=== PATIENT | female | born 1990 | race Caucasian/White ===

== ENCOUNTER 2023-05-15 14:02 | Outpatient (OUT) | payer OTHER, SELFPAY ==
--- NOTE | 2023-05-15 14:07 | US_ITS ---
The [address] [address] Patient Name: SOBIA CHAUDHARI MRN: [id number] date: 1990 Sex: F Assigned Patient Location: US Current Patient Location: US Accession/Order Number: [id number] Exam Date: 05/15/2023 14:07 Report Date: 05/15/2023 15:27 At the request of: CRISTEL HILL Procedure: US OB transvaginal EXAMINATION: US OB transvaginal HISTORY: MISSED MENSES COMPARISON: No relevant comparison available. FINDINGS: GESTATIONAL SAC: Present YOLK SAC: Present POLE: Present CARDIAC: Present UTERUS: Normal size and appearance. OVARIES: Right: Normal. Left: Not seen. CERVIX: 4.3 cm in length and closed. CUL-DE-SAC: Normal. OTHER: None. AGE BY LMP: 10 weeks 0 days RACHEL BY LMP: 12/11/2023 AGE BY US CRL: 8 weeks 4 days RACHEL BY US CRL: 12/21/2023 US/US OB transvaginal IMPRESSION: 1. Uterus is retroverted placement deep within the pelvis which limits evaluation. 2. Single intrauterine . 3. The fetus is not well seen and there is a questionable adjacent structures/mass. This very well could represent normal protrusion of abdominal contents external to the abdomen between weeks 6 and 10. Follow-up is recommended. Electronically authenticated by: COMFORT SUNG Date: 05/15/2023 15:27
== END 2023-05-15 14:03 | disposition home or self-care (01) ==
LOC: US 14:04
PROVIDERS: PCP Family Medicine; Visit Provider Obstetrics & Gynecology
DX: N92.6 Irregular menstruation, unspecified (principal); Z33.1 Pregnant state, incidental
CPT/HCPCS: 76817

== ENCOUNTER 2023-06-12 13:01 | Outpatient (OUT) | payer OTHER, SELFPAY ==
[2023-06-12 15:04] LABS: BOX Test Sent Out Y
== END 2023-06-12 13:02 | disposition home or self-care (01) ==
LOC: LAB 13:02
PROVIDERS: Visit Provider Obstetrics & Gynecology
DX: Z34.80 Encounter for supervision of other normal pregnancy, unspecified trimester (principal)
CPT/HCPCS: 36415

== ENCOUNTER 2023-07-14 21:43 | Outpatient (REF) | payer OTHER, SELFPAY ==
[2023-07-18 00:07] LABS: Age Gdln ACOG Testing Note (.); HPV Aptima Negative (Negative); IGP, Aptima HPV, rfx 16/18,45 Note (.)
== END 2023-07-14 21:44 | disposition home or self-care (01) ==
LOC: LAB 21:43
PROVIDERS: Visit Provider Physician Assistant
DX: Z01.419 Encounter for gynecological examination (general) (routine) without abnormal findings (principal)
CPT/HCPCS: 87624; G0145

== ENCOUNTER 2023-08-09 11:16 | Outpatient (OUT) | payer OTHER, SELFPAY ==
--- NOTE | 2023-08-09 | US_ITS ---
[address] [address] Patient Name: SOBIA CHAUDHARI MRN: [id number] date: 1990 Sex: F Assigned Patient Location: US Current Patient Location: Accession/Order Number: [id number] Exam Date: 08/09/2023 11:18 Report Date: 08/10/2023 00:44 At the request of: CRISTEL HILL Procedure: US OB anatomy EXAMINATION: US OB anatomy, US OB transvaginal HISTORY: SECOND TRIMESTER Z 34.92 COMPARISON: No relevant comparison available. TECHNIQUE: Transabdominal sonographic examination was performed for obstetrical and evaluation. FINDINGS: Number: 1 Heart Rate: 139.9 bpm H.B. /min Amniotic Fluid Volume: Subjectively normal Placental Location: Anterior-fundal; lower margin is 4.8 cm from internal os. Cervix Length: 5 cm , closed. ANATOMY: Normal Structures -cerebellum, choroid plexus, cisterna magna, lateral cerebral ventricles, orbits, midline falx, hard palate, four-chamber heart, RVOT, LVOT, stomach, kidneys, bladder, umbilical cord insertion into abdomen, three-vessel cord, cervical spine, thoracic spine, lumbar spine, sacral spine, right upper extremity, left upper extremity, right lower extremity, left lower extremity. SUBOPTIMALLY SEEN: None ABNORMALITIES: None BIOMETRY: BPD: 5.2 cm 21 weeks 5 days HC: 19.3 cm 21 weeks 3 days AC: 15.7 cm 20 weeks 6 days FL: 3.6 cm 21 weeks 3 days EFW:406.0 grams; 64% FL/AC: 22.9 FL/BPD: 69.9 HC/AC: 1.2 GESTATIONAL AGE: Age by EDC: 20 weeks 6 days RACHEL by EDC: 12/21/2023 Age by current US: 21 weeks 3 days RACHEL by current US: 12/17/2023 US/US OB anatomy IMPRESSION: 1. Single live intrauterine with growth detailed above. Electronically authenticated by: COMFORT SUNG Date: 08/10/2023 00:44
--- NOTE | 2023-08-09 | US_ITS ---
[address] [address] Patient Name: SOBIA CHAUDHARI MRN: [id number] date: 1990 Sex: F Assigned Patient Location: US Current Patient Location: Accession/Order Number: [id number] Exam Date: 08/09/2023 11:18 Report Date: 08/10/2023 00:44 At the request of: CRISTEL HILL Procedure: US OB transvaginal EXAMINATION: US OB anatomy, US OB transvaginal HISTORY: SECOND TRIMESTER Z 34.92 COMPARISON: No relevant comparison available. TECHNIQUE: Transabdominal sonographic examination was performed for obstetrical and evaluation. FINDINGS: Number: 1 Heart Rate: 139.9 bpm H.B. /min Amniotic Fluid Volume: Subjectively normal Placental Location: Anterior-fundal; lower margin is 4.8 cm from internal os. Cervix Length: 5 cm , closed. ANATOMY: Normal Structures -cerebellum, choroid plexus, cisterna magna, lateral cerebral ventricles, orbits, midline falx, hard palate, four-chamber heart, RVOT, LVOT, stomach, kidneys, bladder, umbilical cord insertion into abdomen, three-vessel cord, cervical spine, thoracic spine, lumbar spine, sacral spine, right upper extremity, left upper extremity, right lower extremity, left lower extremity. SUBOPTIMALLY SEEN: None ABNORMALITIES: None BIOMETRY: BPD: 5.2 cm 21 weeks 5 days HC: 19.3 cm 21 weeks 3 days AC: 15.7 cm 20 weeks 6 days FL: 3.6 cm 21 weeks 3 days EFW:406.0 grams; 64% FL/AC: 22.9 FL/BPD: 69.9 HC/AC: 1.2 GESTATIONAL AGE: Age by EDC: 20 weeks 6 days RACHEL by EDC: 12/21/2023 Age by current US: 21 weeks 3 days RACHEL by current US: 12/17/2023 US/US OB transvaginal IMPRESSION: 1. Single live intrauterine with growth detailed above. Electronically authenticated by: COMFORT SUNG Date: 08/10/2023 00:44
--- OUTSIDE RECORDS SUMMARY | 2023-08-09 11:17 | XMS_ITS | CCD ---
Author Name Unknown Address [address] [place] [address] Organization [facility] Care Team Providers Care Immunohematologist Name Role Phone HAIDER, DR COLBERT Admitting Unavailable HAIDER, DR COLBERT Attending Unavailable HAIDER, DR COLBERT Primary Care Unavailable HAIDER, DR COLBERT Consulting Unavailable LIZ, DR FAM Admitting Unavailable LIZ, DR FAM Attending Unavailable HAIDER, DR COLBERT Primary Care Unavailable LIZ, DR FAM Consulting Unavailable BASHIR ORTIZ Attending Unavailable Allergies Allergy Classification Reported Allergen(s) Allergy Type Date of Onset Reaction(s) Facility (1 source) Penicillins Drug allergy (disorder) 05-26-2013 [facility] (1 source) traMADol Drug Allergy 05-18-2016 [facility] Problems Active Problems Problem Classification Problem Date Documented Date Episodic/Chronic Immunizations and screening for infectious disease (1 source) Encounter for screening for human papillomavirus (HPV); Translations: [ENC SCREENING HUMAN PAPILLOMAVIRUS] Onset: 03-07-2022 Episodic Other screening for suspected conditions (not mental disorders or infectious disease) (4 sources) Encounter for screening for malignant neoplasm of cervix; Translations: [ENC SCREENING MALIG NEOPLASM CERV] Onset: 03-06-2022 Episodic Unclassified (3 sources) CONTACT W/AND (SUSP) EXPOS COVID-19; Translations: [CONTACT W/AND (SUSP) EXPOS COVID-19] Onset: 07-28-2021 Past or Other Problems Problem Classification Problem Date Documented Da te Episodic/Chronic Unclassified (1 source) CONTACT W/AND (SUSP) EXPOS COVID-19; Translations: [CONTACT W/AND (SUSP) EXPOS COVID-19] Onset: 07-24-2021 Viral infection (1 source) Viral infection, unspecified; Translations: [VIRAL INFECTION UNSPECIFIED] Onset: 07-28-2021 Episodic Results Test Name Value Interpretation Reference Range Facil ity PAP ACOG PANEL 2: 30 to 65on 03-12-2022 . . Normal [facility] Comment on above: Result Comment: Performed at: WB Performed By: #### [id number] #### [facility] [address] [place] [address] Dr. Michelle Gunderson Age Gdln ACOG Testing 30-65 Normal [facility] Comment on above: Performed By: #### [id number] #### [facility] [address] [address] [address] Michelle Gunderson DIAGNOSIS: Comment Normal [facility] Comment on above: Result Comment: NEGATIVE FOR INTRAEPITHE LIAL LESION OR MALIGNANCY. Performed at: WB Performed By: #### [id number] #### [facility] [address] [place] [address] Dr. Michelle Gunderson HPV Aptima Negative Normal Negative [facility] Comment on above: Result Comment: This nucleic acid amplif ication test detects fourteen high-risk HPV types (16,18,31,33,35,39,45,51,52,56,58,59,66,68) without differentiation. Performed at: =G Performed By: #### [id number] #### [facility] [address] [place] [address] Dr. Michelle Gunderson Methodology: CTIM [facility] Comment on above: Result Comment: The Thin Prep(R) Pediatric Acute Care Unit Nurse was unable to read this specimen. Therefore a manual review was performed. Performed at: WB Performed By: #### [id number] #### [facility] [address] [place] [address] Dr. Michelle Gunderson Note: Comment Normal [facility] Comment on above: Result Comment: The Pap smear is a scree jennifer test designed to aid in the detection of premalignant and malignant conditions of the uterine cervix. It is not a diagnostic procedure and should not be used as the sole means of detecting cervical cancer. Both false-positive and false-negative reports do occur. . Performed at: WB Performed By: #### [id number] #### [facility] [address] [place] [address] Dr. Michelle Gunderson Performed by: Comment Normal [facility] Comment on above: Result Comment: Leopoldo Lee, Cytotech nologist (ASCP) Performed at: WB Performed By: #### [id number] #### [facility] [address] [address] [address] Michelle Gunderson Specimen adequacy: Comment Normal [facility] Comment on above: Result Comment: Satisfactory for evaluat ion. Endocervical and/or squamous metaplastic cells (endocervical component) are present. Partially obscuring thick areas are present. Performed at: WB Performed By: #### [id number] #### [facility] [address] [address] [address] Michelle Gunderson Covid-19 PCR ([facility])on SARS-CoV-2 (COVID-19) RNA JOSE MIGUEL+probe Ql (Unsp spec) Not detected Normal NOT DETECTED [facility] Comment on above: Result Comment: This test is not yet pilar roved or cleared by the [place] FDA. When there are no FDA-approved or cleared tests available, and other criteria are met, FDA can make tests available under an emergency access mechanism called an Emergency Use Authorization (EUA). The EUA for this test is supported by the [employer] of Health and Human Service's (HHS's) declaration that circumstances exist to justify the emergency use of in vitro diagnostics for the detection and/or diagnosis of the virus that causes COVID-19. This EUA will remain in effect (meaning this test can be used) for the duration of the COVID-19 declaration justifying emergency of IVDs, unless it is terminated or revoked by FDA (after which the test may no longer be used). When diagnostic testing is negative, the possibility of a false negative should be considered in the context of a patient's recent exposures and the presence of clinical signs and symptoms consistent with SARS-CoV-2. Performed By: #### C VDTB #### [facility] [address] [place] [address] Dr. Michelle Gunderson Encounters Encounter Date Encounter Type Care Provider Facility Start: 07-14-2023 End: 07-14-2023 ambulatory BASHIR ORTIZ Not Available Start: 03-06-2022 End: 03-06-[address] CRISTEL HILL Facility:[facility] Start: 07-24-2021 End: 07-24-[address] SAYRA MALONEY Facility:[facility] Payers Date Payer Category Payer Unknown [id number] 1990 Unknown [id number] 1990 Unknown [id number] 1958 Unknown [id number] Summary Purpose Family History No Family History Records FoundNo Family History Records Found Advance Directives No Advanced Directives Records FoundNo Advanced Directives Records Found Additional Source Comments INFORMATION SOURCE (unrecogn ized section and content) DATE CREATED AUTHOR 03/12/2022 [facility] DATE CREATED AUTHOR AUTHOR'S NADIR PANTOJA 07/15/2023 [facility] Specialists EPIC FOR RECORDS PERTAINING TO PATIENTS WHO ARE OR HAVE BEEN ENROLLED IN A CHEMICAL DEPENDENCY/SUBSTANCEABUSE PROGRAM, SOME INFORMATION MAY BE OMITTED. This clinical summary was aggregated from multiple sources. Caution should be exercised in using it in the provision of clinical care. This summary normalizes information from multiple sources, and as a consequence, information in this document may materially change the coding, format and clinical context of patient data. In addition, data may be omitted in some cases. CLINICAL DECISIONS SHOULD BE BASED ON THE PRIMARY CLINICAL RECORDS. [facility] [employer] provides no warranty or guarantee of the accuracy or completeness of information in this document.
== END 2023-08-09 11:17 | disposition home or self-care (01) ==
LOC: US 11:16
PROVIDERS: Visit Provider Obstetrics & Gynecology
DX: Z34.92 Encounter for supervision of normal pregnancy, unspecified, second trimester (principal); Z3A.20 20 weeks gestation of pregnancy
CPT/HCPCS: 76805; 76817

== ENCOUNTER 2023-09-29 15:01 | Outpatient (OUT) | payer OTHER, SELFPAY ==
--- NOTE | 2023-09-29 15:03 | US_ITS ---
[address] [address] Patient Name: SOBIA CHAUDHARI MRN: [id number] date: 1990 Sex: F Assigned Patient Location: [facility] Current Patient Location: [facility] Accession/Order Number: [id number] Exam Date: 09/29/2023 15:04 Report Date: 09/29/2023 16:16 At the request of: CRISTEL HILL Procedure: US OB growth EXAMINATION: US OB growth HISTORY: CHRONIC HYPERTNESION COMPARISON: No relevant comparison available. FINDINGS: Heart Rate: 146.0 bpm Amniotic Fluid Volume: 16.9 cm Number: 1.0 Position: Cephalic presentation, longitudinal lie Maximum Vertical Pocket: 3.4 cm cm 4.7 cm cm 3.4 cm cm 5.3 cm cm BIOMETRY: BPD: 7.3 cm cm; 29 weeks 1 days; 71% HC: 26.3 cmcm; 28 weeks 5 days , 34% AC: 24.7 cm cm; 28 weeks 6 days, 66% FL: 5.5 cm cm; 29 weeks 0 days; 61.3 % % EFW: 1306.5 grams, 2 lbs. 14 oz., 60% FL/AC: 22.3 FL/BPD: 75.8 HC/AC: 1.1 GESTATIONAL AGE: Age by EDC: 28 weeks 1 days RACHEL by EDC: 12/21/2023 Age by US: 29 weeks 0 days RACHEL by US: 12/15/2023 US/US OB growth IMPRESSION: Normal interval growth Electronically authenticated by: ALESIA JOHNSON Date: 09/29/2023 16:16
== END 2023-09-29 15:02 | disposition home or self-care (01) ==
LOC: NOMS 15:02
PROVIDERS: Visit Provider Obstetrics & Gynecology
DX: O35.BXX0 Maternal care for other (suspected) fetal abnormality and damage, fetal cardiac anomalies, not applicable or unspecified (principal); Z3A.28 28 weeks gestation of pregnancy
CPT/HCPCS: 76816

== ENCOUNTER 2023-10-27 14:56 | Outpatient (OUT) | payer OTHER, SELFPAY ==
--- NOTE | 2023-10-27 14:58 | US_ITS ---
[address] [address] Patient Name: SOBIA CHAUDHARI MRN: [facility]:[id number] date: 1990 Sex: F Assigned Patient Location: [facility] Current Patient Location: [facility] Accession/Order Number: [id number] Exam Date: 10/27/2023 15:00 Report Date: 10/27/2023 15:31 At the request of: CRISTEL HILL Procedure: US OB growth EXAMINATION: US OB growth HISTORY: Chronic hypertension affecting O10.919 COMPARISON: No relevant comparison available. FINDINGS: Heart Rate: 133.0 bpm Amniotic Fluid Volume: 15.7 cm Number: 1.0 Position: Cephalic presentation, longitudinal lie Maximum Vertical Pocket: 8.0 cm cm 2.6 cm cm 3.4 cm cm 1.9 cm cm BIOMETRY: BPD: 8.1 cm cm; 32 weeks 2 days; 47% HC: 30.0 cmcm; 33 weeks 2 days , 44% AC: 27.5 cm cm; 31 weeks 4 days, 31% FL: 6.2 cm cm; 32 weeks 2 days; 39.2 % % EFW: 1880.3 grams, 4 lbs. 2 oz., 34% FL/AC: 22.6 FL/BPD: 77.3 HC/AC: 1.1 GESTATIONAL AGE: Age by EDC: 32 weeks 1 days RACHEL by EDC: 12/21/2023 Age by US: 32 weeks 0 days RACHEL by US: 12/22/2023 US/US OB growth IMPRESSION: Normal interval growth Electronically authenticated by: ALESIA JOHNSON Date: 10/27/2023 15:31
== END 2023-10-27 14:57 | disposition home or self-care (01) ==
LOC: NOMS 14:56
PROVIDERS: Visit Provider Obstetrics & Gynecology
DX: O10.919 Unspecified pre-existing hypertension complicating pregnancy, unspecified trimester (principal); Z3A.32 32 weeks gestation of pregnancy
CPT/HCPCS: 76816

== ENCOUNTER 2023-10-31 07:30 | Outpatient (OUT) | payer OTHER, SELFPAY ==
--- OUTSIDE RECORDS SUMMARY | 2023-10-31 07:34 | XMS_ITS | CCD ---
Author Name Unknown Address [address] [place] [address] Organization [facility] Care Team Providers Care Recreational Counselor Name Role Phone HAIDER, DR COLBERT Admitting Unavailable HAIDER, DR COLBERT Attending Unavailable HAIDER, DR COLBERT Primary Care Unavailable HAIDER, DR COLBERT Consulting Unavailable LIZ, DR AFM Admitting Unavailable LIZ, DR FAM Attending Unavailable HAIDER, DR COLBERT Primary Care Unavailable LIZ, DR FAM Consulting Unavailable Chris Maloney DO Primary Care Provider [phone] JAKOB HERNANDEZ Attending Unavaila DEDRA Howell Referring Unavailable DEDRA MAGUIRE Primary Care Unavailable JAKOB HERNANDEZ Referring Unavaila DEDRA Howell Primary Care Unavailable Gigi MARKETING SECRETARY-CLEAN RICE GRADER AND REEL TENDERDedra Primary Care Provider CRISTEL MEDINA Attending Unavailable CRISTEL MEDINA Attending Unavailable JAZLYN ORTIZ Attending Unavailable JAZLYN ORTIZ Attending Unavailable CRISTEL MEDINA Attending Unavailable CRISTEL MEDINA Attending Unavailable Allergies Allergy Classification Reported Allergen(s) Allergy Type Date of Onset Reaction(s) Facility (2 sources) Penicillins; Translations: [PENICILLINS] Drug allergy (disorder) 3 [facility] Repository (1 source) traMADol Drug Allergy 6 [facility] (5 sources) Gentamicin; Translations: [GENTAMICIN] Drug Allergy 2 Other, Other (See Comments), Eye Swelling [facility] (2 sources) Penicillins Drug Allergy 3 Hives [facility] (4 sources) Sulfonamides (Antibiotic) Drug Allergy 2 Itching, Rash, Swelling [facility] (2 sources) traMADol Drug Allergy 3 Anxiety [facility] (1 source) Sulfonamides (Antibiotic); Translations: [SULFA (SULFONAMIDE ANTIBIOTICS)] Propensity to adverse reactions to drug (disorder) 3 [facility] Repository (3 sources) traMADol; Translations: [TRAMADOL HCL] Drug Allergy 7 Anxiety [facility] Rep[facility] (2 sources) Penicillins Propensity to adverse reactions to drug 7 Hives [facility] Medications Current Medications Medication Drug Class(es) Dates Sig (Normalized) Sig (Original) Blood Glucose Monitoring Suppl (True Metrix Go Glucose Meter) w/Device kit (2 sources) Start: 06-10-2023 Blood Glucose Monitoring Suppl (True Metrix Go Glucose Meter) w/Device kit Indications: Family history of gestational diabetes mellitus (GDM) 1 each in the morning and 1 each before bedtime. 1 kit 0 06/10/2023 Active PNV cmb#95-ferrous fumarate-FA () 28 mg iron- 800 mcg tablet (2 sources) take 1 tablet by mouth once daily PNV cmb#95-ferrous fumarate-FA () 28 mg iron- 800 mcg tablet Take 1 tablet by mouth once daily. 0 Active 28-0.8 MG tablet (2 sources) 28-0.8 MG tablet Orally 0 Active Completed/Discontinued Medications Medication Drug Class(es) Dates Sig (Normalized) Sig (Original) aspirin 81 mg delayed release oral tablet (3 sources) Platelet Aggregation Inhibitor, Nonsteroidal Anti-inflammatory Drug End: 10-08-2023 take 1 tablet by mouth in the morning aspirin 81 mg Take 1 tablet (81 mg total) by mouth in the morning. 0 10/08/2023 Discontinued fluticasone propionate 0.05 mg/actuat metered dose nasal spray (1 source) Corticosteroid Start: 06-19-2021 End: 10-08-2023 take 1 spray(s) nasal route once daily fluticasone propionate (FLONASE) 50 mcg/actuation nasal spray Indications: Nasal congestion Administer 1 spray into each nostril daily. 15.8 mL 0 06/19/2021 10/08/2023 Discontinued Problems Active Problems Problem Classification Problem Date Documented Date Episodic/Chronic Adjustment disorders (2 sources) Mixed anxiety and depressive disorder; Translations: [Adjustment disorder with mixed anxiety and depressed mood] Onset: 01-23-2022 01-23-2022 Chronic Diabetes or abnormal glucose tolerance complicating ; childbirth; or the puerperium (5 sources) Gestational diabetes mellitus; Translations: [Gestational diabetes mellitus in , unspecified control] Onset: 09-05-2023 09-29-2023 Episodic Hypertension complicating ; childbirth and the puerperium (3 sources) Chronic hypertension complicating AND/OR reason for care during ; Translations: [Unspecified pre-existing hypertension complicating , unspecified trimester] Onset: 09-05-2023 09-05-2023 Chronic Immunizations and screening for infectious disease (1 source) Encounter for screening for human papillomavirus (HPV); Translations: [ENC SCREENING HUMAN PAPILLOMAVIRUS] Onset: 03-07-2022 Episodic Other complications of ; puerperium affecting management of mother (2 sources) Abnormality of heart; Translations: [ ventricular septal defect affecting antepartum care of mother, single or unspecified fetus] 10-01-2023 Episodic Other congenital anomalies (2 sources) Follicular keratosis; Translations: [Other specified congenital malformations of skin] Onset: 01-23-2022 01-23-2022 Chronic Other endocrine disorders (2 sources) Polycystic ovary syndrome; Translations: [Polycystic ovarian syndrome] Onset: 01-23-2022 01-23-2022 Chronic Other and delivery including normal (4 sources) Third trimester ; Translations: [Encounter for supervision of normal , unspecified, third trimester] Onset: 09-05-2023 09-22-2023 Episodic Other screening for suspected conditions (not mental disorders or infectious disease) (4 sources) Encounter for screening for malignant neoplasm of cervix; Translations: [ENC SCREENING MALIG NEOPLASM CERV] Onset: 03-06-2022 Episodic Residual codes; unclassified (1 source) Generally unwell; Translations: [Other general symptoms and signs] 10-13-2023 Episodic Unclassified (3 sources) CONTACT W/AND (SUSP) EXPOS COVID-19; Translations: [CONTACT W/AND (SUSP) EXPOS COVID-19] Onset: 07-28-2021 Unclassified (1 source) Maternal care for other (suspected) abnormality and damage, cardiac anomalies, not applicable or unspecified; Translations: [Maternal care for other (suspected) abnormality and damage, cardiac anomalies, not applicable or unspecified] Onset: 10-07-2023 Unclassified (1 source) observation of VSD Onset: 10-07-2023 Past or Other Problems Problem Classification Problem Date Documented Da te Episodic/Chronic Mood disorders (2 sources) Mood disorders Onset: 05-08-2023 Resolved: 10-13-2023 05-08-2023 Other and unspecified benign neoplasm (2 sources) Fibroadenoma of left breast; Translations: [Benign neoplasm of left breast] Onset: 01-23-2022 01-23-2022 Episodic Unclassified (1 source) CONTACT W/AND (SUSP) EXPOS COVID-19; Translations: [CONTACT W/AND (SUSP) EXPOS COVID-19] Onset: 07-24-2021 Viral infection (1 source) Viral infection, unspecified; Translations: [VIRAL INFECTION UNSPECIFIED] Onset: 07-28-2021 Episodic Results Test Name Value Interpretation Reference Range Facility POCT Influenza A/Influenza B /SARS-COV-2 [facility] 10-13-2023 External Poct Influenza A Antigen Negative [facility] External Poct Influenza B Antigen Negative [facility] SARS-CoV-2 (COVID-19) Ag IA.rapid Ql (Resp) Negative [facility] Urinalysis macro (dipstick) panel (U)Ordered By: Estefania Posadas on 09-29-2023 Bilirubin, UA Negative Negative - 4(70) +++ mg/dL [facility] Work Phone: Blood, UA Negative Negative - 50 Galen/mcL [facility] Work Phone: Clarity, UA Clear [facility] Work [facility]: Color, UA Yellow [facility] Work Phone: Glucose, UA Negative Negative - 2000(110) ++++ mg/dL [facility] Work Phone: Interpretation and review of laboratory results Abnormal [facility] Work Phone: Ketones, UA Negative Negative - 160(16) ++++ mg/dL [facility] Work Phone: Leukocytes, UA Trace Negative - 500+++ Bean/mcL [facility] Work Phone: Nitrite, UA Negative Negative - Positive [facility] [employer] Work Phone: pH, UA 7.0 5 - 9 [facility] [employer] Work Phone: Protein, UA Negative Negative - 2000(20) ++++ mg/dL [facility] [employer] Work Phone: Spec Grav, UA 1.015 1 - 1.03 [facility] [employer] [facility] Work Phone: Urobilinogen, UA 0.2 0.2 - 12 mg/dL [facility] [employer] Work Phone: [facility] [employer] Work Phone: PAP ACOG PANEL 2: 30 to 65on 03-12-2022 . . Normal [facility] Comment on above: Result Comment: Perf ormed at: WB Performed By: #### [id number] #### [facility] [address] [address] [address] Michelle Gunderson Age Gdln ACOG Testing 30-65 Normal [facility] Comment on above: Performed By: #### [id number] #### [facility] [address] [place] [address] Dr. Michelle Gunderson DIAGNOSIS: Comment Normal [facility] Comment on above: Result Comment: NEGA TIVE FOR INTRAEPITHELIAL LESION OR MALIGNANCY. Performed at: WB Performed By: #### [id number] #### [facility] [address] [address] [address] Michelle Gunderson HPV Aptima Negative Normal Negative [facility] Comment on above: Result Comment: This nucleic acid amplification test detects fourteen high-risk HPV types (16,18,31,33,35,39,45,51,52,56,58,59,66,68) without differentiation. Performed at: =G Performed By: #### [id number] #### [facility] [address] [address] [address] Michelle Gunderson Methodology: CTIM Normal [facility] Comment on above: Result Comment: The Thin Prep(R) Beck Tender was unable to read this specimen. Therefore a manual review was performed. Performed at: WB Performed By: #### [id number] #### [facility] [address] [place] [address] Dr. Michelle Gunderson Note: Comment Normal [facility] Comment on above: Result Comment: The Pap smear is a screening test designed to aid in the detection of premalignant and malignant conditions of the uterine cervix. It is not a diagnostic procedure and should not be used as the sole means of detecting cervical cancer. Both false-positive and false-negative reports do occur. . Performed at: WB Performed By: #### [id number] #### [facility] [address] [place] [address] Dr. Michelle Gunderson Performed by: Comment Normal [facility] Comment on above: Result Comment: Archana Lee, Supervisor Gluing (ASCP) Performed at: WB Performed By: #### [id number] #### [facility] [address] [place] [address] Dr. Michelle Gunderson Specimen adequacy: Comment Normal [facility] Comment on above: Result Comment: Sati sfactory for evaluation. Endocervical and/or squamous metaplastic cells (endocervical component) are present. Partially obscuring thick areas are present. Performed at: WB Performed By: #### [id number] #### [facility] [address] [place] [address] Dr. Michelle Gunderson [facility]on SARS-CoV-2 (COVID-19) RNA JOSE MIGUEL+probe Ql (Unsp spec) Not detected Normal NOT DETECTED [facility] Comment on above: Result Comment: This test is not yet approved or cleared by the [place] FDA. When there are no FDA-approved or cleared tests available, and other criteria are met, FDA can make tests available under an emergency access mechanism called an Emergency Use Authorization (EUA). The EUA for this test is supported by the [place] of Health and Human Service's (HHS's) declaration [...] consistent with SARS-CoV-2. Performed By: #### C [facility] #### [facility] [address] [place] [address] Dr. Michelle Gunderson Vital Signs Date Time Vital Sign Value Performing Clinician Facility 10-13-2023 10:44-0500 Body height 157.5 cm Alessia Marlon MARKETING SECRETARY-CLEAN [employer]ICE [employer]ER AND REEL TENDER Work Phone: [facility] 10-13-2023 10:44-0500 Body mass index (BMI) [Ratio] 27.9 kg/m2 Alessia ScottJohnson MARKETING SECRETARY-CLEAN [employer]ER AND REEL TENDER Work Phone: [facility] 10-13-2023 10:44-0500 Body temperature 97.7 [degF] Alessiagirish Mason MARKETING SECRETARY-CLEAN [employer] AND [employer]EL TENDER Work Phone: [facility] 10-13-2023 10:44-0500 Body weight 69.22 kg Alessia Mason MARKETING SECRETARY-CLEAN [employer] AND [employer]EL TENDER Work Phone: [facility] 10-13-2023 10:44-0500 Diastolic blood pressure 78 mm[Hg] Alessia Mason MARKETING SECRETARY-CLEAN [employer] AND [employer]EL TENDER Work Phone: [facility] 10-13-2023 10:44-0500 Heart rate 86 /min Alessiagirish Mason MARKETING SECRETARY-CLEAN [employer] AND [employer]EL TENDER Work Phone: [facility] 10-13-2023 10:44-0500 Respiratory rate 18 /min Alessia ScottJohnson MARKETING SECRETARY-CLE[employer] TENDER Work Phone: [facility] 10-13-2023 10:44-0500 SaO2% (BldA) [Mass fraction] 98 % Alessia JooDavonElizabeth MARKETING SECRETARY-CLEAN [employer]ER AND REEL TENDER Work Phone: [facility] 10-13-2023 10:44-0500 Systolic blood pressure 113 mm[Hg] Alessia Marlon SETHI Work Phone: [facility] 10-07-2023 09:29-0500 Body height 157.5 cm Jakob Hernandez MD Work Phone: [facility] 10-07-2023 09:29-0500 Body mass index (BMI) [Ratio] 28.78 kg/m2 Jakob Hernandez MD Work Phone: [facility] 10-07-2023 09:29-0500 Body weight 71.4 kg Jakob Hernandez MD Work Phone: [facility] 10-07-2023 09:29-0500 Diastolic blood pressure 73 mm[Hg] Jakob Hernandez MD Work Phone: [facility] 10-07-2023 09:29-0500 Heart rate 95 /min Jakob Hernandez MD Work Phone: [facility] 10-07-2023 09:29-0500 SaO2% (BldA) [Mass fraction] 100 % Jakob Hernandez MD Work Phone: [facility] 10-07-2023 09:29-0500 Systolic blood pressure 124 mm[Hg] Jakob Hernandez MD Work Phone: [facility] 09-29-2023 16:19-0500 Body mass index (BMI) [Ratio] 29.04 kg/m2 Jazlyn MCDUFFIE Work Phone: [facility] 09-29-2023 16:19-0500 Body weight 72.03 kg Jazyln MCDUFFIE Work Phone: [facility] 09-29-2023 16:19-0500 Diastolic blood pressure 70 mm[Hg] Jazlyn MCDUFFIE Work Phone: [facility] 09-29-2023 16:19-0500 Systolic blood pressure 120 mm[Hg] Jazlyn MCDUFFIE Work Phone: [facility] Encounters Encounter Date Encounter Type Care Provider Facility Start: 10-27-2023 End: 10-27-2023 ambulatory CRISTEL MEDINA Not Available Start: 10-15-2023 End: 10-15-2023 ambulatory CRISTEL MEDINA Not Available Start: 10-13-2023 End: 10-13-2023 Office outpatient visit 15 minutes Alessia Mason MARKETING SECRETARY-CLEAN [employer]AD[employer] AND REEL TENDER Work Phone: [facility] Comment on above: General ill feeling (Primary Dx) Start: 10-07-2023 End: 10-08-2023 ambulatory JAKOB HERNANDEZ [facility] Start: 10-07-2023 End: 10-07-2023 Office consultation new/estab patient 80 min Jakob Hernandez MD Work Phone: [facility] Comment on above: ventricular se ptal defect affecting antepartum care of mother, single or unspecified fetus (Primary Dx); ventricular septal defect in , antepartum, single gestation Start: 09-29-2023 End: 09-29-2023 ambulatory JAZLYN ORTIZ Not Available Start: 09-29-2023 End: 09-29-2023 flow sheet Jazlyn MCDUFFIE Work Phone: [facility] Comment on above: Third trimester preg nj; Gestational diabetes mellitus (GDM) in third trimester, gestational diabetes method of control unspecified Start: 09-01-2023 End: 09-01-2023 ambulatory CRISTEL MEDINA Not Available Start: 08-12-2023 End: 08-12-2023 ambulatory CRISTEL MEDINA Not Available Start: 07-14-2023 End: 07-14-2023 ambulatory JAZLYN ORTIZ Not Available Start: 03-06-2022 End: 03-06-[address] CRISTEL MEDINA Facility:[facility] Start: 07-24-2021 End: 07-24-[address] CHRIS MALONEY Facility:[facility] Procedures Date Procedure Procedure Detail Performing Clinician Start: 10-13-2023 POCT INFLUENZA A/INFLUENZA B/SARS-COV-2 VERITOR Alessia Mason MARKETING SECRETARY-CLEAN [employer] GRADER AND REEL TENDER Work Phone: Start: 10-13-2023 Adult depression screening assessment Alessia Mason MARKETING SECRETARY-CLE[employer] AND [employer] TENDER Work Phone: Start: 09-29-2023 Urnls dip stick/tabl et rgnt non-auto w/o micrscp Jazlyn MCDUFFIE Work Phone: Start: 05-08-2023 Adult depression screening assessment Jakob Hernandez MD Work Phone: Plan of Treatment Date Care Activity Detail Author Start: 09-07-2030 DTaP,Tdap and Td Vaccines (2 - Tdap) DTaP,Tdap and Td Vaccines (2 - Tdap) [facility] Start: 10-13-2024 Adult BMI Screening Adult BMI Screen ing [facility] Start: 10-13-2024 Depression Screening Depression Scre ening [facility] Start: 10-13-2024 Tobacco Screening Tobacco Screening [facility] Start: 10-07-2024 Adult BMI Screening Adult BMI Screen ing [facility] Start: 10-07-2024 Tobacco Screening Tobacco Screening [facility] Start: 05-08-2024 Depression Screening Depression Scre ening [facility] Start: 11-25-2023 Screening for malign ant neoplasm of cervix [facility] Start: 10-27-2023 End: 10-27-2023 Patient encounter procedure 10/27/2023 3:40 PM EDT Routine [facility] [address] [place] [address] Cristel Medina, DO [address] [place] [address] [facility] Start: 10-27-2023 End: 10-27-2023 Professional / ancillary services management 10/27/2023 3:00 PM EDT Ancillary Procedure [facility] [address] [place] [address] [facility] Start: 10-15-2023 End: 10-15-2023 Patient encounter procedure 10/15/2023 3:00 PM EST Routine [facility] [address] [place] [address] Cristel Medina, DO [address] [place] [address] [place] [address] [facility] Start: 10-07-2023 End: 09-30-2024 [facility] 2D [facility] Work Phone: Comment on above: Expected: 10/07/2023 (Approximate), Expires: 09/30/2024 Start: 09-29-2023 End: 09-29-2024 US biophysical profile w non stress test US biophysical profile w non stress test Imaging Routine Gestational diabetes mellitus (GDM) in third trimester, gestational diabetes method of control unspecified Expected: 09/29/2023 (Approximate), Expires: 09/29/2024 [facility] Work Phone: Comment on above: Expected: 09/29/2023 (Approximate), Expires: 09/29/2024 Start: 04-18-2023 Influenza vaccination [facility] Start: 2012 Screening for malign ant neoplasm of cervix Pap Smear [facility] Start: 2009 Adult BMI Follow Up Plan Adult BMI Follow Up Plan [facility] Immunizations Immunization Date Immunization Notes Care Provider angelica 05-29-2021 influenza, injectabl e, quadrivalent, preservative free Jakob Hernandez MD Work Phone: [facility] 05-29-2021 influenza virus vaccine, unspecified formulation Jazlyn MCDUFFIE Work Phone: [facility] 09-07-2020 diphtheria, tetanus toxoids and pertussis vaccine Jakob Hernandez MD Work Phone: [facility] 06-07-2020 influenza, injectabl e, quadrivalent, preservative free Jakob Hernandez MD Work Phone: [facility] 06-02-2019 influenza, injectabl e, quadrivalent, preservative free Jakob Hernandez MD Work Phone: [facility] 06-03-2018 influenza, injectabl e, quadrivalent, preservative free Jakob Hernandez MD Work Phone: [facility] Payers Date Payer Category Payer Unknown [id number] 1991 Unknown [id number] [id number] 1991 Unknown [id number] 2.16.84 [id number] 1991 Unknown [id number] 2.16.8 [id number] 1991 Unknown [id number] 2.16.8 [id number] 1991 Unknown [id number] 2.16.84 [id number] 1991 Unknown [id number] 2.16.84 [id number] 1991 Unknown [id number] 2.16.84 [id number] 1991 Unknown [id number] 2.16.84 [id number] 1991 Unknown [id number] 1991 Unknown [id number] 1959 Unknown [id number] Social History Date Type Detail Facility Start: 06-02-2023 End: 10-07-2023 Tobacco smoking status ARIS Never smoked tobacco [facility] Start: 09-29-2023 Alcohol intake Lifetime non-d venessa (finding) [facility] Start: 12-28-2021 End: 06-02-2023 History of Social function [facility] Start: 12-28-2021 End: 06-02-2023 Tobacco use panel [facility] Start: 06-02-2023 Alcohol Comment caffeine: 1-2 cups per day [employer] Drink ; coffee [facility] Start: 03-30-2023 [facility] Start: 1990 Sex Assigned At Female [facility] Start: 05-15-2023 Gender identity Identifies as female gender (finding) [facility] Start: 10-07-2023 Tobacco use and exposure Smokeless tobacco non-user [facility] Start: 10-07-2023 End: 10-13-2023 Alcohol intake Current non-drinker of alcohol (finding) [facility] Do you belong to any clubs or organizations such as baptism groups, unions, fraternal or athletic groups, or school groups? No [facility] Are you now , , , , never or living with a partner? [facility] How often to you hav e a drink containing alcohol? 2-3 time sa week [facility] How many standard drinks containing alcohol do you have on a typical day? 1 or 2 [facility] How often do you hav e 6 or more drinks on 1 occasion? Never [facility] How hard is it for y ou to pay for the very basics like food, housing, medical care, and heating Somewhat hard [facility] Adolescent depressio n screening assessment 0 [facility] Do you feel stress - tense, restless, nervous, or anxious, or unable to sleep at night because your mind is troubled all the time - these days [OSQ] To some extent [facility] Start: 12-28-2021 Education 18 [facility] Start: 1990 Sex Assigned At Not on file P [facility] NEGATED: Highlighted rowStart: NINF History of tobacco use Passive smoker [facility] Medical Equipment Procedure Code Equipment Code Equipment Origin al Text Equipment Identifier Dates Use as instructed [id number] Start: 06-10-2023 End: 06-09-2024 1 each in the morning and 1 each before bedtime. [id number] Start: 06-10-2023 History of Present illness Narrative 10-13-2023 JOSSIE Arora - 10/13/2023 10:30 AM EST Note Date & Type Note Facility 10-13-2023 History of Present illness Narrative Images from the original note were not included. 10/13/2023 [facility] SUBJECTIVE: Sobia Lucero is a 33 y.o. female who presents today for: Chief Complaint Patient presents with URI Patient symptoms started ,fever,cough,congestion OTC....tylenol Patient presents to the clinic with complaints of upper respiratory symptoms. Symptoms started 4 days ago. Patient reports fever, cough, congestion. Temp is 97.7 F in the office today. Notes nonproductive cough. Patient currently taking OTC Tylenol for fever. History reviewed. No pertinent past medical history. History reviewed. No pertinent surgical history. Social History Tobacco Use Smoking status: Never Passive exposure: Never Smokeless tobacco: Never Substance Use Topics Alcohol use: No Alcohol/week: 0.0 standard drinks of alcohol Current Outpatient Medications on File Prior to Visit Medication Sig PNV cmb#95-ferrous fumarate-FA () 28 mg iron- 800 mcg tablet Take 1 tablet by mouth once daily. No current facility-administered medications on file prior to visit. Allergies Allergen Reactions Gentamicin Other (See Comments) and Eye Swelling Red swollen crusty eyes from drops Sulfa (Sulfonamide Antibiotics) Penicillins Hives Tramadol Hcl Anxiety The following portions of the patient's history were reviewed and updated as appropriate: allergies, current medications, past family history, past medical history, past social history, past surgical history and problem list. REVIEW OF SYSTEMS: Review of Systems Constitutional: Positive for fever. Negative for chills. HENT: Positive for congestion. Negative for ear pain and sore throat. Eyes: Negative for pain and visual disturbance. Respiratory: Positive for cough. Negative for shortness of breath. Cardiovascular: Negative for chest pain and palpitations. Gastrointestinal: Negative for abdominal pain and vomiting. Genitourinary: Negative for dysuria and hematuria. Musculoskeletal: Negative for arthralgias and back pain. Skin: Negative for color change and rash. Neurological: Negative for seizures and syncope. All other systems reviewed and are negative. PHYSICAL EXAMINATION: Vitals: 10/13/23 1044 BP: 113/78 BP Site: Right Arm BP Postition: Sitting BP CUFF SIZE: M (9-13 inches) Pulse: 86 Resp: 18 Temp: 36.5 C (97.7 F) SpO2: 98% Weight: 69.2 kg (152 lb 9.6 oz) Height: 157.5 cm (5' 2.01 ) Body mass index is 27.9 kg/m . No visits with results within 1 Month(s) from this visit. Latest known visit with results is: Hospital Outpatient Visit on 07/30/2023 Component Date Value Ref Range Status AFP Single Marker Scrn, Maternal, * 07/30/2023 SEE COMMENTS 08/01/2023 02:14 PM Final Comment: NOTE Test Result Flag Unit RefValue AFP Single Marker SCRN, Maternal, S Results Summary Normal risk Neural tube defect risk estimate 1/11,000 AFP 48.7 ng/mL AFP MoM 0.87 MoM <2.50 INTERPRETATION Screen negative for neural tube defects. RECOMMENDED FOLLOW UP None. Specimen collection date 07/30/23 Maternal date of 89 Calculated age at RACHEL 33 years Maternal Weight 152 lbs Insulin dependent diabetes No Patient race non-Black Current cigarette smoking status non-Smoker RACHEL by U/S scan 12/21/19 24 GA on collection by U/S scan 19,3 wk,d GA used in risk estimate Scan estimate Number of Fetuses 1 Number of Chorions Unknown IVF No Prev w/ Neural Tube Not provided by client Defect Patient or father of baby has a Not provided by client NTD Initial or repeat testing Initial testing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 [place] [id number] PCP - General Family Medicine 10/29/21 Recreational Counselor Relationship Specialty Start Date End Date Dedra Maguire APRN-[employer] [address] [place] [address] PCP - General Family Medicine 10/29/21 FOR RECORDS PERTAINING TO PATIENTS WHO ARE [...] BE BASED ON THE PRIMARY CLINICAL RECORDS. [facility]. provides no warranty or guarantee of the accuracy or completeness of information in this document.
--- NOTE | 2023-10-31 16:57 | US_ITS ---
[address] [address] Patient Name: SOBIA CHAUHDARI MRN: [facility]:[id number] date: 1990 Sex: F Assigned Patient Location: [facility] Current Patient Location: Accession/Order Number: [id number] Exam Date: 10/31/2023 17:03 Report Date: 11/01/2023 04:13 At the request of: CRISTEL HILL Procedure: US OB BPP w non-stress EXAMINATION: US OB BPP w non-stress HISTORY: GESTATIONAL DIABETES MELLITUS O24.419 COMPARISON: Ultrasound OB growth 10/27/2023 TECHNIQUE: Ultrasound biophysical profile was performed in the radiology department. BREATHING MOVEMENTS: 2.0 GROSS BODY MOVEMENTS: 2.0 TONE: 2.0 QUALITATIVE AMNIOTIC FLUID VOLUME: 2.0 PRESENTATION: CEPHALIC HEART RATE: 145.9 bpm bpm. AMNIOTIC FLUID VOLUME: 14.4 cm GESTATIONAL AGE: 32 weeks 5 days CONCLUSION: Total biophysical profile score 8.0. Electronically authenticated by: [employer] Date: 11/01/2023 04:13
[2023-10-31 17:31] VITALS: BP 124/80; PULSE 84
--- OUTSIDE RECORDS SUMMARY | 2023-11-04 08:09 | XMS_ITS | CCD ---
Author Organization [facility] Care Team Providers Care Waste Specialist Name Role Phone HAIDER, DR COLBERT Admitting Unavailable HAIDER, DR COLBERT Attending Unavailable HAIDER, DR COLBERT Primary Care Unavailable HAIDER, DR COLBERT Consulting Unavailable LIZ, DR FAM Admitting Unavailable LIZ, DR FAM Attending Unavailable HAIDER, DR COLBERT Primary Care Unavailable LIZ, DR FAM Consulting Unavailable Chris Maloney DO Primary Care Provider JAKOB HERNANDEZ Attending Unavaila DEDRA Howell Referring Unavailable DEDRA MAGUIRE Primary Care Unavailable JAKOB HERNANDEZ Referring Unavaila DEDRA Howell Primary Care Unavailable Gigi COSMETIC SALES CONSULTANT-Dedra ROGERS Primary Care Provider CRISTEL MEDINA Attending Unavailable CRISTEL MEDINA Attending Unavailable JAZLYN ORTIZ Attending Unavailable JAZLYN ORTIZ Attending Unavailable CRISTEL MEDINA Attending Unavailable CRISTEL MEDINA Attending Unavailable Allergies Allergy Classification Reported Allergen(s) Allergy Type Date of Onset Reaction(s) Facility (2 sources) Penicillins; Translations: [PENICILLINS] Drug allergy (disorder) 3 [facility] (1 source) traMADol Drug Allergy 6 [facility] (5 sources) Gentamicin; Translations: [GENTAMICIN] Drug Allergy 2 Other, Other (See Comments), Eye Swelling [facility] (2 sources) Penicillins Drug Allergy 3 Hives [facility] (4 sources) Sulfonamides (Antibiotic) Drug Allergy 2 Itching, Rash, Swelling [facility] (2 sources) traMADol Drug Allergy 3 Anxiety [facility] (1 source) Sulfonamides (Antibiotic); Translations: [SULFA (SULFONAMIDE ANTIBIOTICS)] Propensity to adverse reactions to drug (disorder) 3 [facility] (3 sources) traMADol; Translations: [TRAMADOL HCL] Drug Allergy 7 Anxiety [facility] (2 sources) Penicillins Propensity to adverse reactions to drug 7 Hives [facility] Medications Current Medications Medication Drug [...] Range Facility POCT Influenza A/Influenza B /SARS-COV-2 [facility] 10-13-2023 External Poct Influenza A Antigen Negative [facility] External Poct Influenza B Antigen Negative [facility] SARS-CoV-2 (COVID-19) Ag IA.rapid Ql (Resp) Negative [facility] Urinalysis macro (dipstick) panel (U)Ordered By: Estefania Posadas on 09-29-2023 Bilirubin, UA Negative Negative - 4(70) +++ mg/dL [facility] Work Phone: Blood, UA Negative Negative - 50 Galen/mcL [facility] Work Phone: Clarity, UA Clear [facility] Work Phone: Color, UA Yellow [facility] Work Phone: Glucose, UA Negative Negative - 2000(110) ++++ mg/dL [facility] Work Phone: Interpretation and review of laboratory results Abnormal [facility] Work Phone: Ketones, UA Negative Negative - 160(16) ++++ mg/dL [facility] Work Phone: Leukocytes, UA Trace Negative - 500+++ Bean/mcL [facility] Work Phone: Nitrite, UA Negative Negative - Positive [facility] Work Phone: pH, UA 7.0 5 - 9 [facility] [employer] Work Phone: Protein, UA Negative Negative - 2000(20) ++++ mg/dL [facility] [employer] Work Phone: Spec Grav, UA 1.015 1 - 1.03 [facility] [employer] Work Phone: Urobilinogen, UA 0.2 0.2 - 12 mg/dL [facility] [employer] Work Phone: [facility] [employer] Work Phone: PAP ACOG PANEL 2: 30 to 65on 03-12-2022 . . Normal [facility] Comment on above: Result Comment: Perf ormed at: WB Performed By: #### [id number] #### [facility] [address] [place] [address] Dr. Michelle Gunderson Age Gdln ACOG Testing 30-65 Normal [facility] Comment on above: Performed By: #### [id number] #### [facility] [address] [address] [address] Michelle Gunderson DIAGNOSIS: Comment Normal [facility] Comment on above: Result Comment: NEGA TIVE FOR INTRAEPITHELIAL LESION OR MALIGNANCY. Performed at: WB Performed By: #### [id number] #### [facility] [address] [place] [address] Dr. Michelle Gunderson HPV Aptima Negative Normal Negative [facility] Comment on above: Result Comment: This nucleic acid amplification test detects fourteen high-risk HPV types (16,18,31,33,35,39,45,51,52,56,58,59,66,68) without differentiation. Performed at: =G Performed By: #### [id number] #### [facility] [address] [place] [address] Dr. Michelle Gunderson Methodology: CTIM [facility] Comment on above: Result Comment: The Thin Prep(R) Physicist [employer] [place] was unable to read this specimen. Therefore a manual review was performed. Performed at: WB Performed By: #### [id number] #### [facility] [address] [place] [address] Dr. Michelle Gunderson Note: Comment Normal [facility] Comment on above: Result Comment: The Pap smear is a screening test designed to aid in the detection of premalignant and malignant conditions of the uterine cervix. It is not a diagnostic procedure and should not be used as the sole means of detecting cervical cancer. Both false-positive and false-negative reports do occur. . Performed at: WB Performed By: #### [id number] #### [facility] [address] [place] [address] Dr. Michelle Gunderson Performed by: Comment Normal [facility] Comment on above: Result Comment: Archana Lee, Freight Coordinator (ASCP) Performed at: WB Performed By: #### [id number] #### [facility] [address] [place] [address] Dr. Michelle Gunderson Specimen adequacy: Comment Normal [facility] Comment on above: Result Comment: Sati sfactory for evaluation. Endocervical and/or squamous metaplastic cells (endocervical component) are present. Partially obscuring thick areas are present. Performed at: WB Performed By: #### [id number] #### [facility] [address] [place] [address] Dr. Michelle Gunderson [facility] SARS-CoV-2 (COVID-19) RNA JOSE MIGUEL+probe Ql (Unsp spec) Not detected Normal NOT DETECTED [facility] Comment on above: Result Comment: This test is not yet approved or cleared by the [place] FDA. When there are no FDA-approved or cleared tests available, and other criteria are met, FDA can make tests available under an emergency access mechanism called an Emergency Use Authorization (EUA). The EUA for this test is supported by the [place] of Health and Human Service's (HHS's) declaration [...] consistent with SARS-CoV-2. Performed By: #### C [facility] #### [facility] [address] [place] [address] Dr. Michelle Gunderson Vital Signs Date Time Vital Sign Value Performing Clinician Facility 10-13-2023 10:44-0500 Body height 157.5 cm Alessiagirish ScottJohnson COSMETIC SALES CONSULTANT-INTERNATIONAL FREIGHT FORWARDER Work Phone: [facility] 10-13-2023 10:44-0500 Body mass index (BMI) [Ratio] 27.9 kg/m2 Alessiasa Ge-Johnson COSMETIC SALES CONSULTANT-INTERNATIONAL FREIGHT FORWARDER Work Phone: [facility] 10-13-2023 10:44-0500 Body temperature 97.7 [degF] Alessiagirish Mason COSMETIC SALES CONSULTANT-INTERNATIONAL FREIGHT FORWARDER Work Phone: [facility] 10-13-2023 10:44-0500 Body weight 69.22 kg Alessia Joo-Johnson COSMETIC SALES CONSULTANT-INTERNATIONAL FREIGHT FORWARDER Work Phone: [facility] 10-13-2023 10:44-0500 Diastolic blood pressure 78 mm[Hg] Alessia Joo-Johnson COSMETIC SALES CONSULTANT-INTERNATIONAL FREIGHT FORWARDER Work Phone: [facility] 10-13-2023 10:44-0500 Heart rate 86 /min Alessia Joo-Johnson COSMETIC SALES CONSULTANT-INTERNATIONAL FREIGHT FORWARDER Work Phone: [facility] 10-13-2023 10:44-0500 Respiratory rate 18 /min Alessia Joo-Johnson COSMETIC SALES CONSULTANT-INTERNATIONAL FREIGHT FORWARDER Work Phone: [facility] 10-13-2023 10:44-0500 SaO2% (BldA) [Mass fraction] 98 % Alessiasa ScottJohnson COSMETIC SALES CONSULTANT-INTERNATIONAL FREIGHT FORWARDER Work Phone: [facility] 10-13-2023 10:44-0500 Systolic blood pressure 113 mm[Hg] Alessia Joo-Johnson COSMETIC SALES CONSULTANT-INTERNATIONAL FREIGHT FORWARDER Work Phone: [facility] 10-07-2023 09:29-0500 Body height 157.5 cm Jakob Hernandez MD Work Phone: [facility] 10-07-2023 09:29-0500 Body mass index (BMI) [Ratio] 28.78 kg/m2 Jakob Hernandez MD Work Phone: [facility] 10-07-2023 09:29-0500 Body weight 71.4 kg Jakob Hernandez MD Work Phone: [facility] 10-07-2023 09:29-0500 Diastolic blood pressure 73 mm[Hg] Jakob Hernandez MD Work Phone: [facility] 10-07-2023 09:29-0500 Heart rate 95 /min Jakob Hernandez MD Work Phone: [facility] 10-07-2023 09:29-0500 SaO2% (BldA) [Mass fraction] 100 % Jakob Hernandez MD Work Phone: [facility] 10-07-2023 09:29-0500 Systolic blood pressure 124 mm[Hg] Jakob Hernandez MD Work Phone: [facility] 09-29-2023 16:19-0500 Body mass index (BMI) [Ratio] 29.04 kg/m2 Jazlyn MCDUFFIE Work Phone: [facility] 09-29-2023 16:19-0500 Body weight 72.03 kg Jazlyn MCDUFFIE Work Phone: [facility] 09-29-2023 16:19-0500 Diastolic blood pressure 70 mm[Hg] Jazlyn MCDUFFIE Work Phone: [facility] 09-29-2023 16:19-0500 Systolic blood pressure 120 mm[Hg] Jazlyn MCDUFFIE Work Phone: [facility] Healthcare Encounters Encounter Date Encounter Type Care Provider Facility Start: 10-27-2023 End: 10-27-2023 ambulatory CRISTEL LIZ Not Available Start: 10-15-2023 End: 10-15-2023 ambulatory CRISTEL MEDINA Not Available Start: 10-13-2023 End: 10-13-2023 Office outpatient visit 15 minutes Alessia Mason COSMETIC SALES CONSULTANT-INTERNATIONAL FREIGHT FORWARDER Work Phone: [facility] Comment on above: General ill feeling (Primary Dx) Start: 10-07-2023 End: 10-08-2023 ambulatory JAKOB HERNANDEZ [facility] Start: 10-07-2023 End: 10-07-2023 Office consultation new/estab patient 80 min Jakob Hernandez MD Work Phone: [facility] Comment on above: ventricular se ptal defect affecting antepartum care of mother, single or unspecified fetus (Primary Dx); ventricular septal defect in , antepartum, single gestation Start: 09-29-2023 End: 09-29-2023 ambulatory JAZLYN ORTIZ Not Available Start: 09-29-2023 End: 09-29-2023 flow sheet Jazlyn MCDUFFIE Work Phone: [facility] Comment on above: Third trimester [...] POCT INFLUENZA A/INFLUENZA B/SARS-COV-2 VERITOR Alessia Mason COSMETIC SALES CONSULTANT-INTERNATIONAL FREIGHT FORWARDER Work Phone: Start: 10-13-2023 Adult depression screening assessment Alessia Mason COSMETIC SALES CONSULTANT-INTERNATIONAL FREIGHT FORWARDER Work Phone: Start: 09-29-2023 Urnls dip stick/tabl et rgnt non-auto w/o micrscp Jazlyn MCDUFFIE Work Phone: Start: 05-08-2023 Adult depression screening assessment Jakob Hernandez MD Work Phone: Plan of Treatment Date Care Activity Detail Author Start: 09-07-2030 DTaP,Tdap and Td Vaccines (2 - Tdap) DTaP,Tdap and Td Vaccines (2 - Tdap) [facility] Start: 10-13-2024 Adult BMI Screening Adult BMI Screen ing [facility] Start: 10-13-2024 Depression Screening Depression Scre ening [facility] Start: 10-13-2024 Tobacco Screening Tobacco Screening [facility] Start: 10-07-2024 Adult BMI Screening Adult BMI Screen ing [facility] Start: 10-07-2024 Tobacco Screening Tobacco Screening [facility] Start: 05-08-2024 Depression Screening Depression Scre ening [facility] Start: 11-25-2023 Screening for malign ant neoplasm of cervix [facility] Start: 10-27-2023 End: 10-27-2023 Patient encounter procedure 10/27/2023 3:40 PM EDT Routine [facility] [address] [place] [address] Cristel Medina, DO [address] [place], [place] [id number] [facility] Start: 10-27-2023 End: 10-27-2023 Professional / ancillary services management 10/27/2023 3:00 PM EDT Ancillary Procedure [facility] [address] [place] [address] [facility] Start: 10-15-2023 End: 10-15-2023 Patient encounter procedure 10/15/2023 3:00 PM EST Routine [facility] [address] [place] [address] Cristel Medina, DO [address] [place] [address] [facility] Start: 10-07-2023 End: 09-30-2024 echo 2D W/ color flow [facility] Work Phone: Comment on above: Expected: 10/07/2023 (Approximate), Expires: 09/30/2024 Start: 09-29-2023 End: 09-29-2024 US biophysical profile w non stress test US biophysical profile w non stress test Imaging Routine Gestational diabetes mellitus (GDM) in third trimester, gestational diabetes method of control unspecified Expected: 09/29/2023 (Approximate), Expires: 09/29/2024 [facility] Work Phone: Comment on above: Expected: 09/29/2023 (Approximate), Expires: 09/29/2024 Start: 04-18-2023 Influenza vaccination N [facility] Start: 2012 Screening for malign ant neoplasm of cervix Pap Smear [facility] Start: 2009 Adult BMI Follow Up Plan Adult BMI Follow Up Plan [facility] Immunizations Immunization Date Immunization Notes Care Provider Fa [facility] 05-29-2021 influenza, injectabl e, quadrivalent, preservative free Jakob Hernandez MD Work Phone: [facility] 05-29-2021 influenza virus vaccine, unspecified formulation Jazlyn MCDUFFIE Work Phone: [facility] 09-07-2020 diphtheria, tetanus toxoids and pertussis vaccine Jakob Hernandez MD Work Phone: [facility] 06-07-2020 influenza, injectabl e, quadrivalent, preservative free Jakob Hernandez MD Work Phone: [facility] 06-02-2019 influenza, injectabl e, quadrivalent, preservative free Jakob Hernandez MD Work Phone: [facility] 06-03-2018 influenza, injectabl e, quadrivalent, preservative free Jakob Hernandez MD Work Phone: [facility] Payers Date Payer Category Payer Unknown [id number] 1991 Unknown [id number] 2.16.84 [id number] 1991 Unknown [id number] 2.16.84 [id number] 1991 Unknown [id number] 2.16.8 [id number] 1991 Unknown [id number] 2.16.8 [id number] 1991 Unknown [id number] 2.16.84 [id number] 1991 Unknown [id number] 2.16.84 [id number] 1991 Unknown [id number] 2.16.84 [id number] 1991 Unknown [id number] 2.16.84 [id number] 1991 Unknown [id number] 1991 Unknown [id number] 1959 Unknown [id number] Social History Date Type Detail Facility Start: 06-02-2023 End: 10-07-2023 Tobacco smoking status ILIS Never smoked tobacco [facility] Start: 09-29-2023 Alcohol intake Lifetime non-d venessa (finding) [facility] Start: 12-28-2021 End: 06-02-2023 History of [address] function [facility] Start: 12-28-2021 End: 06-02-[address] [facility] Start: 06-02-2023 Alcohol Comment caffeine: 1-2 cups per day [employer] Drink ; coffee [facility] Start: 03-30-2023 [facility] Start: 1990 Sex Assigned At Female [facility] Start: 05-15-2023 Gender identity Identifies as female gender (finding) [facility] Start: 10-07-2023 Tobacco use and exposure Smokeless tobacco non-user [facility] Start: 10-07-2023 End: 10-13-2023 Alcohol intake Current non-drinker of alcohol (finding) [facility] Do you belong to any clubs or organizations such as confucianist groups, unions, fraternal or athletic groups, or school groups? No [facility] Are you now , , , , never or living with a partner? [facility] How often to you hav e a drink containing alcohol? 2-3 time sa week [facility] How many standard drinks containing alcohol do you have on a typical day? 1 or 2 [facility] How often do you hav e 6 or more drinks on 1 occasion? Never [facility] How hard is it for y ou to pay for the very basics like food, housing, medical care, and heating Somewhat hard [facility] Adolescent depressio n screening assessment 0 [facility] Do you feel stress - tense, restless, nervous, or anxious, or unable to sleep at night because your mind is troubled all the time - these days [OSQ] To some extent [facility] Start: 12-28-[address] [facility] Start: 1990 Sex Assigned At Not on file P [facility] NEGATED: Highlighted rowStart: NINF History of tobacco use Passive smoker [facility] Medical Equipment Procedure Code Equipment Code Equipment Origin al Text Equipment Identifier Dates Use as instructed [id number] Start: 06-10-2023 End: 06-09-2024 1 each in the morning and 1 each before bedtime. [id number] Start: 06-10-2023 History of Present illness Narrative 10-13-2023 JOSSIE Arora - 10/13/2023 10:30 AM EST Note Date & Type Note Facility 10-13-2023 History of Present illness Narrative Images from the original note were not included. 10/13/2023 [facility] SUBJECTIVE: Sobia Lucero is a 33 [...] Value Ref Range Status AFP Single Marker Syeda Maternal, * 07/30/2023 SEE COMMENTS 08/01/2023 02:14 PM Final Comment: NOTE Test Result Flag Unit RefValue AFP Single Marker SCRN, Maternal, S Results Summary Normal risk Neural tube defect risk estimate /,000 AFP 48.7 ng/mL AFP MoM 0.87 MoM [...] repeat testing Initial testing Physician Phone Number [phone] GENERAL TEST INFORMATION See Note This screening [...] developed and its performance characteristics determined by [facility] in a manner consistent with CLIA requirements. This test has not been cleared or approved by the U.S. Food and Drug Administration. Test Performed by: [facility] [address] [place] [address] General Labor: Jose Palmer M.D. Ph.D.; CLIA# [id number] echo 2D W/ color flow Result Date: [...] of 151 beats per minute, normal mechanical [place] interval of 96milliseconds Other: No pericardial effusion Miscellaneous: Small septal defects, minor valve abnormalities and post- development of coarctation may not be evident during cardiac examination. Summary Normal intracardiac anatomy and function Normal atrioventricular coupling with normal heart rate Normal cardiothoracic index PFO with right to left shunting PDA with right to left shunting Follow-up: Postnatally US OB GROWTH Result Date: 09/29/2023 Narrative: [place] [address] Ultrasound Report Signed Patient: SOBIA LUCERO MR#: [id number] : 1990 Acct:[id number] Age/Sex: 33 / F ADM Date: 09/29/23 Loc: [facility] Attending Dr: Cristel Medina D.O. Ordering Physician: Cristel Medina D.O. Date of Service: 09/29/23 Procedure(s): US OB growth Accession Number(s): [id number] cc: Cristel Medina D.O.; Physician,Non-Staff M.[address] [id number] Patient Name: SOBIA LUCERO MRN: [id number] date: 1990 Sex: F Assigned Patient Location: [facility] Current Patient Location: [facility] Accession/Order Number: [id number] Exam Date: 09/29/2023 15:04 Report Date: 09/29/2023 [...] M.D. Signed By: 09/29/231618 DD/ 15 TD/TT: [employer] Operator: Physical Exam Vitals and nursing note reviewed. [...] and appropriate follow up. JOSSIE ARORA APRN-CNP 10/14/23 1724 documented in this encounter [facility] History of Present illness Narrative 10-07-2023 Jakob Hernandez MD - 10/07/2023 9:00 AM EST Note Date & Type Note Facility 10-07-2023 History of Present illness Narrative [address] [address] October 07, 2023 Patient: Sobia Lucero Date [...] abnormal discharge. Positive for cramping and contractions ([place]). All other systems negative Current Outpatient Medications Medication Sig [facility] () 28 mg iron- 800 mcg [...] Master's degree (e.g., MA, MS, [place], MEd, RAM CAR OPERATOR, LACIE) Occupational History Not on file Tobacco [...] 30 min Stress: Stress Concern Present (12/28/2021) [place] [employer] - Occupational Stress Questionnaire Feeling of Stress : To some extent Social Connections: Moderately Isolated (12/28/2021) Social Connection and Isolation Panel [NHANES] Frequency of Communication with Friends and Family: More than three times a week Frequency of Social Gatherings with Friends and Family: Once a week Attends [facility]: 1 to 4 times per year [...] queries or concerns. Sincerely, Jakob Hernandez M.D. [employer] [facility] This note is dictated with the use of M*Modal.Please note that this dictation was completed with computer voice recognition software. Quite often unanticipated grammatical, syntax, homophones, and other interpretive errors are inadvertently transcribed by the computer software. Please disregard these errors. Please excuse any errors that have escaped final proofreading. documented in this encounter [facility] History of Present illness Narrative 09-29-2023 RETA Christopher - 09/29/2023 3:30 PM EST Note Date & Type Note Facility 09-29-2023 History of Presen t illness Narrative Reason for Appointment: Patient ID: Sobia uLcero is a 33 y.o. female who presents [...] Allergies Anxiety Bipolar disorder (CMS/HCC) 2012 Depression (CMS/[facility]) Hemorrhoids History of gestational diabetes mellitus (GDM) [...] of: RETA Christopher documented in this encounter [facility] Healthcare Evaluation note Note Date & Type Note Facility Evaluation note Diagnosis Third trimester state, incidental Gestational diabetes mellitus (GDM) in third trimester, gestational diabetes method of control unspecified documented in this encounter [facility] Healthcare Evaluation note Note Date & Type Note Facility Evaluation note Diagnosis ventricular septal defect affecting antepartum care of mother, single or unspecified fetus- Primary ventricular septal defect in , antepartum, single gestation documented in this encounter [facility] Evaluation note Note Date & Type [...] Everywhere.Viral Upper Respiratory Infection Discharge Instructions, Adult (Syriac)documented in this encounter [facility] Summary Purpose Family History No Family [...] 2D W/ color flow Jakob Hernandez MD [address] [place] [id number] Referral ID Status Reason Start Date Expiration Date V isits Requested Visits Authorized [id number] Pending Review 10/07/2023 10/06/2024 1 1 Additional Source Comments INFORMATION SOURCE (unrecogn ized section and content) DATE CREATED AUTHOR 03/12/2022 The [facility] DATE CREATED AUTHOR AUTHOR'S ORGANIZ ATION 10/08/2023 [facility] DATE CREATED AUTHOR AUTHOR'S ORGANIZ ATION 10/28/2023 [facility] dical Specialists [facility] Reason for Visit (unrecogniz ed section and content) Reason Comments Routine Visit Reason Comments observation of VSD Specialty Diagnoses / Procedures Referred By Contac t Referred To Contact Pediatric Cardiology Diagnoses ventricular septal defect in , antepartum, single gestation Cristel Medina, DO [address] , [place] [address] Jakob Hernandez MD [address] [address] Referral ID Status Reason Start Date Expiration Date Visits Requested Visits Authorized [id number] Pending Review Specialty Services Required 09/04/2023 09/03/2024 1 1 Reason Comments URI Patient symptoms sta rted ,fever,cough,congestionOTC....tylenol Care Teams (unrecognized sec tion and content) Waste Specialist Relationship Specialty Start Date End Date Chris Maloney DO [address] [facility] [address] [place] [address] PCP - General Family Medicine 12/24/22 Waste Specialist Relationship Specialty Start Date End Date Dedra Maguire, SALLIE-INTERNATIONAL FREIGHT FORWARDER [address] [place] [address] PCP - General Family Medicine 10/29/21 Waste Specialist Relationship Specialty Start Date End Date Dedra Maguire COSMETIC SALES CONSULTANT-INTERNATIONAL FREIGHT FORWARDER [address] [place] [address] (work) PCP - General Family Medicine 10/29/21 FOR [...] BE BASED ON THE PRIMARY CLINICAL RECORDS. [facility]. provides no warranty or guarantee of the accuracy or completeness of information in this document.
== END 2023-10-31 17:55 | disposition home or self-care (01) ==
LOC: US 07:32 → FBC 17:26
PROVIDERS: Visit Provider Obstetrics & Gynecology
DX: O24.419 Gestational diabetes mellitus in pregnancy, unspecified control (principal); Z3A.32 32 weeks gestation of pregnancy
CPT/HCPCS: 76818

== ENCOUNTER 2023-11-07 06:57 | Outpatient (OUT) | payer OTHER, SELFPAY ==
--- OUTSIDE RECORDS SUMMARY | 2023-11-07 07:01 | XMS_ITS | CCD ---
Author Organization [facility] Care Team Providers Care Nursing Home Manager Name Role Phone HAIDER, DR COLBERT Admitting [...] Unavaila DEDRA Howell Primary Care Unavailable Gigi SECURITY PROFESSIONALS-Dedra ROGERS Primary Care Provider CRISTEL MEDINA Attending Unavailable CRISTEL MEDINA Attending Unavailable JAZLYN ORTIZ Attending Unavailable JAZLYN ORTIZ Attending Unavailable CRISTEL MEDINA Attending Unavailable CRISTEL MEDINA Attending Unavailable Allergies Allergy Classification Reported Allergen(s) Allergy Type Date of Onset Reaction(s) Facility (2 sources) Penicillins; Translations: [PENICILLINS] Drug allergy (disorder) 3 [facility] (1 source) traMADol Drug Allergy 6 [facility] (5 sources) Gentamicin; Translations: [GENTAMICIN] Drug [...] 10-13-2023 External Poct Influenza A Antigen Negative [facility] External Poct Influenza B Antigen Negative [facility] SARS-CoV-2 (COVID-19) Ag IA.rapid Ql (Resp) Negative [facility] Urinalysis macro (dipstick) panel (U)Ordered By: Estefania Posadas on 09-29-2023 Bilirubin, UA Negative Negative - 4(70) +++ mg/dL [facility] Work Phone: Blood, UA Negative Negative - 50 Galen/mcL [facility] Work Phone: Clarity, UA Clear [facility] Work Phone: Color, UA Yellow [facility] Work Phone: Glucose, UA Negative Negative - 2000(110) ++++ mg/dL [facility] Work Phone: Interpretation and review of laboratory results Abnormal [facility] Work Phone: Ketones, UA Negative Negative - 160(16) ++++ mg/dL [facility] Work Phone: Leukocytes, UA Trace Negative - 500+++ Bean/mcL [facility] Work Phone: Nitrite, UA Negative Negative - Positive [facility] Work Phone: pH, UA 7.0 5 - 9 [facility] [employer] Work Phone: Protein, UA Negative Negative - 2000(20) ++++ mg/dL [facility] [employer] Work Phone: Spec Grav, UA 1.015 1 - 1.03 [facility] [employer] Work Phone: Urobilinogen, UA 0.2 0.2 - 12 mg/dL [facility] [employer] Work Phone: [facility] [employer] Work Phone: PAP ACOG PANEL 2: 30 to 65on 03-12-2022 . . Normal [facility] Comment on above: Result Comment: Perf ormed at: WB Performed By: #### [id number] #### [facility] [address] [place] [address] Dr. Michelle Gunderson Age Gdln ACOG Testing 30-65 Normal [facility] Comment on above: Performed By: #### [id number] #### [facility] [address] [address] [address] Michelle Gunderson DIAGNOSIS: Comment Normal [facility] Comment on above: Result Comment: NEGA TIVE FOR INTRAEPITHELIAL LESION OR MALIGNANCY. Performed at: WB Performed By: #### [id number] #### [facility] [address] [place] [address] Dr. Michelle Gunderson HPV Aptima Negative Normal Negative [facility] Comment on above: Result Comment: This nucleic acid amplification test detects fourteen high-risk HPV types (16,18,31,33,35,39,45,51,52,56,58,59,66,68) without differentiation. Performed at: =G Performed By: #### [id number] #### [facility] [address] [place] [address] Dr. Michelle Gunderson Methodology: CTIM [facility] Comment on above: Result Comment: The Thin Prep(R) Expansion Joint Finisher was unable to read this specimen. Therefore a manual review was performed. Performed at: WB Performed By: #### [id number] #### [facility] [address] [place] [address] Dr. Michelle Gunderson Note: Comment Normal [facility] Comment on above: Result Comment: The Pap smear is a screening test designed to aid in the detection of premalignant and malignant conditions of the uterine cervix. It is not a diagnostic procedure and should not be used as the sole means of detecting cervical cancer. Both false-positive and false-negative reports do occur. . Performed at: WB Performed By: #### [id number] #### [facility] [address] [place] [address] Dr. Michelle Gunderson Performed by: Comment Normal [facility] Comment on above: Result Comment: Archana Lee, Short Haul Driver (ASCP) Performed at: WB Performed By: #### [id number] #### [facility] [address] [place] [address] Dr. Michelle Gunderson Specimen adequacy: Comment Normal [facility] Comment on above: Result Comment: Sati sfactory for evaluation. Endocervical and/or squamous metaplastic cells (endocervical component) are present. Partially obscuring thick areas are present. Performed at: WB Performed By: #### [id number] #### [facility] [address] [place] [address] Dr. Michelle Gunderson [facility] SARS-CoV-2 (COVID-19) RNA JOSE MIGUEL+probe Ql (Unsp spec) Not detected Normal NOT DETECTED [facility] Comment on above: Result Comment: This test is not yet approved or cleared by the [place] FDA. When there are no FDA-approved or cleared tests available, and other criteria are met, FDA can make tests available under an emergency access mechanism called an Emergency Use Authorization (EUA). The EUA for this test is supported by the [place] of Health and Human Service's (HHS's) declaration [...] consistent with SARS-CoV-2. Performed By: #### C [facility] #### [facility] [address] [place] [address] Dr. Michelle Gunderson Vital Signs Date Time Vital Sign Value Performing Clinician Facility 10-13-2023 10:44-0500 Body height 157.5 cm Alessiagirish ScottJohnson SECURITY PROFESSIONALS-PATTERN VAULT CLERK Work Phone: [facility] 10-13-2023 10:44-0500 Body mass index (BMI) [Ratio] 27.9 kg/m2 Alessiasa Ge-Johnson SECURITY PROFESSIONALS-PATTERN VAULT CLERK Work Phone: [facility] 10-13-2023 10:44-0500 Body temperature 97.7 [degF] Alesisagirish Mason SECURITY PROFESSIONALS-PATTERN VAULT CLERK Work Phone: [facility] 10-13-2023 10:44-0500 Body weight 69.22 kg Alessia Joo-Johnson SECURITY PROFESSIONALS-PATTERN VAULT CLERK Work Phone: [facility] 10-13-2023 10:44-0500 Diastolic blood pressure 78 mm[Hg] Alessia Joo-Johnson SECURITY PROFESSIONALS-PATTERN VAULT CLERK Work Phone: [facility] 10-13-2023 10:44-0500 Heart rate 86 /min Alessia Joo-Johnson SECURITY PROFESSIONALS-PATTERN VAULT CLERK Work Phone: [facility] 10-13-2023 10:44-0500 Respiratory rate 18 /min Alessia Joo-Johnson SECURITY PROFESSIONALS-PATTERN VAULT CLERK Work Phone: [facility] 10-13-2023 10:44-0500 SaO2% (BldA) [Mass fraction] 98 % Alessiasa ScottJohnson SECURITY PROFESSIONALS-PATTERN VAULT CLERK Work Phone: [facility] 10-13-2023 10:44-0500 Systolic blood pressure 113 mm[Hg] Alessia Joo-Johnson SECURITY PROFESSIONALS-PATTERN VAULT CLERK Work Phone: [facility] 10-07-2023 09:29-0500 Body height 157.5 cm Jakob Hernandez MD Work Phone: [facility] 10-07-2023 09:29-0500 Body mass index (BMI) [Ratio] 28.78 kg/m2 Jakob Hernandez MD Work Phone: [facility] 10-07-2023 09:29-0500 Body weight 71.4 kg Jakob Hernandez MD Work Phone: [facility] 10-07-2023 09:29-0500 Diastolic blood pressure 73 mm[Hg] Jakob Hernandez MD Work Phone: [facility] 10-07-2023 09:29-0500 Heart rate 95 /min Jakob Hernandez MD Work Phone: [facility] 10-07-2023 09:29-0500 SaO2% (BldA) [Mass fraction] 100 % Jakob Hernandez MD Work Phone: [facility] 10-07-2023 09:29-0500 Systolic blood pressure 124 mm[Hg] Jakob Hernandez MD Work Phone: [facility] 09-29-2023 16:19-0500 Body mass index (BMI) [Ratio] 29.04 kg/m2 Jazlyn MCDUFFIE Work Phone: [facility] 09-29-2023 16:19-0500 Body weight 72.03 kg Jazlyn MCDUFFIE Work Phone: [facility] 09-29-2023 16:19-0500 Diastolic blood pressure 70 mm[Hg] Jazlyn MCDUFFIE Work Phone: [facility] 09-29-2023 16:19-0500 Systolic blood pressure 120 mm[Hg] Jazlyn MCDUFFIE Work Phone: [facility] Encounters Encounter Date Encounter Type Care Provider Facility Start: 10-27-2023 End: 10-27-2023 ambulatory CRISTEL LIZ Not Available Start: 10-15-2023 End: 10-15-2023 ambulatory CRISTEL MEDINA Not Available Start: 10-13-2023 End: 10-13-2023 Office outpatient visit 15 minutes Alessia Mason SECURITY PROFESSIONALS-PATTERN VAULT CLERK Work Phone: [facility] Comment on above: General ill feeling (Primary Dx) Start: 10-07-2023 End: 10-08-2023 ambulatory JAKOB HERNANDEZ [facility] Start: 10-07-2023 End: 10-07-2023 Office consultation new/estab patient 80 min Jakob Hernandez MD Work Phone: [facility] Comment on above: ventricular [...] POCT INFLUENZA A/INFLUENZA B/SARS-COV-2 VERITOR Alessia Mason SECURITY PROFESSIONALS-PATTERN VAULT CLERK Work Phone: Start: 10-13-2023 Adult depression screening assessment Alessia Mason SECURITY PROFESSIONALS-PATTERN VAULT CLERK Work Phone: Start: 09-29-2023 Urnls dip stick/tabl et rgnt non-auto w/o micrscp Jazlyn MCDUFFIE Work Phone: Start: 05-08-2023 Adult depression screening assessment Jakob Hernandez MD Work Phone: Plan of Treatment Date Care Activity Detail Author Start: 09-07-2030 DTaP,Tdap and Td Vaccines (2 - Tdap) DTaP,Tdap and Td Vaccines (2 - Tdap) [facility] Start: 10-13-2024 Adult BMI Screening Adult BMI Screen ing [facility] Start: 10-13-2024 Depression Screening Depression Scre ening [facility] Start: 10-13-2024 Tobacco Screening Tobacco Screening [facility] Start: 10-07-2024 Adult BMI Screening Adult BMI Screen ing [facility] Start: 10-07-2024 Tobacco Screening Tobacco Screening [facility] Start: 05-08-2024 Depression Screening Depression Scre ening [facility] Start: 11-25-2023 Screening for malign ant neoplasm of cervix [facility] Start: 10-27-2023 End: 10-27-2023 Patient encounter procedure 10/27/2023 3:40 PM EDT Routine [facility] [address] [place] [address] Cristel Medina, DO [address] [place], [place] [id number] [facility] Start: 10-27-2023 End: 10-27-2023 Professional / ancillary services management 10/27/2023 3:00 PM EDT Ancillary Procedure [facility] [address] [place] [address] [facility] Start: 10-15-2023 End: 10-15-2023 Patient encounter procedure 10/15/2023 3:00 PM EST Routine [facility] [address] [place] [address] Cristel Medina, DO [address] [place] [address] [facility] Start: 10-07-2023 End: 09-30-2024 echo 2D W/ color flow [facility] Work Phone: Comment on above: Expected: 10/07/2023 (Approximate), Expires: 09/30/2024 Start: 09-29-2023 End: 09-29-2024 US biophysical profile w non stress test US biophysical profile w non stress test Imaging Routine Gestational diabetes mellitus (GDM) in third trimester, gestational diabetes method of control unspecified Expected: 09/29/2023 (Approximate), Expires: 09/29/2024 [facility] Work Phone: Comment on above: Expected: 09/29/2023 (Approximate), Expires: 09/29/2024 Start: 04-18-2023 Influenza vaccination N [facility] Start: 2012 Screening for malign ant neoplasm of cervix Pap Smear [facility] Start: 2009 Adult BMI Follow Up Plan Adult BMI Follow Up Plan [facility] Immunizations Immunization Date Immunization Notes Care Provider Fa [facility] 05-29-2021 influenza, injectabl e, quadrivalent, preservative free Jakob Hernandez MD Work Phone: [facility] 05-29-2021 influenza virus vaccine, unspecified formulation Jazlyn MCDUFFIE Work Phone: [facility] 09-07-2020 diphtheria, tetanus toxoids and pertussis vaccine aJkob Hernandez MD Work Phone: [facility] 06-07-2020 influenza, injectabl e, quadrivalent, preservative free Jakob Hernandez MD Work Phone: [facility] 06-02-2019 influenza, injectabl e, quadrivalent, preservative free Jakob Hernandez MD Work Phone: [facility] 06-03-2018 influenza, injectabl e, quadrivalent, preservative free Jakob Hernandez MD Work Phone: [facility] Payers Date Payer Category Payer Unknown [id number] 1991 Unknown [id number] 2.16.84 [id number] 1991 Unknown [id number] 2.16.84 [id number] 1991 Unknown [id number] 2.16.8 [id number] 1991 Unknown [id number] 2.16.8 [id number] 1991 Unknown [id number] 2.16.84 [id number] 1991 Unknown [id number] 2.16.84 [id number] 1991 Unknown [id number] 2.16.84 [id number] 1991 Unknown [id number] 2.16.84 [id number] 1991 Unknown [id number] 1991 Unknown [id number] 1959 Unknown [id number] Social History Date Type Detail Facility Start: 06-02-2023 End: 10-07-2023 Tobacco smoking status MIIS Never smoked tobacco [facility] Start: 09-29-2023 Alcohol intake Lifetime non-d venessa (finding) [facility] Start: 12-28-2021 End: 06-02-2023 History of Social function [facility] Start: 12-28-2021 End: 06-02-2023 Tobacco use panel [facility] Start: 06-02-2023 Alcohol Comment caffeine: 1-2 cups per day [employer] Drink ; coffee [facility] Start: 03-30-2023 [facility] Start: 1990 Sex Assigned At Female [facility] Start: 05-15-2023 Gender identity Identifies as female gender (finding) [facility] Start: 10-07-2023 Tobacco use and exposure Smokeless tobacco non-user [facility] Start: 10-07-2023 End: 10-13-2023 Alcohol intake Current non-drinker of alcohol (finding) [facility] Do you belong to any clubs or organizations such as pentecostal groups, unions, fraternal or athletic groups, or school groups? No [facility] Are you now , , , , never or living with a partner? [facility] How often to you hav e a drink containing alcohol? 2-3 time sa week [facility] How many standard drinks containing alcohol do you have on a typical day? 1 or 2 [facility] How often do you hav e 6 or more drinks on 1 occasion? Never [facility] How hard is it for y ou to pay for the very basics like food, housing, medical care, and heating Somewhat hard [facility] Adolescent depressio n screening assessment 0 [facility] Do you feel stress - tense, restless, nervous, or anxious, or unable to sleep at night because your mind is troubled all the time - these days [OSQ] To some extent [facility] Start: 12-28-2021 Education 18 [facility] Start: 1990 Sex Assigned At Not on file P [facility] NEGATED: Highlighted rowStart: NINF History of tobacco use Passive smoker [facility] Medical Equipment Procedure Code Equipment Code Equipment Origin al Text Equipment Identifier Dates Use as instructed [id number] Start: 06-10-2023 End: 06-09-2024 1 each in the morning and 1 each before bedtime. [id number] Start: 06-10-2023 History of Present illness Narrative 10-13-2023 JOSSIE Arora - 10/13/2023 10:30 AM EST Note Date & Type Note Facility 10-13-2023 History of Present illness Narrative Images from the original note were not included. 10/13/2023 [facility] SUBJECTIVE: Sobia Lucero is a 33 [...] repeat testing Initial testing Physician Phone Number [phone] GENERAL TEST INFORMATION See Note This screening [...] Food and Drug Administration. Test Performed by: [facility] [address] [place] [address] Cutter Barrel Drum: Jose Palmer M.D. Ph.D.; CLIA# [id number] echo 2D W/ color flow Result Date: [...] of 151 beats per minute, normal mechanical [place] interval of 96milliseconds Other: No pericardial effusion [...] OB GROWTH Result Date: 09/29/2023 Narrative: [place] [address] Ultrasound Report Signed Patient: SOBIA LUCERO MR#: [id number] : 1990 Acct:[id number] Age/Sex: 33 / F ADM Date: 09/29/23 Loc: [facility] Attending Dr: Cristel Medina D.O. Ordering Physician: Cristel Medina D.O. Date of Service: 09/29/23 Procedure(s): US OB growth Accession Number(s): [id number] cc: Cristel Medina D.O.; Physician,Non-Staff [address] [id number] Patient Name: SOBIA LUCERO MRN: [id number] date: 1990 Sex: F Assigned Patient Location: [facility] Current Patient Location: [facility] Accession/Order Number: [id number] Exam Date: 09/29/2023 15:04 Report Date: 09/29/2023 [...] M.D. Signed By: 09/29/231618 DD/ 15 TD/TT: Customer Solutions Architect: Physical Exam Vitals and nursing note reviewed. [...] APRN-CNP 10/14/23 1724 documented in this encounter [facility] History of Present illness Narrative 10-07-2023 Jakob Hernandez MD - 10/07/2023 9:00 AM EST Note Date & Type Note Facility 10-07-2023 History of Present illness Narrative [address] [address] October 07, 2023 Patient: Sobia Lucero Date [...] abnormal discharge. Positive for cramping and contractions ([place]). All other systems negative Current Outpatient Medications Medication Sig Dispense [facility]FA () 28 mg iron- 800 mcg [...] Master's degree (e.g., MA, MS, [place], MEd, SAND TECHNOLOGIST, LACIE) Occupational History Not on file Tobacco [...] 30 min Stress: Stress Concern Present (12/28/2021) [employer] - Occupational Stress Questionnaire Feeling of Stress : To some extent Social Connections: Moderately Isolated (12/28/2021) Social Connection and Isolation Panel [NHANES] Frequency of Communication with Friends and Family: More than three times a week Frequency of Social Gatherings with Friends and Family: Once a week Attends Sikhism Services: 1 to 4 times per year [...] queries or concerns. Sincerely, Jakob Hernandez M.D. Utility Tender [facility] This note is dictated with the use of M*Modal.Please note that this dictation was completed with computer voice recognition software. Quite often unanticipated grammatical, syntax, homophones, and other interpretive errors are inadvertently transcribed by the computer software. Please disregard these errors. Please excuse any errors that have escaped final proofreading. documented in this encounter [facility] History of Present illness Narrative 09-29-2023 [...] Allergies Anxiety Bipolar disorder (CMS/HCC) 2012 Depression (CMS/[facility]) Hemorrhoids History of gestational diabetes mellitus (GDM) [...] of: RETA Christopher documented in this encounter [facility] Evaluation note Note Date & Type Note Facility Evaluation note Diagnosis Third trimester state, incidental Gestational diabetes mellitus (GDM) in third trimester, gestational diabetes method of control unspecified documented in this encounter [facility] Healthcare Evaluation note Note Date & [...] Everywhere.Viral Upper Respiratory Infection Discharge Instructions, Adult (Czech)documented in this encounter [facility] Summary [...] 2D W/ color flow Jakob Hernandez MD [address] [place] [id number] Referral ID Status Reason Start Date Expiration Date V isits Requested Visits Authorized [id number] Pending Review 10/07/2023 10/06/2024 1 1 Additional Source Comments INFORMATION SOURCE (unrecogn ized section and content) DATE CREATED AUTHOR 03/12/2022 [facility] DATE CREATED AUTHOR AUTHOR'S ORGANIZ ATION 10/08/2023 [facility] DATE CREATED AUTHOR AUTHOR'S ORGANIZ ATION 10/28/2023 [facility] dical Specialists [facility] Reason for Visit (unrecogniz ed section and content) Reason Comments Routine Visit Reason Comments observation of VSD Specialty Diagnoses / Procedures Referred By Contac t Referred To Contact Pediatric Cardiology Diagnoses ventricular septal defect in , antepartum, single gestation Cristel Medina, DO [address] , [place] [address] Jakob Hernandez MD [address] [address] Referral ID Status Reason Start Date Expiration Date Visits Requested Visits Authorized [id number] Pending Review Specialty Services Required 09/04/2023 09/03/2024 1 1 Reason Comments URI Patient symptoms sta rted ,fever,cough,congestionOTC....tylenol Care Teams (unrecognized sec tion and content) Nursing Home Manager Relationship Specialty Start Date End Date Chris Maloney DO [address] [facility] [address] [place] [address] PCP - General Family Medicine 12/24/22 Nursing Home Manager Relationship Specialty Start Date End Date Dedra Maguire, SALLIE-PATTERN VAULT CLERK [address] [place] [address] PCP - General Family Medicine 10/29/21 Nursing Home Manager Relationship Specialty Start Date End Date Dedra Maguire SECURITY PROFESSIONALS-PATTERN VAULT CLERK [address] [place] [address] (work) PCP - General Family [...] BE BASED ON THE PRIMARY CLINICAL RECORDS. [employer] [facility]. provides no warranty or guarantee of the accuracy or completeness of information in this document.
[2023-11-07 17:17] VITALS: BP 123/71; PULSE 90
--- NOTE | 2023-11-07 18:26 | US_ITS ---
[address] [address] Patient Name: SOBIA CHAUDHARI MRN: [id number] date: 1990 Sex: F Assigned Patient Location: [place] Current Patient Location: [place] Accession/Order Number: [id number] Exam Date: 11/07/2023 18:30 Report Date: 11/10/2023 07:25 At the request of: CRISTEL HILL Procedure: US OB BPP w non-stress EXAMINATION: US OB BPP w non-stress HISTORY: GESTATIONAL DIABETES MELLITUS O24.419 COMPARISON: No relevant comparison available. TECHNIQUE: Ultrasound biophysical profile was performed in the radiology department. non-reactive stress testing was performed by nursing staff in the birthing center. FINDINGS: BREATHING MOVEMENTS: 2.0 GROSS BODY MOVEMENTS: 2.0 TONE: 2.0 QUALITATIVE AMNIOTIC FLUID VOLUME: 2.0 PRESENTATION: CEPHALIC HEART RATE: 137.8 bpm H.B./min AMNIOTIC FLUID VOLUME: 12.8 cm cm GESTATIONAL AGE: 33 weeks 5 days Area of hypoechogenicity in the placenta measuring 1.9 cm possibly a placental garcia CONCLUSION: Total biophysical profile score: 8.0 Electronically authenticated by: ALESIA JOHNSON Date: 11/10/2023 07:25
== END 2023-11-07 18:50 | disposition home or self-care (01) ==
LOC: US 06:57 → FBC 17:11
PROVIDERS: Visit Provider Obstetrics & Gynecology
DX: O24.419 Gestational diabetes mellitus in pregnancy, unspecified control (principal); Z3A.33 33 weeks gestation of pregnancy
CPT/HCPCS: 76818

== ENCOUNTER 2023-11-14 07:10 | Outpatient (OUT) | payer OTHER, SELFPAY ==
--- OUTSIDE RECORDS SUMMARY | 2023-11-14 07:12 | XMS_ITS | CCD ---
Author Organization [facility] Care Team Providers Care Crm Marketing Manager Name Role Phone HAIDER, DR COLBERT [...] Unavaila DEDRA Howell Primary Care Unavailable Gigi ELECTRICAL AND RADIO MOCK UP MECHANIC-Dedra ROGERS Primary Care Provider CRISTEL MEDINA Attending Unavailable LIZ, CRISTEL Attending Unavailable JAZLYN ORTIZ Attending Unavailable LIZ, CRISTEL Attending Unavailable LIZ, CRISTEL Attending Unavailable LIZ, CRISTEL Attending Unavailable DIANA, JAZLYN Attending Unavailable Allergies Allergy Classification Reported Allergen(s) Allergy Type Date of Onset Reaction(s) Facility (2 sources) Penicillins; Translations: [PENICILLINS] Drug allergy (disorder) 3 [facility] Repository (1 source) traMADol Drug Allergy 6 [facility] Repository (5 sources) Gentamicin; Translations: [GENTAMICIN] [...] to adverse reactions to drug [address] [facility] Medications Current Medications Medication [...] Range Facility POCT Influenza A/Influenza B /SARS-COV-2 [facility] 10-13-2023 External Poct Influenza A Antigen Negative [facility] External Poct Influenza B Antigen Negative [facility] SARS-CoV-2 (COVID-19) Ag IA.rapid Ql (Resp) Negative [facility] Urinalysis macro (dipstick) panel (U)Ordered By: Estefania Posadas on 09-29-2023 Bilirubin, UA Negative Negative - 4(70) +++ mg/dL [facility] Work Phone: Blood, UA Negative Negative - 50 Galen/mcL [facility] Work Phone: Clarity, UA Clear [facility] Work Phone: Color, UA Yellow [facility] Work Phone: Glucose, UA Negative Negative - 2000(110) ++++ mg/dL [facility] Work Phone: Interpretation and review of laboratory results Abnormal [facility] Work Phone: Ketones, UA Negative Negative - 160(16) ++++ mg/dL [facility] Work Phone: Leukocytes, UA Trace Negative - 500+++ Bean/mcL [facility] Work Phone: Nitrite, UA Negative Negative - Positive [facility] Work Phone: pH, UA 7.0 5 - 9 [facility] [employer] Work Phone: Protein, UA Negative Negative - 2000(20) ++++ mg/dL [facility] [employer] Work Phone: Spec Grav, UA 1.015 1 - 1.03 [facility] [employer] care Work Phone: Urobilinogen, UA 0.2 0.2 - 12 mg/dL [facility] [employer] Work Phone: [facility] [employer] Work Phone: PAP ACOG PANEL 2: 30 to 65on 03-12-2022 . . Normal [facility] Comment on above: Result Comment: Perf ormed at: WB Performed By: #### [id number] #### [facility] [address] [place] [address] Dr. Michelle Gunderson Age Gdln ACOG Testing 30-65 Normal [facility] Comment on above: Performed By: #### [id number] #### [facility] [address] [place] [address] Dr. Michelle Gunderson DIAGNOSIS: Comment Normal [facility] Comment on above: Result Comment: NEGA TIVE FOR INTRAEPITHELIAL LESION OR MALIGNANCY. Performed at: WB Performed By: #### [id number] #### [facility] [address] [place] [address] Dr. Michelle Gunderson HPV Aptima Negative Normal Negative [facility] Comment on above: Result Comment: This nucleic acid amplification test detects fourteen high-risk HPV types (16,18,31,33,35,39,45,51,52,56,58,59,66,68) without differentiation. Performed at: =G Performed By: #### [id number] #### [facility] [address] [place] [address] Dr. Michelle Gunderson Methodology: CTIM [facility] Comment on above: Result Comment: The Thin Prep(R) [employer] was unable to read this specimen. Therefore a manual review was performed. Performed at: WB Performed By: #### [id number] #### [facility] [address] [place] [address] Dr. Michelle Gunderson Note: Comment Normal [facility] Comment on above: Result Comment: The Pap smear is a screening test designed to aid in the detection of premalignant and malignant conditions of the uterine cervix. It is not a diagnostic procedure and should not be used as the sole means of detecting cervical cancer. Both false-positive and false-negative reports do occur. . Performed at: WB Performed By: #### [id number] #### [facility] [address] [place] [address] Dr. Michelle Gunderson Performed by: Comment Normal [facility] Comment on above: Result Comment: Archana Lee, Band Builder (ASCP) Performed at: WB Performed By: #### [id number] #### [facility] [address] [place] [address] Dr. Michelle Gunderson Specimen adequacy: Comment Normal [facility] Comment on above: Result Comment: Sati sfactory for evaluation. Endocervical and/or squamous metaplastic cells (endocervical component) are present. Partially obscuring thick areas are present. Performed at: WB Performed By: #### [id number] #### [facility] [address] [place] [address] Dr. Michelle Gunderson [facility]on SARS-CoV-2 (COVID-19) RNA JOSE MIGUEL+probe Ql (Unsp spec) Not detected Normal NOT DETECTED [facility] Comment on above: Result Comment: This test is not yet approved or cleared by the [place] FDA. When there are no FDA-approved or cleared tests available, and other criteria are met, FDA can make tests available under an emergency access mechanism called an Emergency Use Authorization (EUA). The EUA for this test is supported by the [place] of Health and Human Service's (HHS's) declaration [...] consistent with SARS-CoV-2. Performed By: #### C [facility] #### [facility] [address] [place] [address] Dr. Michelle Gunderson Vital Signs Date Time Vital Sign Value Performing Clinician Facility 10-13-2023 10:44-0500 Body height 157.5 cm Alessia ScottJohnson ELECTRICAL AND RADIO MOCK UP MECHANIC-VICE PRESIDENT OF CUSTOMER SERVICE Work Phone: [facility] 10-13-2023 10:44-0500 Body mass index (BMI) [Ratio] 27.9 kg/m2 Alessiagirish ScottJohnson ELECTRICAL AND RADIO MOCK UP MECHANIC-VICE PRESIDENT OF CUSTOMER SERVICE Work Phone: [facility] 10-13-2023 10:44-0500 Body temperature 97.7 [degF] Alessiagirish Mason ELECTRICAL AND RADIO MOCK UP MECHANIC-VICE PRESIDENT OF CUSTOMER SERVICE Work Phone: [facility] 10-13-2023 10:44-0500 Body weight 69.22 kg Alessiagirish Ge-Johnson ELECTRICAL AND RADIO MOCK UP MECHANIC-VICE PRESIDENT OF CUSTOMER SERVICE Work Phone: [facility] 10-13-2023 10:44-0500 Diastolic blood pressure 78 mm[Hg] Alessiagirish Ge-Johnson ELECTRICAL AND RADIO MOCK UP MECHANIC-VICE PRESIDENT OF CUSTOMER SERVICE Work Phone: [facility] 10-13-2023 10:44-0500 Heart rate 86 /min Alessiagirish Mason ELECTRICAL AND RADIO MOCK UP MECHANIC-VICE PRESIDENT OF CUSTOMER SERVICE Work Phone: [facility] 10-13-2023 10:44-0500 Respiratory rate 18 /min Alessiasa Ge-Johnson ELECTRICAL AND RADIO MOCK UP MECHANIC-VICE PRESIDENT OF CUSTOMER SERVICE Work Phone: [facility] 10-13-2023 10:44-0500 SaO2% (BldA) [Mass fraction] 98 % Alessiagirish ScottJohnson ELECTRICAL AND RADIO MOCK UP MECHANIC-VICE PRESIDENT OF CUSTOMER SERVICE Work Phone: [facility] 10-13-2023 10:44-0500 Systolic blood pressure 113 mm[Hg] Alessia Mason ELECTRICAL AND RADIO MOCK UP MECHANIC-VICE PRESIDENT OF CUSTOMER SERVICE Work Phone: [facility] 10-07-2023 09:29-0500 Body height 157.5 cm Jakob Hernandez MD Work Phone: [facility] 10-07-2023 09:29-0500 Body mass index (BMI) [Ratio] 28.78 kg/m2 Jakob Hernandez MD Work Phone: [facility] 10-07-2023 09:29-0500 Body weight 71.4 kg Jakob Hernandez MD Work Phone: [facility] 10-07-2023 09:29-0500 Diastolic blood pressure 73 mm[Hg] Jakob Hernandez MD Work Phone: [facility] 10-07-2023 09:29-0500 Heart rate 95 /min Jakob Hernandez MD Work Phone: [facility] 10-07-2023 09:29-0500 SaO2% (BldA) [Mass fraction] 100 % Jakob Hernandez MD Work Phone: [facility] 10-07-2023 09:29-0500 Systolic blood pressure 124 mm[Hg] Jakob Hernandez MD Work Phone: [facility] 09-29-2023 16:19-0500 Body mass index (BMI) [Ratio] 29.04 kg/m2 Jazlyn MCDUFFIE Work Phone: [facility] 09-29-2023 16:19-0500 Body weight 72.03 kg Jazlyn MCDUFFIE Work Phone: [facility] 09-29-2023 16:19-0500 Diastolic blood pressure 70 mm[Hg] Jazlyn MCDUFFIE Work Phone: [facility] 09-29-2023 16:19-0500 Systolic blood pressure 120 mm[Hg] Jazlyn MCDUFFIE Work Phone: [facility] Encounters Encounter Date Encounter Type Care Provider Facility Start: 11-10-2023 End: 11-10-2023 ambulatory CRISTEL MEDINA Not Available Start: 10-27-2023 End: 10-27-2023 ambulatory CRISTEL MEDINA Not Available Start: 10-15-2023 End: 10-15-2023 ambulatory CRISTEL MEDINA Not Available Start: 10-13-2023 End: 10-13-2023 Office outpatient visit 15 minutes Alessia Mason ELECTRICAL AND RADIO MOCK UP MECHANIC-VICE PRESIDENT OF CUSTOMER SERVICE Work Phone: [facility] Comment on above: General ill feeling (Primary Dx) Start: 10-07-2023 End: 10-08-2023 ambulatory JAKOB HERNANDEZ [facility] Start: 10-07-2023 End: 10-07-2023 Office consultation new/estab patient 80 min Jakob Hernandez MD Work Phone: [facility] Comment on above: ventricular [...] POCT INFLUENZA A/INFLUENZA B/SARS-COV-2 VERITOR Alessia Mason ELECTRICAL AND RADIO MOCK UP MECHANIC-VICE PRESIDENT OF CUSTOMER SERVICE Work Phone: Start: 10-13-2023 Adult depression screening assessment Alessia JooChirag ELECTRICAL AND RADIO MOCK UP MECHANIC-VICE PRESIDENT OF CUSTOMER SERVICE Work Phone: Start: 09-29-2023 Urnls dip stick/tabl et rgnt non-auto w/o micrscp Jazlyn MCDUFFIE Work Phone: Start: 05-08-2023 Adult depression screening assessment Jakob Hernandez MD Work Phone: Plan of Treatment Date Care Activity Detail Author Start: 09-07-2030 DTaP,Tdap and Td Vaccines (2 - Tdap) DTaP,Tdap and Td Vaccines (2 - Tdap) [facility] Start: 10-13-2024 Adult BMI Screening Adult BMI Screen ing [facility] Start: 10-13-2024 Depression Screening Depression Scre ening [facility] Start: 10-13-2024 Tobacco Screening Tobacco Screening [facility] Start: 10-07-2024 Adult BMI Screening Adult BMI Screen ing [facility] Start: 10-07-2024 Tobacco Screening Tobacco Screening [facility] Start: 05-08-2024 Depression Screening Depression Scre ening [facility] Start: 11-25-2023 Screening for malign ant neoplasm of cervix [facility] Start: 10-27-2023 End: 10-27-2023 Patient encounter procedure 10/27/2023 3:40 PM EDT Routine [facility] [address] [place] [id number] Cristel Medina, DO [address] [place] [address] [facility] Start: 10-27-2023 End: 10-27-2023 Professional / ancillary services management 10/27/2023 3:00 PM EDT Ancillary Procedure [facility] [address] [place] [id number] [facility] Start: 10-15-2023 End: 10-15-2023 Patient encounter procedure 10/15/2023 3:00 PM EST Routine [facility] [address] [place] [phone] Cristel Medina, [address] [place] [address] [facility] Start: 10-07-2023 End: 09-30-2024 echo 2D W/ color flow [facility] Work Phone: Comment on above: Expected: 10/07/2023 (Approximate), Expires: 09/30/2024 Start: 09-29-2023 End: 09-29-2024 US biophysical profile w non stress test US biophysical profile w non stress test Imaging Routine Gestational diabetes mellitus (GDM) in third trimester, gestational diabetes method of control unspecified Expected: 09/29/2023 (Approximate), Expires: 09/29/2024 [facility] Work Phone: Comment on above: Expected: 09/29/2023 (Approximate), Expires: 09/29/2024 Start: 04-18-2023 Influenza vaccination N [facility] Start: 2012 Screening for malign ant neoplasm of cervix Pap Smear [facility] Start: 2009 Adult BMI Follow Up Plan Adult BMI Follow Up Plan [facility] Immunizations Immunization Date Immunization Notes Care Provider [facility] 05-29-2021 influenza, injectabl e, quadrivalent, preservative free Jakob Hernandez MD Work Phone: [facility] 05-29-2021 influenza virus vaccine, unspecified formulation Jazlyn MCDUFFIE Work Phone: [facility] 09-07-2020 diphtheria, tetanus toxoids and pertussis vaccine Jakob Hernandez MD Work Phone: [facility] 06-07-2020 influenza, injectabl e, quadrivalent, preservative free Jakob Hernandez MD Work Phone: [facility] 06-02-2019 influenza, injectabl e, quadrivalent, preservative free Jakob Hernandez MD Work Phone: [facility] 06-03-2018 influenza, injectabl e, quadrivalent, preservative free Jakob Hernandez MD Work Phone: [facility] Payers Date Payer Category Payer Unknown [id number] 1991 Unknown [id number] 2.16.84 [id number] 1991 Unknown [id number] 2.16.84 [id number] 1991 Unknown [id number] 2.16.8 [id number] 1991 Unknown [id number] 2.16.8 [id number] 1991 Unknown [id number] 2.16.84 [id number] 1991 Unknown [id number] 2.16.84 [id number] 1991 Unknown [id number] 2.16.84 [id number] 1991 Unknown [id number] 2.16.84 [id number] 1991 Unknown [id number] 2.16.84 [id number] 1991 Unknown [id number] 1991 Unknown [id number] 1959 Unknown [id number] Social History Date Type Detail Facility Start: 06-02-2023 End: 10-07-2023 Tobacco smoking status WVIS Never smoked tobacco [facility] Start: 09-29-2023 Alcohol intake Lifetime non-d venessa (finding) [facility] Start: 12-28-2021 End: 06-02-2023 History of [address] function [facility] Start: 12-28-2021 End: 06-02-[address] [facility] Start: 06-02-2023 Alcohol Comment caffeine: 1-2 cups per day [employer] Drink ; coffee [facility] Start: 03-30-2023 [facility] Start: 1990 Sex Assigned At Female N [facility] Start: 05-15-2023 Gender identity Identifies as female gender (finding) [facility] Start: 10-07-2023 Tobacco use and exposure Smokeless tobacco non-user [facility] Start: 10-07-2023 End: 10-13-2023 Alcohol intake Current non-drinker of alcohol (finding) [facility] Do you belong to any clubs or organizations such as orthodoxy groups, unions, fraternal or athletic groups, or school groups? No [facility] Are you now , , , , never or living with a partner? [facility] How often to you hav e a drink containing alcohol? 2-[address] [facility] How many standard drinks containing alcohol do you have on a typical day? 1 or 2 [facility] How often do you hav e 6 or more drinks on 1 occasion? Never [facility] How hard is it for y ou to pay for the very basics like food, housing, medical care, and heating Somewhat hard [facility] Adolescent depressio n screening assessment 0 [facility] Do you feel stress - tense, restless, nervous, or anxious, or unable to sleep at night because your mind is troubled all the time - these days [OSQ] To some extent [facility] Start: 12-28-[address] [facility] Start: 1990 Sex Assigned At Not on file P [facility] NEGATED: Highlighted rowStart: NINF History of tobacco use Passive smoker [facility] Medical Equipment Procedure Code Equipment Code Equipment Origin al Text Equipment Identifier Dates Use as instructed [id number] Start: 06-10-2023 End: 06-09-2024 1 each in the morning and 1 each before bedtime. [id number] Start: 06-10-2023 History of Present illness Narrative 10-13-2023 Alessia Marlon, ELECTRICAL AND RADIO MOCK UP MECHANIC-VICE PRESIDENT OF CUSTOMER SERVICE - 10/13/2023 10:30 AM EST Note Date & Type Note Facility 10-13-2023 History of Present illness Narrative Images from the original note were not included. 10/13/2023 [facility] SUBJECTIVE: Sobia Lucero is a 33 [...] Normal risk Neural tube defect risk estimate 1/,000 AFP 48.7 ng/mL AFP MoM 0.87 MoM [...] repeat testing Initial testing Physician Phone Number [phone] GENERAL TEST INFORMATION See Note This screening [...] developed and its performance characteristics determined by [facility] in a manner consistent with CLIA requirements. This test has not been cleared or approved by the U.S. Food and Drug Administration. Test Performed by: [facility] [address] [place] [address] [employer] Comp[employer] Inspector: Jose Palmer M.D. Ph.D.; CLIA# [id number] echo 2D W/ color flow Result Date: [...] of 151 beats per minute, normal mechanical DE interval of 96milliseconds Other: No pericardial effusion [...] OB GROWTH Result Date: 09/29/2023 Narrative: [place] [address] Ultrasound Report Signed Patient: SOBIA LUCERO MR#: [id number] : 1990 Acct:[id number] Age/Sex: 33 / F ADM Date: 09/29/23 Loc: [facility] Attending Dr: Cristel Medina D.O. Ordering Physician: Cristel Medina D.O. Date of Service: 09/29/23 Procedure(s): US OB growth Accession Number(s): [id number] cc: Cristel Medina D.O.; Physician,Non-Staff M.DEllen [address] [address] Patient Name: SOBIA LUCERO MRN: [id number] date: 1990 Sex: F Assigned Patient Location: [facility] Current Patient Location: [facility] Accession/Order Number: [id number] Exam Date: 09/29/2023 15:04 Report Date: 09/29/2023 [...] M.D. Signed By: 09/29/231618 DD/ 15 TD/TT: Rock Worker: Physical Exam Vitals and nursing note reviewed. [...] APRN-CNP 10/14/23 1724 documented in this encounter [facility] History of Present illness Narrative 10-07-2023 Jakob Hernandez MD - 10/07/2023 9:00 AM EST Note Date & Type Note Facility 10-07-2023 History of Present illness Narrative [address] [phone] October 07, 2023 Patient: Sobia Lucero Date [...] abnormal discharge. Positive for cramping and contractions (Cayden-Zamorano). All other systems negative Current Outpatient Medications Medication Sig [facility] () 28 mg iron- 800 [...] Master's degree (e.g., MA, MS, [employer], MEd, ENTERTAINER OR VARIETY ARTIST, LACIE) Occupational History Not on file Tobacco [...] 30 min Stress: Stress Concern Present (12/28/2021) [employer] [place] [employer] - Occupational Stress Questionnaire Feeling of Stress : To some extent Social Connections: Moderately Isolated (12/28/2021) Social Connection and Isolation Panel [NHANES] Frequency of Communication with Friends and Family: More than three times a week Frequency of Social Gatherings with Friends and Family: Once a week Attends Yazidism Services: 1 to 4 times per year [...] queries or concerns. Sincerely, Jakob Hernandez M.D. [employer] Cracking Tester [facility] This note is dictated with the use of M*Modal.Please note that this dictation was completed with computer voice recognition software. Quite often unanticipated grammatical, syntax, homophones, and other interpretive errors are inadvertently transcribed by the computer software. Please disregard these errors. Please excuse any errors that have escaped final proofreading. documented in this encounter [facility] History of Present illness Narrative 09-29-2023 RETA [...] History: Diagnosis Date Allergies Anxiety Bipolar disorder ([facility]) 2013 Depression ([facility]) Hemorrhoids History of gestational diabetes [...] of: RETA Christopher documented in this encounter [facility] Healthcare Evaluation note Note Date & Type Note Facility Evaluation note Diagnosis Third trimester state, incidental Gestational diabetes mellitus (GDM) in third trimester, gestational diabetes method of control unspecified documented in this encounter [facility] Healthcare Evaluation note Note Date & Type [...] Everywhere.Viral Upper Respiratory Infection Discharge Instructions, Adult (Jamaican)documented in this encounter [facility] Summary Purpose Family History No Family History Records FoundNo Family History Records FoundNo Family History Records Found Advance Directives No Advanced Directives Records FoundNo Advanced Directives Records FoundNo Advanced Directives Records Found Reason for Referral Specialty Diagnoses / Procedures Referred By Sola tracey Referred To Contact Diagnoses ventricular septal defect affecting antepartum care of mother, single or unspecified fetus Procedures echo 2D W/ color flow Jakob Hernandez MD [address] [place] [address] Referral ID Status Reason Start Date Expiration Date V isits Requested Visits Authorized [id number] Pending Review 10/07/2023 10/06/2024 1 1 Additional Source Comments INFORMATION SOURCE (unrecogn ized section and content) DATE CREATED AUTHOR 03/12/2022 [facility] DATE CREATED AUTHOR AUTHOR'S ORGANIZ ATION 10/08/2023 [facility] DATE CREATED AUTHOR AUTHOR'S ORGANIZ ATION 11/11/2023 [facility] d[facility] Specialists [facility] Reason for Visit (unrecogniz ed section and content) Reason Comments Routine Visit Reason Comments observation of VSD Specialty Diagnoses / Procedures Referred By Contac t Referred To Contact Pediatric Cardiology Diagnoses ventricular septal defect in , antepartum, single gestation Cristel Medina R, DO [address] , [facility] [place] [address] Jakob Hernandez MD [address] [place] [address] Referral ID Status Reason Start Date Expiration Date Visits Requested Visits Authorized [id number] Pending Review Specialty Services Required 09/04/2023 09/03/2024 1 1 Reason Comments URI Patient symptoms sta rted ,fever,cough,congestionOTC....tylenol Care Teams (unrecognized sec tion and content) Crm Marketing Manager Relationship Specialty Start Date End Date Chris Maloney DO [address] [facility] [address] [place] [address] PCP - General Family Medicine 12/24/22 Crm Marketing Manager Relationship Specialty Start Date End Date Dedra Maguire, SALLIE-VICE PRESIDENT OF CUSTOMER SERVICE [address] [facility] [address] [place] [id number] PCP - General Family Medicine 10/29/21 Crm Marketing Manager Relationship Specialty Start Date End Date Gigi, Dedra Tang, ELECTRICAL AND RADIO MOCK UP MECHANIC-VICE PRESIDENT OF CUSTOMER SERVICE [address] [phone] PCP - General Family Medicine 10/29/21 FOR [...] BE BASED ON THE PRIMARY CLINICAL RECORDS. [employer] [facility]. provides no warranty or guarantee of the accuracy or completeness of information in this document.
--- NOTE | 2023-11-14 16:58 | US_ITS ---
[address] [address] Patient Name: SOBIA CHAUDHARI MRN: [facility]:[id number] date: 1990 Sex: F Assigned Patient Location: [facility] Current Patient Location: Accession/Order Number: [id number] Exam Date: 11/14/2023 17:00 Report Date: 11/17/2023 11:15 At the request of: CRISTEL HILL Procedure: US OB BPP w non-stress EXAMINATION: US OB BPP w non-stress HISTORY: GESTATIONAL DIABETES MELLITUS O24.419 COMPARISON: Ultrasound OB biophysical 11/07/2023 TECHNIQUE: Ultrasound biophysical profile was performed in the radiology department. BREATHING MOVEMENTS: 2.0 GROSS BODY MOVEMENTS: 2.0 TONE: 2.0 QUALITATIVE AMNIOTIC FLUID VOLUME: 2.0 PRESENTATION: CEPHALIC HEART RATE: 135.0 bpm bpm. AMNIOTIC FLUID VOLUME: 19.2 cm GESTATIONAL AGE: 34 weeks 5 days CONCLUSION: Total biophysical profile score 8.0. Electronically authenticated by: COMFORT SUNG Date: 11/17/2023 11:15
[2023-11-14 17:27] VITALS: BP 113/68; PULSE 88
== END 2023-11-14 18:22 | disposition home or self-care (01) ==
LOC: US 07:10 → FBC 16:59
PROVIDERS: Visit Provider Obstetrics & Gynecology
DX: O24.419 Gestational diabetes mellitus in pregnancy, unspecified control (principal); Z3A.34 34 weeks gestation of pregnancy
CPT/HCPCS: 76818

== ENCOUNTER 2023-11-21 07:18 | Outpatient (OUT) | payer OTHER, SELFPAY ==
--- OUTSIDE RECORDS SUMMARY | 2023-11-21 07:20 | XMS_ITS | CCD ---
Author Organization [facility] Care Team Providers Care Council On Aging Director Name Role Phone HAIDER, DR COLBERT Admitting [...] Unavaila DEDRA Howell Primary Care Unavailable Gigi SPA MANAGER/ESTHETICIAN-Dedra ROGERS Primary Care Provider CRISTEL MEDINA Attending Unavailable LIZ, CRISTEL Attending Unavailable JAZLYN ORTIZ Attending Unavailable LZI, CRISTEL Attending Unavailable LIZ, CRISTEL Attending Unavailable LIZ, CRISTEL Attending Unavailable DIANA, JAZLYN Attending Unavailable Allergies Allergy Classification Reported Allergen(s) Allergy Type Date of Onset Reaction(s) Facility (2 sources) Penicillins; Translations: [PENICILLINS] Drug allergy (disorder) 3 [facility] Repository (1 source) traMADol Drug Allergy 6 [facility] Repository (5 sources) Gentamicin; Translations: [GENTAMICIN] Drug [...] to adverse reactions to drug 7 Hives [facility] Medications Current Medications Medication Drug [...] 10-13-2023 External Poct Influenza A Antigen Negative [facility] External Poct Influenza B Antigen Negative [facility] SARS-CoV-2 (COVID-19) Ag IA.rapid Ql (Resp) Negative [facility] Urinalysis macro (dipstick) panel (U)Ordered By: Estefania Posadas on 09-29-2023 Bilirubin, UA Negative Negative - 4(70) +++ mg/dL [facility] Work Phone: Blood, UA Negative Negative - 50 Galen/mcL [facility] Work Phone: Clarity, UA Clear [facility] re Work Phone: Color, UA Yellow [facility] Work Phone: Glucose, UA Negative Negative - 2000(110) ++++ mg/dL [facility] Work Phone: Interpretation and review of laboratory results Abnormal [facility] Work Phone: Ketones, UA Negative Negative - 160(16) ++++ mg/dL [facility] Work Phone: Leukocytes, UA Trace Negative - 500+++ Bean/mcL [facility] Work Phone: Nitrite, UA Negative Negative - Positive [facility] Work Phone: pH, UA 7.0 5 - 9 [facility] [employer] Work Phone: Protein, UA Negative Negative - 2000(20) ++++ mg/dL [facility] Work Phone: Spec Grav, UA 1.015 1 - 1.03 [facility] [employer] [facility] Work Phone: Urobilinogen, UA 0.2 0.2 - 12 mg/dL [facility] [employer] Work Phone: [facility] [employer] Work Phone: PAP ACOG PANEL 2: 30 to 65on 03-12-2022 . . Normal [facility] Comment on above: Result Comment: Perf ormed at: WB Performed By: #### [id number] #### [facility] [address] [place] [address] Dr. Michelle Gunderson Age Gdln ACOG Testing 30-65 Normal [facility] Comment on above: Performed By: #### [id number] #### [facility] [address] [place] [address] Dr. Michelle Gunderson DIAGNOSIS: Comment Normal [facility] Comment on above: Result Comment: NEGA TIVE FOR INTRAEPITHELIAL LESION OR MALIGNANCY. Performed at: WB Performed By: #### [id number] #### [facility] [address] [place] [address] Dr. Michelle Gunderson HPV Aptima Negative Normal Negative [facility] Comment on above: Result Comment: This nucleic acid amplification test detects fourteen high-risk HPV types (16,18,31,33,35,39,45,51,52,56,58,59,66,68) without differentiation. Performed at: =G Performed By: #### [id number] #### [facility] [address] [place] [address] Dr. Michelle Gunderson Methodology: CTIM [facility] Comment on above: Result Comment: The Thin Prep(R) Cardiology Physician Assistant was unable to read this specimen. Therefore a manual review was performed. Performed at: WB Performed By: #### [id number] #### [facility] [address] [place] [address] Dr. Michelle Gunderson Note: Comment Normal [facility] Comment on above: Result Comment: The Pap smear is a screening test designed to aid in the detection of premalignant and malignant conditions of the uterine cervix. It is not a diagnostic procedure and should not be used as the sole means of detecting cervical cancer. Both false-positive and false-negative reports do occur. . Performed at: WB Performed By: #### [id number] #### [facility] [address] [place] [address] Dr. Michelle Gunderson Performed by: Comment Normal [facility] Comment on above: Result Comment: Archana Lee, Briar Shop Supervisor (ASCP) Performed at: WB Performed By: #### [id number] #### [facility] [address] [place] [address] Dr. Michelle Gunderson Specimen adequacy: Comment Normal [facility] Comment on above: Result Comment: Sati sfactory for evaluation. Endocervical and/or squamous metaplastic cells (endocervical component) are present. Partially obscuring thick areas are present. Performed at: WB Performed By: #### [id number] #### [facility] [address] [place] [address] Dr. Michelle Gunderson [facility]on SARS-CoV-2 (COVID-19) RNA JOSE MIGUEL+probe Ql (Unsp spec) Not detected Normal NOT DETECTED [facility] Comment on above: Result Comment: This test is not yet approved or cleared by the [place] FDA. When there are no FDA-approved or cleared tests available, and other criteria are met, FDA can make tests available under an emergency access mechanism called an Emergency Use Authorization (EUA). The EUA for this test is supported by the [place] of Health and Human Service's (HHS's) declaration [...] consistent with SARS-CoV-2. Performed By: #### C [facility] #### [facility] [address] [place] [address] Dr. Michelle Gunderson Vital Signs Date Time Vital Sign Value Performing Clinician Facility 10-13-2023 10:44-0500 Body height 157.5 cm Alessia ScottJohnson SPA MANAGER/ESTHETICIAN-TELEVISION INSTALLER Work Phone: [facility] 10-13-2023 10:44-0500 Body mass index (BMI) [Ratio] 27.9 kg/m2 Alessiagirish ScottJohnson SPA MANAGER/ESTHETICIAN-TELEVISION INSTALLER Work Phone: [facility] 10-13-2023 10:44-0500 Body temperature 97.7 [degF] Alessiagirish Mason SPA MANAGER/ESTHETICIAN-TELEVISION INSTALLER Work Phone: [facility] 10-13-2023 10:44-0500 Body weight 69.22 kg Alessiagirish Ge-Johnson SPA MANAGER/ESTHETICIAN-TELEVISION INSTALLER Work Phone: [facility] 10-13-2023 10:44-0500 Diastolic blood pressure 78 mm[Hg] Alessiagirish Ge-Johnson SPA MANAGER/ESTHETICIAN-TELEVISION INSTALLER Work Phone: [facility] 10-13-2023 10:44-0500 Heart rate 86 /min Alessiagirish Mason SPA MANAGER/ESTHETICIAN-TELEVISION INSTALLER Work Phone: [facility] 10-13-2023 10:44-0500 Respiratory rate 18 /min Alessiasa Ge-Johnson SPA MANAGER/ESTHETICIAN-TELEVISION INSTALLER Work Phone: [facility] 10-13-2023 10:44-0500 SaO2% (BldA) [Mass fraction] 98 % Alessiagirish ScottJohnson SPA MANAGER/ESTHETICIAN-TELEVISION INSTALLER Work Phone: [facility] 10-13-2023 10:44-0500 Systolic blood pressure 113 mm[Hg] Alessia Mason SPA MANAGER/ESTHETICIAN-TELEVISION INSTALLER Work Phone: [facility] 10-07-2023 09:29-0500 Body height 157.5 cm Jakob Hernandez MD Work Phone: [facility] 10-07-2023 09:29-0500 Body mass index (BMI) [Ratio] 28.78 kg/m2 Jakob Hernandez MD Work Phone: [facility] 10-07-2023 09:29-0500 Body weight 71.4 kg Jakob Hernandez MD Work Phone: [facility] 10-07-2023 09:29-0500 Diastolic blood pressure 73 mm[Hg] Jakob Hernandez MD Work Phone: [facility] 10-07-2023 09:29-0500 Heart rate 95 /min Jakob Hernandez MD Work Phone: [facility] 10-07-2023 09:29-0500 SaO2% (BldA) [Mass fraction] 100 % Jakob Hernandez MD Work Phone: [facility] 10-07-2023 09:29-0500 Systolic blood pressure 124 mm[Hg] Jakob Hernandez MD Work Phone: [facility] 09-29-2023 16:19-0500 Body mass index (BMI) [Ratio] 29.04 kg/m2 Jazlyn MCDUFFIE Work Phone: [facility] 09-29-2023 16:19-0500 Body weight 72.03 kg Jazlyn MCDUFFIE Work Phone: [facility] 09-29-2023 16:19-0500 Diastolic blood pressure 70 mm[Hg] Jazlyn MCDUFFIE Work Phone: [facility] 09-29-2023 16:19-0500 Systolic blood pressure 120 mm[Hg] Jazlyn MCDUFFIE Work Phone: [facility] Encounters Encounter Date Encounter Type Care Provider Facility Start: 11-10-2023 End: 11-10-2023 ambulatory CRISTEL MEDINA Not Available Start: 10-27-2023 End: 10-27-2023 ambulatory CRISTEL MEDINA Not Available Start: 10-15-2023 End: 10-15-2023 ambulatory CRISTEL MEDINA Not Available Start: 10-13-2023 End: 10-13-2023 Office outpatient visit 15 minutes Alessia Mason SPA MANAGER/ESTHETICIAN-TELEVISION INSTALLER Work Phone: [facility] Comment on above: General ill feeling (Primary Dx) Start: 10-07-2023 End: 10-08-2023 ambulatory JAKOB HERNANDEZ [facility] Start: 10-07-2023 End: 10-07-2023 Office consultation new/estab patient 80 min Jakob Hernandez MD Work Phone: [facility] Comment on above: ventricular [...] POCT INFLUENZA A/INFLUENZA B/SARS-COV-2 VERITOR Alessia Mason SPA MANAGER/ESTHETICIAN-TELEVISION INSTALLER Work Phone: Start: 10-13-2023 Adult depression screening assessment Alessia JooChirag SPA MANAGER/ESTHETICIAN-TELEVISION INSTALLER Work Phone: Start: 09-29-2023 Urnls dip stick/tabl et rgnt non-auto w/o micrscp Jazlyn MCDUFFIE Work Phone: Start: 05-08-2023 Adult depression screening assessment Jakob Hernandez MD Work Phone: Plan of Treatment Date Care Activity Detail Author Start: 09-07-2030 DTaP,Tdap and Td Vaccines (2 - Tdap) DTaP,Tdap and Td Vaccines (2 - Tdap) [facility] Start: 10-13-2024 Adult BMI Screening Adult BMI Screen ing [facility] Start: 10-13-2024 Depression Screening Depression Scre ening [facility] Start: 10-13-2024 Tobacco Screening Tobacco Screening [facility] Start: 10-07-2024 Adult BMI Screening Adult BMI Screen ing [facility] Start: 10-07-2024 Tobacco Screening Tobacco Screening [facility] Start: 05-08-2024 Depression Screening Depression Scre ening [facility] Start: 11-25-2023 Screening for malign ant neoplasm of cervix [facility] Start: 10-27-2023 End: 10-27-2023 Patient encounter procedure 10/27/2023 3:40 PM EDT Routine [facility] [address] [place] [id number] Cristel Medina, DO [address] [place] [address] [facility] Start: 10-27-2023 End: 10-27-2023 Professional / ancillary services management 10/27/2023 3:00 PM EDT Ancillary Procedure [facility] [address] [place] [phone] [facility] Start: 10-15-2023 End: 10-15-2023 Patient encounter procedure 10/15/2023 3:00 PM EST Routine [facility] [address] [place] [phone] Cristel Medina, [address] [place] [address] [facility] Start: 10-07-2023 End: 09-30-2024 echo 2D W/ color flow [facility] Work Phone: Comment on above: Expected: 10/07/2023 (Approximate), Expires: 09/30/2024 Start: 09-29-2023 End: 09-29-2024 US biophysical profile w non stress test US biophysical profile w non stress test Imaging Routine Gestational diabetes mellitus (GDM) in third trimester, gestational diabetes method of control unspecified Expected: 09/29/2023 (Approximate), Expires: 09/29/2024 [facility] Work Phone: Comment on above: Expected: 09/29/2023 (Approximate), Expires: 09/29/2024 Start: 04-18-2023 Influenza vaccination [facility] Start: 2012 Screening for malign ant neoplasm of cervix Pap Smear [facility] Start: 2009 Adult BMI Follow Up Plan Adult BMI Follow Up Plan [facility] Immunizations Immunization Date Immunization Notes Care Provider [facility] 05-29-2021 influenza, injectabl e, quadrivalent, preservative free Jakob Hernandez MD Work Phone: [facility] 05-29-2021 influenza virus vaccine, unspecified formulation Jazlyn MCDUFFIE Work Phone: [facility] 09-07-2020 diphtheria, tetanus toxoids and pertussis vaccine Jakob Hernandez MD Work Phone: [facility] 06-07-2020 influenza, injectabl e, quadrivalent, preservative free Jakob Hernandez MD Work Phone: [facility] 06-02-2019 influenza, injectabl e, quadrivalent, preservative free Jakob Hernandez MD Work Phone: [facility] 06-03-2018 influenza, injectabl e, quadrivalent, preservative free Jakob Hernandez MD Work Phone: [facility] Payers Date Payer Category Payer Unknown [id number] 1990 Unknown [id number] 2.16.84 [id number] 1990 Unknown [id number] 2.16.84 [id number] 1990 Unknown [id number] 2.16.8 [id number] 1990 Unknown [id number] 2.16.8 [id number] 1990 Unknown [id number] 2.16.84 [id number] 1990 Unknown [id number] 2.16.84 [id number] 1991 Unknown [id number] 2.16.84 [id number] 1990 Unknown [id number] 2.16.84 [id number] 1990 Unknown [id number] 2.16.84 [id number] 1991 Unknown [id number] [id number] .[id number] 1990 Unknown [id number] [id number] .[id number] 1959 Unknown [id number] Social History Date Type Detail Facility Start: 06-02-2023 End: 10-07-2023 Tobacco smoking status KSIS Never smoked tobacco [facility] Start: 09-29-2023 Alcohol intake Lifetime non-d venessa (finding) [facility] Start: 12-28-2021 End: 06-02-2023 History of Social function [facility] Start: 12-28-2021 End: 06-02-2023 Tobacco use panel [facility] Start: 06-02-2023 Alcohol Comment caffeine: 1-2 cups per day [employer] Drink ; coffee [facility] Start: 03-30-2023 [facility] Start: 1990 Sex Assigned At Female N [facility] Start: 05-15-2023 Gender identity Identifies as female gender (finding) [facility] Start: 10-07-2023 Tobacco use and exposure Smokeless tobacco non-user [facility] Start: 10-07-2023 End: 10-13-2023 Alcohol intake Current non-drinker of alcohol (finding) [facility] Do you belong to any clubs or organizations such as faith groups, unions, fraternal or athletic groups, or school groups? No [facility] Are you now , , , , never or living with a partner? [facility] How often to you hav e a drink containing alcohol? 2-3 time sa week [facility] How many standard drinks containing alcohol do you have on a typical day? [address] [facility] How often do you hav e 6 or more drinks on 1 occasion? Never [facility] How hard is it for y ou to pay for the very basics like food, housing, medical care, and heating Somewhat hard [facility] Adolescent depressio n screening assessment 0 [facility] Do you feel stress - tense, restless, nervous, or anxious, or unable to sleep at night because your mind is troubled all the time - these days [OSQ] To some extent [facility] Start: 12-28-2021 Education 18 [facility] Start: 1990 Sex Assigned At Not on file P [facility] NEGATED: Highlighted rowStart: NINF History of tobacco use Passive smoker [facility] Medical Equipment Procedure Code Equipment Code Equipment Origin al Text Equipment Identifier Dates Use as instructed [id number] Start: 06-10-2023 End: 06-09-2024 1 each in the morning and 1 each before bedtime. [id number] Start: 06-10-2023 History of Present illness Narrative 10-13-2023 Alessia Marlon, SPA MANAGER/ESTHETICIAN-TELEVISION INSTALLER - 10/13/2023 10:30 AM EST Note Date & Type Note Facility 10-13-2023 History of Present illness Narrative Images from the original note were not included. 10/13/2023 [facility] SUBJECTIVE: Sobia Lucero is a 33 y.o. [...] repeat testing Initial testing Physician Phone Number [phone] GENERAL TEST INFORMATION See Note This screening [...] developed and its performance characteristics determined by [facility] in a manner consistent with CLIA requirements. This test has not been cleared or approved by the U.S. Food and Drug Administration. Test Performed by: [facility] [address] [place] [address] Agricultural Extension Educator: Jose Palmer M.D. Ph.D.; CLIA# [id number] echo 2D W/ color flow Result Date: [...] of 151 beats per minute, normal mechanical AR interval of 96milliseconds Other: No pericardial effusion [...] OB GROWTH Result Date: 09/29/2023 Narrative: [place] [address] Ultrasound Report Signed Patient: SOBIA LUCERO MR#: [id number] : 1990 Acct:[id number] Age/Sex: 33 / F ADM Date: 09/29/23 Loc: [facility] Attending Dr: Cristel Medina D.O. Ordering Physician: Cristel Medina D.O. Date of Service: 09/29/23 Procedure(s): US OB growth Accession Number(s): [id number] cc: Cristel Medina D.O.; Physician,Non-Staff M.DEllen [address] [address] Patient Name: SOBIA LUCERO MRN: [id number] date: 1990 Sex: F Assigned Patient Location: [facility] Current Patient Location: [facility] Accession/Order Number: [id number] Exam Date: 09/29/2023 15:04 Report Date: 09/29/2023 [...] M.D. Signed By: 09/29/231618 DD/ 15 TD/TT: Pressed Or Blown Glass Worker: Physical Exam Vitals and nursing note [...] 10/14/23 1724 documented in this encounter [facility] History of Present illness Narrative 10-07-2023 Jakob Hernandez MD - 10/07/2023 9:00 AM EST Note Date & Type Note Facility 10-07-2023 History of Present illness Narrative [address] [phone] October 07, 2023 Patient: Sobia Lucero Date [...] abnormal discharge. Positive for cramping and contractions (Refugio-Zamorano). All other systems negative Current Outpatient Medications Medication Sig [facility] () 28 mg iron- 800 [...] Master's degree (e.g., MA, MS, [place]on, MEd, PRISON PSYCHIATRIST, LACIE) Occupational History Not on file Tobacco [...] 30 min Stress: Stress Concern Present (12/28/2021) [employer] - Occupational Stress Questionnaire Feeling of Stress : To some extent Social Connections: Moderately Isolated (12/28/2021) Social Connection and Isolation Panel [NHANES] Frequency of Communication with Friends and Family: More than three times a week Frequency of Social Gatherings with Friends and Family: Once a week Attends Hinduism Services: 1 to 4 times per year [...] during cardiac examination I do recommend post echocardiogram which does not neccessarily need to [...] queries or concerns. Sincerely, Jakob Hernandez M.D. Oven Attendant [facility] This note is dictated with the use of M*Modal.Please note that this dictation was completed with computer voice recognition software. Quite often unanticipated grammatical, syntax, homophones, and other interpretive errors are inadvertently transcribed by the computer software. Please disregard these errors. Please excuse any errors that have escaped final proofreading. documented in this encounter [facility] History of Present illness Narrative [...] History: Diagnosis Date Allergies Anxiety Bipolar disorder (CMS/[facility]) 2013 Depression ([facility]) Hemorrhoids History of gestational diabetes mellitus (GDM) [...] of: RETA Christopher documented in this encounter [facility] Evaluation note Note Date & Type Note Facility Evaluation note Diagnosis Third trimester state, incidental Gestational diabetes mellitus (GDM) in third trimester, gestational diabetes method of control unspecified documented in this encounter [facility] Evaluation note Note Date & [...] Everywhere.Viral Upper Respiratory Infection Discharge Instructions, Adult (Cape Verdean)documented in this encounter [facility] Summary [...] Jakob Hernandez MD [address] [place] [address] Referral ID Status Reason Start Date Expiration Date V isits Requested Visits Authorized [id number] Pending Review 10/07/2023 10/06/2024 1 1 Additional Source Comments INFORMATION SOURCE (unrecogn ized section and content) DATE CREATED AUTHOR 03/12/[address] [facility] DATE CREATED AUTHOR AUTHOR'S ORGANIZ ATION 10/08/2023 [facility] DATE CREATED AUTHOR AUTHOR'S ORGANIZ ATION 11/11/2023 [facility] dical Specialists [facility] Reason for Visit (unrecogniz ed section and content) Reason Comments Routine Visit Reason Comments observation of VSD Specialty Diagnoses / Procedures Referred By Contac t Referred To Contact Pediatric Cardiology Diagnoses ventricular septal defect in , antepartum, single gestation Cristel Medina R, DO [address] [place] , [facility] [place] [place] [address] Jakob Hernandez MD [address] [place] [address] Referral ID Status Reason Start Date Expiration Date Visits Requested Visits Authorized [id number] Pending Review Specialty Services Required 09/04/2023 09/03/2024 1 1 Reason Comments URI Patient symptoms sta rted ,fever,cough,congestionOTC....tylenol Care Teams (unrecognized sec tion and content) [facility] Director Relationship Specialty Start Date End Date Chris Maloney DO [address] [address] [place] [address] PCP - General Family Medicine 12/24/22 [facility] [employer] [facility] Director Relationship Specialty Start Date End Date Dedra Maguire, SALLIE-TELEVISION INSTALLER [address] [facility] [address] [place] [phone] PCP - General Family Medicine 10/29/21 [facility] [employer] [facility] Director Relationship Specialty Start Date End Date Gigi, Dedra Tang, SPA MANAGER/ESTHETICIAN-TELEVISION INSTALLER [address] [address] PCP - General Family Medicine 10/29/21 FOR [...] BE BASED ON THE PRIMARY CLINICAL RECORDS. [employer] [facility]. provides no warranty or guarantee of the accuracy or completeness of information in this document.
--- NOTE | 2023-11-21 17:03 | US_ITS ---
[address] [address] Patient Name: SOBIA CHAUDHARI MRN: [facility]:[id number] date: 1990 Sex: F Assigned Patient Location: [facility] Current Patient Location: Accession/Order Number: [id number] Exam Date: 11/21/2023 17:06 Report Date: 11/22/2023 05:02 At the request of: CRISTEL HILL Procedure: US OB BPP w non-stress EXAMINATION: US OB BPP w non-stress HISTORY: GESTATIONAL DIABETES MELLITUS O24.419 COMPARISON: Ultrasound OB biophysical 11/14/2023 TECHNIQUE: Ultrasound biophysical profile was performed in the radiology department. BREATHING MOVEMENTS: 2.0 GROSS BODY MOVEMENTS: 2.0 TONE: 2.0 QUALITATIVE AMNIOTIC FLUID VOLUME: 2.0 PRESENTATION: CEPHALIC HEART RATE: 133.0 bpm bpm. AMNIOTIC FLUID VOLUME: 18.6 cm GESTATIONAL AGE: 35 weeks 6 days CONCLUSION: Total biophysical profile score 8.0. Electronically authenticated by: COMFORT SUNG Date: 11/22/2023 05:02
[2023-11-21 17:31] VITALS: BP 123/80; PULSE 87
== END 2023-11-21 18:16 | disposition home or self-care (01) ==
LOC: US 07:18 → FBC 16:53
PROVIDERS: Visit Provider Obstetrics & Gynecology
DX: O24.419 Gestational diabetes mellitus in pregnancy, unspecified control (principal); Z3A.35 35 weeks gestation of pregnancy
CPT/HCPCS: 76818

== ENCOUNTER 2023-11-25 06:56 | Outpatient (OUT) | payer OTHER, SELFPAY ==
--- OUTSIDE RECORDS SUMMARY | 2023-11-25 06:59 | XMS_ITS | CCD ---
Author Organization [facility] Care Team Providers Care Screening Tech Name Role Phone HAIDER, DR COLBERT Admitting Unavailable HAIDER, DR COLBERT Attending Unavailable HAIDER, DR COLBERT Primary Care Unavailable HAIDER, DR COLBERT Consulting Unavailable LIZ, DR FAM Admitting Unavailable LIZ, DR FAM Attending Unavailable HAIDER, DR COLBERT Primary Care Unavailable LIZ, DR FAM Consulting Unavailable Chris Maloney DO Primary Care Provider [phone] JAKOB HERNANDEZ Attending Unavaila DEDRA Howell Referring Unavailable DEDRA MAGUIRE Primary Care Unavailable JAKOB HERNANDEZ Referring Unavaila DEDRA Howell Primary Care Unavailable Gigi SHAPE HAND-Dedra ROGERS Primary Care Provider CRISTEL MEDINA Attending Unavailable LIZ, CRISTEL Attending Unavailable JAZLYN ORTIZ Attending Unavailable LIZ, CRISTEL Attending Unavailable LIZ, CRISTEL Attending Unavailable LIZ, CRISTEL Attending Unavailable DIANA, JAZLYN Attending Unavailable Allergies Allergy Classification Reported Allergen(s) Allergy Type Date of Onset Reaction(s) Facility (2 sources) Penicillins; Translations: [PENICILLINS] Drug allergy (disorder) 3 [facility] Repository (1 source) traMADol Drug Allergy 6 [facility] Repository (5 sources) Gentamicin; Translations: [GENTAMICIN] Drug [...] to adverse reactions to drug 7 Hives [facility] Medications Current Medications Medication Drug [...] 10-13-2023 External Poct Influenza A Antigen Negative [facility] External Poct Influenza B Antigen Negative [facility] SARS-CoV-2 (COVID-19) Ag IA.rapid Ql (Resp) Negative [facility] Urinalysis macro (dipstick) panel (U)Ordered By: Estefania Posadas on 09-29-2023 Bilirubin, UA Negative Negative - 4(70) +++ mg/dL [facility] Work Phone: Blood, UA Negative Negative - 50 Glaen/mcL [facility] Work Phone: Clarity, UA Clear [facility] Work Phone: Color, UA Yellow [facility] Work Phone: Glucose, UA Negative Negative - 2000(110) ++++ mg/dL [facility] Work Phone: Interpretation and review of laboratory results Abnormal [facility] Work Phone: Ketones, UA Negative Negative - 160(16) ++++ mg/dL [facility] Work Phone: Leukocytes, UA Trace Negative - 500+++ Bean/mcL [facility] Work Phone: Nitrite, UA Negative Negative - Positive [facility] Work Phone: pH, UA 7.0 5 - 9 [facility] [employer] Work Phone: Protein, UA Negative Negative - 2000(20) ++++ mg/dL [facility] [employer] Work Phone: Spec Grav, UA 1.015 1 - 1.03 [facility] [employer] Work Phone: Urobilinogen, UA 0.2 0.2 - 12 mg/dL [facility] [employer] Work Phone: [facility] [employer] Work Phone: PAP ACOG PANEL 2: 30 to 65on 03-12-2022 . . Normal [facility] Comment on above: Result Comment: Perf ormed at: WB Performed By: #### [id number] #### [facility] [address] [place] [address] Dr. Michelle Gunderson Age Gdln ACOG Testing 30-65 Normal [facility] Comment on above: Performed By: #### [id number] #### [facility] [address] [place] [address] Dr. Michelle Gunderson DIAGNOSIS: Comment Normal [facility] Comment on above: Result Comment: NEGA TIVE FOR INTRAEPITHELIAL LESION OR MALIGNANCY. Performed at: WB Performed By: #### [id number] #### [facility] [address] [place] [address] Dr. Michelle Gunderson HPV Aptima Negative Normal Negative [facility] Comment on above: Result Comment: This nucleic acid amplification test detects fourteen high-risk HPV types (16,18,31,33,35,39,45,51,52,56,58,59,66,68) without differentiation. Performed at: =G Performed By: #### [id number] #### [facility] [address] [place] [address] Dr. Michelle Gunderson Methodology: CTIM [facility] Comment on above: Result Comment: The Thin Prep(R) Battery Mechanic was unable to read this specimen. Therefore a manual review was performed. Performed at: WB Performed By: #### [id number] #### [facility] [address] [place] [address] Dr. Michelle Gunderson Note: Comment Normal [facility] Comment on above: Result Comment: The Pap smear is a screening test designed to aid in the detection of premalignant and malignant conditions of the uterine cervix. It is not a diagnostic procedure and should not be used as the sole means of detecting cervical cancer. Both false-positive and false-negative reports do occur. . Performed at: WB Performed By: #### [id number] #### [facility] [address] [place] [address] Dr. Michelle Gunderson Performed by: Comment Normal [facility] Comment on above: Result Comment: Archana Lee, [employer] (ASCP) Performed at: WB Performed By: #### [id number] #### [facility] [address] [place] [address] Dr. Michelle Gunderson Specimen adequacy: Comment Normal [facility] Comment on above: Result Comment: Sati sfactory for evaluation. Endocervical and/or squamous metaplastic cells (endocervical component) are present. Partially obscuring thick areas are present. Performed at: WB Performed By: #### [id number] #### [facility] [address] [place] [address] Dr. Michelle Gunderson [facility]-19 PCR ([facility]on SARS-CoV-2 (COVID-19) RNA JOSE MIGUEL+probe Ql (Unsp spec) Not detected Normal NOT DETECTED [facility] Comment on above: Result Comment: This test is not yet approved or cleared by the [place] FDA. When there are no FDA-approved or cleared tests available, and other criteria are met, FDA can make tests available under an emergency access mechanism called an Emergency Use Authorization (EUA). The EUA for this test is supported by the [place] of Health and Human Service's (HHS's) declaration [...] consistent with SARS-CoV-2. Performed By: #### [facility] #### [facility] [address] [place] [address] Dr. Michelle Gunderson Vital Signs Date Time Vital Sign Value Performing Clinician Facility 10-13-2023 10:44-0500 Body height 157.5 cm Alessia ScottJohnson SHAPE HAND-TELEMARKETING SUPERVISOR Work Phone: [facility] 10-13-2023 10:44-0500 Body mass index (BMI) [Ratio] 27.9 kg/m2 Alessiagirish ScottJohnson SHAPE HAND-TELEMARKETING SUPERVISOR Work Phone: [facility] 10-13-2023 10:44-0500 Body temperature 97.7 [degF] Alessiagirish Mason SHAPE HAND-TELEMARKETING SUPERVISOR Work Phone: [facility] 10-13-2023 10:44-0500 Body weight 69.22 kg Alessiagirish Ge-Johnson SHAPE HAND-TELEMARKETING SUPERVISOR Work Phone: [facility] 10-13-2023 10:44-0500 Diastolic blood pressure 78 mm[Hg] Alessiagirish Ge-Johnson SHAPE HAND-TELEMARKETING SUPERVISOR Work Phone: [facility] 10-13-2023 10:44-0500 Heart rate 86 /min Alessiagirish Mason SHAPE HAND-TELEMARKETING SUPERVISOR Work Phone: [facility] 10-13-2023 10:44-0500 Respiratory rate 18 /min Alessiasa Ge-Johnson SHAPE HAND-TELEMARKETING SUPERVISOR Work Phone: [facility] 10-13-2023 10:44-0500 SaO2% (BldA) [Mass fraction] 98 % Alessiagirish ScottJohnson SHAPE HAND-TELEMARKETING SUPERVISOR Work Phone: [facility] 10-13-2023 10:44-0500 Systolic blood pressure 113 mm[Hg] Alessia Mason SHAPE HAND-TELEMARKETING SUPERVISOR Work Phone: [facility] 10-07-2023 09:29-0500 Body height 157.5 cm Jakob Hernandez MD Work Phone: [facility] 10-07-2023 09:29-0500 Body mass index (BMI) [Ratio] 28.78 kg/m2 Jakob Hernandez MD Work Phone: [facility] 10-07-2023 09:29-0500 Body weight 71.4 kg Jakob Hernandez MD Work Phone: [facility] 10-07-2023 09:29-0500 Diastolic blood pressure 73 mm[Hg] Jakob Hernandez MD Work Phone: [facility] 10-07-2023 09:29-0500 Heart rate 95 /min Jakob Hernandez MD Work Phone: [facility] 10-07-2023 09:29-0500 SaO2% (BldA) [Mass fraction] 100 % Jakob Hernandez MD Work Phone: [facility] 10-07-2023 09:29-0500 Systolic blood pressure 124 mm[Hg] Jakob Hernandez MD Work Phone: [facility] 09-29-2023 16:19-0500 Body mass index (BMI) [Ratio] 29.04 kg/m2 Jazlyn MCDUFFIE Work Phone: [facility] 09-29-2023 16:19-0500 Body weight 72.03 kg Jazlyn MCDUFFIE Work Phone: [facility] 09-29-2023 16:19-0500 Diastolic blood pressure 70 mm[Hg] Jazlyn MCDUFFIE Work Phone: [facility] 09-29-2023 16:19-0500 Systolic blood pressure 120 mm[Hg] Jazlyn MCDUFFIE Work Phone: [facility] Encounters Encounter Date Encounter Type Care Provider Facility Start: 11-10-2023 End: 11-10-2023 ambulatory CRISTEL MEDINA Not Available Start: 10-27-2023 End: 10-27-2023 ambulatory CRISTEL MEDINA Not Available Start: 10-15-2023 End: 10-15-2023 ambulatory CRISTEL MEDINA Not Available Start: 10-13-2023 End: 10-13-2023 Office outpatient visit 15 minutes Alessia Mason SHAPE HAND-TELEMARKETING SUPERVISOR Work Phone: [facility] Comment on above: General ill feeling (Primary Dx) Start: 10-07-2023 End: 10-08-2023 ambulatory JAKOB HERNANDEZ [facility] Start: 10-07-2023 End: 10-07-2023 Office consultation new/estab patient 80 min Jakob Hernandez MD Work Phone: [facility] Comment on above: ventricular [...] POCT INFLUENZA A/INFLUENZA B/SARS-COV-2 VERITOR Alessia Mason SHAPE HAND-TELEMARKETING SUPERVISOR Work Phone: Start: 10-13-2023 Adult depression screening assessment Alessia JooChirag SHAPE HAND-TELEMARKETING SUPERVISOR Work Phone: Start: 09-29-2023 Urnls dip stick/tabl et rgnt non-auto w/o micrscp Jazlyn MCDUFFIE Work Phone: Start: 05-08-2023 Adult depression screening assessment Jakob Hernandez MD Work Phone: Plan of Treatment Date Care Activity Detail Author Start: 09-07-2030 DTaP,Tdap and Td Vaccines (2 - Tdap) DTaP,Tdap and Td Vaccines (2 - Tdap) [facility] Start: 10-13-2024 Adult BMI Screening Adult BMI Screen ing [facility] Start: 10-13-2024 Depression Screening Depression Scre ening [facility] Start: 10-13-2024 Tobacco Screening Tobacco Screening [facility] Start: 10-07-2024 Adult BMI Screening Adult BMI Screen ing [facility] Start: 10-07-2024 Tobacco Screening Tobacco Screening [facility] Start: 05-08-2024 Depression Screening Depression Scre ening [facility] Start: 11-25-2023 Screening for malign ant neoplasm of cervix [facility] Start: 10-27-2023 End: 10-27-2023 Patient encounter procedure 10/27/2023 3:40 PM EDT Routine [facility] [address] [place] [id number] Cristel Medina, DO [address] [place] [address] [facility] Start: 10-27-2023 End: 10-27-2023 Professional / ancillary services management 10/27/2023 3:00 PM EDT Ancillary Procedure [facility] [address] [place] [id number] [facility] Start: 10-15-2023 End: 10-15-2023 Patient encounter procedure 10/15/2023 3:00 PM EST Routine [facility] [address] [place] [id number] Cristel Medina, [address] [place] [address] [facility] Start: 10-07-2023 End: 09-30-2024 echo 2D W/ color flow [facility] Work Phone: Comment on above: Expected: 10/07/2023 (Approximate), Expires: 09/30/2024 Start: 09-29-2023 End: 09-29-2024 US biophysical profile w non stress test US biophysical profile w non stress test Imaging Routine Gestational diabetes mellitus (GDM) in third trimester, gestational diabetes method of control unspecified Expected: 09/29/2023 (Approximate), Expires: 09/29/2024 [facility] Work Phone: Comment on above: Expected: 09/29/2023 (Approximate), Expires: 09/29/2024 Start: 04-18-2023 Influenza vaccination N [facility] Start: 2012 Screening for malign ant neoplasm of cervix Pap Smear [facility] Start: 2009 Adult BMI Follow Up Plan Adult BMI Follow Up Plan [facility] Immunizations Immunization Date Immunization Notes Care Provider [facility] 05-29-2021 influenza, injectabl e, quadrivalent, preservative free Jakob Hernandez MD Work Phone: [facility] 05-29-2021 influenza virus vaccine, unspecified formulation Jazlyn MCDUFFIE Work Phone: [facility] 09-07-2020 diphtheria, tetanus toxoids and pertussis vaccine Jakob Hernandez MD Work Phone: [facility] 06-07-2020 influenza, injectabl e, quadrivalent, preservative free Jakob Hernandez MD Work Phone: [facility] 06-02-2019 influenza, injectabl e, quadrivalent, preservative free Jakob Hernandez MD Work Phone: [facility] 06-03-2018 influenza, injectabl e, quadrivalent, preservative free Jakob Hernandez MD Work Phone: [facility] Payers Date Payer Category Payer Unknown [id number] 1991 Unknown [id number] 2.16.84 [id number] 1991 Unknown [id number] 2.16.84 [id number] 1991 Unknown [id number] 2.16.8 [id number] 1991 Unknown [id number] 2.16.8 [id number] 1991 Unknown [id number] 2.16.84 [id number] 1991 Unknown [id number] 2.16.84 [id number] 1991 Unknown [id number] 2.16.84 [id number] 1991 Unknown [id number] 2.16.84 [id number] 1991 Unknown [id number] 2.16.84 [id number] 1991 Unknown [id number] 1991 Unknown [id number] 1959 Unknown [id number] Social History Date Type Detail Facility Start: 06-02-2023 End: 10-07-2023 Tobacco smoking status CTIS Never smoked tobacco [facility] Start: 09-29-2023 Alcohol intake Lifetime non-d venessa (finding) [facility] Start: 12-28-2021 End: 06-02-2023 History of Social function [facility] Start: 12-28-2021 End: 06-02-2023 Tobacco use panel [facility] Start: 06-02-2023 Alcohol Comment caffeine: 1-2 cups per day [employer] Drink ; coffee [facility] Start: 03-30-2023 [facility] Start: 1990 Sex Assigned At Female N [facility] Start: 05-15-2023 Gender identity Identifies as female gender (finding) [facility] Start: 10-07-2023 Tobacco use and exposure Smokeless tobacco non-user [facility] Start: 10-07-2023 End: 10-13-2023 Alcohol intake Current non-drinker of alcohol (finding) [facility] Do you belong to any clubs or organizations such as lutheran groups, unions, fraternal or athletic groups, or school groups? No [facility] Are you now , , , , never or living with a partner? [facility] How often to you hav e a drink containing alcohol? 2-3 time sa week [facility] How many standard drinks containing alcohol do you have on a typical day? 1 or 2 [facility] How often do you hav e 6 or more drinks on 1 occasion? Never [facility] How hard is it for y ou to pay for the very basics like food, housing, medical care, and heating Somewhat hard [facility] Adolescent depressio n screening assessment 0 [facility] Do you feel stress - tense, restless, nervous, or anxious, or unable to sleep at night because your mind is troubled all the time - these days [OSQ] To some extent [facility] Start: 12-28-2021 Education 18 [facility] Start: 1990 Sex Assigned At Not on file P [facility] NEGATED: Highlighted rowStart: NINF History of tobacco use Passive smoker [facility] Medical Equipment Procedure Code Equipment Code Equipment Origin al Text Equipment Identifier Dates Use as instructed [id number] Start: 06-10-2023 End: 06-09-2024 1 each in the morning and 1 each before bedtime. [id number] Start: 06-10-2023 History of Present illness Narrative 10-13-2023 Alessia Marlon, SHAPE HAND-TELEMARKETING SUPERVISOR - 10/13/2023 10:30 AM EST Note Date & Type Note Facility 10-13-2023 History of Present illness Narrative Images from the original note were not included. 10/13/2023 [facility] SUBJECTIVE: Sobia Lucero is a 33 [...] repeat testing Initial testing Physician Phone Number [phone] GENERAL TEST INFORMATION See Note This screening [...] developed and its performance characteristics determined by [facility] in a manner consistent with CLIA requirements. This test has not been cleared or approved by the U.S. Food and Drug Administration. Test Performed by: [facility] [address] [place] [address] Operations Research Director: Jose Palmer M.D. Ph.D.; CLIA# [id number] echo 2D W/ color flow Result Date: [...] of 151 beats per minute, normal mechanical ID interval of 96milliseconds Other: No pericardial effusion [...] OB GROWTH Result Date: 09/29/2023 Narrative: [place] [address] Ultrasound Report Signed Patient: SOBIA LUCERO MR#: [id number] : 1990 Acct:[id number] Age/Sex: 33 / F ADM Date: 09/29/23 Loc: [facility] Attending Dr: Cristel Medina D.O. Ordering Physician: Cristel Medina D.O. Date of Service: 09/29/23 Procedure(s): US OB growth Accession Number(s): [id number] cc: Cristel Medina D.O.; Physician,Non-Staff M.DEllen [address] [address] Patient Name: SOBIA LUCERO MRN: [id number] date: 1990 Sex: F Assigned Patient Location: [facility] Current Patient Location: [facility] Accession/Order Number: [id number] Exam Date: 09/29/2023 15:04 Report Date: 09/29/2023 [...] M.D. Signed By: 09/29/231618 DD/ 15 TD/TT: Sightseeing Guide: Physical Exam Vitals and nursing note reviewed. [...] APRN-CNP 10/14/23 1724 documented in this encounter [facility] History of Present illness Narrative 10-07-2023 Jakob Hernandez MD - 10/07/2023 9:00 AM EST Note Date & Type Note Facility 10-07-2023 History of Present illness Narrative [address] [phone] October 07, 2023 Patient: Sobia Lucero Date [...] abnormal discharge. Positive for cramping and contractions (Ashley-Zamorano). All other systems negative Current Outpatient Medications Medication Sig [facility] () 28 mg iron- 800 [...] Master's degree (e.g., MA, MS, [place], MEd, STEAM STATION SUPERVISOR, LACIE) Occupational History Not on file Tobacco [...] 30 min Stress: Stress Concern Present (12/28/2021) [employer] [place] [employer] - Occupational Stress Questionnaire Feeling of Stress : To some extent Social Connections: Moderately Isolated (12/28/2021) Social Connection and Isolation Panel [NHANES] Frequency of Communication with Friends and Family: More than three times a week Frequency of Social Gatherings with Friends and Family: Once a week Attends [employer] Services: 1 to 4 times per year [...] queries or concerns. Sincerely, Jakob Hernandez M.D. Health Companion [facility] This note is dictated with the use of M*Modal.Please note that this dictation was completed with computer voice recognition software. Quite often unanticipated grammatical, syntax, homophones, and other interpretive errors are inadvertently transcribed by the computer software. Please disregard these errors. Please excuse any errors that have escaped final proofreading. documented in this encounter [facility] History of Present illness Narrative [...] History: Diagnosis Date Allergies Anxiety Bipolar disorder ([facility]) 2013 Depression ([facility]) Hemorrhoids History of gestational diabetes [...] of: RETA Christopher documented in this encounter [facility] Evaluation note Note Date & Type Note Facility Evaluation note Diagnosis Third trimester state, incidental Gestational diabetes mellitus (GDM) in third trimester, gestational diabetes method of control unspecified documented in this encounter [facility] Evaluation note Note Date & [...] Everywhere.Viral Upper Respiratory Infection Discharge Instructions, Adult (Djiboutian)documented in this encounter [facility] Summary [...] Jakob Hernandez MD [address] [place] [address] Referral ID Status Reason Start Date Expiration Date V isits Requested Visits Authorized [id number] Pending Review 10/07/2023 10/06/2024 1 1 Additional Source Comments INFORMATION SOURCE (unrecogn ized section and content) DATE CREATED AUTHOR 03/12/[address] [facility] DATE CREATED AUTHOR AUTHOR'S ORGANIZ ATION 10/08/2023 [facility] DATE CREATED AUTHOR AUTHOR'S ORGANIZ ATION 11/11/2023 [facility] dical Specialists [facility] Reason for Visit (unrecogniz ed section and content) Reason Comments Routine Visit Reason Comments observation of VSD Specialty Diagnoses / Procedures Referred By Contac t Referred To Contact Pediatric Cardiology Diagnoses ventricular septal defect in , antepartum, single gestation Cristel Medina R, DO [address] [place] , [facility] [place] [address] Jakob Hernandez MD [address] [place] [address] Referral ID Status Reason Start Date Expiration Date Visits Requested Visits Authorized [id number] Pending Review Specialty Services Required 09/04/2023 09/03/2024 1 1 Reason Comments URI Patient symptoms sta rted ,fever,cough,congestionOTC....tylenol Care Teams (unrecognized sec tion and content) Screening Tech Relationship Specialty Start Date End Date Chris Maloney DO [address] [facility] [address] [place] [address] PCP - General Family Medicine 12/24/22 Screening Tech Relationship Specialty Start Date End Date Dedra Maguire, SALLIE-TELEMARKETING SUPERVISOR [address] [facility] [address] [place] [phone] PCP - General Family Medicine 10/29/21 Screening Tech Relationship Specialty Start Date End Date Gigi, Dedra Tang, SHAPE HAND-TELEMARKETING SUPERVISOR [address] [phone] PCP - General Family Medicine 10/29/21 FOR [...] BE BASED ON THE PRIMARY CLINICAL RECORDS. [employer] [facility]. provides no warranty or guarantee of the accuracy or completeness of information in this document.
[2023-11-25 16:12] VITALS: BP 125/78; PULSE 94
--- NOTE | 2023-11-25 17:00 | US_ITS ---
[address] [address] Patient Name: SOBIA CHAUDHARI MRN: [facility]:[id number] date: 1990 Sex: F Assigned Patient Location: [facility] [place] [facility] [place]/Order Number: [id number] Exam Date: 11/25/2023 17:55 Report Date: 11/26/2023 07:26 At the request of: CRISTEL HILL Procedure: US OB BPP w non-stress EXAMINATION: US OB BPP w non-stress HISTORY: GDM COMPARISON: No relevant comparison available. TECHNIQUE: Ultrasound biophysical profile was performed in the radiology department. FINDINGS: BREATHING MOVEMENTS: 2.0 GROSS BODY MOVEMENTS: 2.0 TONE: 2.0 QUALITATIVE AMNIOTIC FLUID VOLUME: 2.0 PRESENTATION: CEPHALIC HEART RATE: 150.0 bpm H.B./min AMNIOTIC FLUID VOLUME: 21.3 cm cm GESTATIONAL AGE: 36 weeks 2 days CONCLUSION: Total biophysical profile score: 8.0 Electronically authenticated by: ALESIA JOHNSON Date: 11/26/2023 07:26
== END 2023-11-25 18:32 | disposition home or self-care (01) ==
LOC: FBCO 06:57 → FBC 16:08
PROVIDERS: Visit Provider Obstetrics & Gynecology
DX: O24.419 Gestational diabetes mellitus in pregnancy, unspecified control (principal); Z3A.36 36 weeks gestation of pregnancy
CPT/HCPCS: 59025; 76818; 87081

== ENCOUNTER 2023-11-25 20:39 | Outpatient (REF) | payer OTHER, SELFPAY | END 2023-11-25 20:40 | disposition home or self-care (01) | LOC: LAB 20:39 | PROVIDERS: Visit Provider Obstetrics & Gynecology | DX: Z34.93 Encounter for supervision of normal pregnancy, unspecified, third trimester (principal) | CPT/HCPCS: 87081 ==

== ENCOUNTER 2023-11-28 08:46 | Outpatient (OUT) | payer OTHER, SELFPAY ==
--- OUTSIDE RECORDS SUMMARY | 2023-11-28 09:11 | XMS_ITS | CCD ---
Author Organization [facility] Care Team Providers Care Sales And Leasing Consultant Name Role Phone HAIDER, DR COLBERT Admitting Unavailable HAIDER, DR COLBERT Attending Unavailable HAIDER, DR COLBERT Primary Care Unavailable HAIDER, DR COLBERT Consulting Unavailable LIZ, DR FAM Admitting Unavailable LIZ, DR FAM Attending Unavailable HAIDER, DR COLBERT Primary Care Unavailable LIZ, DR FAM Consulting Unavailable Chris Maloney DO Primary Care Provider [phone] JAKOB HERNANDEZ Attending Unavaila DEDRA Howell Referring Unavailable DEDRA MAGUIRE Primary Care Unavailable JAKOB HERNANDEZ Referring Unavaila DEDRA Howell Primary Care Unavailable Gigi GREEN HOUSE MANAGER-Dedra ROGERS Primary Care Provider WINNIE MEDINAY Attending Unavailable LIZ, CRISTEL Attending Unavailable JAZLYN ORTIZ Attending Unavailable LIZ, CRISTEL Attending Unavailable LIZ, CRISTEL Attending Unavailable LIZ, CRISTEL Attending Unavailable LIZ, CRISTEL Attending Unavailable DIANA, JAZLYN Attending Unavailable Allergies Allergy Classification Reported Allergen(s) Allergy Type Date of Onset Reaction(s) Facility (2 sources) Penicillins; Translations: [PENICILLINS] Drug allergy (disorder) 3 [facility] (1 source) traMADol Drug Allergy 6 [facility] (5 sources) Gentamicin; Translations: [GENTAMICIN] Drug Allergy 2 Other, Other (See Comments), Eye Swelling [facility] (2 sources) Penicillins Drug Allergy 3 Hives [facility] (4 sources) Sulfonamides (Antibiotic) Drug Allergy 2 Itching, Rash, Swelling [facility] (2 sources) traMADol Drug Allergy 3 Anxiety [facility] (1 source) Sulfonamides (Antibiotic); Translations: [SULFA (SULFONAMIDE ANTIBIOTICS)] Propensity to adverse reactions to drug (disorder) 3 [facility] (3 sources) traMADol; Translations: [TRAMADOL HCL] Drug Allergy 7 Anxiety [facility] (2 sources) Penicillins Propensity to adverse reactions to drug 7 [facility] Medications Current Medications Medication Drug [...] Range Facility POCT Influenza A/Influenza B /SARS-COV-2 [facility] 10-13-2023 External Poct Influenza A Antigen Negative [facility] External Poct Influenza B Antigen Negative [facility] SARS-CoV-2 (COVID-19) Ag IA.rapid Ql (Resp) Negative [facility] Urinalysis macro (dipstick) panel (U)Ordered By: Estefania Posadas on 09-29-2023 Bilirubin, UA Negative Negative - 4(70) +++ mg/dL [facility] Work Phone: Blood, UA Negative Negative - 50 Galen/mcL [facility] Work Phone: Clarity, UA Clear [facility] [employer] Work Phone: Color, UA Yellow [facility] [employer] Work Phone: Glucose, UA Negative Negative - 2000(110) ++++ mg/dL [facility] Work Phone: Interpretation and review of laboratory results Abnormal [facility] Work Phone: Ketones, UA Negative Negative - 160(16) ++++ mg/dL [facility] Work Phone: Leukocytes, UA Trace Negative - 500+++ Bean/mcL [facility] Work Phone: Nitrite, UA Negative Negative - Positive [facility] Work Phone: pH, UA 7.0 5 - 9 [facility] [employer] Work Phone: Protein, UA Negative Negative - 2000(20) ++++ mg/dL [facility] [employer] Work Phone: Spec Grav, UA 1.015 1 - 1.03 [facility] [employer] Work Phone: Urobilinogen, UA 0.2 0.2 - 12 mg/dL [facility] [employer] Work Phone: [facility] [employer] Work Phone: PAP ACOG PANEL 2: 30 to 65on 03-12-2022 . . Normal [place] Comment on above: Result Comment: Perf ormed at: WB Performed By: #### [id number] #### [facility] [address] [place] [address] Dr. Michelle Gunderson Age Gdln ACOG Testing 30-65 Normal [place] Comment on above: Performed By: #### [id number] #### [facility] [address] [place] [address] Dr. Michelle Gunderson DIAGNOSIS: Comment Normal [place] Comment on above: Result Comment: NEGA TIVE FOR INTRAEPITHELIAL LESION OR MALIGNANCY. Performed at: WB Performed By: #### [id number] #### [facility] [address] [address] [address] Michelle Gunderson HPV Aptima Negative Normal Negative [place] Comment on above: Result Comment: This nucleic acid amplification test detects fourteen high-risk HPV types (16,18,31,33,35,39,45,51,52,56,58,59,66,68) without differentiation. Performed at: =G Performed By: #### [id number] #### [facility] [address] [place] [address] Dr. Michelle Gunderson Methodology: CTIM Normal [place] Comment on above: Result Comment: The Thin Prep(R) Tool And Fixture Repairer was unable to read this specimen. Therefore a manual review was performed. Performed at: WB Performed By: #### [id number] #### [facility] [address] [place] [address] Dr. Michelle Gunderson Note: Comment Normal [place] Comment on above: Result Comment: The Pap smear is a screening test designed to aid in the detection of premalignant and malignant conditions of the uterine cervix. It is not a diagnostic procedure and should not be used as the sole means of detecting cervical cancer. Both false-positive and false-negative reports do occur. . Performed at: WB Performed By: #### [id number] #### [facility] [address] [place] [address] Dr. Michelle Gunderson Performed by: Comment Normal [facility] Comment on above: Result Comment: Archana Lee, Warehouse Worker 2Nd Shift (ASCP) Performed at: WB Performed By: #### [id number] #### [facility] [address] [place] [address] Dr. Michelle Gunderson Specimen adequacy: Comment Normal [facility] Comment on above: Result Comment: Sati sfactory for evaluation. Endocervical and/or squamous metaplastic cells (endocervical component) are present. Partially obscuring thick areas are present. Performed at: WB Performed By: #### [id number] #### [facility] [address] [place] [address] Dr. Michelle Gunderson Covid-19 PCR ([facility])on SARS-CoV-2 (COVID-19) RNA JOSE MIGUEL+probe Ql (Unsp spec) Not detected Normal NOT DETECTED [place] Comment on above: Result Comment: This test is not yet approved or cleared by the [place] FDA. When there are no FDA-approved or cleared tests available, and other criteria are met, FDA can make tests available under an emergency access mechanism called an Emergency Use Authorization (EUA). The EUA for this test is supported by the [place] of Health and Human Service's (HHS's) declaration [...] consistent with SARS-CoV-2. Performed By: #### C [facility] #### [facility] [address] [place] [address] Dr. Michelle Gunderson Vital Signs Date Time Vital Sign Value Performing Clinician Facility 10-13-2023 10:44-0500 Body height 157.5 cm Alessiasa Mason GREEN HOUSE MANAGER-TEACHER ASSISTANT Work Phone: [facility] 10-13-2023 10:44-0500 Body mass index (BMI) [Ratio] 27.9 kg/m2 Alessiasa Mason GREEN HOUSE MANAGER-TEACHER ASSISTANT Work Phone: [facility] 10-13-2023 10:44-0500 Body temperature 97.7 [degF] Alessia Marlon GREEN HOUSE MANAGER-TEACHER ASSISTANT Work Phone: [facility] 10-13-2023 10:44-0500 Body weight 69.22 kg Alessia Joo-Johnson GREEN HOUSE MANAGER-TEACHER ASSISTANT Work Phone: [facility] 10-13-2023 10:44-0500 Diastolic blood pressure 78 mm[Hg] Alessiasa Ge-Elizabeth GREEN HOUSE MANAGER-TEACHER ASSISTANT Work Phone: [facility] 10-13-2023 10:44-0500 Heart rate 86 /min Alessiasa Mason GREEN HOUSE MANAGER-TEACHER ASSISTANT Work Phone: [facility] 10-13-2023 10:44-0500 Respiratory rate 18 /min Alessia Joo-Johnson GREEN HOUSE MANAGER-TEACHER ASSISTANT Work Phone: [facility] 10-13-2023 10:44-0500 SaO2% (BldA) [Mass fraction] 98 % Alessiasa Mason GREEN HOUSE MANAGER-TEACHER ASSISTANT Work Phone: [facility] 10-13-2023 10:44-0500 Systolic blood pressure 113 mm[Hg] Alessia Marlon GREEN HOUSE MANAGER-TEACHER ASSISTANT Work Phone: [facility] 10-07-2023 09:29-0500 Body height 157.5 cm Jakob Hernandez MD Work Phone: [facility] 10-07-2023 09:29-0500 Body mass index (BMI) [Ratio] 28.78 kg/m2 Jakob Hernandez MD Work Phone: [facility] 10-07-2023 09:29-0500 Body weight 71.4 kg Jakob Hernandez MD Work Phone: [facility] 10-07-2023 09:29-0500 Diastolic blood pressure 73 mm[Hg] Jakob Hernandez MD Work Phone: [facility] 10-07-2023 09:29-0500 Heart rate 95 /min Jakob Hernandez MD Work Phone: [facility] 10-07-2023 09:29-0500 SaO2% (BldA) [Mass fraction] 100 % Jakob Hernandez MD Work Phone: [facility] 10-07-2023 09:29-0500 Systolic blood pressure 124 mm[Hg] Jakob Hernandez MD Work Phone: [facility] 09-29-2023 16:19-0500 Body mass index (BMI) [Ratio] 29.04 kg/m2 Jazlyn MCDUFFIE Work Phone: [facility] 09-29-2023 16:19-0500 Body weight 72.03 kg Jazlyn MCDUFFIE Work Phone: [facility] 09-29-2023 16:19-0500 Diastolic blood pressure 70 mm[Hg] Jazlyn MCDUFFIE Work Phone: [facility] 09-29-2023 16:19-0500 Systolic blood pressure 120 mm[Hg] Jazlyn MCDUFFIE Work Phone: [facility] Encounters Encounter Date Encounter Type Care Provider Facility Start: 11-25-2023 End: 11-25-2023 ambulatory CRISTEL LIZ Not Available Start: 11-10-2023 End: 11-10-2023 ambulatory CRISTEL LIZ Not Available Start: 10-27-2023 End: 10-27-2023 ambulatory CRISTEL LIZ Not Available Start: 10-15-2023 End: 10-15-2023 ambulatory CRISTEL LIZ Not Available Start: 10-13-2023 End: 10-13-2023 Office outpatient visit 15 minutes Alessia Mason GREEN HOUSE MANAGER-TEACHER ASSISTANT Work Phone: [facility] Comment on above: General ill feeling (Primary Dx) Start: 10-07-2023 End: 10-08-2023 ambulatory JAKOB HERNANDEZ [facility] Start: 10-07-2023 End: 10-07-2023 Office consultation new/estab patient 80 min Jakob Hernandez MD Work Phone: [facility] Pediatric Cardiology Comment on above: [...] unspecified Start: 09-01-2023 End: 09-01-2023 ambulatory CRISTEL LIZ Not Available Start: 08-12-2023 End: 08-12-2023 ambulatory CRISTEL LIZ Not Available Start: 07-14-2023 End: 07-14-2023 ambulatory JAZLYN ORTIZ Not Available Start: 03-06-2022 End: 03-06-[address] CRISTEL MEDINA Facility:[facility] Start: 07-24-2021 End: 07-24-[address] CHRIS MALONEY Facility:[facility] Procedures Date Procedure Procedure Detail Performing Clinician Start: 10-13-2023 POCT INFLUENZA A/INFLUENZA B/SARS-COV-2 VERITOR Alessia Marlon GREEN HOUSE MANAGER-TEACHER ASSISTANT Work Phone: Start: 10-13-2023 Adult depression screening assessment Alessia Marlon GREEN HOUSE MANAGER-TEACHER ASSISTANT Work Phone: Start: 09-29-2023 Urnls dip stick/tabl et rgnt non-auto w/o micrscp Jazlyn MCDUFFIE Work Phone: Start: 05-08-2023 Adult depression screening assessment Jakob Hernandez MD Work Phone: Plan of Treatment Date Care Activity Detail Author Start: 09-07-2030 DTaP,Tdap and Td Vaccines (2 - Tdap) DTaP,Tdap and Td Vaccines (2 - Tdap) [facility] Start: 10-13-2024 Adult BMI Screening Adult BMI Screen ing [facility] Start: 10-13-2024 Depression Screening Depression Scre ening [facility] Start: 10-13-2024 Tobacco Screening Tobacco Screening [facility] Start: 10-07-2024 Adult BMI Screening Adult BMI Screen ing [facility] Start: 10-07-2024 Tobacco Screening Tobacco Screening [facility] Start: 05-08-2024 Depression Screening Depression Scre ening [facility] Start: 11-25-2023 Screening for malign ant neoplasm of cervix [facility] Start: 10-27-2023 End: 10-27-2023 Patient encounter procedure 10/27/2023 3:40 PM EDT Routine [facility] [address] [place] [address] Cristel Medina, DO [address] [place] [address] [facility] Start: 10-27-2023 End: 10-27-2023 Professional / ancillary services management 10/27/2023 3:00 PM EDT Ancillary Procedure [facility] [address] [place] [address] [facility] Start: 10-15-2023 End: 10-15-2023 Patient encounter procedure 10/15/2023 3:00 PM EST Routine [facility] [address] [place] [address] Cristel Medina, [address] [facility] [place] [address] [place] [address] [facility] Start: 10-07-2023 End: 09-30-2024 echo 2D W/ color flow [facility] Work Phone: Comment on above: Expected: 10/07/2023 (Approximate), Expires: 09/30/2024 Start: 09-29-2023 End: 09-29-2024 US biophysical profile w non stress test US biophysical profile w non stress test Imaging Routine Gestational diabetes mellitus (GDM) in third trimester, gestational diabetes method of control unspecified Expected: 09/29/2023 (Approximate), Expires: 09/29/2024 [facility] Work Phone: Comment on above: Expected: 09/29/2023 (Approximate), Expires: 09/29/2024 Start: 04-18-2023 Influenza vaccination [facility] Start: 2012 Screening for malign ant neoplasm of cervix Pap Smear [facility] Start: 2009 Adult BMI Follow Up Plan Adult BMI Follow Up Plan [facility] Immunizations Immunization Date Immunization Notes Care Provider [facility] 05-29-2021 influenza, injectabl e, quadrivalent, preservative free Jakob Hernandez MD Work Phone: [facility] 05-29-2021 influenza virus vaccine, unspecified formulation Jazlyn MCDUFFIE Work Phone: [facility] 09-07-2020 diphtheria, tetanus toxoids and pertussis vaccine Jakob Hernandez MD Work Phone: [facility] 06-07-2020 influenza, injectabl e, quadrivalent, preservative free Jakob Hernandez MD Work Phone: [facility] 06-02-2019 influenza, injectabl e, quadrivalent, preservative free Jakob Hernandez MD Work Phone: [facility] 06-03-2018 influenza, injectabl e, quadrivalent, preservative free Jakob Hernandez MD Work Phone: [facility] Payers Date Payer Category Payer Unknown [id number] 1990 Unknown [id number] 2.16.84 [id number] 1990 Unknown [id number] 2.16.84 [id number] 1991 Unknown [id number] 2.16.8 [id number] 1991 Unknown [id number] 2.16.8 [id number] 1991 Unknown [id number] 2.16.84 [id number] 1991 Unknown [id number] 2.16.84 [id number] 1991 Unknown [id number] 2.16.84 [id number] 1991 Unknown [id number] 2.16.84 [id number] 1991 Unknown [id number] 2.16.84 [id number] 1991 Unknown [id number] 2.16.84 [id number] 1991 Unknown [id number] [id number] .[id number] 1991 Unknown [id number] 1959 Unknown [id number] Social History Date Type Detail Facility Start: 06-02-2023 End: 10-07-2023 Tobacco smoking status NHIS Never smoked tobacco [facility] Start: 09-29-2023 Alcohol intake Lifetime non-d venessa (finding) [facility] Start: 12-28-2021 End: 06-02-2023 History of Social function [facility] Start: 12-28-2021 End: 06-02-2023 Tobacco use panel [facility] Start: 06-02-2023 Alcohol Comment caffeine: 1-2 cups per day [employer] Drink ; coffee [facility] Start: 03-30-2023 [facility] Start: 1990 Sex Assigned At Female N [facility] Start: 05-15-2023 Gender identity Identifies as female gender (finding) [facility] Start: 10-07-2023 Tobacco use and exposure Smokeless tobacco non-user [facility] Start: 10-07-2023 End: 10-13-2023 Alcohol intake Current non-drinker of alcohol (finding) [facility] Do you belong to any clubs or organizations such as gnosticist groups, unions, fraternal or athletic groups, or school groups? No [facility] Are you now , , , , never or living with a partner? [facility] How often to you hav e a drink containing alcohol? 2-3 time sa week [facility] How many standard drinks containing alcohol do you have on a typical day? 1 or 2 [facility] How often do you hav e 6 or more drinks on 1 occasion? Never [facility] How hard is it for y ou to pay for the very basics like food, housing, medical care, and heating Somewhat hard [facility] Adolescent depressio n screening assessment 0 [facility] Do you feel stress - tense, restless, nervous, or anxious, or unable to sleep at night because your mind is troubled all the time - these days [OSQ] To some extent [facility] Start: 12-28-2021 Education 18 [facility] Start: 1990 Sex Assigned At Not on file P [facility] NEGATED: Highlighted rowStart: NINF History of tobacco use Passive smoker [facility] Medical Equipment Procedure Code Equipment Code Equipment Origin al Text Equipment Identifier Dates Use as instructed [id number] Start: 06-10-2023 End: 06-09-2024 1 each in the morning and 1 each before bedtime. [id number] Start: 06-10-2023 History of Present illness Narrative 10-13-2023 Alessia SoniaJohnson, GREEN HOUSE MANAGER-TEACHER ASSISTANT - 10/13/2023 10:30 AM EST Note Date & Type Note Facility 10-13-2023 History of Present illness Narrative Images from the original note were not included. 10/13/2023 [facility] SUBJECTIVE: Sobia Lucero is a [...] repeat testing Initial testing Physician Phone Number [phone] GENERAL TEST INFORMATION See Note This screening [...] developed and its performance characteristics determined by [facility] in a manner consistent with CLIA requirements. This test has not been cleared or approved by the U.S. Food and Drug Administration. Test Performed by: [facility] [address] [place] [address] Finisher Accordion: Jose Palmer M.D. Ph.D.; CLIA# [id number] echo 2D W/ color flow Result Date: [...] of 151 beats per minute, normal mechanical MD interval of 96milliseconds Other: No pericardial effusion [...] OB GROWTH Result Date: 09/29/2023 Narrative: [place] [address] Ultrasound Report Signed Patient: OSBIA LUCERO MR#: [id number] : 1990 Acct:[id number] Age/Sex: 33 / F ADM Date: 09/29/23 Loc: [facility] Attending Dr: Cristel Medina D.O. Ordering Physician: Cristel Medina D.O. Date of Service: 09/29/23 Procedure(s): US OB growth Accession Number(s): [id number] cc: Cristel Medina D.O.; Physician,Non-Staff [place] [address] [address] Patient Name: SOBIA LUCERO MRN: [facility]:[id number] date: 1990 Sex: F Assigned Patient Location: [facility] Current Patient Location: [facility] Accession/Order Number: [id number] Exam Date: 09/29/2023 15:04 Report Date: 09/29/2023 [...] Dictated By: Alesia Johnson M.D. Signed By: 09/29/239 DD/ 15 TD/TT: Cdl Program Coordinator: Physical Exam Vitals and nursing note reviewed. [...] ARORA APRN-CNP 10/14/231723 documented in this encounter [facility] History of Present illness Narrative 10-07-2023 Jakob Hernandez MD - 10/07/2023 9:00 AM EST Note Date & Type Note Facility 10-07-2023 History of Present illness Narrative [address] [address] October 07, 2023 Patient: Sobia Lucero Date [...] abnormal discharge. Positive for cramping and contractions (Nikolai-Zamorano). All other systems negative Current Outpatient Medications Medication Sig [facility]pense [facility] () 28 mg iron- 800 [...] Master's degree (e.g., MA, MS, [place], MEd, COMPRESSED GAS PLANT WORKER, LACIE) Occupational History Not on file Tobacco [...] 30 min Stress: Stress Concern Present (12/28/2021) [employer] [place] [employer] - Occupational Stress Questionnaire Feeling of Stress : To some extent Social Connections: Moderately Isolated (12/28/2021) Social Connection and Isolation Panel [NHANES] Frequency of Communication with Friends and Family: More than three times a week Frequency of Social Gatherings with Friends and Family: Once a week Attends Jewish Services: 1 to 4 times per year [...] queries or concerns. Sincerely, Jakob Hernandez M.D. Cotton Machine Operator [facility] [place] This note is dictated with the use of M*Modal.Please note that this dictation was completed with computer voice recognition software. Quite often unanticipated grammatical, syntax, homophones, and other interpretive errors are inadvertently transcribed by the computer software. Please disregard these errors. Please excuse any errors that have escaped final proofreading. documented in this encounter [facility] History of Present illness Narrative 09-29-2023 RETA Christopher 09/29/2023 3:30 PM EST Note Date & [...] History: Diagnosis Date Allergies Anxiety Bipolar disorder ([facility] 2013 Depression ([facility]) Hemorrhoids History of gestational diabetes mellitus (GDM) [...] of: RETA Christopher documented in this encounter [facility] Evaluation note Note Date & Type Note Facility Evaluation note Diagnosis Third trimester state, incidental Gestational diabetes mellitus (GDM) in third trimester, gestational diabetes method of control unspecified documented in this encounter [facility] Evaluation note Note Date & [...] Everywhere.Viral Upper Respiratory Infection Discharge Instructions, Adult (Serbian)documented in this encounter [facility] Summary Purpose Family History No Family History Records FoundNo Family History Records FoundNo Family History Records Found Advance Directives No Advanced Directives Records FoundNo Advanced Directives Records FoundNo Advanced Directives Records Found Reason for Referral Specialty Diagnoses / Procedures Referred By Contac t Referred To Contact Diagnoses ventricular septal defect affecting antepartum care of mother, single or unspecified fetus Procedures echo 2D W/ color flow Jakob Hernandez MD [address] [place] [address] Referral ID Status Reason Start Date Expiration Date V isits Requested Visits Authorized [id number] Pending Review 10/07/2023 10/06/2024 1 1 Additional Source Comments INFORMATION SOURCE (unrecogn ized section and content) DATE CREATED AUTHOR 03/12/2022 [facility] DATE CREATED AUTHOR AUTHOR'S ORGANIZ ATION 10/08/2023 [facility] DATE CREATED AUTHOR AUTHOR'S ORGANIZ ATION 11/26/2023 [facility] dichi Specialists EPIC Reason for Visit (unrecogniz ed section and content) Reason Comments Routine Visit Reason Comments observation of VSD Specialty Diagnoses / Procedures Referred By Contac t Referred To Contact Pediatric Cardiology Diagnoses ventricular septal defect in , antepartum, single gestation Cristel Medina R, DO [address] [place] [address] Jakob Hernandez MD [address] [place] [address] Referral ID Status Reason Start Date Expiration Date Visits Requested Visits Authorized [id number] Pending Review Specialty Services Required 09/04/2023 09/03/2024 1 1 Reason Comments URI Patient symptoms sta rted ,fever,cough,congestionOTC....tylenol Care Teams (unrecognized sec tion and content) Sales And Leasing Consultant Relationship Specialty Start Date End Date Chris Maloney DO [address] [place] [address] PCP - General Family Medicine 12/24/22 Sales And Leasing Consultant Relationship Specialty Start Date End Date Dedra Maguire, GREEN HOUSE MANAGER-TEACHER ASSISTANT [address] [facility] [place] [address] PCP - [facility] 10/29/21 Sales And Leasing Consultant Relationship Specialty Start Date End Date Dedra Maguire, GREEN [employer]SE MANAGER-TEACHER ASSISTANT [address] [facility] [place] [address] PCP - [facility] 10/29/21 FOR RECORDS PERTAINING TO PATIENTS WHO [...] BE BASED ON THE PRIMARY CLINICAL RECORDS. [facility]. provides no warranty or guarantee of the accuracy or completeness of information in this document.
--- NOTE | 2023-11-28 17:08 | US_ITS ---
[place] [id number] Patient Name: SOBIA CHAUDHARI MRN: [id number] date: 1990 Sex: F Assigned Patient Location: [facility] Current Patient Location: Accession/Order Number: [id number] Exam Date: 11/28/2023 17:14 Report Date: 12/01/2023 07:48 At the request of: CRISTEL HILL Procedure: US OB growth EXAMINATION: US OB growth HISTORY: CHROMIC HYPERTENSION AFFECTING O10.919 COMPARISON: No relevant comparison available. FINDINGS: Heart Rate: 142.9 bpm Amniotic Fluid Volume: 18.9 cm Number: 1.0 Position: Cephalic presentation, longitudinal lie Maximum Vertical Pocket: 4.5 cm cm 4.8 cm cm 2.1 cm cm 7.5 cm cm BIOMETRY: BPD: 9.2 cm cm; 37 weeks 3 days; 80% HC: 33.0 cmcm; 37 weeks 4 days , 45% AC: 32.7 cm cm; 36 weeks 4 days, 60% FL: 7.0 cm cm; 35 weeks 5 days; 23.3 % % EFW: 2975.3 grams, 6 lbs. 11 oz., 51% FL/AC: 21.3 FL/BPD: 75.7 HC/AC: 1.0 GESTATIONAL AGE: Age by EDC: 36 weeks 5 days RACHEL by EDC: 12/21/2023 Age by US: 36 weeks 6 days RACHEL by US: 12/20/2023 US/US OB growth IMPRESSION: Normal interval growth Electronically authenticated by: ALESIA JOHNSON Date: 12/01/2023 07:48
--- NOTE | 2023-11-28 17:08 | US_ITS ---
[address] [address] Patient Name: SOBIA CHAUDHARI MRN: [facility]:[id number] date: 1990 Sex: F Assigned Patient Location: [facility] Current Patient Location: Accession/Order Number: [id number] Exam Date: 11/28/2023 17:14 Report Date: 12/01/2023 07:49 At the request of: CRISTEL HILL Procedure: US OB BPP w non-stress EXAMINATION: US OB BPP w non-stress HISTORY: GESTATIONAL DIABETES MELLITUS O24.419 COMPARISON: No relevant comparison available. TECHNIQUE: Ultrasound biophysical profile was performed in the radiology department. FINDINGS: BREATHING MOVEMENTS: 2.0 GROSS BODY MOVEMENTS: 2.0 TONE: 2.0 QUALITATIVE AMNIOTIC FLUID VOLUME: 2.0 PRESENTATION: CEPHALIC HEART RATE: 142.9 bpm H.B./min AMNIOTIC FLUID VOLUME: 18.9 cm cm GESTATIONAL AGE: 36 weeks 5 days CONCLUSION: Total biophysical profile score: 8.0 Electronically authenticated by: ALESIA JOHNSON Date: 12/01/2023 07:49
[2023-11-28 18:05] VITALS: BP 103/66; PULSE 85
== END 2023-11-28 18:40 | disposition home or self-care (01) ==
LOC: US 17:04 → FBC 17:09
PROVIDERS: Visit Provider Obstetrics & Gynecology
DX: O10.919 Unspecified pre-existing hypertension complicating pregnancy, unspecified trimester (principal); Z3A.36 36 weeks gestation of pregnancy
CPT/HCPCS: 76816; 76818

== ENCOUNTER 2023-12-02 07:43 | Outpatient (OUT) | payer OTHER, SELFPAY ==
--- OUTSIDE RECORDS SUMMARY | 2023-12-02 07:46 | XMS_ITS | CCD ---
Author Organization [facility] Care Team Providers Care Spray Machine Tender Name Role Phone HAIDER, DR COLBERT Admitting Unavailable HAIDER, DR COLBERT Attending Unavailable HAIDER, DR COLBERT Primary Care Unavailable HAIDER, DR COLBERT Consulting Unavailable LIZ, DR FAM Admitting Unavailable LIZ, DR FAM Attending Unavailable HAIDER, DR COLBERT Primary Care Unavailable LIZ, DR FAM Consulting Unavailable Chris Maloney DO Primary Care Provider [phone] AJKOB HERNANDEZ Attending Unavaila DEDRA Howell Referring Unavailable DEDRA MAGUIRE Primary Care Unavailable JAKOB HERNANDEZ Referring Unavaila DEDRA Howell Primary Care Unavailable Gigi CULINARY DIRECTOR-Dedra ROGERS Primary Care Provider WINNIE MEDINAY Attending Unavailable LIZ, CRISTEL Attending Unavailable JAZLYN ORTIZ Attending Unavailable LIZ, CRISTEL Attending Unavailable LIZ, CRISTEL Attending Unavailable LIZ, CRISTEL Attending Unavailable LIZ, CRISTEL Attending Unavailable DIANA, JAZLYN Attending Unavailable Allergies Allergy Classification Reported Allergen(s) Allergy Type Date of Onset Reaction(s) Facility (2 sources) Penicillins; Translations: [PENICILLINS] Drug allergy (disorder) 3 [facility] (1 source) traMADol Drug Allergy 6 [facility] (5 sources) Gentamicin; Translations: [GENTAMICIN] Drug Allergy 2 Other, Other (See Comments), Eye Swelling [facility] (2 sources) Penicillins Drug Allergy 3 Hives [facility] (4 sources) Sulfonamides (Antibiotic) Drug Allergy 2 Itching, Rash, Swelling [facility] (2 sources) traMADol Drug Allergy 3 Anxiety [facility] (1 source) Sulfonamides (Antibiotic); Translations: [SULFA (SULFONAMIDE ANTIBIOTICS)] Propensity to adverse reactions to drug (disorder) 3 [facility] (3 sources) traMADol; Translations: [TRAMADOL HCL] Drug Allergy 7 Anxiety [facility] (2 sources) Penicillins Propensity to adverse reactions to drug 7 [facility] Medications Current Medications Medication Drug [...] Range Facility POCT Influenza A/Influenza B /SARS-COV-2 [facility] 10-13-2023 External Poct Influenza A Antigen Negative [facility] External Poct Influenza B Antigen Negative [facility] SARS-CoV-2 (COVID-19) Ag IA.rapid Ql (Resp) Negative [facility] Urinalysis macro (dipstick) panel (U)Ordered By: Estefania Posadas on 09-29-2023 Bilirubin, UA Negative Negative - 4(70) +++ mg/dL [facility] Work Phone: Blood, UA Negative Negative - 50 Galen/mcL [facility] Work Phone: Clarity, UA Clear [facility] [email or web address] Work Phone: Color, UA Yellow [facility] [employer] Work Phone: Glucose, UA Negative Negative - 2000(110) ++++ mg/dL [facility] Work Phone: Interpretation and review of laboratory results Abnormal [facility] Work Phone: Ketones, UA Negative Negative - 160(16) ++++ mg/dL [facility] Work Phone: Leukocytes, UA Trace Negative - 500+++ Bean/mcL [facility] Work Phone: Nitrite, UA Negative Negative - Positive [facility] Work Phone: pH, UA 7.0 5 - 9 [facility] [employer] Work Phone: Protein, UA Negative Negative - 2000(20) ++++ mg/dL [facility] [employer] Work Phone: Spec Grav, UA 1.015 1 - 1.03 [facility] [email or web address] [facility] Work Phone: Urobilinogen, UA 0.2 0.2 - 12 mg/dL [facility] [employer] Work Phone: [facility] [employer] Work Phone: PAP ACOG PANEL 2: 30 to 65on 03-12-2022 . . Normal [facility] Comment on above: Result Comment: Perf ormed at: WB Performed By: #### [id number] #### [facility] [address] [place] [address] Dr. Michelle Gunderson Age Gdln ACOG Testing 30-65 Normal [facility] Comment on above: Performed By: #### [id number] #### [facility] [address] [place] [address] Dr. Michelle Gunderson DIAGNOSIS: Comment Normal [facility] Comment on above: Result Comment: NEGA TIVE FOR INTRAEPITHELIAL LESION OR MALIGNANCY. Performed at: WB Performed By: #### [id number] #### [facility] [address] [address] [address] Michelle Gunderson HPV Aptima Negative Normal Negative [facility] Comment on above: Result Comment: This nucleic acid amplification test detects fourteen high-risk HPV types (16,18,31,33,35,39,45,51,52,56,58,59,66,68) without differentiation. Performed at: =G Performed By: #### [id number] #### [facility] [address] [place] [address] Dr. Michelle Gunderson Methodology: CTIM Normal [facility] Comment on above: Result Comment: The Thin Prep(R) Supervisor [employer] was unable to read this specimen. Therefore a manual review was performed. Performed at: WB Performed By: #### [id number] #### [facility] [address] [place] [address] Dr. Michelle Gunderson Note: Comment Normal [facility] Comment on above: Result Comment: The Pap smear is a screening test designed to aid in the detection of premalignant and malignant conditions of the uterine cervix. It is not a diagnostic procedure and should not be used as the sole means of detecting cervical cancer. Both false-positive and false-negative reports do occur. . Performed at: WB Performed By: #### [id number] #### [facility] [address] [place] [address] Dr. Michelle Gunderson Performed by: Comment Normal [facility] Comment on above: Result Comment: Archana Lee, Training Representative (ASCP) Performed at: WB Performed By: #### [id number] #### [facility] [address] [place] [address] Dr. Michelle Gunderson Specimen adequacy: Comment Normal [facility] Comment on above: Result Comment: Sati sfactory for evaluation. Endocervical and/or squamous metaplastic cells (endocervical component) are present. Partially obscuring thick areas are present. Performed at: WB Performed By: #### [id number] #### [facility] [address] [place] [address] Dr. Michelle Gunderson [facility] SARS-CoV-2 (COVID-19) RNA JOSE MIGUEL+probe Ql (Unsp spec) Not detected Normal NOT DETECTED [facility] Comment on above: Result Comment: This test is not yet approved or cleared by the [place] FDA. When there are no FDA-approved or cleared tests available, and other criteria are met, FDA can make tests available under an emergency access mechanism called an Emergency Use Authorization (EUA). The EUA for this test is supported by the [place] of Health and Human Service's (HHS's) declaration [...] SARS-CoV-2. Performed By: #### C [facility] #### [facility] [address] [place] [address] Dr. Michelle Gunderson Vital Signs Date Time Vital Sign Value Performing Clinician Facility 10-13-2023 10:44-0500 Body height 157.5 cm Alessiasa Mason CULINARY DIRECTOR-ENVIRONMENTAL SERVICES SPECIALIST Work Phone: [facility] 10-13-2023 10:44-0500 Body mass index (BMI) [Ratio] 27.9 kg/m2 Alessiasa Mason CULINARY DIRECTOR-ENVIRONMENTAL SERVICES SPECIALIST Work Phone: [facility] 10-13-2023 10:44-0500 Body temperature 97.7 [degF] Alessia Marlon CULINARY DIRECTOR-ENVIRONMENTAL SERVICES SPECIALIST Work Phone: [facility] 10-13-2023 10:44-0500 Body weight 69.22 kg Alessia Joo-Johnson CULINARY DIRECTOR-ENVIRONMENTAL SERVICES SPECIALIST Work Phone: [facility] 10-13-2023 10:44-0500 Diastolic blood pressure 78 mm[Hg] Alessiasa Ge-Elizabeth CULINARY DIRECTOR-ENVIRONMENTAL SERVICES SPECIALIST Work Phone: [facility] 10-13-2023 10:44-0500 Heart rate 86 /min Alessiasa Mason CULINARY DIRECTOR-ENVIRONMENTAL SERVICES SPECIALIST Work Phone: [facility] 10-13-2023 10:44-0500 Respiratory rate 18 /min Alessia Joo-Johnson CULINARY DIRECTOR-ENVIRONMENTAL SERVICES SPECIALIST Work Phone: [facility] 10-13-2023 10:44-0500 SaO2% (BldA) [Mass fraction] 98 % Alessiasa Mason CULINARY DIRECTOR-ENVIRONMENTAL SERVICES SPECIALIST Work Phone: [facility] 10-13-2023 10:44-0500 Systolic blood pressure 113 mm[Hg] Alessia Marlon CULINARY DIRECTOR-ENVIRONMENTAL SERVICES SPECIALIST Work Phone: [facility] 10-07-2023 09:29-0500 Body height 157.5 cm Jakob Hernandez MD Work Phone: [facility] 10-07-2023 09:29-0500 Body mass index (BMI) [Ratio] 28.78 kg/m2 Jakob Hernandez MD Work Phone: [facility] 10-07-2023 09:29-0500 Body weight 71.4 kg Jakob Hernandez MD Work Phone: [facility] 10-07-2023 09:29-0500 Diastolic blood pressure 73 mm[Hg] Jakob Hernandez MD Work Phone: [facility] 10-07-2023 09:29-0500 Heart rate 95 /min Jakob Hernandez MD Work Phone: [facility] 10-07-2023 09:29-0500 SaO2% (BldA) [Mass fraction] 100 % Jakob Hernandez MD Work Phone: [facility] 10-07-2023 09:29-0500 Systolic blood pressure 124 mm[Hg] Jakob Hernandez MD Work Phone: [facility] 09-29-2023 16:19-0500 Body mass index (BMI) [Ratio] 29.04 kg/m2 Jazlyn MCDUFFIE Work Phone: [facility] 09-29-2023 16:19-0500 Body weight 72.03 kg Jazlyn MCDUFFIE Work Phone: [facility] 09-29-2023 16:19-0500 Diastolic blood pressure 70 mm[Hg] Jazlyn MCDUFFIE Work Phone: [facility] 09-29-2023 16:19-0500 Systolic blood pressure 120 mm[Hg] Jazlyn MCDUFFIE Work Phone: [facility] Encounters Encounter Date Encounter Type Care Provider Facility Start: 11-25-2023 End: 11-25-2023 ambulatory CRISTEL LIZ Not Available Start: 11-10-2023 End: 11-10-2023 ambulatory CRISTEL LIZ Not Available Start: 10-27-2023 End: 10-27-2023 ambulatory CRISTEL LIZ Not Available Start: 10-15-2023 End: 10-15-2023 ambulatory CRISTEL LIZ Not Available Start: 10-13-2023 End: 10-13-2023 Office outpatient visit 15 minutes Alessia Mason CULINARY DIRECTOR-ENVIRONMENTAL SERVICES SPECIALIST Work Phone: [facility] Comment on above: General ill feeling (Primary Dx) Start: 10-07-2023 End: 10-08-2023 ambulatory JAKOB HERNANDEZ [facility] Start: 10-07-2023 End: 10-07-2023 Office consultation new/estab patient 80 min Jakob Hernandez MD Work Phone: [facility] Pediatric Cardiology Comment on above: [...] POCT INFLUENZA A/INFLUENZA B/SARS-COV-2 VERITOR Alessia Marlon CULINARY DIRECTOR-ENVIRONMENTAL SERVICES SPECIALIST Work Phone: Start: 10-13-2023 Adult depression screening assessment Alessia Marlon CULINARY DIRECTOR-ENVIRONMENTAL SERVICES SPECIALIST Work Phone: Start: 09-29-2023 Urnls dip stick/tabl et rgnt non-auto w/o micrscp Jazlyn MCDUFFIE Work Phone: Start: 05-08-2023 Adult depression screening assessment Jakob Hernandez MD Work Phone: Plan of Treatment Date Care Activity Detail Author Start: 09-07-2030 DTaP,Tdap and Td Vaccines (2 - Tdap) DTaP,Tdap and Td Vaccines (2 - Tdap) [facility] Start: 10-13-2024 Adult BMI Screening Adult BMI Screen ing [facility] Start: 10-13-2024 Depression Screening Depression Scre ening [facility] Start: 10-13-2024 Tobacco Screening Tobacco Screening [facility] Start: 10-07-2024 Adult BMI Screening Adult BMI Screen ing [facility] Start: 10-07-2024 Tobacco Screening Tobacco Screening [facility] Start: 05-08-2024 Depression Screening Depression Scre ening [facility] Start: 11-25-2023 Screening for malign ant neoplasm of cervix [facility] Start: 10-27-2023 End: 10-27-2023 Patient encounter procedure 10/27/2023 3:40 PM EDT Routine [facility] [address] [place] [address] Cristel Medina, DO [address] [place] [address] [facility] Start: 10-27-2023 End: 10-27-2023 Professional / ancillary services management 10/27/2023 3:00 PM EDT Ancillary Procedure [facility] [address] [place] [address] [facility] Start: 10-15-2023 End: 10-15-2023 Patient encounter procedure 10/15/2023 3:00 PM EST Routine [facility] [address] [place] [address] Cristel Medina, [address] [facility] [place] [address] [facility] Start: 10-07-2023 End: 09-30-2024 echo 2D W/ color flow [facility] Work Phone: Comment on above: Expected: 10/07/2023 (Approximate), Expires: 09/30/2024 Start: 09-29-2023 End: 09-29-2024 US biophysical profile w non stress test US biophysical profile w non stress test Imaging Routine Gestational diabetes mellitus (GDM) in third trimester, gestational diabetes method of control unspecified Expected: 09/29/2023 (Approximate), Expires: 09/29/2024 [facility] Work Phone: Comment on above: Expected: 09/29/2023 (Approximate), Expires: 09/29/2024 Start: 04-18-2023 Influenza vaccination [facility] Start: 2012 Screening for malign ant neoplasm of cervix Pap Smear [facility] Start: 2009 Adult BMI Follow Up Plan Adult BMI Follow Up Plan [facility] Immunizations Immunization Date Immunization Notes Care Provider [facility] 05-29-2021 influenza, injectabl e, quadrivalent, preservative free Jakob Hernandez MD Work Phone: [facility] 05-29-2021 influenza virus vaccine, unspecified formulation Jazlyn MCDUFFIE Work Phone: [facility] 09-07-2020 diphtheria, tetanus toxoids and pertussis vaccine Jakob Hernandez MD Work Phone: [facility] 06-07-2020 influenza, injectabl e, quadrivalent, preservative free Jakob Hernandez MD Work Phone: [facility] 06-02-2019 influenza, injectabl e, quadrivalent, preservative free Jakob Hernandez MD Work Phone: [facility] 06-03-2018 influenza, injectabl e, quadrivalent, preservative free Jakob Hernandez MD Work Phone: [facility] Payers Date Payer Category Payer Unknown [id number] 1990 Unknown [id number] [id number] 1990 Unknown [id number] 2.16.84 [id number] 1991 Unknown [id number] 2.16.8 [id number] 1991 Unknown [id number] 2.16.8 [id number] 1991 Unknown [id number] 2.16.84 [id number] 1991 Unknown [id number] 2.16.84 [id number] 1991 Unknown [id number] 2.16.84 [id number] 1991 Unknown [id number] 2.16.84 [id number] 1991 Unknown [id number] 2.16.84 [id number] 1991 Unknown [id number] 2.16.84 [id number] 1991 Unknown [id number] [id number] .[id number] 1991 Unknown [id number] .[id number] 1959 Unknown [id number] Social History Date Type Detail Facility Start: 06-02-2023 End: 10-07-2023 Tobacco smoking status NHIS Never smoked tobacco [facility] Start: 09-29-2023 Alcohol intake Lifetime non-d venessa (finding) [facility] Start: 12-28-2021 End: 06-02-2023 History of Social function [facility] Start: 12-28-2021 End: 06-02-2023 Tobacco use panel [facility] Start: 06-02-2023 Alcohol Comment caffeine: 1-2 cups per day [employer] Drink ; coffee [facility] Start: 03-30-2023 [facility] Start: 1990 Sex Assigned At Female [facility] Start: 05-15-2023 Gender identity Identifies as female gender (finding) [facility] Start: 10-07-2023 Tobacco use and exposure Smokeless tobacco non-user [facility] Start: 10-07-2023 End: 10-13-2023 Alcohol intake Current non-drinker of alcohol (finding) [facility] Do you belong to any clubs or organizations such as congregation groups, unions, fraternal or athletic groups, or school groups? No [facility] Are you now , , , , never or living with a partner? [facility] How often to you hav e a drink containing alcohol? 2-3 time sa week [facility] How many standard drinks containing alcohol do you have on a typical day? 1 or 2 [facility] How often do you hav e 6 or more drinks on 1 occasion? Never [facility] How hard is it for y ou to pay for the very basics like food, housing, medical care, and heating Somewhat hard [facility] Adolescent depressio n screening assessment 0 [facility] Do you feel stress - tense, restless, nervous, or anxious, or unable to sleep at night because your mind is troubled all the time - these days [OSQ] To some extent [facility] Start: 12-28-2021 Education 18 [facility] Start: 1990 Sex Assigned At Not on file P [facility] NEGATED: Highlighted rowStart: NINF History of tobacco use Passive smoker [facility] Medical Equipment Procedure Code Equipment Code Equipment Origin al Text Equipment Identifier Dates Use as instructed [id number] Start: 06-10-2023 End: 06-09-2024 1 each in the morning and 1 each before bedtime. [id number] Start: 06-10-2023 History of Present illness Narrative 10-13-2023 Alessia SoniaJohnson, CULINARY DIRECTOR-ENVIRONMENTAL SERVICES SPECIALIST - 10/13/2023 10:30 AM EST Note Date & Type Note Facility 10-13-2023 History of Present illness Narrative Images from the original note were not included. 10/13/2023 [facility] SUBJECTIVE: Sobia Lucero is a 33 [...] repeat testing Initial testing Physician Phone Number [phone] GENERAL TEST INFORMATION See Note This screening [...] developed and its performance characteristics determined by [facility] in a manner consistent with CLIA requirements. This test has not been cleared or approved by the [place].S. Food and Drug Administration. Test Performed by: [facility] [id number] [place] [address] Leather Drier: Jose Palmer M.D. Ph.D.; CLIA# [id number] echo 2D W/ color flow Result Date: [...] of 151 beats per minute, normal mechanical [place] interval of 96milliseconds Other: No pericardial effusion [...] OB GROWTH Result Date: 09/29/2023 Narrative: [place] [address] Ultrasound Report Signed Patient: SOBIA LUCERO MR#: [id number] : 1990 Acct:[id number] Age/Sex: 33 / F ADM Date: 09/29/23 Loc: [facility] Attending Dr: Cristel Medina D.O. Ordering Physician: Cristel Medina D.O. Date of Service: 09/29/23 Procedure(s): US OB growth Accession Number(s): [id number] cc: Cristel Medina D.O.; Physician,Non-Staff [place] [address] [address] Patient Name: SOBIA LUCERO MRN: [facility]:[id number] date: 1990 Sex: F Assigned Patient Location: [facility] Current Patient Location: [facility] Accession/Order Number: [id number] Exam Date: 09/29/2023 15:04 Report Date: 09/29/2023 [...] M.D. Signed By: 09/29/239 DD/ 15 TD/TT: Log Handling Equipment Operator: Physical Exam Vitals and nursing note [...] ARORA APRN-CNP 10/14/231723 documented in this encounter [facility] History of Present illness Narrative 10-07-2023 Jakob Hernandez MD - 10/07/2023 9:00 AM EST Note Date & Type Note Facility 10-07-2023 History of Present illness Narrative [address] [address] October 07, 2023 Patient: Sobia Lucero Date of : 1990 Date of Visit: 10/07/[address] Cristel Medina I had the pleasure of seeing Sobia Lucero, at our pediatric cardiology clinic on 10/07/2023 .As you know,Ms Sobai Lucero is a 33 y.o. female referred [...] abnormal discharge. Positive for cramping and contractions (Kaltag-Zamorano). All other systems negative Current Outpatient Medications Medication Sig [facility] () 28 mg iron- [...] Master's degree (e.g., MA, MS, [place], MEd, DIRECTOR GAME, LACIE) Occupational History Not on file Tobacco [...] 30 min Stress: Stress Concern Present (12/28/2021) [employer] [place] [employer] - Occupational Stress Questionnaire Feeling of Stress : To some extent Social Connections: Moderately Isolated (12/28/2021) Social Connection and Isolation Panel [NHANES] Frequency of Communication with Friends and Family: More than three times a week Frequency of Social Gatherings with Friends and Family: Once a week Attends Scientologist Services: 1 to 4 times per year [...] queries or concerns. Sincerely, Jakob Hernandez M.D. Repatcher [facility] [place] This note is dictated with the use of M*Modal.Please note that this dictation was completed with computer voice recognition software. Quite often unanticipated grammatical, syntax, homophones, and other interpretive errors are inadvertently transcribed by the computer software. Please disregard these errors. Please excuse any errors that have escaped final proofreading. documented in this encounter [facility] History of Present illness Narrative 09-29-2023 RETA [...] History: Diagnosis Date Allergies Anxiety Bipolar disorder ([facility]) 2013 Depression ([facility]) Hemorrhoids History of gestational diabetes mellitus (GDM) [...] of: RETA Christopher documented in this encounter [facility] Evaluation note Note Date & Type Note Facility Evaluation note Diagnosis Third trimester state, incidental Gestational diabetes mellitus (GDM) in third trimester, gestational diabetes method of control unspecified documented in this encounter [facility] Evaluation note Note Date & [...] Everywhere.Viral Upper Respiratory Infection Discharge Instructions, Adult (Nepali)documented in this encounter [facility] Summary [...] Jakob Hernandez MD [address] [place] [address] Referral ID Status Reason Start Date Expiration Date V isits Requested Visits Authorized [id number] Pending Review 10/07/2023 10/06/2024 1 1 Additional Source Comments INFORMATION SOURCE (unrecogn ized section and content) DATE CREATED AUTHOR 03/12/2022 [facility] DATE CREATED AUTHOR AUTHOR'S ORGANIZ ATION 10/08/2023 [facility] DATE CREATED AUTHOR AUTHOR'S ORGANIZ ATION 11/26/2023 [facility] EPIC Reason for Visit (unrecogniz ed section and content) Reason Comments Routine Visit Reason Comments observation of VSD Specialty Diagnoses / Procedures Referred By Contac t Referred To Contact Pediatric Cardiology Diagnoses ventricular septal defect in , antepartum, single gestation Cristel Medina R, DO [address] [place] [address] Jakob Hernandez MD [address] [place] [address] Referral ID Status Reason Start Date Expiration Date Visits Requested Visits Authorized [id number] Pending Review Specialty Services Required 09/04/2023 09/03/2024 1 1 Reason Comments URI Patient symptoms sta rted ,fever,cough,congestionOTC....tylenol Care Teams (unrecognized sec tion and content) Spray Machine Tender Relationship Specialty Start Date End Date Chris Maloney DO [address] [place] [address] PCP - General Family Medicine 12/24/22 Spray Machine Tender Relationship Specialty Start Date End Date Dedra Maguire, CULINARY DIRECTOR-ENVIRONMENTAL SERVICES SPECIALIST [address] [facility] [place] [address] PCP - [facility] 10/29/21 Spray Machine Tender Relationship Specialty Start Date End Date Dedra Maguire, CULINARY DIRECTOR-ENVIRONMENTAL SERVICES SPECIALIST [address] [facility] [place] [address] PCP - [facility] 10/29/21 FOR RECORDS PERTAINING TO PATIENTS WHO [...] BE BASED ON THE PRIMARY CLINICAL RECORDS. [facility] [employer] [facility]. provides no warranty or guarantee of the accuracy or completeness of information in this document.
== END 2023-12-02 07:44 | disposition home or self-care (01) ==
LOC: FBCO 07:43
PROVIDERS: Visit Provider Obstetrics & Gynecology
DX: O24.419 Gestational diabetes mellitus in pregnancy, unspecified control (principal); Z3A.37 37 weeks gestation of pregnancy
CPT/HCPCS: 59025

== ENCOUNTER 2023-12-02 15:39 | Outpatient (OUT) | payer OTHER, SELFPAY ==
[2023-12-02 15:48] VITALS: BP 124/75; PULSE 80
--- OUTSIDE RECORDS SUMMARY | 2023-12-03 09:06 | XMS_ITS | CCD ---
Author Organization [facility] Care Team Providers Care Rat Culturist Name Role Phone HAIDER, DR COLBERT Admitting [...] Unavaila DEDRA Howell Primary Care Unavailable Gigi BILLING ASSOCIATE-Dedra ROGERS Primary Care Provider WINNIE MEDINAY Attending Unavailable LIZ, CRISTEL Attending Unavailable JAZLYN ORTIZ Attending Unavailable LIZ, CRISTEL Attending Unavailable LIZ, CRISTEL Attending Unavailable LIZ, CRISTEL Attending Unavailable LIZ, CRISTEL Attending Unavailable DIANA, JAZLYN Attending Unavailable Allergies Allergy Classification Reported Allergen(s) Allergy Type Date of Onset Reaction(s) Facility (2 sources) Penicillins; Translations: [PENICILLINS] Drug allergy (disorder) 3 [facility] (1 source) traMADol Drug Allergy 6 [facility] (5 sources) Gentamicin; Translations: [GENTAMICIN] Drug Allergy 2 Other, Other (See Comments), Eye Swelling [facility] (2 sources) Penicillins Drug Allergy 3 Hives [facility] (4 sources) Sulfonamides (Antibiotic) Drug Allergy 2 Itching, Rash, Swelling [facility] (2 sources) traMADol Drug Allergy 3 Anxiety [facility] (1 source) Sulfonamides (Antibiotic); Translations: [SULFA (SULFONAMIDE ANTIBIOTICS)] Propensity to adverse reactions to drug (disorder) 3 [facility] Repository (3 sources) traMADol; Translations: [TRAMADOL HCL] Drug Allergy 7 Anxiety [facility] (2 sources) Penicillins Propensity to adverse reactions to drug 7 [facility] Medications Current Medications Medication Drug [...] Range Facility POCT Influenza A/Influenza B /SARS-COV-2 [facility] 10-13-2023 External Poct Influenza A Antigen Negative [facility] External Poct Influenza B Antigen Negative [facility] SARS-CoV-2 (COVID-19) Ag IA.rapid Ql (Resp) Negative [facility] Urinalysis macro (dipstick) panel (U)Ordered By: Estefania Posadas on 09-29-2023 Bilirubin, UA Negative Negative - 4(70) +++ mg/dL [facility] Work Phone: Blood, UA Negative Negative - 50 Galen/mcL [facility] Work Phone: Clarity, UA Clear [facility] [employer] Work Phone: Color, UA Yellow [facility] [...] UA 7.0 5 - 9 [facility] [employer] Work Phone: Protein, UA Negative Negative - 2000(20) ++++ mg/dL [facility] [employer] Work Phone: Spec Grav, UA 1.015 1 - 1.03 [facility] [employer] Work Phone: Urobilinogen, UA 0.2 0.2 - 12 mg/dL [facility] [employer] Work Phone: [facility] [employer] Work Phone: PAP ACOG PANEL 2: 30 to 65on 03-12-[address] [facility] Comment on above: Result Comment: Perf ormed at: WB Performed By: #### [id number] #### [facility] [address] [place] [address] Dr. Michelle Gunderson Age Gdln ACOG Testing 30-[address] [facility] Comment on above: Performed By: #### [id number] #### [facility] [address] [place] [address] Dr. Michelle Gunderson DIAGNOSIS: Comment Normal [facility] Comment on above: Result Comment: NEGA TIVE FOR INTRAEPITHELIAL LESION OR MALIGNANCY. Performed at: WB Performed By: #### [id number] #### [facility] [address] [address] [address] Michelle Gunderson HPV Aptima Negative Normal Negative [facility] Comment on above: Result Comment: This nucleic acid amplification test detects fourteen high-risk HPV types (16,18,31,33,35,39,45,51,52,56,58,59,66,68) without differentiation. Performed at: =G Performed By: #### [id number] #### [facility] [address] [place] [address] Dr. Michelle Gunderson Methodology: CTIM Normal [facility] Comment on above: Result Comment: The Thin Prep(R) Sandblast Or Shotblast Equipment Tender was unable to read this specimen. Therefore a manual review was performed. Performed at: WB Performed By: #### [id number] #### [facility] [address] [place] [address] Dr. Michelle Gunderson Note: Comment Normal [facility] Comment on above: Result Comment: The Pap smear is a screening test designed to aid in the detection of premalignant and malignant conditions of the uterine cervix. It is not a diagnostic procedure and should not be used as the sole means of detecting cervical cancer. Both false-positive and false-negative reports do occur. . Performed at: WB Performed By: #### [id number] #### [facility] [address] [place] [address] Dr. Michelle Gunderson Performed by: Comment Normal [facility] Comment on above: Result Comment: Archana Lee, Serging Machine Operator Automatic (ASCP) Performed at: WB Performed By: #### [id number] #### [facility] [address] [place] [address] Dr. Michelle Gunderson Specimen adequacy: Comment Normal [facility] Comment on above: Result Comment: Sati sfactory for evaluation. Endocervical and/or squamous metaplastic cells (endocervical component) are present. Partially obscuring thick areas are present. Performed at: WB Performed By: #### [id number] #### [facility] [address] [place] [address] Dr. Michelle Gunderson [facility]-19 [facility]on SARS-CoV-2 (COVID-19) RNA JOSE MIGUEL+probe Ql (Unsp spec) Not detected Normal NOT DETECTED [facility] Comment on above: Result Comment: This test is not yet approved or cleared by the [place] FDA. When there are no FDA-approved or cleared tests available, and other criteria are met, FDA can make tests available under an emergency access mechanism called an Emergency Use Authorization (EUA). The EUA for this test is supported by the [place] of Health and Human Service's (HHS's) declaration [...] consistent with SARS-CoV-2. Performed By: #### [facility] #### [facility] [address] [place] [address] Dr. Michelle Gunderson Vital Signs Date Time Vital Sign Value Performing Clinician Facility 10-13-2023 10:44-0500 Body height 157.5 cm Alessiasa Mason BILLING ASSOCIATE-LABORER MINE Work Phone: [facility] 10-13-2023 10:44-0500 Body mass index (BMI) [Ratio] 27.9 kg/m2 Alessiasa Mason BILLING ASSOCIATE-LABORER MINE Work Phone: [facility] 10-13-2023 10:44-0500 Body temperature 97.7 [degF] Alessia Marlon BILLING ASSOCIATE-LABORER MINE Work Phone: [facility] 10-13-2023 10:44-0500 Body weight 69.22 kg Alessia Joo-Johnson BILLING ASSOCIATE-LABORER MINE Work Phone: [facility] 10-13-2023 10:44-0500 Diastolic blood pressure 78 mm[Hg] Alessiasa Ge-Elizabeth BILLING ASSOCIATE-LABORER MINE Work Phone: [facility] 10-13-2023 10:44-0500 Heart rate 86 /min Alessiasa Mason BILLING ASSOCIATE-LABORER MINE Work Phone: [facility] 10-13-2023 10:44-0500 Respiratory rate 18 /min Alessia Joo-Johnson BILLING ASSOCIATE-LABORER MINE Work Phone: [facility] 10-13-2023 10:44-0500 SaO2% (BldA) [Mass fraction] 98 % Alessiasa Mason BILLING ASSOCIATE-LABORER MINE Work Phone: [facility] 10-13-2023 10:44-0500 Systolic blood pressure 113 mm[Hg] Alessia Marlon BILLING ASSOCIATE-LABORER MINE Work Phone: [facility] 10-07-2023 09:29-0500 Body height 157.5 cm Jakob Hernandez MD Work Phone: [facility] 10-07-2023 09:29-0500 Body mass index (BMI) [Ratio] 28.78 kg/m2 Jakob Hernandez MD Work Phone: [facility] 10-07-2023 09:29-0500 Body weight 71.4 kg Jakob Hernandez MD Work Phone: [facility] 10-07-2023 09:29-0500 Diastolic blood pressure 73 mm[Hg] Jakob Hernandez MD Work Phone: [facility] 10-07-2023 09:29-0500 Heart rate 95 /min Jakob Hernandez MD Work Phone: [facility] 10-07-2023 09:29-0500 SaO2% (BldA) [Mass fraction] 100 % Jakob Hernandez MD Work Phone: [facility] 10-07-2023 09:29-0500 Systolic blood pressure 124 mm[Hg] Jakob Hernandez MD Work Phone: [facility] 09-29-2023 16:19-0500 Body mass index (BMI) [Ratio] 29.04 kg/m2 Jazlyn MCDUFFIE Work Phone: [facility] 09-29-2023 16:19-0500 Body weight 72.03 kg Jazlyn MCDUFFIE Work Phone: [facility] 09-29-2023 16:19-0500 Diastolic blood pressure 70 mm[Hg] Jazlyn MCDUFFIE Work Phone: [facility] 09-29-2023 16:19-0500 Systolic blood pressure 120 [...] Office outpatient visit 15 minutes Alessia Mason BILLING ASSOCIATE-LABORER MINE Work Phone: [facility] Comment on above: General ill feeling (Primary Dx) Start: 10-07-2023 End: 10-08-2023 ambulatory JAKOB HERNANDEZ [facility] Start: 10-07-2023 End: 10-07-2023 Office consultation new/estab patient 80 min Jakob Hernandez MD Work Phone: [facility] Pediatric Cardiology Comment on [...] POCT INFLUENZA A/INFLUENZA B/SARS-COV-2 VERITOR Alessia Marlon BILLING ASSOCIATE-LABORER MINE Work Phone: Start: 10-13-2023 Adult depression screening assessment Alessia Marlon BILLING ASSOCIATE-LABORER MINE Work Phone: Start: 09-29-2023 Urnls dip stick/tabl et rgnt non-auto w/o micrscp Jazlyn MCDUFFIE Work Phone: Start: 05-08-2023 Adult depression screening assessment Jakob Hernandez MD Work Phone: Plan of Treatment Date Care Activity Detail Author Start: 09-07-2030 DTaP,Tdap and Td Vaccines (2 - Tdap) DTaP,Tdap and Td Vaccines (2 - Tdap) [facility] Start: 10-13-2024 Adult BMI Screening Adult BMI Screen ing [facility] Start: 10-13-2024 Depression Screening Depression Scre ening [facility] Start: 10-13-2024 Tobacco Screening Tobacco Screening [facility] Start: 10-07-2024 Adult BMI Screening Adult BMI Screen ing [facility] Start: 10-07-2024 Tobacco Screening Tobacco Screening [facility] Start: 05-08-2024 Depression Screening Depression Scre ening [facility] Start: 11-25-2023 Screening for malign ant neoplasm of cervix [facility] Start: 10-27-2023 End: 10-27-2023 Patient encounter procedure 10/27/2023 3:40 PM EDT Routine [facility] [address] [place] [address] Cristel Medina, DO [address] [place] [address] [facility] Start: 10-27-2023 End: 10-27-2023 Professional / ancillary services management 10/27/2023 3:00 PM EDT Ancillary Procedure [facility] [address] [place] [address] [facility] Start: 10-15-2023 End: 10-15-2023 Patient encounter procedure 10/15/2023 3:00 PM EST Routine [facility] [address] [facility] [place] [address] Cristel Medina, [address] [facility] [place] [address] [place] [address] [facility] Start: 10-07-2023 End: 09-30-2024 [...] (Approximate), Expires: 09/29/2024 Start: 04-18-2023 Influenza vaccination [facility] Start: 2012 Screening for malign ant neoplasm of cervix Pap Smear [facility] Start: 2009 Adult BMI Follow Up Plan Adult BMI Follow Up Plan [facility] Immunizations Immunization Date Immunization Notes Care Provider [facility] 05-29-2021 influenza, injectabl e, quadrivalent, preservative free Jakob Hernandez MD Work Phone: [facility] 05-29-2021 influenza virus vaccine, unspecified formulation Jazlyn MCDUFFIE Work Phone: [facility] 09-07-2020 diphtheria, tetanus toxoids and pertussis vaccine Jakob Hernandez MD Work Phone: [facility] 06-07-2020 influenza, injectabl e, quadrivalent, preservative free Jakob Hernandez MD Work Phone: [facility] 06-02-2019 influenza, injectabl e, quadrivalent, preservative free Jakob Hernandez MD Work Phone: [facility] 06-03-2018 influenza, injectabl e, quadrivalent, preservative free Jakob Hernandez MD Work Phone: [facility] Payers Date Payer Category Payer Unknown [id number] 1990 Unknown [id number] 2.16.84 [id number] 1990 Unknown [id number] 2.16.84 [id number] 1991 Unknown [id number] 2.16.8 [id number] 1991 Unknown [id number] 2.16.8 [id number] 1991 Unknown [id number] 2.16.84 [id number] 1991 Unknown [id number] 2.16.84 [id number] 1991 Unknown [id number] 2.16.84 [id number] 1991 Unknown [id number] 2.16.84 [id number] 1991 Unknown [id number] 2.16.84 [id number] 1991 Unknown [id number] 2.16.84 [id number] 1991 Unknown [id number] 2.16.840 .[id number] 1991 Unknown [id number] [id number] .[id number] 1959 Unknown [id number] Social History Date Type Detail Facility Start: 06-02-2023 End: 10-07-2023 Tobacco smoking status NHIS Never smoked tobacco [facility] Start: 09-29-2023 Alcohol intake Lifetime non-d venessa (finding) [facility] Start: 12-28-2021 End: 06-02-2023 History of Social function [facility] Start: 12-28-2021 End: 06-02-2023 Tobacco use panel [facility] Start: 06-02-2023 Alcohol Comment caffeine: 1-2 cups per day [employer] Drink ; coffee [facility] Start: 03-30-2023 [facility] Start: 1990 Sex Assigned At Female [facility] Start: 05-15-2023 Gender identity Identifies as female gender (finding) [facility] Start: 10-07-2023 Tobacco use and exposure Smokeless tobacco non-user [facility] Start: 10-07-2023 End: 10-13-2023 Alcohol intake Current non-drinker of alcohol (finding) [facility] Do you belong to any clubs or organizations such as zoroastrian groups, unions, fraternal or athletic groups, or school groups? No [facility] Are you now , , , , never or living with a partner? [facility] How often to you hav e a drink containing alcohol? 2-3 time sa week [facility] How many standard drinks containing alcohol do you have on a typical day? 1 or 2 [facility] How often do you hav e 6 or more drinks on 1 occasion? Never [facility] How hard is it for y ou to pay for the very basics like food, housing, medical care, and heating Somewhat hard [facility] Adolescent depressio n screening assessment 0 [facility] Do you feel stress - tense, restless, nervous, or anxious, or unable to sleep at night because your mind is troubled all the time - these days [OSQ] To some extent [facility] Start: 12-28-2021 Education 18 [facility] Start: 1990 Sex Assigned At Not on file P [facility] NEGATED: Highlighted rowStart: NINF History of tobacco use Passive smoker [facility] Equipment Procedure Code Equipment Code Equipment Origin al Text Equipment Identifier Dates Use as instructed [id number] Start: 06-10-2023 End: 06-09-2024 1 each in the morning and 1 each before bedtime. [id number] Start: 06-10-2023 History of Present illness Narrative 10-13-2023 Alessia SoniaJohnson, BILLING ASSOCIATE-LABORER MINE - 10/13/2023 10:30 AM EST Note Date & Type Note Facility 10-13-2023 History of Present illness Narrative Images from the original note were not included. 10/13/2023 [facility] SUBJECTIVE: Sobia Lucero is a 33 [...] repeat testing Initial testing Physician Phone Number [phone] GENERAL TEST INFORMATION See Note This screening [...] developed and its performance characteristics determined by [facility] in a manner consistent with CLIA requirements. This test has not been cleared or approved by the U.S. Food and Drug Administration. Test Performed by: [facility] [id number] [place] [address] Metal Technician: Jose Palmer M.D. Ph.D.; CLIA# [id number] echo 2D W/ color flow Result Date: [...] of 151 beats per minute, normal mechanical MI interval of 96milliseconds Other: No pericardial effusion [...] OB GROWTH Result Date: 09/29/2023 Narrative: [place] [address] Ultrasound Report Signed Patient: SOBIA LUCERO MR#: [id number] : 1990 Acct:[id number] Age/Sex: 33 / F ADM Date: 09/29/23 Loc: [facility] Attending Dr: Cristel Medina D.O. Ordering Physician: Cristel Medina D.O. Date of Service: 09/29/23 Procedure(s): US OB growth Accession Number(s): [id number] cc: Cristel Medina D.O.; Physician,Non-Staff [place] [address] [address] Patient Name: SOBIA LUCERO MRN: [facility]:[id number] date: 1990 Sex: F Assigned Patient Location: [facility] Current Patient Location: [facility] Accession/Order Number: [id number] Exam Date: 09/29/2023 15:04 Report Date: 09/29/2023 [...] M.D. Signed By: 09/29/239 DD/ 15 TD/TT: Civil Designer: Physical Exam Vitals and nursing note reviewed. [...] ARORA APRN-CNP 10/14/231723 documented in this encounter [facility] History of Present illness Narrative 10-07-2023 Jakob Hernandez MD - 10/07/2023 9:00 AM EST Note Date & Type Note Facility 10-07-2023 History of Present illness Narrative [address] [address] October 07, 2023 Patient: Sobia Lucero Date [...] abnormal discharge. Positive for cramping and contractions ([place]). All other systems negative Current Outpatient Medications Medication Sig Dispense [facility]FA () 28 mg iron- [...] Master's degree (e.g., MA, MS, [place], MEd, STATION MECHANIC, LACIE) Occupational History Not on file Tobacco [...] 30 min Stress: Stress Concern Present (12/28/2021) [employer] [place] [employer] - Occupational Stress Questionnaire Feeling of Stress : To some extent Social Connections: Moderately Isolated (12/28/2021) Social Connection and Isolation Panel [NHANES] Frequency of Communication with Friends and Family: More than three times a week Frequency of Social Gatherings with Friends and Family: Once a week Attends [employer] Services: 1 to 4 times per year [...] queries or concerns. Sincerely, Jakob Hernandez M.D. Manager Community Relations [facility] [place] This note is dictated with the use of M*Modal.Please note that this dictation was completed with computer voice recognition software. Quite often unanticipated grammatical, syntax, homophones, and other interpretive errors are inadvertently transcribed by the computer software. Please disregard these errors. Please excuse any errors that have escaped final proofreading. documented in this encounter [facility] History of Present illness Narrative 09-29-2023 RETA [...] History: Diagnosis Date Allergies Anxiety Bipolar disorder ([facility]) 2013 Depression ([facility]) Hemorrhoids History of gestational diabetes [...] of: RETA Christopher documented in this encounter [facility] Evaluation note Note Date & Type Note Facility Evaluation note Diagnosis Third trimester state, incidental Gestational diabetes mellitus (GDM) in third trimester, gestational diabetes method of control unspecified documented in this encounter [facility] Evaluation note Note Date & [...] Everywhere.Viral Upper Respiratory Infection Discharge Instructions, Adult (Slovak)documented in this encounter [facility] Summary [...] Jakob Hernandez MD [address] [place] [address] Referral ID Status Reason Start Date Expiration Date V isits Requested Visits Authorized [id number] Pending Review 10/07/2023 10/06/2024 1 1 Additional Source Comments INFORMATION SOURCE (unrecogn ized section and content) DATE CREATED AUTHOR 03/12/2022 [facility] DATE CREATED AUTHOR AUTHOR'S ORGANIZ ATION 10/08/2023 [facility] DATE CREATED AUTHOR AUTHOR'S ORGANIZ ATION 11/26/2023 [facility] dicwa Specialists EPIC Reason for Visit (unrecogniz ed section and content) Reason Comments Routine Visit Reason Comments observation of VSD Specialty Diagnoses / Procedures Referred By Contac t Referred To Contact Pediatric Cardiology Diagnoses ventricular septal defect in , antepartum, single gestation Cristel Medina R, DO [address] [place] [address] Jakob Hernandez MD [address] [place] [address] Referral ID Status Reason Start Date Expiration Date Visits Requested Visits Authorized [id number] Pending Review Specialty Services Required 09/04/2023 09/03/2024 1 1 Reason Comments URI Patient symptoms sta rted ,fever,cough,congestionOTC....tylenol Care Teams (unrecognized sec tion and content) Rat Culturist Relationship Specialty Start Date End Date Chris Maloney DO [address] [place] [address] PCP - General Family Medicine 12/24/22 Rat Culturist Relationship Specialty Start Date End Date Dedra Maguire, BILLING ASSOCIATE-LABORER MINE [address] [facility] [place] [address] PCP - [facility] 10/29/21 Rat Culturist Relationship Specialty Start Date End Date Dedra Maguire, BILLING ASSOCIATE-LABORER MINE [address] [facility] [place] [address] PCP - [facility] 10/29/21 FOR RECORDS PERTAINING TO PATIENTS [...] BE BASED ON THE PRIMARY CLINICAL RECORDS. [facility] [employer] [facility]. provides no warranty or guarantee of the accuracy or completeness of information in this document.
== END 2023-12-02 16:30 | disposition home or self-care (01) ==
LOC: FBC 15:44 → FBCO 12-03 08:56
PROVIDERS: Visit Provider Obstetrics & Gynecology
DX: O24.419 Gestational diabetes mellitus in pregnancy, unspecified control (principal); Z3A.37 37 weeks gestation of pregnancy
CPT/HCPCS: 59025

== ENCOUNTER 2023-12-05 10:03 | Outpatient (OUT) | payer OTHER, SELFPAY ==
[2023-12-05 17:04] VITALS: BP 126/66; PULSE 83
--- NOTE | 2023-12-05 17:34 | US_ITS ---
[address] [address] Patient Name: SOBIA CHAUDHARI MRN: [facility]:[id number] date: 1990 Sex: F Assigned Patient Location: [facility] Current Patient Location: Accession/Order Number: [id number] Exam Date: 12/05/2023 17:40 Report Date: 12/06/2023 06:15 At the request of: CRISTEL HILL Procedure: US OB BPP w non-stress EXAMINATION: US OB BPP w non-stress HISTORY: GESTATIONAL DIABETES MELLITUS O24.419 COMPARISON: Ultrasound OB biophysical 11/28/2023 TECHNIQUE: Ultrasound biophysical profile was performed in the radiology department. BREATHING MOVEMENTS: 2.0 GROSS BODY MOVEMENTS: 2.0 TONE: 2.0 QUALITATIVE AMNIOTIC FLUID VOLUME: 2.0 PRESENTATION: CEPHALIC HEART RATE: 142.1 bpm bpm. AMNIOTIC FLUID VOLUME: 20.3 cm GESTATIONAL AGE: 37 weeks 5 days CONCLUSION: Total biophysical profile score 8.0. Electronically authenticated by: COMFORT SUNG Date: 12/06/2023 06:15
== END 2023-12-05 18:10 | disposition home or self-care (01) ==
LOC: US 10:03 → FBC 16:59
PROVIDERS: Visit Provider Obstetrics & Gynecology
DX: O24.419 Gestational diabetes mellitus in pregnancy, unspecified control (principal); Z3A.37 37 weeks gestation of pregnancy
CPT/HCPCS: 76818

== ENCOUNTER 2023-12-09 07:07 | Outpatient (OUT) | payer OTHER, SELFPAY ==
--- OUTSIDE RECORDS SUMMARY | 2023-12-09 07:10 | XMS_ITS | CCD ---
Author Organization [facility] Care Team Providers Care Spinner Hydraulic Name Role Phone HAIDER, DR COLBERT Admitting Unavailable HAIDER, DR COLEBRT Attending Unavailable HAIDER, DR COLBERT Primary Care Unavailable HAIDER, DR COLBERT Consulting Unavailable LIZ, DR FAM Admitting Unavailable LIZ, DR FAM Attending Unavailable HAIDER, DR COLBERT Primary Care Unavailable LIZ, DR FAM Consulting Unavailable Chris Maloney DO Primary Care Provider JAKOB HERNANDEZ Attending Unavaila DEDRA Howell Referring Unavailable DEDRA MAGUIRE Primary Care Unavailable JAKOB HERNANDEZ Referring Unavaila DEDRA Howell Primary Care Unavailable Gigi GLOBE CHANGER-Dedra ROGERS Primary Care Provider WINNIE MEDINAY Attending Unavailable LIZ, CRISTEL Attending Unavailable JAZLYN ORTIZ Attending Unavailable LIZ, CRISTEL Attending Unavailable LIZ, CRISTEL Attending Unavailable LIZ, CRISTEL Attending Unavailable LIZ, CRISTEL Attending Unavailable DIANA, JAZLYN Attending Unavailable LIZ, CRISTEL Attending Unavailable Allergies Allergy Classification Reported Allergen(s) Allergy Type Date of Onset Reaction(s) Facility (2 sources) Penicillins; Translations: [PENICILLINS] Drug allergy (disorder) [address] [facility] (1 source) traMADol Drug Allergy [address] [facility] (5 sources) Gentamicin; Translations: [GENTAMICIN] Drug Allergy 2 Other, Other (See Comments), Eye Swelling [facility] (2 sources) Penicillins Drug Allergy 3 Hives [facility] (4 sources) Sulfonamides (Antibiotic) Drug Allergy 2 Itching, Rash, Swelling [facility] (2 sources) traMADol Drug Allergy 3 Anxiety [facility] (1 source) Sulfonamides (Antibiotic); Translations: [SULFA (SULFONAMIDE ANTIBIOTICS)] Propensity to adverse reactions to drug (disorder) 3 [facility] Rep[facility] (3 sources) traMADol; Translations: [TRAMADOL HCL] Drug Allergy 7 Anxiety [facility] (2 sources) Penicillins Propensity to adverse reactions to drug 7 Hives [facility] Medications Current Medications Medication [...] Range Facility POCT Influenza A/Influenza B /SARS-COV-2 [facility] 10-13-2023 External Poct Influenza A Antigen Negative [facility] External Poct Influenza B Antigen Negative [facility] SARS-CoV-2 (COVID-19) Ag IA.rapid Ql (Resp) Negative [facility] Urinalysis macro (dipstick) panel (U)Ordered By: Estefania Posadas on 09-29-2023 Bilirubin, UA Negative Negative - 4(70) +++ mg/dL [facility] Work Phone: Blood, UA Negative Negative - 50 Galen/mcL [facility] Work Phone: Cl[facility]A Clear [facility] Work Phone: Color, UA Yellow [facility] Work Phone: Glucose, UA Negative Negative - 2000(110) ++++ mg/dL [facility] Work Phone: Interpretation and review of laboratory results Abnormal [facility] Work Phone: Ketones, UA Negative Negative - 160(16) ++++ mg/dL [facility] Work Phone: Leukocytes, UA Trace Negative - 500+++ Bean/mcL [facility] Work Phone: Nitrite, UA Negative Negative - Positive [facility] [employer] Work Phone: pH, UA 7.0 5 - 9 [facility] [employer] Work Phone: Protein, UA Negative Negative - 2000(20) ++++ mg/dL [facility] [employer] Work Phone: Spec Grav, UA 1.015 1 - 1.03 [facility] [employer] [facility] Work Phone: Urobilinogen, UA 0.2 0.2 - 12 mg/dL [facility] [employer] Work Phone: [facility] [employer] Work Phone: PAP ACOG PANEL 2: 30 to 65on 03-12-2022 . . Normal [facility] Comment on above: Result Comment: Perf ormed at: WB Performed By: #### [id number] #### [facility] [address] [address] [address] Michelle Gunderson Age Gdln ACOG Testing 30-65 Normal [facility] Comment on above: Performed By: #### [id number] #### [facility] [address] [place] [address] Dr. Michelle Gunderson DIAGNOSIS: Comment Normal [facility] Comment on above: Result Comment: NEGA TIVE FOR INTRAEPITHELIAL LESION OR MALIGNANCY. Performed at: WB Performed By: #### [id number] #### [facility] [address] [address] [address] Michelle Gunderson HPV Aptima Negative Normal Negative [facility] Comment on above: Result Comment: This nucleic acid amplification test detects fourteen high-risk HPV types (16,18,31,33,35,39,45,51,52,56,58,59,66,68) without differentiation. Performed at: =G Performed By: #### [id number] #### [facility] [address] [address] [address] Michelle Gunderson Methodology: CTIM Normal [facility] Comment on above: Result Comment: The Thin Prep(R) Radiation Technician was unable to read this specimen. Therefore a manual review was performed. Performed at: WB Performed By: #### [id number] #### [facility] [address] [place] [address] Dr. Michelle Gunderson Note: Comment Normal [facility] Comment on above: Result Comment: The Pap smear is a screening test designed to aid in the detection of premalignant and malignant conditions of the uterine cervix. It is not a diagnostic procedure and should not be used as the sole means of detecting cervical cancer. Both false-positive and false-negative reports do occur. . Performed at: WB Performed By: #### [id number] #### [facility] [address] [place] [address] Dr. Michelle Gunderson Performed by: Comment Normal [facility] Comment on above: Result Comment: Archana Lee, Ruby On Rails Web Developer (ASCP) Performed at: WB Performed By: #### [id number] #### [facility] [address] [place] [address] Dr. Michelle Gunderson Specimen adequacy: Comment Normal [facility] Comment on above: Result Comment: Sati sfactory for evaluation. Endocervical and/or squamous metaplastic cells (endocervical component) are present. Partially obscuring thick areas are present. Performed at: WB Performed By: #### [id number] #### [facility] [address] [place] [address] Dr. Michelle Gunderson [facility]on SARS-CoV-2 (COVID-19) RNA JOSE MIGUEL+probe Ql (Unsp spec) Not detected Normal NOT DETECTED [facility] Comment on above: Result Comment: This test is not yet approved or cleared by the [place] FDA. When there are no FDA-approved or cleared tests available, and other criteria are met, FDA can make tests available under an emergency access mechanism called an Emergency Use Authorization (EUA). The EUA for this test is supported by the Pediatric Speech Therapist of Health and Human Service's (HHS's) declaration [...] SARS-CoV-2. Performed By: #### C [facility] #### [facility] [address] [place] [address] Dr. Michelle Gunderson Vital Signs Date Time Vital Sign Value Performing Clinician Facility 10-13-2023 10:44-0500 Body height 157.5 cm Alessia Marlon GLOBE CHANGER-CONFERENCE CONCIERGE Work Phone: [facility] 10-13-2023 10:44-0500 Body mass index (BMI) [Ratio] 27.9 kg/m2 Alessia ScottJohnson GLOBE CHANGER-CONFERENCE CONCIERGE Work Phone: [facility] 10-13-2023 10:44-0500 Body temperature 97.7 [degF] Alessiagirish Mason GLOBE CHANGER-CONFERENCE CONCIERGE Work Phone: [facility] 10-13-2023 10:44-0500 Body weight 69.22 kg Alessia Mason GLOBE CHANGER-CONFERENCE CONCIERGE Work Phone: [facility] 10-13-2023 10:44-0500 Diastolic blood pressure 78 mm[Hg] Alessia Mason GLOBE CHANGER-CONFERENCE CONCIERGE Work Phone: [facility] 10-13-2023 10:44-0500 Heart rate 86 /min Alessiagirish Mason GLOBE CHANGER-CONFERENCE CONCIERGE Work Phone: [facility] 10-13-2023 10:44-0500 Respiratory rate 18 /min Alessia ScottJohnson GLOBE CHANGER-CONFERENCE CONCIERGE Work Phone: [facility] 10-13-2023 10:44-0500 SaO2% (BldA) [Mass fraction] 98 % Alessia JooDavonElizabeth GLOBE CHANGER-CONFERENCE CONCIERGE Work Phone: [facility] 10-13-2023 10:44-0500 Systolic blood pressure 113 mm[Hg] Alessia Marlon SETHI Work Phone: [facility] 10-07-2023 09:29-0500 Body height 157.5 cm Jakob Hernandez MD Work Phone: [facility] 10-07-2023 09:29-0500 Body mass index (BMI) [Ratio] 28.78 kg/m2 Jakob Hernandez MD Work Phone: [facility] 10-07-2023 09:29-0500 Body weight 71.4 kg Jakob Hernandez MD Work Phone: [facility] 10-07-2023 09:29-0500 Diastolic blood pressure 73 mm[Hg] Jakob Hernandez MD Work Phone: [facility] 10-07-2023 09:29-0500 Heart rate 95 /min Jkaob Hernandez MD Work Phone: [facility] 10-07-2023 09:29-0500 SaO2% (BldA) [Mass fraction] 100 % Jakob Hernandez MD Work Phone: [facility] 10-07-2023 09:29-0500 Systolic blood pressure 124 mm[Hg] Jakob Hernandez MD Work Phone: [facility] 09-29-2023 16:19-0500 Body mass index (BMI) [Ratio] 29.04 kg/m2 Jazlyn MCDUFFIE Work Phone: [facility] 09-29-2023 16:19-0500 Body weight 72.03 kg Jazlyn MCDUFFIE Work Phone: [facility] 09-29-2023 16:19-0500 Diastolic blood pressure 70 mm[Hg] Jazlyn MCDUFFIE Work Phone: [facility] 09-29-2023 16:19-0500 Systolic blood pressure 120 mm[Hg] Jazlyn MCDUFFIE Work Phone: [facility] Encounters Encounter Date Encounter Type Care Provider Facility Start: 12-02-2023 End: 12-02-2023 ambulatory CRISTEL LIZ Not Available Start: 11-25-2023 End: 11-25-2023 ambulatory CRISTEL LIZ Not Available Start: 11-10-2023 End: 11-10-2023 ambulatory CRISTEL LIZ Not Available Start: 10-27-2023 End: 10-27-2023 ambulatory CRISTEL LIZ Not Available Start: 10-15-2023 End: 10-15-2023 ambulatory CRISTEL LIZ Not Available Start: 10-13-2023 End: 10-13-2023 Office outpatient visit 15 minutes Alessia Mason APRN-CONFERENCE CONCIERGE Work Phone: [facility] Comment on above: General ill feeling (Primary Dx) Start: 10-07-2023 End: 10-08-2023 ambulatory JAKOB HERNANDEZ [facility] Start: 10-07-2023 End: 10-07-2023 Office consultation new/estab patient 80 min Jakob Hernandez MD Work Phone: [facility] Pediatric Cardiology Comment on above: ventricular se ptal defect affecting antepartum care of mother, single or unspecified fetus (Primary Dx); ventricular septal defect in , antepartum, single gestation Start: 09-29-2023 End: 09-29-2023 ambulatory JAZLYN ORTIZ Not Available Start: 09-29-2023 End: 09-29-2023 flow sheet Jazlyn MCDUFFIE Work Phone: [facility] Comment on above: Third trimester preg nj; Gestational diabetes mellitus (GDM) in third trimester, gestational diabetes method of control unspecified Start: 09-01-2023 End: 09-01-2023 ambulatory CRISTEL LIZ Not Available Start: 08-12-2023 End: 08-12-2023 ambulatory CRISTEL LIZ Not Available Start: 07-14-2023 End: 07-14-2023 ambulatory JAZLYN ORTIZ Not Available Start: 03-06-2022 End: 03-06-[address] CRISTEL MEDINA Facility: Start: 07-24-2021 End: 07-24-[address] CHRIS MALONEY Facility: Procedures Date Procedure Procedure Detail Performing Clinician Start: 10-13-2023 POCT INFLUENZA A/INFLUENZA B/SARS-COV-2 VERITOR Alessiagirish Mason GLOBE CHANGER-CONFERENCE CONCIERGE Work Phone: Start: 10-13-2023 Adult depression screening assessment Alessia Mason GLOBE CHANGER-CONFERENCE CONCIERGE Work Phone: Start: 09-29-2023 Urnls dip stick/tabl et rgnt non-auto w/o micrscp Jazlyn MCDUFFIE Work Phone: Start: 05-08-2023 Adult depression screening assessment Jakob Hernandez MD Work Phone: Plan of Treatment Date Care Activity Detail Author Start: 09-07-2030 DTaP,Tdap and Td Vaccines (2 - Tdap) DTaP,Tdap and Td Vaccines (2 - Tdap) [facility] Start: 10-13-2024 Adult BMI Screening Adult BMI Screen ing [facility] Start: 10-13-2024 Depression Screening Depression Scre ening [facility] Start: 10-13-2024 Tobacco Screening Tobacco Screening [facility] Start: 10-07-2024 Adult BMI Screening Adult BMI Screen ing [facility] Start: 10-07-2024 Tobacco Screening Tobacco Screening [facility] Start: 05-08-2024 Depression Screening Depression Scre ening [facility] Start: 11-25-2023 Screening for malign ant neoplasm of cervix [facility] Start: 10-27-2023 End: 10-27-2023 Patient encounter procedure 10/27/2023 3:40 PM EDT Routine [facility] [address] [place] [address] Cristel Medina, DO [address] [place], [place] [id number] [facility] Start: 10-27-2023 End: 10-27-2023 Professional / ancillary services management 10/27/2023 3:00 PM EDT Ancillary Procedure [facility] [address] [place] [id number] [facility] Start: 10-15-2023 End: 10-15-2023 Patient encounter procedure 10/15/2023 3:00 PM EST Routine [facility] [address] [place] [phone] Cristel Medina, DO [address] [place] [address] [place] [address] [facility] Start: 10-07-2023 End: 09-30-2024 echo 2D W/ [facility] Work Phone: Comment on above: Expected: 10/07/2023 (Approximate), Expires: 09/30/2024 Start: 09-29-2023 End: 09-29-2024 US biophysical profile w non stress test US biophysical profile w non stress test Imaging Routine Gestational diabetes mellitus (GDM) in third trimester, gestational diabetes method of control unspecified Expected: 09/29/2023 (Approximate), Expires: 09/29/2024 [facility] Work Phone: Comment on above: Expected: 09/29/2023 (Approximate), Expires: 09/29/2024 Start: 04-18-2023 Influenza vaccination [facility] Start: 2012 Screening for malign ant neoplasm of cervix Pap Smear [facility] Start: 2009 Adult BMI Follow Up Plan Adult BMI Follow Up Plan [facility] Immunizations Immunization Date Immunization Notes Care Provider [facility] 05-29-2021 influenza, injectabl e, quadrivalent, preservative free Jakob Hernandez MD Work Phone: [facility] 05-29-2021 influenza virus vaccine, unspecified formulation Jazlyn MCDUFFIE Work Phone: [facility] 09-07-2020 diphtheria, tetanus toxoids and pertussis vaccine Jakob Hernandez MD Work Phone: [facility] 06-07-2020 influenza, injectabl e, quadrivalent, preservative free Jakob Hernandez MD Work Phone: [facility] 06-02-2019 influenza, injectabl e, quadrivalent, preservative free Jakob Hernandez MD Work Phone: [facility] 06-03-2018 influenza, injectabl e, quadrivalent, preservative free Jakob Hernandez MD Work Phone: [facility] Payers Date Payer Category Payer Unknown [id number] 1991 Unknown [id number] 2.16.84 [id number] 1991 Unknown [id number] 2.16.84 [id number] 1991 Unknown [id number] 2.16.8 [id number] 1991 Unknown [id number] 2.16.8 [id number] 1991 Unknown [id number] 2.16.84 [id number] 1991 Unknown [id number] 2.16.84 [id number] 1991 Unknown [id number] 2.16.84 [id number] 1991 Unknown [id number] 2.16.84 [id number] 1991 Unknown [id number] 2.16.84 [id number] 1991 Unknown [id number] 2.16.84 [id number] 1991 Unknown [id number] 2.16.84 [id number] 1991 Unknown [id number] 2.16.840 .[id number] 1991 Unknown [id number] 2.16.840 .[id number] 1959 Unknown [id number] Social History Date Type Detail Facility Start: 06-02-2023 End: 10-07-2023 Tobacco smoking status NHIS Never smoked tobacco [facility] Start: 09-29-2023 Alcohol intake Lifetime non-d venessa (finding) [facility] Start: 12-28-2021 End: 06-02-2023 History of Social function [facility] Start: 12-28-2021 End: 06-02-2023 Tobacco use panel [facility] Start: 06-02-2023 Alcohol Comment caffeine: 1-2 cups per day [employer] Drink ; coffee [facility] Start: 03-30-2023 [facility] Start: 1990 Sex Assigned At Female N [facility] Start: 05-15-2023 Gender identity Identifies as female gender (finding) [facility] Start: 10-07-2023 Tobacco use and exposure Smokeless tobacco non-user [facility] Start: 10-07-2023 End: 10-13-2023 Alcohol intake Current non-drinker of alcohol (finding) [facility] Do you belong to any clubs or organizations such as buddhism groups, unions, fraternal or athletic groups, or school groups? No [facility] Are you now , , , , never or living with a partner? [facility] How often to you hav e a drink containing alcohol? 2-3 time sa week [facility] How many standard drinks containing alcohol do you have on a typical day? 1 or 2 [facility] How often do you hav e 6 or more drinks on 1 occasion? Never [facility] How hard is it for y ou to pay for the very basics like food, housing, medical care, and heating Somewhat hard [facility] Adolescent depressio n screening assessment 0 [facility] Do you feel stress - tense, restless, nervous, or anxious, or unable to sleep at night because your mind is troubled all the time - these days [OSQ] To some extent [facility] Start: 12-28-2021 [facility] Start: 1990 Sex Assigned At Not on file P Placeword NEGATED: Highlighted rowStart: JENNIFER History of tobacco use Passive smoker [facility] Medical Equipment Procedure Code Equipment Code Equipment Origin al Text Equipment Identifier Dates Use as instructed [id number] Start: 06-10-2023 End: 06-09-2024 1 each in the morning and 1 each before bedtime. [id number] Start: 06-10-2023 History of Present illness Narrative 10-13-2023 Alessia Mason, SALLIE-CONFERENCE CONCIERGE - 10/13/2023 10:30 AM EST Note Date & Type Note Facility 10-13-2023 History of Present illness Narrative Images from the original note were not included. 10/13/2023 [facility] SUBJECTIVE: Sobia Lucero is a 33 [...] repeat testing Initial testing Physician Phone Number [phone] GENERAL TEST INFORMATION See Note This screening [...] and its performance characteristics determined by [facility] in a manner consistent with CLIA requirements. This test has not been cleared or approved by the U.S. Food and Drug Administration. Test Performed by: [address] [place] [address] Police Clerk: Jose Palmer M.D. Ph.D.; CLIA# [id number] echo 2D W/ color flow Result Date: [...] of 151 beats per minute, normal mechanical [place] interval of 96milliseconds Other: No pericardial effusion [...] OB GROWTH Result Date: 09/29/2023 Narrative: [address] [id number] Ultrasound Report Signed Patient: SOBIA LUCERO MR#: [id number] : 1990 Acct:[id number] Age/Sex: 33 / F ADM Date: 09/29/23 Loc: [facility] Attending Dr: Cristel Medina D.O. Ordering Physician: Cristel Medina D.O. Date of Service: 09/29/23 Procedure(s): US OB growth Accession Number(s): [id number] cc: Cristel Medina D.O.; Physician,Non-Staff [facility] [address] [id number] Patient Name: SOBIA LUCERO MRN: [id number] date: 1990 Sex: F Assigned Patient Location: [facility] Current Patient Location: [facility] Accession/Order Number: [id number] Exam Date: 09/29/2023 15:04 Report Date: 09/29/2023 [...] M.D. Signed By: 09/29/231618 DD/ 15 TD/TT: Clinical Therapist: Physical Exam Vitals and nursing note reviewed. [...] APRN-CNP 10/14/23 1724 documented in this encounter [facility] History of Present illness Narrative 10-07-2023 Jakob Hernandez MD - 10/07/2023 9:00 AM EST Note Date & Type Note Facility 10-07-2023 History of Present illness Narrative [address] [facility] [address] [facility] [id number] October 07, 2023 Patient: Sobia Lucero Date [...] abnormal discharge. Positive for cramping and contractions ([place]). All other systems negative Current Outpatient Medications Medication Sig Dispense Refill PN cmb#95-ferrous fumarate-FA () 28 mg iron- 800 [...] Master's degree (e.g., MA, MS, [place], MEd, IMPLEMENTATION MANAGER, LACIE) Occupational History Not on file Tobacco [...] 30 min Stress: Stress Concern Present (12/28/2021) [employer] [place] [employer] - Occupational Stress Questionnaire [...] queries or concerns. Sincerely, Jakob Hernandez M.D. Cheesemaking Laborer [facility] [place] This note is dictated with the use of M*Modal.Please note that this dictation was completed with computer voice recognition software. Quite often unanticipated grammatical, syntax, homophones, and other interpretive errors are inadvertently transcribed by the computer software. Please disregard these errors. Please excuse any errors that have escaped final proofreading. documented in this encounter [facility] History of Present illness Narrative 09-29-2023 RETA [...] Diagnosis Date Allergies Anxiety Bipolar disorder (CMS/HCC) 2013 Depression (CMS/[facility]) Hemorrhoids History of gestational diabetes mellitus (GDM) Hypokalemia IBS (irritable bowel syndrome) 2010 PID (pelvic inflammatory disease) Family History Problem [...] of: RETA Christopher documented in this encounter [facility] Evaluation note Note Date & Type Note Facility Evaluation note Diagnosis Third trimester state, incidental Gestational diabetes mellitus (GDM) in third trimester, gestational diabetes method of control unspecified documented in this encounter [facility] Evaluation note Note Date & Type Note Facility Evaluation note Diagnosis ventricular septal defect affecting antepartum care of mother, single or unspecified fetus- Primary ventricular septal defect in , antepartum, single gestation documented in this encounter [facility] Evaluation note Note Date & Type Note Facility Evaluation note Diagnosis General ill feeling- Primary Other ill-defined conditions documented [facility] this [facility] Instructions Note Date & Type Note Facility Instructions Not on filedocumented in this en counter [facility] Instructions Attachments Note Date & Type Note Facility Instructions The following attachments cannot be sent through Care Everywhere.Viral Upper Respiratory Infection Discharge Instructions, Adult (Citizen Of [place])documented in this encounter [facility] Summary Purpose Family History No Family History [...] Jakob Hernandez MD [address] [place] [address] Referral ID Status Reason Start Date Expiration Date V isits Requested Visits Authorized [id number] Pending Review 10/07/2023 10/06/2024 1 1 Additional Source Comments INFORMATION SOURCE (unrecogn ized section and content) DATE CREATED AUTHOR 03/12/2022 [facility] DATE CREATED AUTHOR AUTHOR'S ORGANIZ ATION 10/08/2023 [facility] DATE CREATED AUTHOR AUTHOR'S ORGANIZ ATION 12/03/2023 [facility] Special[facility] EPIC Reason for Visit (unrecogniz ed section and content) Reason Comments Routine Visit Reason Comments observation of VSD Specialty Diagnoses / Procedures Referred By Contac t Referred To Contact Pediatric Cardiology Diagnoses ventricular septal defect in , antepartum, single gestation Cristel Medina R, DO [address] , [place] [address] Jakob Hernandez MD [address] [place] [address] Referral ID Status Reason Start Date Expiration Date Visits Requested Visits Authorized [id number] Pending Review Specialty Services Required 09/04/2023 09/03/2024 1 1 Reason Comments URI Patient symptoms sta rted ,fever,cough,congestionOTC....tylenol Care Teams (unrecognized sec tion and content) [employer] Relationship Specialty Start Date End Date Chris Maloney DO [address] [place] [address] PCP - General Family Medicine 12/24/22 [employer] Relationship Specialty Start Date End Date Dedra Maguire, G[facility] CH[facility]ER-[facility] [address] , [address] [place] [id number] PCP - [facility] 10/29/21 [employer] Relationship Specialty Start Date End Date Dedra Maguire, GLO[facility] CHANGER-[facility] [address] , [facility] [address] [place] [id number] PCP - General Family [facility] 10/29/21 FOR RECORDS PERTAINING TO PATIENTS [...] BE BASED ON THE PRIMARY CLINICAL RECORDS. [facility] [employer] [facility]. provides no warranty or guarantee of the accuracy or completeness of information in this document.
[2023-12-09 15:59] VITALS: BP 126/81; PULSE 85
== END 2023-12-09 16:42 | disposition home or self-care (01) ==
LOC: FBCO 07:07 → FBC 15:57
PROVIDERS: Visit Provider Obstetrics & Gynecology
DX: O40.3XX0 Polyhydramnios, third trimester, not applicable or unspecified (principal)
CPT/HCPCS: 59025

== ENCOUNTER 2023-12-12 06:59 | Outpatient (OUT) | payer OTHER, SELFPAY ==
--- OUTSIDE RECORDS SUMMARY | 2023-12-12 07:02 | XMS_ITS | CCD ---
Author Organization [facility] Care Team Providers Care Info Analyst Name Role Phone HAIDER, DR COLBERT Admitting [...] Unavaila DEDRA Howell Primary Care Unavailable Gigi MUSIC LIBRARIAN-Dedra ROGERS Primary Care Provider WINNIE MEDINAY Attending Unavailable LIZ, CRISTEL Attending Unavailable JAZLYN ORTIZ Attending Unavailable LIZ, CRISTEL Attending Unavailable LZI, CRISTEL Attending Unavailable LIZ, CRISTEL Attending Unavailable LIZ, CRISTEL Attending Unavailable DIANAJAZYLN Attending Unavailable LIZ, CRISTEL Attending Unavailable LIZ, CRISTEL Attending Unavailable Allergies Allergy Classification Reported Allergen(s) Allergy Type Date of Onset Reaction(s) Facility (2 sources) Penicillins; Translations: [PENICILLINS] Drug allergy (disorder) 3 [facility] Repository (1 source) traMADol Drug Allergy 6 [facility] Repository (5 sources) Gentamicin; Translations: [GENTAMICIN] [...] to adverse reactions to drug 7 Hives [facility] Medications Current Medications Medication Drug [...] 10-13-2023 External Poct Influenza A Antigen Negative [facility] External Poct Influenza B Antigen Negative [facility] SARS-CoV-2 (COVID-19) Ag IA.rapid Ql (Resp) Negative [facility] Urinalysis macro (dipstick) panel (U)Ordered By: Estefania Posadas on 09-29-2023 Bilirubin, UA Negative Negative - 4(70) +++ mg/dL [facility] Work Phone: Blood, UA Negative Negative - 50 Galen/mcL [facility] Work Phone: Clarity, UA Clear [facility] [employer] Work Phone: Color, UA Yellow [facility] [employer] Work Phone: Glucose, UA Negative Negative - 2000(110) ++++ mg/dL [facility] Work Phone: Interpretation and review of laboratory results Abnormal [facility] Work Phone: Ketones, UA Negative Negative - 160(16) ++++ mg/dL [facility] Work Phone: Leukocytes, UA Trace Negative - 500+++ Bean/mcL [facility] Work Phone: Nitrite, UA Negative Negative - Positive [facility] [employer] Work Phone: pH, UA 7.0 5 - 9 [facility] [employer] Work Phone: Protein, UA Negative Negative - 2000(20) ++++ mg/dL [facility] [employer] Work Phone: Spec Grav, UA 1.015 1 - 1.03 [facility] [employer] Work Phone: Urobilinogen, UA 0.2 0.2 - 12 mg/dL [facility] [employer] Work Phone: [facility] [employer] Work Phone: PAP ACOG PANEL 2: 30 to 65on 03-12-2022 . . Normal [facility] Comment on above: Result Comment: Perf ormed at: WB Performed By: #### [id number] #### [facility] [address] [address] [address] Michelle Gunderson Age Gdln ACOG Testing 30-65 Normal [facility] Comment on above: Performed By: #### [id number] #### [facility] [address] [address] [address] Michelle Gunderson DIAGNOSIS: Comment Normal [facility] Comment on above: Result Comment: NEGA TIVE FOR INTRAEPITHELIAL LESION OR MALIGNANCY. Performed at: WB Performed By: #### [id number] #### [facility] [address] [address] [address] Michelle Gunderson HPV Aptima Negative Normal Negative [facility] Comment on above: Result Comment: This nucleic acid amplification test detects fourteen high-risk HPV types (16,18,31,33,35,39,45,51,52,56,58,59,66,68) without differentiation. Performed at: =G Performed By: #### [id number] #### [facility] [address] [address] [address] Michelle Gunderson Methodology: CTIM Normal [facility] Comment on above: Result Comment: The Thin Prep(R) Instrumentation Manager was unable to read this specimen. Therefore a manual review was performed. Performed at: WB Performed By: #### [id number] #### [facility] [address] [place] [address] Dr. Michelle Gunderson Note: Comment Normal [facility] Comment on above: Result Comment: The Pap smear is a screening test designed to aid in the detection of premalignant and malignant conditions of the uterine cervix. It is not a diagnostic procedure and should not be used as the sole means of detecting cervical cancer. Both false-positive and false-negative reports do occur. . Performed at: WB Performed By: #### [id number] #### [facility] [address] [place] [address] Dr. Michelle Gunderson Performed by: Comment Normal [facility] Comment on above: Result Comment: Archana Lee, Middle School Football Coach (ASCP) Performed at: WB Performed By: #### [id number] #### [facility] [address] [place] [address] Dr. Michelle Gunderson Specimen adequacy: Comment Normal [facility] Comment on above: Result Comment: Sati sfactory for evaluation. Endocervical and/or squamous metaplastic cells (endocervical component) are present. Partially obscuring thick areas are present. Performed at: WB Performed By: #### [id number] #### [facility] [address] [place] [address] Dr. Michelle Gunderson [facility] SARS-CoV-2 (COVID-19) RNA JOSE MIGUEL+probe Ql (Unsp spec) Not detected Normal NOT DETECTED [facility] Comment on above: Result Comment: This test is not yet approved or cleared by the [place] FDA. When there are no FDA-approved or cleared tests available, and other criteria are met, FDA can make tests available under an emergency access mechanism called an Emergency Use Authorization (EUA). The EUA for this test is supported by the [place] of Health and Human Service's (HHS's) declaration [...] consistent with SARS-CoV-2. Performed By: #### C [facility] #### [facility] [address] [place] [address] Dr. Michelle Gunderson Vital Signs Date Time Vital Sign Value Performing Clinician Facility 10-13-2023 10:44-0500 Body height 157.5 cm Alessia Mason MUSIC LIBRARIAN-SIMULATION DEVELOPER Work Phone: [facility] 10-13-2023 10:44-0500 Body mass index (BMI) [Ratio] 27.9 kg/m2 Alessiasa Mason MUSIC LIBRARIAN-SIMULATION DEVELOPER Work Phone: [facility] 10-13-2023 10:44-0500 Body temperature 97.7 [degF] Alessia Marlon MUSIC LIBRARIAN-SIMULATION DEVELOPER Work Phone: [facility] 10-13-2023 10:44-0500 Body weight 69.22 kg Alessiasa Mason MUSIC LIBRARIAN-SIMULATION DEVELOPER Work Phone: [facility] 10-13-2023 10:44-0500 Diastolic blood pressure 78 mm[Hg] Alessiagirish Mason MUSIC LIBRARIAN-SIMULATION DEVELOPER Work Phone: [facility] 10-13-2023 10:44-0500 Heart rate 86 /min Alessiasa Mason MUSIC LIBRARIAN-SIMULATION DEVELOPER Work Phone: [facility] 10-13-2023 10:44-0500 Respiratory rate 18 /min Alessiasa Mason MUSIC LIBRARIAN-SIMULATION DEVELOPER Work Phone: [facility] 10-13-2023 10:44-0500 SaO2% (BldA) [Mass fraction] 98 % Alessia Mason MUSIC LIBRARIAN-SIMULATION DEVELOPER Work Phone: [facility] 10-13-2023 10:44-0500 Systolic blood pressure 113 mm[Hg] Alessia Mason MUSIC LIBRARIAN-SIMULATION DEVELOPER Work Phone: [facility] 10-07-2023 09:29-0500 Body height 157.5 cm Jakob Hernandez MD Work Phone: [facility] 10-07-2023 09:29-0500 Body mass index (BMI) [Ratio] 28.78 kg/m2 Jakob Hernandez MD Work Phone: [facility] 10-07-2023 09:29-0500 Body weight 71.4 kg Jakob Hernandez MD Work Phone: [facility] 10-07-2023 09:29-0500 Diastolic blood pressure 73 mm[Hg] Jakob Hernandez MD Work Phone: [facility] 10-07-2023 09:29-0500 Heart rate 95 /min Jakob Hernandez MD Work Phone: [facility] 10-07-2023 09:29-0500 SaO2% (BldA) [Mass fraction] 100 % Jakob Hernandez MD Work Phone: [facility] 10-07-2023 09:29-0500 Systolic blood pressure 124 mm[Hg] Jakob Hernandez MD Work Phone: [facility] 09-29-2023 16:19-0500 Body mass index (BMI) [Ratio] 29.04 kg/m2 Jazlyn MCDUFFIE Work Phone: [facility] 09-29-2023 16:19-0500 Body weight 72.03 kg Jazlyn MCDUFFIE Work Phone: [facility] 09-29-2023 16:19-0500 Diastolic blood pressure 70 mm[Hg] Jazlyn MCDUFFIE Work Phone: [facility] 09-29-2023 16:19-0500 Systolic blood pressure 120 mm[Hg] Jazlyn MCDUFFIE Work Phone: [facility] Encounters Encounter Date Encounter Type Care Provider Facility Start: 12-09-2023 End: 12-09-2023 ambulatory CRISTEL LIZ Not Available Start: 12-02-2023 End: 12-02-2023 ambulatory CRISTEL LIZ Not Available Start: 11-25-2023 End: 11-25-2023 ambulatory CRISTEL LIZ Not Available Start: 11-10-2023 End: 11-10-2023 ambulatory CRISTEL LIZ Not Available Start: 10-27-2023 End: 10-27-2023 ambulatory CRISTEL LIZ Not Available Start: 10-15-2023 End: 10-15-2023 ambulatory CRISTEL LIZ Not Available Start: 10-13-2023 End: 10-13-2023 Office outpatient visit 15 minutes Alessia SETHI Work Phone: [facility] Comment on above: General ill feeling (Primary Dx) Start: 10-07-2023 End: 10-08-2023 ambulatory JAKOB HERNANDEZ [facility] Start: 10-07-2023 End: 10-07-2023 Office consultation new/estab patient 80 min Jakob Hernandez MD Work Phone: [facility] Comment on above: [...] POCT INFLUENZA A/INFLUENZA B/SARS-COV-2 VERITOR Alessiagirish Mason MUSIC LIBRARIAN-SIMULATION DEVELOPER Work Phone: Start: 10-13-2023 Adult depression screening assessment Alessia Mason MUSIC LIBRARIAN-SIMULATION DEVELOPER Work Phone: Start: 09-29-2023 Urnls dip stick/tabl et rgnt non-auto w/o micrscp Jazlyn MCDUFFIE Work Phone: Start: 05-08-2023 Adult depression screening assessment Jakob Hernandez MD Work Phone: Plan of Treatment Date Care Activity Detail Author Start: 09-07-2030 DTaP,Tdap and Td Vaccines (2 - Tdap) DTaP,Tdap and Td Vaccines (2 - Tdap) [facility] Start: 10-13-2024 Adult BMI Screening Adult BMI Screen ing [facility] Start: 10-13-2024 Depression Screening Depression Scre ening [facility] Start: 10-13-2024 Tobacco Screening Tobacco Screening [facility] Start: 10-07-2024 Adult BMI Screening Adult BMI Screen ing [facility] Start: 10-07-2024 Tobacco Screening Tobacco Screening [facility] Start: 05-08-2024 Depression Screening Depression Scre ening [facility] Start: 11-25-2023 Screening for malign ant neoplasm of cervix [facility] Start: 10-27-2023 End: 10-27-2023 Patient encounter procedure 10/27/2023 3:40 PM EDT Routine [facility] [address] [place] [id number] Cristel Medina, [address] [place] [address] [facility] Start: 10-27-2023 End: 10-27-2023 Professional / ancillary services management 10/27/2023 3:00 PM EDT Ancillary Procedure [facility] [address] [place] [address] [facility] Start: 10-15-2023 End: 10-15-2023 Patient encounter procedure 10/15/2023 3:00 PM EST Routine [facility] [address] [place] [address] Cristel Medina, DO [address] [place] [address] [facility] Start: 10-07-2023 End: 09-30-2024 echo 2D W/ color flow [facility] Work Phone: Comment on above: Expected: 10/07/2023 (Approximate), Expires: 09/30/2024 Start: 09-29-2023 End: 09-29-2024 US biophysical profile w non stress test US biophysical profile w non stress test Imaging Routine Gestational diabetes mellitus (GDM) in third trimester, gestational diabetes method of control unspecified Expected: 09/29/2023 (Approximate), Expires: 09/29/2024 [facility] Work Phone: Comment on above: Expected: 09/29/2023 (Approximate), Expires: 09/29/2024 Start: 04-18-2023 Influenza vaccination [facility] Start: 2012 Screening for malign ant neoplasm of cervix Pap Smear [facility] Start: 2009 Adult BMI Follow Up Plan Adult BMI Follow Up Plan [facility] Immunizations Immunization Date Immunization Notes Care Provider Fa [facility] 05-29-2021 influenza, injectabl e, quadrivalent, preservative free Jakob Hernandez MD Work Phone: [facility] 05-29-2021 influenza virus vaccine, unspecified formulation Jazlyn MCDUFFIE Work Phone: [facility] 09-07-2020 diphtheria, tetanus toxoids and pertussis vaccine Jakob Hernandez MD Work Phone: [facility] 06-07-2020 influenza, injectabl e, quadrivalent, preservative free Jakob Hernandez MD Work Phone: [facility] 06-02-2019 influenza, injectabl e, quadrivalent, preservative free Jakob Hernandez MD Work Phone: [facility] 06-03-2018 influenza, injectabl e, quadrivalent, preservative free Jakob Hernandez MD Work Phone: [facility] Payers Date Payer Category Payer Unknown [id number] 1991 Unknown [id number] 2.16.84 [id number] 1991 Unknown [id number] 2.16.84 [id number] 1991 Unknown [id number] 2.16.8 [id number] 1991 Unknown [id number] 2.16.8 [id number] 1991 Unknown [id number] 2.16.84 [id number] 1991 Unknown [id number] 2.16.84 [id number] 1991 Unknown [id number] 2.16.84 [id number] 1991 Unknown [id number] 2.16.84 [id number] 1991 Unknown [id number] 2.16.84 [id number] 1991 Unknown [id number] 2.16.84 [id number] 1991 Unknown [id number] 2.16.84 [id number] 1991 Unknown [id number] 2.16.84 [id number] 1991 Unknown [id number] 2.16.840 .[id number] 1991 Unknown [id number] [id number] .[id number] 1959 Unknown [id number] Social History Date Type Detail Facility Start: 06-02-2023 End: 10-07-2023 Tobacco smoking status CTIS Never smoked tobacco [facility] Start: 09-29-2023 Alcohol intake Lifetime non-d venessa (finding) [facility] Start: 12-28-2021 End: 06-02-2023 History of Social function [facility] Start: 12-28-2021 End: 06-02-2023 Tobacco use panel [facility] Start: 06-02-2023 Alcohol Comment caffeine: 1-2 cups per day [employer] Drink ; coffee [facility] Start: 03-30-2023 [facility] Start: 1990 Sex Assigned At Female N [facility] Start: 05-15-2023 Gender identity Identifies as female gender (finding) [facility] Start: 10-07-2023 Tobacco use and exposure Smokeless tobacco non-user [facility] Start: 10-07-2023 End: 10-13-2023 Alcohol intake Current non-drinker of alcohol (finding) [facility] Do you belong to any clubs or organizations such as denominational groups, unions, fraternal or athletic groups, or school groups? No [facility] Are you now , , , , never or living with a partner? [facility] How often to you hav e a drink containing alcohol? 2-3 time sa week [facility] How many standard drinks containing alcohol do you have on a typical day? 1 or 2 [facility] How often do you hav e 6 or more drinks on 1 occasion? Never [facility] How hard is it for y ou to pay for the very basics like food, housing, medical care, and heating Somewhat hard [employer] Adolescent depressio n screening assessment 0 [facility] Do you feel stress - tense, restless, nervous, or anxious, or unable to sleep at night because your mind is troubled all the time - these days [OSQ] To some extent [facility] Start: 12-28-2021 Education 18 [facility] Start: 1990 Sex Assigned At Not on file P On[facility] NEGATED: Highlighted rowStart: NINF History of tobacco use Passive smoker [facility] Procedure Code Equipment Code Equipment Origin al Text Equipment Identifier Dates Use as instructed [id number] Start: 06-10-2023 End: 06-09-2024 1 each in the morning and 1 each before bedtime. [id number] Start: 06-10-2023 History of Present illness Narrative 10-13-2023 Alessia Mason, SALLIE-SIMULATION DEVELOPER - 10/13/2023 10:30 AM EST Note Date & Type Note Facility 10-13-2023 History of Present illness Narrative Images from the original note were not included. 10/13/2023 [facility] SUBJECTIVE: Sobia Lucero is a 33 y.o. [...] repeat testing Initial testing Physician Phone Number [phone] GENERAL TEST INFORMATION See Note This screening [...] developed and its performance characteristics determined by [facility] in a manner consistent with CLIA requirements. This test has not been cleared or approved by the U.S. Food and Drug Administration. Test Performed by: [address] [id number] Cub Reporter: Jose Palmer M.D. Ph.D.; CLIA# [id number] echo 2D W/ color flow Result Date: [...] of 151 beats per minute, normal mechanical CT interval of 96milliseconds Other: No pericardial effusion [...] OB GROWTH Result Date: 09/29/2023 Narrative: The [address] [address] Ultrasound Report Signed Patient: SOBIA LUCERO MR#: [id number] : 1990 Acct:[id number] Age/Sex: 33 / F ADM Date: 09/29/23 Loc: [facility] Attending Dr: Cristel Medina D.O. Ordering Physician: Cristel Medina D.O. Date of Service: 09/29/23 Procedure(s): US OB growth Accession Number(s): [id number] cc: Cristel Medina D.O.; Physician,Non-Staff [address] [id number] Patient Name: SOBIA LUCERO MRN: [id number] date: 1990 Sex: F Assigned Patient Location: [facility] Current Patient Location: [facility] Accession/Order Number: [id number] Exam Date: 09/29/2023 15:04 Report Date: 09/29/2023 [...] M.D. Signed By: 09/29/231618 DD/ 15 TD/TT: Alcohol Still Operator: Physical Exam Vitals and nursing note [...] appropriate follow up. JOSSIE ARORA APRN-CNP 10/14/23 0051 documented in this encounter [facility] History of Present illness Narrative 10-07-2023 Jakob Hernandez MD - 10/07/2023 9:00 AM EST Note Date & Type Note Facility 10-07-2023 History of Present illness Narrative [address] [facility] [address] [facility] [address] October 07, 2023 Patient: Sobia Lucero Date [...] abnormal discharge. Positive for cramping and contractions ([place]). All other systems negative Current Outpatient Medications [...] Master's degree (e.g., MA, MS, [place], MEd, PAYROLL PROFESSIONAL, LACIE) Occupational History Not on file Tobacco [...] 30 min Stress: Stress Concern Present (12/28/2021) [employer] - Occupational Stress Questionnaire Feeling of Stress : To some extent Social Connections: Moderately Isolated (12/28/2021) Social Connection and Isolation Panel [NHANES] Frequency of Communication with Friends and Family: More than three times a week Frequency of Social Gatherings with Friends and Family: Once a week Attends [employer] Services: 1 to 4 times per year [...] or concerns. Sincerely, Jakob Hernandez M.D. Manager Transfusion [facility] This note is dictated with the use of M*Modal.Please note that this dictation was completed with computer voice recognition software. Quite often unanticipated grammatical, syntax, homophones, and other interpretive errors are inadvertently transcribed by the computer software. Please disregard these errors. Please excuse any errors that have escaped final proofreading. documented in this encounter [facility] History of Present illness Narrative [...] Allergies Anxiety Bipolar disorder (CMS/HCC) 2013 Depression ([facility]) Hemorrhoids History of gestational [...] of: RETA Christopher documented in this encounter [facility] Evaluation note Note Date & Type Note Facility Evaluation note Diagnosis Third trimester state, incidental Gestational diabetes mellitus (GDM) in third trimester, gestational diabetes method of control unspecified documented in this encounter [facility] Evaluation note Note Date & Type Note Facility Evaluation note Diagnosis ventricular septal defect affecting antepartum care of mother, single or unspecified fetus- Primary ventricular septal defect in , antepartum, single gestation documented in this encounter [facility] Evaluation note Note Date & Type Note Facility Evaluation note Diagnosis General ill feeling- Primary Other ill-defined conditions documented in this encounter [facility] Instructions Note Date & Type Note Facility Instructions Not on filedocumented in this en counter [facility] Instructions Attachments Note Date & Type Note Facility Instructions The following attachments cannot be sent through Care Everywhere.Viral Upper Respiratory Infection Discharge Instructions, Adult (Amharic)documented in this encounter [facility] Summary Purpose Family History No [...] 2D W/ color flow Jakob Hernandez MD [address] [place] [address] Referral ID Status Reason Start Date Expiration Date V isits Requested Visits Authorized [id number] Pending Review 10/07/2023 10/06/2024 1 1 Additional Source Comments INFORMATION SOURCE (unrecogn ized section and content) DATE CREATED AUTHOR 03/12/2022 [facility] DATE CREATED AUTHOR AUTHOR'S ORGANIZ ATION 10/08/2023 [facility] DATE CREATED AUTHOR AUTHOR'S ORGANIZ ATION 12/11/2023 [facility] EPIC Reason for Visit (unrecogniz ed section and content) Reason Comments Routine Visit Reason Comments observation of VSD Specialty Diagnoses / Procedures Referred By Sola tracey Referred To Contact Pediatric Cardiology Diagnoses ventricular septal defect in , antepartum, single gestation Cristel Medina, DO [address] [place] [address] Jakob Hernandez MD [address] [place] [address] Referral ID Status Reason Start Date Expiration Date Visits Requested Visits Authorized [id number] Pending Review Specialty Services Required 09/04/2023 09/03/2024 1 1 Reason Comments URI Patient symptoms sta rted ,fever,cough,congestionOTC....tylenol Care Teams (unrecognized sec tion and content) Info Analyst Relationship Specialty Start Date End Date Chris Maloney DO [address] [place] [address] PCP - General Family Medicine 12/24/22 Info Analyst Relationship Specialty Start Date End Date Dedra Maguire, MUSIC LIBRARIAN-[facility] [address] [place] [id number] PCP - [facility] 10/29/21 Info Analyst Relationship Specialty Start Date End Date Dedra Maguire, MUSIC LIBRARIAN-[facility] [address] [facility] [address] [place] [address] PCP - [facility] 10/29/21 FOR RECORDS PERTAINING TO PATIENTS [...] BE BASED ON THE PRIMARY CLINICAL RECORDS. [facility]. provides no warranty or guarantee of the accuracy or completeness of information in this document.
--- NOTE | 2023-12-12 17:01 | US_ITS ---
[address] [address] Patient Name: SOBIA CHAUDHARI MRN: [facility]:[id number] date: 1990 Sex: F Assigned Patient Location: [facility] Current Patient Location: [facility] Accession/Order Number: [id number] Exam Date: 12/12/2023 17:10 Report Date: 12/15/2023 08:02 At the request of: CRISTEL HILL Procedure: US OB BPP w non-stress EXAMINATION: US OB BPP w non-stress HISTORY: GESTATIONAL DIABETES MELLITUS O24.419 COMPARISON: Ultrasound OB biophysical 12/05/2023 TECHNIQUE: Ultrasound biophysical profile was performed in the radiology department. BREATHING MOVEMENTS: 2.0 GROSS BODY MOVEMENTS: 2.0 TONE: 2.0 QUALITATIVE AMNIOTIC FLUID VOLUME: 2.0 PRESENTATION: CEPHALIC HEART RATE: 131.1 bpm bpm. AMNIOTIC FLUID VOLUME: 22.4 cm GESTATIONAL AGE: 38 weeks 5 days CONCLUSION: Total biophysical profile score 8.0. Electronically authenticated by: COMFORT SUNG Date: 12/15/2023 08:02
[2023-12-12 17:40] VITALS: BP 130/78; PULSE 102
== END 2023-12-12 18:05 | disposition home or self-care (01) ==
LOC: US 06:59 → FBC 16:53
PROVIDERS: Visit Provider Obstetrics & Gynecology
DX: O24.419 Gestational diabetes mellitus in pregnancy, unspecified control (principal); Z3A.38 38 weeks gestation of pregnancy
CPT/HCPCS: 76818

== ENCOUNTER 2023-12-15 05:31 | Inpatient (IN) | payer OTHER, SELFPAY ==
[2023-12-15] VITALS (41 sets, daily range): BP systolic 89–123; BP diastolic 53–85; PULSE 54–97; TEMP 36.1–36.5; O2SAT 96–100
--- OUTSIDE RECORDS SUMMARY | 2023-12-15 05:34 | XMS_ITS | CCD ---
Author Organization [facility] Care Team Providers Care Laryngologist Name Role Phone DR CHRIS MALONEY Admitting Unavailable HAIDER, DR COLBERT Attending Unavailable HAIDER, DR COLBERT Primary Care Unavailable HAIDER, DR COLBERT Consulting Unavailable ADAM, DR FAM Admitting Unavailable ADAM, DR FAM Attending Unavailable HAIDER, DR COLBERT Primary Care Unavailable ADAM, DR FAM Consulting Unavailable Chris Maloney DO Primary Care Provider Ting INDEPENDENT VIDEO PRODUCER-BIZTALK ADMINISTRATORDedra Primary Care Provider CRISTEL MEDINA Attending Unavailable ADAM, CRISTEL Attending Unavailable JAZLYN ORTIZ Attending Unavailable ADAM, CRISTEL Attending Unavailable ADAM, CRISTEL Attending Unavailable ADAM, CRISTEL Attending Unavailable ADAM, CRISTEL Attending Unavailable DIANA, JAZLYN Attending Unavailable ADAM, CRISTEL Attending Unavailable ADAM, CRISTEL Attending Unavailable TING, DEDRA M Attending Unavailable TING, DEDRA M Referring Unavailable TING, DEDRA M Primary Care Unavailable ALESSIA MASON Attending Unavailab le TING, DEDRA M Referring Unavailable TING, DEDRA M Primary Care Unavailable ADAMWINNIEY R Referring Unavailable TING, DEDRA M Primary Care Unavailable JAKOB HERNANDEZ Attending Unavaila ble TING, DEDRA M Referring Unavailable TING, DEDRA M Primary Care Unavailable JAKOB HERNANDEZ Referring Unavaila ble TING, DEDRA M Primary Care Unavailable Allergies Allergy Classification Reported Allergen(s) Allergy Type Date of Onset Reaction(s) Facility (3 sources) Penicillins; Translations: [PENICILLINS] Drug allergy (disorder) 3 [facility] Repository (1 source) traMADol Drug Allergy 6 [facility] (6 sources) Gentamicin; Translations: [GENTAMICIN] Drug Allergy 2 Other, Other (See Comments), Eye Swelling [facility] (2 sources) Penicillins Drug Allergy 3 Hives [facility] (4 sources) Sulfonamides (Antibiotic) Drug Allergy 2 Itching, Rash, Swelling [facility] (2 sources) traMADol Drug Allergy 3 Anxiety [facility] (2 sources) Penicillins Propensity to adverse reactions to drug 7 Hives [facility] (4 sources) traMADol; Translations: [TRAMADOL HCL] Drug Allergy 7 Anxiety [facility] (2 sources) Sulfonamides (Antibiotic); Translations: [SULFA (SULFONAMIDE ANTIBIOTICS)] Propensity to adverse reactions to drug (disorder) 3 [facility] Repository Medications Current Medications Medication Drug Class(es) Dates [...] of skin] Onset: 01-23-2022 01-23-2022 Chronic Other connective tissue disease (1 source) Cramp and spasm; Translations: [Cramp and spasm] Onset: 12-11-2023 Episodic Other endocrine disorders (2 sources) Polycystic ovary [...] SCREENING MALIG NEOPLASM CERV] Onset: 03-06-2022 Episodic Other upper respiratory infections (1 source) Upper respiratory infection Onset: 10-13-2023 Episodic Residual codes; unclassified (1 source) Generally unwell; Translations: [Other general symptoms and signs] 10-13-2023 Episodic Residual codes; unclassified (1 source) Other general symptoms and signs; Translations: [Other general symptoms and signs] Onset: 10-13-2023 Episodic Unclassified (3 sources) CONTACT W/AND [...] Test Name Value Interpretation Reference Range Facility POTASSIUMon 12-11-2023 Potassium [Moles/Vol] 3.8 mmol/L Normal 3.5-5.0 [facility] Comment on above: Performed By: #### 2 823-3 #### [facility] ([id number]) [address] [facility], [address] [place] [address] POCT Influenza A/Influenza B /SARS-COV-2 [facility] 10-13-2023 External Poct Influenza A Antigen Negative [facility] External Poct Influenza B Antigen Negative [facility] SARS-CoV-2 (COVID-19) Ag IA.rapid Ql (Resp) Negative [facility] Urinalysis macro (dipstick) panel (U)Ordered By: Estefania Posadas on 09-29-2023 Bilirubin, UA Negative Negative - 4(70) +++ mg/dL [facility] [employer] Work Phone: Blood, UA Negative Negative - 50 Galen/mcL [facility] Work Phone: Clarity, UA Clear [facility] [employer] Work Phone: Color, UA Yellow [facility] [employer] Work Phone: Glucose, UA Negative Negative - 1999(110) ++++ mg/dL [facility] [employer] Work Phone: Interpretation and review of laboratory results Abnormal [facility] [employer] Work Phone: Ketones, UA Negative Negative - 160(16) ++++ mg/dL [facility] Work Phone: Leukocytes, UA Trace Negative - 500+++ Bean/mcL [facility] Work Phone: Nitrite, UA Negative Negative - Positive [facility] [employer] Work Phone: pH, UA 7.0 5 - 9 [facility] [employer] Work Phone: Protein, UA Negative Negative - 1999(20) ++++ mg/dL [facility] [employer] Work Phone: Spec Grav, UA 1.015 1 - 1.03 [facility] Health care Work Phone: Urobilinogen, UA 0.2 0.2 - 12 mg/dL [facility] Work Phone: [facility] [employer] Work Phone: PAP ACOG PANEL 2: 30 to 65on 03-12-2022 . . Normal [facility] Comment on above: Result Comment: Perf ormed at: WB Performed By: #### [id number] #### [facility] [address] [place] [address] Dr. Michelle Gunderson Age Gdln ACOG Testing 30-65 Normal [facility] Comment on above: Performed By: #### [id number] #### [facility] [address] [place] [address] Dr. Michelle Gunderson DIAGNOSIS: Comment Normal [facility] Comment on above: Result Comment: NEGA TIVE FOR INTRAEPITHELIAL LESION OR MALIGNANCY. Performed at: WB Performed By: #### [id number] #### [facility] [address] [place] [address] Dr. Michelle Gunderson HPV Aptima Negative Normal Negative [facility] Comment on above: Result Comment: This nucleic acid amplification test detects fourteen high-risk HPV types (16,18,31,33,35,39,45,51,52,56,58,59,66,68) without differentiation. Performed at: =G Performed By: #### [id number] #### [facility] [address] [place] [address] Dr. Michelle Gunderson Methodology: CTIM Normal [facility] Comment on above: Result Comment: The Thin Prep(R) Seed Cleaning Manager was unable to read this specimen. Therefore a manual review was performed. Performed at: WB Performed By: #### [id number] #### [facility] [address] [place] [address] Dr. Michelle Gunderson Note: Comment [facility] Comment on above: Result Comment: The Pap smear is a screening test designed to aid in the detection of premalignant and malignant conditions of the uterine cervix. It is not a diagnostic procedure and should not be used as the sole means of detecting cervical cancer. Both false-positive and false-negative reports do occur. . Performed at: WB Performed By: #### [id number] #### [facility] [address] [place] [address] Dr. Michelle Gunderson Performed by: Comment Normal [facility] Comment on above: Result Comment: Archana Lee, Bedspread Cutter Hand (ASCP) Performed at: WB Performed By: #### [id number] #### [facility] [address] [place] [address] Dr. Michelle Gunderson Specimen adequacy: Comment Normal [facility] Comment on above: Result Comment: Sati sfactory for evaluation. Endocervical and/or squamous metaplastic cells (endocervical component) are present. Partially obscuring thick areas are present. Performed at: WB Performed By: #### 4 [id number] #### [facility] [address] [place], [place] [address] Dr. Michelle Gunderson Covid-19 PCR ([facility])on SARS-CoV-2 (COVID-19) RNA JOSE MIGUEL+probe Ql (Unsp spec) Not detected Normal NOT DETECTED [facility] Comment on above: Result Comment: This test is not yet approved or cleared by the [place] FDA. When there are no FDA-approved or cleared tests available, and other criteria are met, FDA can make tests available under an emergency access mechanism called an Emergency Use Authorization (EUA). The EUA for this test is supported by the [place] of Health and Human Service's (HHS's) declaration [...] consistent with SARS-CoV-2. Performed By: #### [facility] #### [facility] [address] [place] [id number] Michelle Gunderson Vital Signs Date Time Vital Sign Value Performing Clinician Facility 10-13-2023 10:44-0500 Body height 157.5 cm Alessia Mason INDEPENDENT VIDEO PRODUCER-BIZTALK ADMINISTRATOR Work Phone: [facility] [employer] [facility] 10-13-2023 10:44-0500 Body mass index (BMI) [Ratio] 27.9 kg/m2 Alessia Mason INDEPENDENT VIDEO PRODUCER-BIZTALK ADMINISTRATOR Work Phone: [facility] [employer] [facility] 10-13-2023 10:44-0500 Body temperature 97.7 [degF] Alessia Mason INDEPENDENT VIDEO PRODUCER-BIZTALK ADMINISTRATOR Work Phone: [facility] [employer] [facility] 10-13-2023 10:44-0500 Body weight 69.22 kg Alessia Mason INDEPENDENT VIDEO PRODUCER-BIZTALK ADMINISTRATOR Work Phone: [facility] 10-13-2023 10:44-0500 Diastolic blood pressure 78 mm[Hg] Alessiagirish Mason INDEPENDENT VIDEO PRODUCER-BIZTALK ADMINISTRATOR Work Phone: [facility] 10-13-2023 10:44-0500 Heart rate 86 /min Alessiagirish Mason INDEPENDENT VIDEO PRODUCER-BIZTALK ADMINISTRATOR Work Phone: [facility] 10-13-2023 10:44-0500 Respiratory rate 18 /min Alessia Mason INDEPENDENT VIDEO PRODUCER-BIZTALK ADMINISTRATOR Work Phone: [facility] 10-13-2023 10:44-0500 SaO2% (BldA) [Mass fraction] 98 % Alessia Mason INDEPENDENT VIDEO PRODUCER-BIZTALK ADMINISTRATOR Work Phone: [facility] 10-13-2023 10:44-0500 Systolic blood pressure 113 mm[Hg] Alessia Mason INDEPENDENT VIDEO PRODUCER-BIZTALK ADMINISTRATOR Work Phone: [facility] 10-07-2023 09:29-0500 Body height 157.5 cm Jakob Hernandez MD Work Phone: [facility] [employer] [facility] 10-07-2023 09:29-0500 Body mass index (BMI) [Ratio] 28.78 kg/m2 Jakob Hernandez MD Work Phone: [facility] [employer] [facility] 10-07-2023 09:29-0500 Body weight 71.4 kg Jakob Hernandez MD Work Phone: [facility] [employer] [facility] 10-07-2023 09:29-0500 Diastolic blood pressure 73 mm[Hg] Jakob Hernandez MD Work Phone: [facility] [employer] [facility] 10-07-2023 09:29-0500 Heart rate 95 /min Jakob Hernandez MD Work Phone: [facility] 10-07-2023 09:29-0500 SaO2% (BldA) [Mass fraction] 100 % Jakob Hernandez MD Work Phone: [facility] 10-07-2023 09:29-0500 Systolic blood pressure 124 mm[Hg] Jakob Hernandez MD Work Phone: [facility] 09-29-2023 16:19-0500 Body mass index (BMI) [Ratio] 29.04 kg/m2 Jazlyn MCDUFFIE Work Phone: [facility] 09-29-2023 16:19-0500 Body weight 72.03 kg Jazlyn MCDUFFIE Work Phone: [facility] 09-29-2023 16:19-0500 Diastolic blood pressure 70 mm[Hg] Jazlyn MCDUFFIE Work Phone: [facility] 09-29-2023 16:19-0500 Systolic blood pressure 120 mm[Hg] Jazlyn MCDUFFIE Work Phone: [facility] Healthcare Encounters Encounter Date Encounter Type Care Provider Facility Start: 12-11-2023 End: 12-12-2023 ambulatory CRISTEL R [facility] Start: 12-11-2023 End: 12-11-2023 ambulatory DEDRAJohana MAGUIRE [facility] Start: 12-09-2023 End: 12-09-2023 ambulatory CRISTEL ADAM Not Available Start: 12-02-2023 End: 12-02-2023 ambulatory CRISTEL ADAM Not Available Start: 11-25-2023 End: 11-25-2023 ambulatory CRISTEL ADAM Not Available Start: 11-10-2023 End: 11-10-2023 ambulatory CRISTEL ADAM Not Available Start: 10-27-2023 End: 10-27-2023 ambulatory CRISTEL ADAM Not Available Start: 10-15-2023 End: 10-15-2023 ambulatory CRISTEL ADAM Not Available Start: 10-13-2023 End: 10-13-2023 ambulatory ALESSIA MASON [facility] Start: 10-13-2023 End: 10-13-2023 Office outpatient visit 15 minutes Alessia Mason INDEPENDENT VIDEO PRODUCER-BIZTALK ADMINISTRATOR [facility] Comment on above: General ill feeling (Primary Dx) Start: 10-07-2023 End: 10-08-2023 ambulatory JAKOB HERNANDEZ [facility] Start: 10-07-2023 End: 10-07-2023 Office consultation new/estab patient 80 min Jakob Hernandez MD [facility] Phone: [facility] Comment on above: ventricular [...] POCT INFLUENZA A/INFLUENZA B/SARS-COV-2 VERITOR Alessia Mason INDEPENDENT VIDEO PRODUCER-BIZTALK ADMINISTRATOR Work Phone: Start: 10-13-2023 Adult depression screening assessment Alessia Mason INDEPENDENT VIDEO PRODUCER-BIZTALK ADMINISTRATOR Work Phone: Start: 09-29-2023 Urnls dip stick/tabl et rgnt non-auto w/o micrscp Jazlyn MCDUFFIE Work Phone: Start: 05-08-2023 Adult depression screening assessment Jakob Hernandez MD Work Phone: Plan of Treatment Date Care Activity Detail Author Start: 09-07-2030 DTaP,Tdap and Td Vaccines (2 - Tdap) DTaP,Tdap and Td Vaccines (2 - Tdap) [facility] Start: 10-13-2024 Adult BMI Screening Adult BMI Screen ing [facility] Start: 10-13-2024 Depression Screening Depression Scre ening [facility] Start: 10-13-2024 Tobacco Screening Tobacco Screening [facility] Start: 10-07-2024 Adult BMI Screening Adult BMI Screen ing [facility] Start: 10-07-2024 Tobacco Screening Tobacco Screening [facility] Start: 05-08-2024 Depression Screening Depression Scre ening [facility] Start: 11-25-2023 Screening for malign ant neoplasm of cervix [facility] Start: 10-27-2023 End: 10-27-2023 Patient encounter procedure 10/27/2023 3:40 PM EDT Routine [facility] [address] [place] [id number] Cristel Medina, DO [address] [place] [address] [facility] Start: 10-27-2023 End: 10-27-2023 Professional / ancillary services management 10/27/2023 3:00 PM EDT Ancillary Procedure [facility] [address] [place] [id number] [facility] Start: 10-15-2023 End: 10-15-2023 Patient encounter procedure 10/15/2023 3:00 PM EST Routine [facility] [address] [place] [id number] Cristel Medina, DO [address] [place] [address] [facility] Start: 10-07-2023 End: 09-30-2024 echo 2D W/ color flow [facility] Work Phone: Comment on above: Expected: 10/07/2023 (Approximate), Expires: 09/30/2024 Start: 09-29-2023 End: 09-29-2024 US biophysical profile w non stress test US biophysical profile w non stress test Imaging Routine Gestational diabetes mellitus (GDM) in third trimester, gestational diabetes method of control unspecified Expected: 09/29/2023 (Approximate), Expires: 09/29/2024 [facility] Work Phone: Comment on above: Expected: 09/29/2023 (Approximate), Expires: 09/29/2024 Start: 04-18-2023 Influenza vaccination [facility] Start: 2012 Screening for malign ant neoplasm of cervix Pap Smear [facility] Start: 2009 Adult BMI Follow Up Plan Adult BMI Follow Up Plan [facility] Immunizations Immunization Date Immunization Notes Care Provider [facility] 05-29-2021 influenza, injectabl e, quadrivalent, preservative free Jakob Hernandez MD Work Phone: [facility] 05-29-2021 influenza virus vaccine, unspecified formulation Jazlyn MCDUFFIE Work Phone: [facility] 09-07-2020 diphtheria, tetanus toxoids and pertussis vaccine Jakob Hernandez MD Work Phone: [facility] 06-07-2020 influenza, injectabl e, quadrivalent, preservative free Jakob Hernandez MD Work Phone: [facility] 06-02-2019 influenza, injectabl e, quadrivalent, preservative free Jakob Hernandez MD Work Phone: [facility] 06-03-2018 influenza, injectabl e, quadrivalent, preservative free Jakob Hernandez MD Work Phone: [facility] Payers Date Payer Category Payer Unknown [id number] 1991 Unknown [id number] 2.16.84 [id number] 1991 Unknown [id number] 2.16.84 [id number] 1991 Unknown [id number] 2.16.84 0.1.068184.3.579.2.1259 1991 Unknown [id number] 2.16.84 0.1.682859.3.579.2.1259 1991 Unknown [id number] 2.16.84 0.1.405117.3.579.2.1259 1991 Unknown [id number] 2.16.84 0.1.386695.3.579.2.9 1991 Unknown [id number] 2.16.84 0.1.242726.3.579.2.9 1991 Unknown [id number] 2.16.84 0.1.438140.3.579.2.1259 1991 Unknown [id number] 2.16.84 0.1.688583.3.579.2.1259 1991 Unknown [id number] 2.16.84 0.1.169731.3.579.2.9 1991 Unknown [id number] 2.16.840 .1.836191.3.579.2.1258 1991 Unknown [id number] 2.16.840 .1.632751.3.579.2.1258 1991 Unknown [id number] 2.16.8 40.1.591570.3.579.2.1286 1991 Unknown [id number] 2.16.8 40.1.566952.3.579.2.1285 1991 Unknown [id number] 2.16.8 40.1.090324.3.579.2.1285 1991 Unknown [id number] 2.16.8 40.1.771462.3.579.2.1285 1991 Unknown [id number] 2.16.8 [id number] 1959 Unknown [id number] Social History Date Type Detail Facility Start: 06-02-2023 End: 10-07-2023 Tobacco smoking status NHIS Never smoked tobacco [facility] Start: 09-29-2023 Alcohol intake Lifetime non-d venessa (finding) [facility] Start: 12-28-2021 End: 06-02-2023 History of Social function [facility] Start: 12-28-2021 End: 06-02-2023 Tobacco use panel [facility] Start: 06-02-2023 Alcohol Comment caffeine: 1-2 cups per day [employer] Drink ; coffee [facility] Start: 03-30-2023 [facility] Start: 1990 Sex Assigned At Female [facility] Start: 05-15-2023 Gender identity Identifies as female gender (finding) [facility] Start: 10-07-2023 Tobacco use and exposure Smokeless tobacco non-user [facility] Start: 10-07-2023 End: 10-13-2023 Alcohol intake Current non-drinker of alcohol (finding) [facility] Do you belong to any clubs or organizations such as religious groups, unions, fraternal or athletic groups, or school groups? No [facility] Are you now , , , , never or living with a partner? [facility] How often to you hav e a drink containing alcohol? 2-3 time sa week [facility] How many standard drinks containing alcohol do you have on a typical day? 1 or 2 [facility] How often do you hav e 6 or more drinks on 1 occasion? Never [facility] How hard is it for y ou to pay for the very basics like food, housing, medical care, and heating Somewhat hard [facility] Adolescent depressio n screening assessment 0 [facility] Do you feel stress - tense, restless, nervous, or anxious, or unable to sleep at night because your mind is troubled all the time - these days [OSQ] To some extent [facility] Start: 12-28-2021 Education 18 [employer] Start: 1990 Sex Assigned At Not on file P [employer] NEGATED: Highlighted rowStart: JENNIFERF History of tobacco use Passive smoker [employer] Medical Equipment Procedure Code Equipment Code Equipment Origin al Text Equipment Identifier Dates Use as instructed [id number] Start: 06-10-2023 End: 06-09-2024 1 each in the morning and 1 each before bedtime. [id number] Start: 06-10-2023 History of Present illness Narrative 10-13-2023 Alessia Mason APRN-SUE - 10/13/2023 10:30 AM EST Note Date & Type Note Facility 10-13-2023 History of Present illness Narrative Images from the original note were not included. 10/13/2023 [facility] SUBJECTIVE: Sobia Lucero is a 33 [...] repeat testing Initial testing Physician Phone Number [phone] GENERAL TEST INFORMATION See Note This screening [...] developed and its performance characteristics determined by [facility] in a manner consistent with CLIA requirements. This test has not been cleared or approved by the U.S. Food and Drug Administration. Test Performed by: [address] [address] Polls Or Surveys Interviewer: Jose Palmer M.D. Ph.D.; CLIA# [id number] echo 2D W/ color flow Result Date: [...] of 151 beats per minute, normal mechanical ND interval of 96milliseconds Other: No pericardial effusion [...] OB GROWTH Result Date: 09/29/2023 Narrative: [place] [address] Ultrasound Report Signed Patient: SOBIA LUCERO MR#: [id number] : 1990 Acct:[id number] Age/Sex: 33 / F ADM Date: 09/29/23 Loc: [facility] Attending Dr: Cristel Medina D.O. Ordering Physician: Cristel Medina D.O. Date of Service: 09/29/23 Procedure(s): US OB growth Accession Number(s): [id number] cc: Adam,Cristel D.O.; Physician,Non-Staff [place] [address] Patient Name: SOBIA LUCERO [facility]N: [facility]:[id number] date: 1990 Sex: F Assigned Patient Location: [facility] Current Patient Location: [facility] Accession/Order Number: [id number] Exam Date: 09/29/2023 15:04 Report Date: 09/29/2023 [...] M.D. Signed By: 09/29/231618 DD/ 15 TD/TT: Certified Dialysis Technician: Physical Exam Vitals and nursing note reviewed. [...] APRN-CNP 10/14/23 1724 documented in this encounter [facility] History of Present illness Narrative 10-07-2023 Jakob Hernandez MD - 10/07/2023 9:00 AM EST Note Date & Type Note Facility 10-07-2023 History of Present illness Narrative [address], [address] [facility] [place] [address] October 07, 2023 Patient: Sobia Lucero Date of : 1990 Date of Visit: 10/07/[address] Cristel Medina I had the pleasure of seeing Soiba Lucero, at our pediatric cardiology clinic on [...] Current Outpatient Medications Medication Sig Dispense Refill PNV cmb#95-ferrous fumarate-FA () 28 mg iron- [...] Master's degree (e.g., MA, MS, [place], MEd, EQUIPMENT OPERATOR WAREHOUSE, [employer]) Occupational History Not on file Tobacco [...] 30 min Stress: Stress Concern Present (12/28/2021) [employer] [place] [employer] - Occupational Stress Questionnaire Feeling of Stress : To some extent Social Connections: Moderately Isolated (12/28/2021) Social Connection and Isolation Panel [NHANES] Frequency of Communication with Friends and Family: More than three times a week Frequency of Social Gatherings with Friends and Family: Once a week Attends Church Services: 1 to 4 times per year [...] queries or concerns. Sincerely, Jakob Hernandez M.D. Panel Cutter [facility] This note is dictated with the use of M*Modal.Please note that this dictation was completed with computer voice recognition software. Quite often unanticipated grammatical, syntax, homophones, and other interpretive errors are inadvertently transcribed by the computer software. Please disregard these errors. Please excuse any errors that have escaped final proofreading. documented in this encounter [facility] History of Present illness Narrative 09-29-2023 RETA [...] History: Diagnosis Date Allergies Anxiety Bipolar disorder (CMS/[facility]) 2013 Depression (CMS/[facility]) Hemorrhoids History of gestational diabetes mellitus [...] of: RETA Christopher documented in this encounter [facility] Healthcare Evaluation note Note Date & Type Note Facility Evaluation note Diagnosis Third trimester state, incidental Gestational diabetes mellitus (GDM) in third trimester, gestational diabetes method of control unspecified documented in this encounter [facility] Healthcare Evaluation note Note Date & Type Note Facility Evaluation note Diagnosis ventricular septal defect affecting antepartum care of mother, single or unspecified fetus- Primary ventricular septal defect in , antepartum, single gestation documented in this encounter [facility] Evaluation note Note Date & Type Note Facility Evaluation note Diagnosis General ill feeling- Primary Other ill-defined conditions documented in this encounter [facility] Instructions Note Date & Type Note Facility Instructions Not on filedocumented in this en counter [facility] Instructions Attachments Note Date & Type Note Facility Instructions The following attachments cannot be sent through Care Everywhere.Viral Upper Respiratory Infection Discharge Instructions, Adult (Nicaraguan)documented in this encounter [facility] Summary Purpose Family History No Family [...] 2D W/ color flow Jakob Hernandez MD [address] [place] [address] Referral ID Status Reason Start Date Expiration Date V isits Requested Visits Authorized [id number] Pending Review 10/07/2023 10/06/2024 1 1 Additional Source Comments INFORMATION SOURCE (unrecogn ized section and content) DATE CREATED AUTHOR 03/12/2022 [facility] DATE CREATED AUTHOR AUTHOR'S ORGANIZ ATION 12/11/2023 [facility] EPIC DATE CREATED AUTHOR AUTHOR'S ORGANIZ ATION 12/13/2023 [facility] DATE CREATED AUTHOR AUTHOR'S ORGANIZ ATION 12/13/2023 [facility] Reason for Visit (unrecogniz ed section and content) Reason Comments Routine Visit Reason Comments observation of VSD Specialty Diagnoses / Procedures Referred By Contac t Referred To Contact Pediatric Cardiology Diagnoses ventricular septal defect in , antepartum, single gestation Cristel Medina R, DO [address] [place] [address] Jakob Hernandez MD [address] [place] [address] Referral ID Status Reason Start Date Expiration Date Visits Requested Visits Authorized [id number] Pending Review Specialty Services Required 09/04/2023 09/03/2024 1 1 Reason Comments URI Patient symptoms sta rted ,fever,cough,congestionOTC....tylenol Care Teams (unrecognized sec tion and content) Laryngologist Relationship Specialty Start Date End Date Chris Maloney DO [address] [place] [address] PCP - General Family Medicine 12/24/22 Laryngologist Relationship Specialty Start Date End Date Dedra Maguire, [facility] [address], [address] [place] [phone] PCP - General Family Medicine 10/29/21 Laryngologist Relationship Specialty Start Date End Date Dedra Maguire, [facility] [address] [facility] [address] [place] [phone] PCP - General Family Medicine 10/29/21 FOR [...] BE BASED ON THE PRIMARY CLINICAL RECORDS. [facility] [employer] [facility]. provides no warranty or guarantee of the accuracy or completeness of information in this document.
[2023-12-15] MEDS: 0.9 % SODIUM CHLORIDE 1,000 ML 1000 ML IV (06:20)
[2023-12-15] MEDS: METOCLOPRAMIDE HCL 10 MG/2 ML VIAL IVP (06:28)
[2023-12-15] MEDS: FAMOTIDINE/PF 20 MG/2 ML VIAL IV (06:28)
[2023-12-15] MEDS: CITRIC ACID/SODIUM CITRATE 30 ML SOLUTION ORACIT SHOHL'S SOLN PO (06:28)
[2023-12-15] MEDS: CEFAZOLIN SODIUM/DEXTROSE,ISO 1 GM/50 ML IV.SOLN IV (06:29)
[2023-12-15 06:37] LABS: Basophils Percent Auto 0.1 % (0.2-2.0); Eosinophils Percent Auto 0.3 % (0.9-7.0); Hematocrit 35.3 % (36.0-48.0); Hemoglobin 11.7 g/dL (12.0-16.0); Immature Granulocytes Abs Auto 0.04 10^3/uL (0.00-0.03); Immature Granulocytes Pct Auto 0.5 % (0.0-0.5); Lymphocytes Absolute Auto 2.3 10^3/uL (1.2-3.8); Lymphocytes Percent Auto 30.6 % (20.5-60.0); Mean Corpuscular HGB Conc 33.1 g/dL (29.9-35.2); Mean Corpuscular Hemoglobin 30.1 pg (26.7-34.0); Mean Corpuscular Volume 90.7 fL (81.0-99.0); Mean Platelet Volume 11.9 fL (9.5-13.5); Monocytes Absolute Auto 0.6 10^3/uL (0.3-0.8); Monocytes Percent Auto 7.7 % (1.7-12.0); Neutrophils Absolute Auto 4.5 10^3/uL (1.4-6.5); Neutrophils Percent Auto 60.8 % (43.0-75.0); Platelet Count 126 10^3/uL (150-450); Red Blood Count 3.89 10^6/uL (4.20-5.40); Red Cell Distribution Width 14.8 % (11.0-15.0); White Blood Count 7.4 10^3/uL (4.0-11.0)
[2023-12-15 06:45] LABS: Amphetamine Screen Urine NEGATIVE (NEGATIVE); Barbiturates Screen Urine NEGATIVE (NEGATIVE); Benzodiazepines Screen Urine NEGATIVE (NEGATIVE); Buprenorphine Screen Urine NEGATIVE (NEGATIVE); Cannabinoid Screen Urine NEGATIVE (NEGATIVE); Cocaine Screen Urine NEGATIVE (NEGATIVE); Methadone Screen Urine NEGATIVE (NEGATIVE); Methamphetamines Screen Urine NEGATIVE (NEGATIVE); Opiate Screen Urine NEGATIVE (NEGATIVE); Oxycodone Screen Urine NEGATIVE (NEGATIVE); Phencyclidine Screen Urine NEGATIVE (NEGATIVE); Tricyclic Antidepressant Urine NEGATIVE (NEGATIVE)
[2023-12-15] MEDS: 0.9 % SODIUM CHLORIDE 1,000 ML 125 ML IV ×2 (06:54→09:01)
[2023-12-15] MEDS: LACTATED RINGER'S SOLUTION 1,000 ML 50 ML IV (08:20)
--- NOTE | 2023-12-15 08:47 | PM.ONB ---
Brief Operative Note Date of procedure: 12/15/23 Pre-op diagnosis general: iup at 39wks, previous c/s Post-op diagnosis: same as pre-op Procedure: NAME OF PROCEDURE: [ section ] PROCEDURE: Patient was taken back to the Operating Room where she was given a spinal anesthesia with Duramorph without difficulty. She was prepped and draped in the normal sterile fashion. A Pfannenstiel skin incision was then made 2 cm above the symphysis pubis and carried down to underlying rectus fascia using a Bovie. The fascia was incised in the midline and extended laterally using Pierre scissors. Two Yunior clamps were placed on the superior aspect of the fascia and dissected off the underlying rectus muscles. The same was performed on the inferior aspect as well. The muscles were then in the midline. Peritoneum was identified and entered bluntly. The peritoneum was then extended superiorly and inferiorly with good visualization of the bladder. The bladder blade was inserted. A low transverse incision was made on the patient's uterus and extended laterally digitally. The was then delivered atraumatically after the bladder blade was removed in the cephalic position. The cord was clamped and cut. Cord blood was obtained. The was handed off to awaiting team. The patient's placenta was spontaneously delivered. The uterus was then exteriorized. The uterus was cleared of all clots and debris. The bladder blade was reinserted. The patient's uterine incision was closed using #0 Vicryl in a running lock fashion. Excellent hemostasis was assured. The uterus was then returned to the patient's abdomen. The patient's abdomen was copiously irrigated using warm saline. Peritoneal gutters were cleared of all clots and debris. Again excellent hemostasis was assured. The patient's peritoneum was closed using 3-0 Vicryl in a running fashion. The patient's fascia was closed using #0 Vicryl in a running fashion. The patient's skin was closed using 4-0 Vicryl subcuticularly. The patient tolerated the procedure well. Sponge, lap, and needle counts were correct x2. The patient was taken to the Recovery Room in stable condition. Anesthesia: GETA and spinal Surgeon: Stepan Medina Kiln Burner Helper: Kellen Billy Estimated blood loss (mL): 5 Pathology: other (placenta) Condition: stable Disposition: floor Urinary Catheter Management Urinary Catheter Management Urethral: Cath placed during this visit: no
--- NOTE | 2023-12-15 08:49 | P.OBPRC_ITS ---
Procedure Pre-op/Post-op diagnoses: Pre-Op/Post-Op Diagnoses Operation Date: 12/15/23 07:30 <No data on this case meets the specified criteria> Procedure: Procedures Operation Date: 12/15/23 07:30 Actual Procedure Side Surgeon p Repeat Not Applicable Stepan Medina DO Ibm Bpm Developer: Kellen Billy Estimated blood loss (mL): 575 Disposition: floor Anesthesia type: Spinal
[2023-12-15] MEDS: BUPIVACAINE HCL 0.25% PF 25 MG/10 ML VIAL INJ (09:07)
[2023-12-15] MEDS: 0.9 % SODIUM CHLORIDE 10 ML VIAL 30 ML INJ (09:07)
[2023-12-15] MEDS: BUPIVACAINE LIPOSOME/PF 266 MG/13.3 ML VIAL INJ (09:07)
[2023-12-15] MEDS: BUPIVACAINE HCL 0.5% PF 50 MG/10 ML VIAL INJ (09:07)
[2023-12-15] MEDS: OXYTOCIN/0.9 % SODIUM CHLORIDE 20 UNITS/1,000 ML PLAST..BAG 125 UNIT IV (09:32)
[2023-12-15] MEDS: CEFAZOLIN SODIUM/DEXTROSE,ISO 2 GM/50 ML PIGGYBACK IV (12:29)
[2023-12-15] MEDS: KETOROLAC TROMETHAMINE 30 MG/ML VIAL IVP ×2 (15:23→21:11)
[2023-12-15] MEDS: ACETAMINOPHEN 500 MG TABLET 1000 MG PO (17:18)
--- NOTE | 2023-12-15 17:53 | PC.NURSE ---
1743; agree with student assessment and documentation. Alexandro Johnson BSN, RN - [facility] Clinical Instructor.
--- NOTE | 2023-12-15 20:35 | RESP.RT ---
Patient walking hallway. Instructed patient to do pep therapy after she was done.
[2023-12-16 00:45] VITALS: BP 102/61; PULSE 70; TEMP 36.7; O2SAT 96
[2023-12-16 00:47] VITALS: BP 102/61
[2023-12-16] MEDS: ACETAMINOPHEN 500 MG TABLET 1000 MG PO ×3 (01:18→17:01)
[2023-12-16] MEDS: SIMETHICONE 80 MG TAB.CHEW PO ×3 (01:18→21:13)
[2023-12-16] MEDS: IBUPROFEN 400 MG TABLET 800 MG PO ×4 (03:31→21:13)
--- NOTE | 2023-12-16 05:05 | PM.OBPN ---
OB - PN: Subj Subjective Patient comments: no complaints and other (right shoulder pain- post op C/S ) infant status: doing well Exam Constitutional Vital Signs, click to edit/add: Last Vital Signs Temp 98.1 F 12/16/23 00:45 Pulse 70 12/16/23 00:45 Resp 16 12/16/23 00:45 BP 102/61 12/16/23 00:45 Pulse Ox 96 12/16/23 00:45 O2 Del Method Room Air 12/16/23 00:45 Documenting provider has reviewed patient's vital signs: yes Common normals: no apparent distress and oriented x3 HENMT Common normals: normocephalic Eye Common normals: EOMs intact bilaterally Neck & C-Spine Common normals: full ROM Lymph Lymphatic: no lymphadenopathy noted Chest Common normals: inspection of chest normal Respiratory Common normals: normal respiratory effort, no retractions, no use of accessory muscles and clear to auscultation bilaterally Effort & inspection: able to speak in complete sentences Cardio Common normals: regular rate and regular rhythm Rate: regular rate Rhythm: regular rhythm GI Common normals: Normal to inspection, nondistended, normoactive bowel sounds present Inspection: normal to inspection Auscultation: normoactive bowel sounds Common normals: no CVA tenderness Back & Pelvis Common normals: no CVA tenderness Extremity Common normals: normal to inspection Neuro Common normals: oriented x3 and moves all extremities Sensorium/orientation: awake, alert, oriented to person, oriented to place and oriented to time Psych Common normals: mental status grossly normal, thought process normal and cooperative Attitude: calm Results Labs Labs: Short CBC 12/15/23 Range/Units 06:15 WBC 7.4 (4.0-11.0) 10^3/uL Hgb 11.7 L (12.0-16.0) g/dL Hct 35.3 L (36.0-48.0) % Plt Count 126 L (150-450) 10^3/uL Urinary Catheter Management Urinary Catheter Management Urethral: Cath placed during this visit: no Urethral indwelling: No OB - PN: A/P Plan - day: 1 Plan: routine postop care Comment: heting pad ordered for right shoulder Time Spent with Patient Time: Total time spent is greater than 50% in coordination of care (as documented) at patient's floor/unit and/or counseling patient: Total time spent with greater than 50% in coordination of care (as documented) at patient's floor/unit and/or counseling patient: less than 15 minutes
[2023-12-16 06:27] LABS: Basophils Percent Auto 0.3 % (0.2-2.0); Eosinophils Percent Auto 0.4 % (0.9-7.0); Hematocrit 29.8 % (36.0-48.0); Hemoglobin 9.7 g/dL (12.0-16.0); Immature Granulocytes Abs Auto 0.05 10^3/uL (0.00-0.03); Immature Granulocytes Pct Auto 0.5 % (0.0-0.5); Lymphocytes Absolute Auto 2.9 10^3/uL (1.2-3.8); Lymphocytes Percent Auto 26.4 % (20.5-60.0); Mean Corpuscular HGB Conc 32.6 g/dL (29.9-35.2); Mean Corpuscular Hemoglobin 29.8 pg (26.7-34.0); Mean Corpuscular Volume 91.4 fL (81.0-99.0); Mean Platelet Volume 11.1 fL (9.5-13.5); Monocytes Absolute Auto 0.9 10^3/uL (0.3-0.8); Monocytes Percent Auto 8.2 % (1.7-12.0); Neutrophils Absolute Auto 7.1 10^3/uL (1.4-6.5); Neutrophils Percent Auto 64.2 % (43.0-75.0); Platelet Count 107 10^3/uL (150-450); Red Blood Count 3.26 10^6/uL (4.20-5.40); Red Cell Distribution Width 14.9 % (11.0-15.0); White Blood Count 11.1 10^3/uL (4.0-11.0)
[2023-12-16 08:47] VITALS: BP 120/77
[2023-12-16 08:50] VITALS: BP 120/77; PULSE 85; TEMP 36.8
[2023-12-16] MEDS: DOCUSATE SODIUM 100 MG CAPSULE PO ×2 (08:56→21:13)
[2023-12-16 16:50] VITALS: BP 116/70; PULSE 80; TEMP 36.7
--- NOTE | 2023-12-16 19:20 | W.PC.ACHO ---
Registration Status: ADM IN Primary Language: Burmese Preferred Language: Burmese Report to Sean Spencer on pain management & Active Medications Generic Name Dose Route Start Last Admin Trade Name Freq PRN Reason Stop Dose Admin Acetaminophen 1,000 mg 12/15/23 09:00 12/16/23 17:01 Acetaminophen 500 Mg Tablet PO 12/17/23 08:50 1,000 mg Q8H KYLE Administration Al Hydroxide/Mg Hydroxide 2,400 mg 12/15/23 08:49 Magnesium Hydroxide 2,400 Mg/10 Ml Oral.Susp PO Q6H PRN Dyspepsia Diphtheria/Pertussis/Tetanus Vacc 0.5 ml 12/17/23 09:00 Adacel Diph,Pertuss(Acell),Tet Vac/Pf 0.5 Ml Adult Syringe IM 12/17/23 09:01 .ONCE ONE Docusate Sodium 100 mg 12/16/23 09:00 12/16/23 08:56 Docusate Sodium 100 Mg Capsule PO 100 mg BID KYLE Administration Gabapentin 300 mg 12/15/23 08:49 Gabapentin 300 Mg Capsule PO Q6H PRN Pain Sodium Chloride 1,000 mls @ 125 mls/hr 12/15/23 09:00 12/15/23 09:01 Sodium Chloride 0.9% 1,000 Ml IV 125 mls/hr .Q8H KYLE Administration Promethazine HCl 25 mg/ Sodium 51 mls @ 204 mls/hr 12/15/23 08:49 Chloride IV Q6H PRN Nausea And Vomiting Ibuprofen 800 mg 12/16/23 12:00 12/16/23 12:03 Ibuprofen 400 Mg Tablet PO 800 mg Q6H KYLE Administration Measles/Mumps/Rubella Vaccine Live 0.5 ml 12/17/23 09:00 Measles,Mumps,Rubella Vacc/Pf 0.5 Ml Vial SQ 12/17/23 09:01 .ONCE ONE Ondansetron HCl 4 mg 12/15/23 08:49 Ondansetron 4 Mg Rapdis Tablet PO Q6H PRN Nausea And Vomiting Ondansetron HCl 4 mg 12/15/23 08:49 Ondansetron Pf 4 Mg/2 Ml Vial IV Q6H PRN Nausea And Vomiting Oxycodone HCl 5 mg 12/15/23 08:49 Oxycodone Hcl 5 Mg Tablet PO Q4H PRN Breakthrough Pain Senna 17.2 mg 12/15/23 20:00 Sennosides 8.6 Mg Tablet PO QHS PRN Constipation Simethicone 80 mg 12/15/23 08:49 12/16/23 12:00 Simethicone 80 Mg Tab.Chew PO 80 mg QID PRN Administration Abdominal Distention Respiratory Pulse Oximetry 96 Pulse Oximetry 96 Oxygen Delivery Method Room Air Cardiology Heart Sounds Strong,Regular Bowels Bowel Pattern Constipated,No Bowel Movement Date of Last Bowel Movement [ 12/16/23 All Quadrants] Renal Bladder Pattern Continent
[2023-12-17 00:09] VITALS: BP 122/78
[2023-12-17 00:10] VITALS: O2SAT 99
[2023-12-17 00:30] VITALS: BP 122/78; PULSE 77; TEMP 36.4; O2SAT 96
[2023-12-17] MEDS: ACETAMINOPHEN 500 MG TABLET 1000 MG PO (00:59)
[2023-12-17] MEDS: IBUPROFEN 400 MG TABLET 800 MG PO ×2 (06:18→12:19)
--- NOTE | 2023-12-17 07:39 | P.OBPN_ITS ---
OB - PN: Subj Subjective Patient comments: no complaints and pain well controlled [place] status: doing well Exam Constitutional Vital Signs, click to edit/add: Last Vital Signs Temp 97.5 F L 12/17/23 00:30 Pulse 77 12/17/23 00:30 Resp 16 12/17/23 00:30 BP 122/78 12/17/23 00:30 Pulse Ox 96 12/17/23 00:30 O2 Del Method Room Air 12/16/23 00:45 Documenting provider has reviewed patient's vital signs: yes Common normals: no apparent distress Respiratory Common normals: clear to auscultation bilaterally Cardio Common normals: regular rate and regular rhythm GI Common normals: Normal to inspection, nondistended, normoactive bowel sounds present Extremity Common normals: no clubbing, cyanosis or edema and no calf tenderness Urinary Catheter Management Urinary Catheter Management Urethral: Cath placed during this visit: no Urethral indwelling: No OB - PN: A/P Plan - day: 2 Plan: routine postop care, discharge home and other (fu 1wk) Time Spent with Patient Time: Total time spent is greater than 50% in coordination of care (as documented) at patient's floor/unit and/or counseling patient: Total time spent with greater than 50% in coordination of care (as documented) at patient's floor/unit and/or counseling patient: less than 15 minutes
[2023-12-17 09:37] VITALS: BP 118/81
[2023-12-17] MEDS: DOCUSATE SODIUM 100 MG CAPSULE PO (09:42)
[2023-12-17 09:45] VITALS: TEMP 36.4
[2023-12-17] MEDS: SIMETHICONE 80 MG TAB.CHEW PO (09:45)
--- NOTE | 2023-12-17 09:52 | PC.NURSE ---
Parker ring with distinct order around incision. Pt states it is itchy and she had the same reaction last time to steri strips. looked at it and recommended her to try hydrocortisone cream at home.
== END 2023-12-17 13:20 | disposition home or self-care (01) | DRG 787 ==
PROVIDERS: Admitting Provider Obstetrics & Gynecology; Visit Provider Obstetrics & Gynecology
PROC: 10D00Z1 Extraction of Products of Conception, Low, Open Approach (ICD-10-PCS; CPT 59514; principal; 2023-12-15 07:30)
DX: O34.211 Maternal care for low transverse scar from previous cesarean delivery (principal); O10.92 Unspecified pre-existing hypertension complicating childbirth; Z3A.39 39 weeks gestation of pregnancy; Z37.0 Single live birth; O24.420 Gestational diabetes mellitus in childbirth, diet controlled
CPT/HCPCS: 36415; 64488; 80307; 85025; 86850; 86900; 86901; 88307; 94667; 94668; 96374; 96375; J1094

== ENCOUNTER 2025-03-30 19:09 | Outpatient (REF) | payer OTHER, SELFPAY ==
--- OUTSIDE RECORDS SUMMARY | 2025-03-30 14:40 | XMS_ITS | Encounter Summary ---
Author Organization [facility] Address [address] [place] [address] Care Team Providers Care Spanish Speaking Babysitter Name Role Phone Chris Rubio DO Primary Care Provider [phone] Reason for Visit * Reason Comments Well Women Visit Encounter Details Date Type Department Care Team (Late st Contact Info) Description 03/30/2025 2:40 PM EDT Office Visit [facility] [address] [place] [address] Stepan Medina DO [address] [place] [address] Anxiety and depression (Primary Dx); Well woman exam with routine gynecological exam Social History Tobacco Use Types Packs/Day Years Used Date Smoking Tobacco: Never Alcohol Use Standard Drinks/Week Comments Never 0 (1 standard drink = 0.6 oz pure alcohol) caffeine: 1-2 cups per day [employer] Drink ; coffee Comments Unknown Sex and Gender Information Value Date Recorded Sex Assigned at Female 05/15/2023 11:34 AM EDT Legal Sex Female 6:44 PM EDT Gender Identity Female 05/15/2023 11:34 AM EDT Sexual Orientation Not on file documented as of this encounter Last Filed Vital Signs Vital Sign Reading Time Taken Comments Blood Pressure 110/68 03/30/2025 3:09 PM EDT Pulse - - Temperature - - Respiratory Rate - - Oxygen Saturation - - Inhaled Oxygen Concentration - - Weight 69.1 kg (152 lb 6.4 oz) 03/30/2025 3:09 P M EDT Height - - Body Mass Index 27.87 04/29/2024 11:43 AM EDT documented in this encounter Progress Notes * Lyn Tavera, REVIEW COORDINATOR - 03/30/2025 2:40 PM EDT Reason for Appointment: Patient ID: Ivania Rai is a 34 y.o. female who presents for Well Women Visit Patient presents today for Annual Exam. MEDICATIONS Current Outpatient Medications Medication Instructions citalopram (CELEXA) 20 mg, Oral, Daily metFORMIN XR (GLUCOPHAGE-XR) 500 mg, Oral, Daily with evening meal, Do not crush, chew, or split. ALLERGIES Allergies Allergen Reactions Gentamicin Other Other Reaction(s): Eye Swelling Red swollen crusty eyes from drops Sulfa Antibiotics Itching, Rash and Swelling Macrobid [Nitrofurantoin] Lip swelling/rash Penicillins Hives Tramadol Anxiety PROBLEMS Active Ambulatory Problems Diagnosis Date Noted Chronic hypertension affecting ([facility]) 09/05/2023 Diet controlled gestational diabetes mellitus (GDM), antepartum ([facility]) 09/05/2023 Second trimester ([facility]) 09/05/2023 Resolved Ambulatory Problems Diagnosis Date Noted No Resolved Ambulatory Problems Past Medical History: Diagnosis Date Allergies Anxiety Bipolar disorder ([facility]) 2012 Depression Hemorrhoids History of gestational diabetes mellitus (GDM) Hypokalemia IBS (irritable bowel syndrome) 2009 PID (pelvic inflammatory disease) HISTORY PAST MEDICAL HISTORY SOCIAL HISTORY Past Medical History: Diagnosis Date Allergies Anxiety Bipolar disorder ([facility]) 2012 Depression Hemorrhoids History of gestational diabetes mellitus (GDM) Hypokalemia IBS (irritable bowel syndrome) 2009 PID (pelvic inflammatory disease) Social History Tobacco Use Smoking status: Never Smokeless tobacco: Not on file Substance Use Topics Alcohol use: Never Comment: caffeine: 1-2 cups per day [employer] Drink ; coffee Drug use: Never FAMILY HISTORY Family History Problem Relation Name Age of Onset Hypertension Father ADD / ADHD Sister Learning disabilities Sister SURGICAL HISTORY Past Surgical History: Procedure Laterality Date SECTION, CLASSIC x2 SECTION, LOW TRANSVERSE 12/15/2023 REVIEW OF SYSTEMS Review of Systems: Review of Systems Constitutional: Negative. HENT: Negative. Eyes: Negative. Respiratory: Negative. Cardiovascular: Negative. Gastrointestinal: Negative. Genitourinary: Negative. Musculoskeletal: Negative. Skin: Negative. Neurological: Negative. Psychiatric/Behavioral: Positive for dysphoric mood. The patient is nervous/anxious. All other systems reviewed and are negative. Hematological: Negative. Endocrine: Negative. Allergic/Immunologic: Negative. OBJECTIVE Objective: Physical Exam Constitutional: Appearance: Normal appearance. She is well-developed. Genitourinary: Vulva normal. Breasts: Breasts are soft. Right: Normal. Left: Normal. Cardiovascular: Rate and Rhythm: Normal rate and regular rhythm. Pulmonary: Effort: Pulmonary effort is normal. Breath sounds: Normal breath sounds. Abdominal: General: Bowel sounds are normal. There is no distension. Palpations: Abdomen is soft. Tenderness: There is no abdominal tenderness. There is no guarding or rebound. Musculoskeletal: General: No swelling. Normal range of motion. Right lower leg: No edema. Left lower leg: No edema. Neurological: Mental Status: She is alert and oriented to person, place, and time. Skin: General: Skin is warm and dry. Psychiatric: Mood and Affect: Mood normal. Behavior: Behavior normal. Vitals and nursing note reviewed. Exam conducted with a superintendent refuse disposal present. Vitals: Estimated body mass index is 27.87 kg/m?? as calculated from the following: Height as of 04/29/24: 5' 2 . Weight as of this encounter: 152 lb 6.4 oz. BP: 110/68 Patient's last menstrual period was 03/14/2025. ASSESSMENT & PLAN ICD-10-CM 1. Well woman exam with routine gynecological exam Z01.419 Pap Smear HPV DNA probe, amplified 2. Anxiety and depression F41.9 citalopram (CeleXA) 20 MG tablet F32.A Orders Placed This Encounter Procedures HPV DNA probe, amplified Annual Wellness Exam: Patient presents today for routine annual exam. Patient states she has no current complaints. Patients vitals were reviewed and within normal limits. Growth and development is noted to be appropriate for age. Menstrual history is noted to be regular with no concerns reported. No mental health concerns was expressed. Pt just lost grandmother- rx for xanax faxed to pharmacy. Pt restarting celexa Pap Smear: Speculum was inserted into the vagina and pap was obtained without difficulty. HPV testing was performed per age guideline. Patient was advised that pap results could take anywhere from 7 to 10 days to receive and our office will reach out to the patient with those once we have them. Patient can also view results via [employer]. I reinforced importance of condom use for STI prevention. Patient declined cultures to be performed with today's visit. Breast Exam: Upon examination, clinical breast exam was noted to be normal. Patient was counseled on breast self-awareness, including the importance of knowing what is normal for her own breasts and promptly reporting any changes such as new lumps, skin dimpling, nipple discharge, or pain. Screening mammogram recommended annually beginning at age 40 or earlier if risk factors are present. Discussed signs and symptoms of breast cancer and when to seek medical attention. Answered all patient questions. Contraceptive Counseling (if applicable): Patient is currently using no control at this time as a form of contraceptive. Patient does not desire control at this time. Follow Up: Patient is to return to our office in one year for annual exam unless needed otherwise. Documented by Lyn Tavera LPN on behalf of: Stepan Medina DO documented in this encounter Plan of Treatment Upcoming Encounters Date Type Department Care Team (Late st Contact Info) Description 05/08/2026 4:00 PM EDT Procedure Visit [facility] [address] [place] [phone] Stepan Medina DO [address] [place] [address] Scheduled Orders Name Type Priority Associated Diagnoses Orde r Schedule Pap Smear Pathology and Cytology Routine Well woman exam with routine gynecological exam Ordered: 03/30/2025 HPV DNA probe, amplified Microbiology Routine Well woman exam with routine gynecological exam Ordered: 03/30/2025 documented as of this encounter Visit Diagnoses Diagnosis Anxiety and depression- Primary Well woman exam with routine gynecological exam Routine gynecological examination documented in this encounter Care Teams Spanish Speaking Babysitter Relationship Specialty Start Date End Date Chris Rubio DO [address] [place] [address] PCP - General Family Medicine 12/24/22 documented as of this encounter
--- OUTSIDE RECORDS SUMMARY | 2025-03-30 19:14 | XMS_ITS | Clinical Summary ---
Author Organization [facility] Address [id number] [place] [address] Care Team Providers Care Crisis Manager Name Role Phone Allyssa Yu IMAGE SCIENTIST-ENTRY LEVEL LAB TECHNICIAN Primary Care Provider + Allergies Active Allergy Reactions Criticality Noted Date Comments Gentamicin Other (See Comments),Eye Swelling High 05/06/2022 Red swollen crusty eyes from drops Nitrofurantoin 01/08/2024 Lip swelling/rash Penicillins Hives 10/22/2016 Sulfa (Sulfonamide Antibiotics) High 05/08/2023 Tramadol Hcl Anxiety Low 10/22/2016 Medications phenyleph-pramox in-glycr-w.pet (PREPARATION H MAXIMUM STRENGTH) 0.25-1 % creamIndications :Hemorrhoids, unspecified hemorrhoid type Insert into the rectum 3 (three) times a day as needed (hemorrhoid). 51 g 4 Active Additional Information Patient not taking.Reported on 12/13/2024 citalopram (CeleXA) 20 mg tabletIndication s:Situational mixed anxiety and depressive disorder Take 1 tablet (20 mg total) by mouth in the morning. 90 tablet 1 5 Active Additional Information Patient not taking.Reported on 12/13/2024 predniSONE (DELTASONE) 10 mg tablet TAKE 4 TABLETS BY MOUTH ONCE DAILY FOR 2 DAYS, THEN 3 TABS DAILY FOR 2 DAYS, THEN 2 TABS DAILY FOR 2 DAYS, THEN 1 TAB DAILY FOR 2 DAYS 5 Active metFORMIN XR (GLUCOPHAGE XR) 500 mg 24 hr tablet Take 1 tablet (500 mg total) by mouth. 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 Situational mixed anxiety and depressive disorde r 01/23/2022 Breast fibroadenoma, left 01/23/2022 PCOS (polycystic ovarian syndrome) 01/23/2022 Resolved Problems Problem Noted Date Diagnosed Date Resolved Date Diet controlled gestational diabetes mellitus (GDM), antepartum 09/05/2023 07/13/2024 Encounters Date Type Department Care Team Description 12/30/2024 Telephone [facility] [address] [address] Pauly Hi CMA from Last 3 Months Immunizations Immunization Administration Dates Next Due DTP 09/07/2020 Influenza (IM) Preservative Free 06/14/2024 Influenza, Injectable, quadr ivalent (PF) 05/29/2021,06/07/2020,06/02/2019,2017 Tdap 09/19/2022 Family History Medical History Relation Name Comments High Cholesterol Father Hypertension Father Lung cancer Maternal Grandfather Colon cancer Maternal Grandmother Asthma Mother Arrhythmia Paternal Grandmother Clotting disorder Paternal Grandmother Diabetes Paternal Grandmother Stroke Paternal Grandmother Thyroid Issues Paternal Grandmother Seizures Sister recently Heart attack Neg Hx Heart defect Neg Hx Sudden Neg Hx Relation Name Status Comments Brother Alive Father Alive Maternal Grandfather Maternal Grandmother Mother Alive Paternal Grandfather Alive Paternal Grandmother Alive Sister Alive Social History Tobacco Use Types Packs/Day Years Used Date Smoking Tobacco: Never Passive Smoke Exposure: Never Smokeless Tobacco: Never Tobacco Cessation:Counseling Given: No Alcohol Use Standard Drinks/Week Comments No 0 (1 standard drink = 0.6 oz pur e alcohol) Social Connection and Isolat ion Panel [NHANES] Answer Date Recorded In a typical week, how many times do you talk on the phone with family, friends, or neighbors? More than three times a week 12/28/2021 How often do you get togethe r with friends or relatives? Once a week 12/28/2021 How often do you attend chur ch or christianity services? 1 to 4 times per year 12/28/2021 Do you belong to any clubs o r organizations such as uatsdin groups, unions, fraternal or athletic groups, or school groups? No 12/28/2021 How often do you attend meet ings of the clubs or organizations you belong to? Never 12/28/2021 Are you , , di vorced, , never , or living with a partner? 12/28/2021 AUDIT-C Answer Date Recorded Q1: How often do you have a drink containing alc ohol? 2-3 times a week 12/28/2021 Q2: How many drinks containi ng alcohol do you have on a typical day when you are drinking? 1 or 2 12/28/2021 Q3: How often do you have si x or more drinks on one occasion? Never 12/28/2021 Overall Financial Resource Strain (CARDIA) Answe r Date Recorded How hard is it for you to pa y for the very basics like food, housing, medical care, and heating? Not very hard 06/29/2024 PHQ-2 Answer Date Recorded Total Score 0 07/13/2024 [facility] Occupat ional Health - Occupational Stress Questionnaire Answer Date Recorded Do you feel stress - tense, restless, nervous, or anxious, or unable to sleep at night because your mind is troubled all the time - these days? To some extent 12/28/2021 Exercise Vital Sign Answer Date Recorde d On average, how many days pe r week do you engage in moderate to strenuous exercise (like a brisk walk)? 3 days 12/28/2021 On average, how many minutes do you engage in exercise at this level? 30 min 12/28/2021 PRAPARE - Transportation Answer Date Re corded In the past 12 months, has l ack of transportation kept you from medical appointments or from getting medications? No 06/18 In the past 12 months, has l ack of transportation kept you from meetings, work, or from getting things needed for daily living? No 06/29/2024 Housing Instability Answer Date Recorde d Are you worried or concerned that in the next two months you may not have stable housing that you own, rent or stay in as a part of a household? No 06/29/2024 Childcare Answer Date Recorded Do problems getting child ca re make it difficult for you to work or study? No 12/28/2021 Employment Answer Date Recorded Do you need help finding a [facility] career center and/or a training program? No 12/28/2021 Hunger Screening Answer Date Recorded Within the past 12 months we worried whether our food would run out before we got money to buy more. Never True 07/13/2024 Within the past 12 months th e food we bought just didn't last and we didn't have money to get more. Never True 07/13/2024 Purpose - Life Answer Date Recorded I have a purpose and direction in my life. Stron gly Agree 12/28/2021 Education Answer Date Recorded What is the highest level of school you have completed or the highest degree you have received? Master's degree (e.g., MA, MS, [employer], MEd, ADMISSIONS CLERK, LACIE) 12/28/2021 Comments No Sex and Gender Information Value Date Recorded Sex Assigned at Not on file Legal Sex Female 11:44 AM EDT Gender Identity Not on file Sexual Orientation Not on file Last Filed Vital Signs Vital Sign Reading Time Taken Comments Blood Pressure 122/81 12/13/2024 8:09 AM EDT Pulse 84 12/13/2024 8:09 AM EDT Temperature 36.3 C (97.3 F) 07/13/2024 3:37 PM EST Respiratory Rate 18 07/13/2024 3:37 PM EST Oxygen Saturation 97% 07/13/2024 3:37 PM EST Inhaled Oxygen Concentration - - Weight 69.9 kg (154 lb) 12/13/2024 8:09 AM EDT Height 160 cm (5' 3 ) 10/06/2024 3:00 PM EST Body Mass Index 27.28 10/06/2024 3:00 PM EST Plan of Treatment Health Maintenance Due Date Last Done Comments Influenza Vaccine 04/18/2025 06/14/2024, , 06/07/2020, Additional history exists Adult BMI Follow Up Plan 06/29/2025 06/29/2024 COVID-19 Vaccine (3 - Pfizer risk series) 06/29/2025 05/05/2021, 04/14/2021 Postponed from 06/02/2021 (Vaccine Not Available) Depression Screening 07/13/2025 07/13/2024 Adult BMI Screening 12/13/2025 12/13/2024 Tobacco Screening 12/13/2025 12/13/2024 Pap Smear 07/14/2026 07/14/2023 DTaP,Tdap and Td Vaccines (3 - Td or Tdap) 09/19/2032 09/19/2022, 09/07/2020 Medical Devices Not on file Insurance [employer] Care Teams Crisis Manager Relationship Specialty Start Date End Date Allyssa Yu, IMAGE SCIENTIST-ENTRY LEVEL LAB TECHNICIAN [address] [phone] PCP - General Family Medicine 10/29/21
--- OUTSIDE RECORDS SUMMARY | 2025-03-30 19:14 | XMS_ITS | Encounter Summary ---
Author Organization [facility] Address [address] [place] [address] Care Team Providers Care Precision Devices Inspector/Tester Name Role Phone Chris Rubio DO Primary Care Provider Encounter Details Date Type Department Care Team (Late Contact Info) Description 01/28/2024 Abstract [facility] [address] [facility] [place] [address] Stepan Medina DO [facility] [address], [place] [address] Social History Tobacco Use Types Packs/Day Years Used Date Smoking Tobacco: Never Alcohol Use Standard Drinks/Week Comments Never 0 (1 standard drink = 0.6 oz pure alcohol) caffeine: 1-2 cups per day [employer] Drink ; coffee Comments No Sex and Gender Information Value Date Recorded Sex Assigned at Female 05/15/2023 11:34 AM EDT Legal Sex Female 6:44 PM EDT Gender Identity Female 05/15/2023 11:34 AM EDT Sexual Orientation Not on file documented as of this encounter Plan of Treatment Upcoming Encounters Date Type Department Care Team (Late st Contact Info) Description 05/08/2026 4:00 PM EDT Procedure Visit [facility] [address] [place] [phone] Stepan Medina DO [facility] [address], [place] [address] documented as of this encounter Visit Diagnoses Not on filedocumented in this encounter Care Teams Precision Devices Inspector/Tester Relationship Specialty Start Date End Date Chris Rubio DO [address] [place] [phone] PCP - General Family Medicine 12/24/22 documented as of this encounter
--- OUTSIDE RECORDS SUMMARY | 2025-03-30 19:14 | XMS_ITS | Encounter Summary ---
Author Organization [facility] Address [address] [place] [address] Care Team Providers Care Traveling Freight Agent Name Role Phone Chris Rubio DO Primary Care Provider [phone] Encounter Details Date Type Department Care Team (Late st Contact Info) Description 11/26/2023 Clinisync Result Encounter [facility] External Department Unsolicited Cristel Medina, DO [address], [facility] Social History Tobacco Use Types Packs/Day Years Used Date Smoking Tobacco: Never Alcohol Use Standard Drinks/Week Comments Never 0 (1 standard drink = 0.6 oz pure alcohol) caffeine: 1-2 cups per day [employer] Drink ; coffee Comments Yes Sex and Gender Information Value Date Recorded Sex Assigned at Female 05/15/2023 11:34 AM EDT Legal Sex Female 6:44 PM EDT Gender Identity Female 05/15/2023 11:34 AM EDT Sexual Orientation Not on file documented as of this encounter Plan of Treatment Upcoming Encounters Date Type Department Care Team (Late st Contact Info) Description 05/08/2026 4:00 PM EDT Procedure Visit [facility] [address] [place] [address] Cristel Medina DO [address], [facility]11 documented as of this encounter Procedures Procedure Name Priority Date/Time Associated Diagnosis Comments US OB BPP W NON-STRESS 11/26/2023 7:26 AM EDT documented in this encounter Results * US OB BPP W NON-STRESS (11/26/2023 7:26 AM EDT) Anatomical Region Laterality Modality Other 11/26/2023 7:26 AM EDT Narrative 11/26/2023 7:29 [place] [address] Ultrasound Report Signed Patient: SOBIA CHAUDHARI MR#: [id number] : 1990 Acct:[id number] Age/Sex: 33 / F ADM Date: 11/25/23 Loc: [facility] Attending Dr: Cristel Medina D.O. Ordering Physician: Cristel Medina D.O. Date of Service: 11/25/23 Procedure(s): US OB BPP w non-stress Accession Number(s): [id number] cc: Cristel Medina D.O.; Physician,Non-Staff M.DEllen [place] [address] Patient Name: SOBIA CHAUDHARI MRN: [facility]:[id number] date: 1990 Sex: F Assigned Patient [facility] [place] [facility] [place]ion/Order Number: [id number] Exam Date: 11/25/2023 17:55 Report Date: 11/26/2023 07:26 At the request of: CRISTEL MEDINA Procedure: US OB BPP w non-stress EXAMINATION: US OB BPP w non-stress HISTORY: GDM COMPARISON: No relevant comparison available. TECHNIQUE: Ultrasound biophysical profile was performed in the radiology department. FINDINGS: BREATHING MOVEMENTS: 2.0 GROSS BODY MOVEMENTS: 2.0 TONE: 2.0 QUALITATIVE AMNIOTIC FLUID VOLUME: 2.0 PRESENTATION: CEPHALIC HEART RATE: 150.0 bpm H.B./min AMNIOTIC FLUID VOLUME: 21.3 cm cm GESTATIONAL AGE: 36 weeks 2 days CONCLUSION: Total biophysical profile score: 8.0 Electronically authenticated by: ALESIA JOHNSON Date: 11/26/2023 07:26 Dictated By: Alesia Johnson M.D. Signed By: 11/26/23728 DD/ 5 TD/TT: Author Agent: Procedure Note Radiology, Radiologist, - 11/26/2023 [address] [place] [id number] Ultrasound Report Signed Patient: SOBIA CHAUDHARI EMR#: [id number] : 1990Acct:[id number] Age/Sex: 33 / FADM Date: 11/25/23 Loc: [facility] Attending Dr: Cristel Medina D.O. Ordering Physician: Cristel Medina D.O. Date of Service: 11/25/23 Procedure(s): US OB BPP w non-stress Accession Number(s): [id number] cc: Cristel Medina D.O.; Physician,Non-Staff Xander [facility] [place] [id number] Patient Name: SOBIA CHAUDHARI MRN: [facility]:[id number] date: 1990 Sex: F Assigned Patient Location: [facility] [place] [facility] Accession/Order Number: [id number] Exam Date: 11/25/2023 17:55 Report Date: 11/26/2023 07:26 At the request of: CRISTEL MEDINA Procedure: US OB BPP w non-stress EXAMINATION: US OB BPP w non-stress HISTORY: GDM COMPARISON: No relevant comparison available. TECHNIQUE: Ultrasound biophysical profile was performed in the radiology department. FINDINGS: BREATHING MOVEMENTS: 2.0 GROSS BODY MOVEMENTS: 2.0 TONE: 2.0 QUALITATIVE AMNIOTIC FLUID VOLUME: 2.0 PRESENTATION: CEPHALIC HEART RATE: 150.0 bpm H.B./min AMNIOTIC FLUID VOLUME: 21.3 cm cm GESTATIONAL AGE: 36 weeks 2 days CONCLUSION: Total biophysical profile score: 8.0 Electronically authenticated by: ALESIA JOHNSON Date: 11/26/2023 07:26 Dictated By: Alesia Johnson M.D. Signed By:11/26/2329 DD/ 5 TD/TT: Author Agent: us Cristel Medina DO [facility] Final Result documented in this encounter Visit Diagnoses Not on filedocumented in this encounter Care Teams Traveling Freight Agent Relationship Specialty Start Date End Date Chris Rubio DO [address] [facility] [address] [place] [address] PCP - General Family Medicine 12/24/22 documented as of this encounter
--- OUTSIDE RECORDS SUMMARY | 2025-03-30 19:14 | XMS_ITS | Encounter Summary ---
Author Organization [facility] Address [address] [place] [address] Care Team Providers Care Bituminous Paving Machine Operator Name Role Phone Chris Rubio DO Primary Care Provider [phone] Encounter Details Date Type Department Care Team (Late Contact Info) Description 01/28/2024 Abstract [facility] [address] [facility] [place] [address] Stepan Medina DO [facility] [address], [place] [address] Social History Tobacco Use Types Packs/Day Years [...] Procedure Visit [facility] [address] [place] [phone] Stepan Medina DO [facility] [address], [place] [address] documented as of this encounter Visit Diagnoses Not on filedocumented in this encounter Care Teams Bituminous Paving Machine Operator Relationship Specialty Start Date End Date Chris Rubio DO [address] [place] [phone] PCP - General Family Medicine 12/24/22 documented as of this encounter
--- OUTSIDE RECORDS SUMMARY | 2025-03-30 19:14 | XMS_ITS | Encounter Summary ---
Author Organization [facility] Address [address] [place] [address] Care Team Providers Care Labor Relations Supervisor Name Role Phone Chris Rubio DO Primary Care Provider [phone] Encounter Details Date Type Department Care Team (Late st Contact Info) Description 12/09/2023 Abstract [facility] [address] [facility] [place] [address] Stepan Medina DO [facility] [address], [place] [address] Social History Tobacco Use Types Packs/Day Years [...] Procedure Visit [facility] [address] [place] [phone] Stepan Medina DO [facility] [address], [place] [address] documented as of this encounter Visit Diagnoses Not on filedocumented in this encounter Care Teams Labor Relations Supervisor Relationship Specialty Start Date End Date Chris Rubio DO [address] [place] [phone] PCP - General Family Medicine 12/24/22 documented as of this encounter
--- OUTSIDE RECORDS SUMMARY | 2025-03-30 19:14 | XMS_ITS | Encounter Summary ---
Author Organization [facility] Address [address] [place] [address] Care Team Providers Care Quarryman Name Role Phone Chris Rubio DO Primary Care Provider [phone] Encounter Details Date Type Department Care Team (Late Contact Info) Description 03/30/2025 Bamboo flowsheet [facility] [address] [place] [address] [place] [address] Stepan Medina DO [address] [place] [address] [address], [place] [address] Social History Tobacco Use Types Packs/Day Years [...] 4:00 PM EDT Procedure Visit [facility] [address] [place] [address] Stepan Medina DO [facility] [address], [place] [address] documented as of this encounter Visit Diagnoses Not on filedocumented in this encounter Care Teams Quarryman Relationship Specialty Start Date End Date Chris Rubio DO [address] [facility] [address] [place] [phone] PCP - General Family Medicine 12/24/22 documented as of this encounter
--- OUTSIDE RECORDS SUMMARY | 2025-03-30 19:14 | XMS_ITS | Clinical Summary ---
Author Organization [facility] Address [address] [place] [address] Care Team Providers Care Engineering Design Supervisor Name Role Phone Chris Rubio DO Primary Care Provider [phone] Allergies Active Allergy Reactions Criticality Noted Date Comments Gentamicin Other High 05/06/2022 Other Reaction(s): Eye Swelling Red swollen crusty eyes from drops Nitrofurantoin 01/08/2024 Lip swelling/rash Penicillins Hives 05/14/2023 Sulfa Antibiotics Itching,Rash,Swelling High 022 Tramadol Anxiety Low 05/14/2023 Medications metFORMIN XR (Glucophage-XR) 500 MG 24 hr tabletIndications :PCOS (polycystic ovarian syndrome) Take 1 tablet (500 mg) by mouth in the evening. Take with meals Do not crush, chew, or split. 30 tablet 11 5 12/09/19 26 Active citalopram (CeleXA) 20 MG tabletIndications :Anxiety and depression Take 1 tablet (20 mg) by mouth Daily 30 tablet 3 5 04/29/20 25 Active ALPRAZolam XR (Xanax XR) 0.5 MG 24 hr tabletIndications :Well woman exam with routine gynecological exam,Anxiety and depression Take 1 tablet (0.5 mg) by mouth in the morning for 10 days. Do not crush, chew, or split. 10 tablet 5 04/09/20 25 Active citalopram (CeleXA) 20 MG tablet Take by mouth 03/30/20 25 Discontinu ed(Reorder ) Active Problems Problem Noted Date Diagnosed Date Chronic hypertension affecting ([facility]) 09/05/2023 Diet controlled gestational diabetes mellitus (GDM), antepartum ([facility]) 09/05/2023 Second trimester ([facility]) 09/05/2023 Encounters Date Type Department Care Team Description 03/30/2025 2:40 PM EDT Office Visit [facility] [address] [place] [address] [place] [phone] Stepan Medina DO Anxiety and depression (Primary Dx); Well woman exam with routine gynecological exam 03/30/2025 Bamboo flowsheet [facility] [address] [place] [address] [place] [address] Stepan Medina DO from Last 3 Months Family History Medical History Relation Name Comments Hypertension Father ADD / ADHD Sister Learning disabilities Sister Relation Name Status Comments Brother 1 Father Alive Mother Alive Sister Social History Tobacco Use Types Packs/Day Years Used Date Smoking Tobacco: Never Tobacco Cessation:Counseling Given: Not Answered Alcohol Use Standard Drinks/Week Comments Never 0 (1 standard drink = 0.6 oz pure alcohol) caffeine: 1-2 cups per day [employer] Drink ; coffee Comments Unknown Sex and Gender Information Value Date Recorded Sex Assigned at Female 05/15/2023 11:34 AM EDT Legal Sex Female 6:44 PM EDT Gender Identity Female 05/15/2023 11:34 AM EDT Sexual Orientation Not on file Last Filed Vital Signs Vital Sign Reading Time Taken Comments Blood Pressure 110/68 03/30/2025 3:09 PM EDT Pulse - - Temperature - - Respiratory Rate - - Oxygen Saturation - - Inhaled Oxygen Concentration - - Weight 69.1 kg (152 lb 6.4 oz) 03/30/2025 3:09 P M EDT Height 157.5 cm (5' 2 ) 04/29/2024 11:43 AM EDT Body Mass Index 27.87 04/29/2024 11:43 AM EDT Plan of Treatment Upcoming Encounters Date Type Department Care Team (Late st Contact Info) Description 05/08/2026 4:00 PM EDT Procedure Visit [facility] [address] [place] [address] [place] [address] Stepan Medina DO [address] [place] [address] [place] [address] Health Maintenance Due Date Last Done Comments Influenza Vaccine (#1) 2025 4, 05/29/2021, 06/07/2020, Additional history exists Cervical Cancer Screening 07/14/2028 HPV/Cotest 07/14/2028 11/24/2018 Pap Smear 07/14/2028 07/14/2023 Procedures Procedure Name Priority Date/Time Associated Diagnosis Comments PAP SMEAR Routine 07/14/2023 12:00 AM EST THINPREP AND HPV Routine 11/24/2018 12:0 0 PM EDT from Last 3 Months or Most Recently Relevant to Health Maintenance Results * Pap Smear (07/14/2023 12:00 AM EST) Swab Cervical swab / Unknown Stepan Medina DO LAB CYTOLOGY ORDERABLES Final Re sult EXTERNAL LAB * THINPREP AND HPV (11/24/2018 12:00 PM EDT) PAP RESULTS [facility] 11/24/2018 12:0 0 PM EDT Chris uRbio DO [facility] Final Result [facility] from Last 3 Months or Most Recently Relevant to Health Maintenance Insurance [employer] Care Teams Engineering Design Supervisor Relationship Specialty Start Date End Date Chris Rubio DO [address] [address] PCP - General Family Medicine 12/24/22
--- OUTSIDE RECORDS SUMMARY | 2025-03-30 19:14 | XMS_ITS | Encounter Summary ---
Author Organization [facility] Address [address] [facility], [address] [place] [address] Care Team Providers Care Hydrology Technician Name Role Phone Scar Golden DO Primary Care Provider [phone] Encounter Details Date Type Department Care Team (Late st Contact Info) Description 08/13/2023 Transcribe Orders [facility] [address] [place] [address] Stepan Medina MD [address] [place] [address] Social History Tobacco Use Types Packs/Day Years Used Date Smoking Tobacco: Never Assessed Comments Unknown Sex and Gender Information Value Date Recorded Sex Assigned at Female 08/25/2023 2:57 PM EST Legal Sex Female 10:06 AM EST Gender Identity Female 08/25/2023 2:57 PM EST Sexual Orientation Not on file documented as of this encounter Plan of Treatment Not on file documented as of this encounter Visit Diagnoses Not on filedocumented in this encounter Care Teams Hydrology Technician Relationship Specialty Start Date End Date Scar Golden DO PCP - General Family Medicine 08/26/23 documented as of this encounter
--- OUTSIDE RECORDS SUMMARY | 2025-03-30 19:14 | XMS_ITS | Encounter Summary ---
Author Organization [facility] Address [address] [place] [address] Care Team Providers Care Route Sales Delivery Driver Name Role Phone Chris Rubio DO Primary Care Provider [phone] Encounter Details Date Type Department Care Team (Late st Contact Info) Description 03/29/2024 Abstract [facility] [address] [place] [address] Radha Tan LPN Social History Tobacco Use Types Packs/Day Years [...] EDT Procedure Visit [facility] [address] [place] [address] Stepna Medina DO [address] [place], [place] [phone] documented as of this encounter Visit Diagnoses Not on filedocumented in this encounter Care Teams Route Sales Delivery Driver Relationship Specialty Start Date End Date Chris Rubio DO [address] [place] [address] PCP - General Family Medicine 12/24/22 documented as of this encounter
--- OUTSIDE RECORDS SUMMARY | 2025-03-30 19:14 | XMS_ITS | Encounter Summary ---
Author Organization [facility] Address [address] [place] [address] Care Team Providers Care Foot Press Operator Name Role Phone Chris Rubio DO Primary Care Provider [phone] Encounter Details Date Type Department Care Team (Late st Contact Info) Description 12/15/2023 Clinisync Result Encounter [facility] External Department Unsolicited Cristel Medina, DO [address], [facility]11 Social History Tobacco Use Types Packs/Day [...] Visit [facility] [address] [place] [address] Cristel Medina DO [address], [facility]11 documented as of this encounter Procedures Procedure Name Priority Date/Time Associated Diagnosis Comments US OB BPP W NON-STRESS 12/15/2023 8:02 AM EDT documented in this encounter Results * US OB BPP W NON-STRESS (12/15/2023 8:02 AM EDT) Anatomical Region Laterality Modality Other 12/15/2023 8:02 AM EDT Narrative 12/15/2023 8:05 [place] [address] Ultrasound Report Signed Patient: SOBIA CHAUDHARI MR#: [id number] : 1990 Acct:[id number] Age/Sex: 33 / F ADM Date: 12/12/23 Loc: US Attending Dr: Cristel Medina D.O. Ordering Physician: Cristel Medina D.O. Date of Service: 12/12/23 Procedure(s): US OB BPP w non-stress Accession Number(s): [id number] cc: Cristel Medina D.O.; Physician,Non-Staff M.DEllen [place] [address] Patient Name: SOBIA CHAUDHARI MRN: [facility]:[id number] date: 1990 Sex: F Assigned Patient Location: [facility] Current Patient Location: [facility] Accession/Order Number: [id number] Exam Date: 12/12/2023 17:10 Report Date: 12/15/2023 08:02 At the request of: CRISTEL MEDINA Procedure: US OB BPP w non-stress EXAMINATION: US OB BPP w non-stress HISTORY: GESTATIONAL DIABETES MELLITUS O24.419 COMPARISON: Ultrasound OB biophysical 12/05/2023 TECHNIQUE: Ultrasound biophysical profile was performed in the radiology department. BREATHING MOVEMENTS: 2.0 GROSS BODY MOVEMENTS: 2.0 TONE: 2.0 QUALITATIVE AMNIOTIC FLUID VOLUME: 2.0 PRESENTATION: CEPHALIC HEART RATE: 131.1 bpm bpm. AMNIOTIC FLUID VOLUME: 22.4 cm GESTATIONAL AGE: 38 weeks 5 days CONCLUSION: Total biophysical profile score 8.0. Electronically authenticated by: J CARLOS LEARY Date: 12/15/2023 08:02 Dictated By: J Carlos Leary M.D. Signed By: 12/15/23804 DD/ 1 TD/TT: Prototype Special Build: Procedure Note Radiology, Radiologist, - 12/15/2023 The [place] [id number] Ultrasound Report Signed Patient: SOBIA CHAUDHARI EMR#: [id number] : 1990Acct:[id number] Age/Sex: 33 / FADM Date: 12/12/23 Loc: US Attending Dr: Cristel Medina D.O. Ordering Physician: Cristel Medina D.O. Date of Service: 12/12/23 Procedure(s): US OB BPP w non-stress Accession Number(s): [id number] cc: Cristel Medina D.O.; Physician,Non-Staff Xander The [place] [id number] Patient Name: SOBIA CHAUDHARI MRN: [facility]:[id number] date: 1990 Sex: F Assigned Patient Location: [facility] Current Patient Location: [facility] Accession/Order Number: [id number] Exam Date: 12/12/2023 17:10 Report Date: 12/15/2023 08:02 At the request of: CRISTEL MEDINA Procedure: US OB BPP w non-stress EXAMINATION: US OB BPP w non-stress HISTORY: GESTATIONAL DIABETES MELLITUS O24.419 COMPARISON: Ultrasound OB biophysical 12/05/2023 TECHNIQUE: Ultrasound biophysical profile was performed in the radiology department. BREATHING MOVEMENTS: 2.0 GROSS BODY MOVEMENTS: 2.0 TONE: 2.0 QUALITATIVE AMNIOTIC FLUID VOLUME: 2.0 PRESENTATION: CEPHALIC HEART RATE: 131.1 bpm bpm. AMNIOTIC FLUID VOLUME: 22.4 cm GESTATIONAL AGE: 38 weeks 5 days CONCLUSION: Total biophysical profile score 8.0. Electronically authenticated by: J CARLOS LEARY Date: 12/15/2023 08:02 Dictated By: J Carlos Leary M.D. Signed By:12/15/23804 DD/ 1 TD/TT: Prototype Special Build: us Cristel Medina DO [facility] Final Result documented in this encounter Visit Diagnoses Not on filedocumented in this encounter Care Teams Foot Press Operator Relationship Specialty Start Date End Date Chris Rubio DO [address] [place] [address] PCP - General Family Medicine 12/24/22 documented as of this encounter
--- OUTSIDE RECORDS SUMMARY | 2025-03-30 19:14 | XMS_ITS | Encounter Summary ---
Author Organization [facility] Address [address] [place] [address] Care Team Providers Care Scallop Binder Name Role Phone Chris Rubio DO Primary Care Provider [phone] Encounter Details Date Type Department Care Team (Late st Contact Info) Description 12/06/2023 Clinisync Result Encounter [facility] External Department Unsolicited Cristel Medina, DO [address], [facility]11 Social History Tobacco Use Types Packs/Day [...] Visit [facility] [address] [place] [address] Cristel Medina DO [address], [facility]11 documented as of this encounter Procedures Procedure Name Priority Date/Time Associated Diagnosis Comments US OB BPP W NON-STRESS 12/06/2023 6:15 AM EDT documented in this encounter Results * US OB BPP W NON-STRESS (12/06/2023 6:15 AM EDT) Anatomical Region Laterality Modality Other 12/06/2023 6:15 AM EDT Narrative 12/06/2023 6:17 [place] [address] Ultrasound Report Signed Patient: SOBIA CHAUDHARI MR#: [id number] : 1990 Acct:[id number] Age/Sex: 33 / F ADM Date: 12/05/23 Loc: US Attending Dr: Cristel Medina D.O. Ordering Physician: Cristel Medina D.O. Date of Service: 12/05/23 Procedure(s): US OB BPP w non-stress Accession Number(s): [id number] cc: Cristel Medina D.O.; Physician,Non-Staff M.DEllen The [place] [address] Patient Name: SOBIA CHAUDHARI MRN: [facility]:[id number] date: 1990 Sex: F Assigned Patient Location: [facility] Current Patient Location: Accession/Order Number: [id number] Exam Date: 12/05/2023 17:40 Report Date: 12/06/2023 06:15 At the request of: CRISTEL MEDINA Procedure: US OB BPP w non-stress EXAMINATION: US OB BPP w non-stress HISTORY: GESTATIONAL DIABETES MELLITUS O24.419 COMPARISON: Ultrasound OB biophysical 11/28/2023 TECHNIQUE: Ultrasound biophysical profile was performed in the radiology department. BREATHING MOVEMENTS: 2.0 GROSS BODY MOVEMENTS: 2.0 TONE: 2.0 QUALITATIVE AMNIOTIC FLUID VOLUME: 2.0 PRESENTATION: CEPHALIC HEART RATE: 142.1 bpm bpm. AMNIOTIC FLUID VOLUME: 20.3 cm GESTATIONAL AGE: 37 weeks 5 days CONCLUSION: Total biophysical profile score 8.0. Electronically authenticated by: J CARLOS LEARY Date: 12/06/2023 06:15 Dictated By: J Carlos Leary M.D. Signed By: 12/06/23616 DD/ 4 TD/TT: Truck Caterer: Procedure Note Radiology, Radiologist, - 12/06/2023 The [place] [id number] Ultrasound Report Signed Patient: SOBIA CHAUDHARI EMR#: [id number] : 1990Acct:[id number] Age/Sex: 33 / FADM Date: 12/05/23 Loc: US Attending Dr: Cristel Medina D.O. Ordering Physician: Cristel Medina D.O. Date of Service: 12/05/23 Procedure(s): US OB BPP w non-stress Accession Number(s): [id number] cc: Cristel Medina D.O.; Physician,Non-Staff Xander The [place] [id number] Patient Name: SOBIA CHAUDHARI MRN: [facility]:[id number] date: 1990 Sex: F Assigned Patient Location: [facility] Current Patient Location: US Accession/Order Number: [id number] Exam Date: 12/05/2023 17:40 Report Date: 12/06/2023 06:15 At the request of: CRISTEL MEDINA Procedure: US OB BPP w non-stress EXAMINATION: US OB BPP w non-stress HISTORY: GESTATIONAL DIABETES MELLITUS O24.419 COMPARISON: Ultrasound OB biophysical 11/28/2023 TECHNIQUE: Ultrasound biophysical profile was performed in the radiology department. BREATHING MOVEMENTS: 2.0 GROSS BODY MOVEMENTS: 2.0 TONE: 2.0 QUALITATIVE AMNIOTIC FLUID VOLUME: 2.0 PRESENTATION: CEPHALIC HEART RATE: 142.1 bpm bpm. AMNIOTIC FLUID VOLUME: 20.3 cm GESTATIONAL AGE: 37 weeks 5 days CONCLUSION: Total biophysical profile score 8.0. Electronically authenticated by: J CARLOS LEARY Date: 12/06/2023 06:15 Dictated By: J Carlos Leary M.D. Signed By:12/06/23616 DD/ 0615 TD/TT: Truck Caterer: us Cristel Medina DO [facility] Final Result documented in this encounter Visit Diagnoses Not on filedocumented in this encounter Care Teams Scallop Binder Relationship Specialty Start Date End Date Chris Rubio DO [address] [place] [address] PCP - General Family Medicine 12/24/22 documented as of this encounter
--- OUTSIDE RECORDS SUMMARY | 2025-03-30 19:14 | XMS_ITS | Encounter Summary ---
Author Organization [facility] Address [address] [place] [address] Care Team Providers Care Etiquette Teacher Name Role Phone Chris Rubio DO Primary Care Provider Encounter Details Date Type Department Care Team (Late st Contact Info) Description 12/01/2023 Clinisync Result Encounter [facility] External Department Unsolicited Cristel Medina, DO [address], [place] [address] Social History Tobacco Use Types Packs/Day Years [...] Visit [facility] [address] [place] [address] Cristel Medina DO [address], [facility]11 documented as of this encounter Procedures Procedure Name Priority Date/Time Associated Diagnosis Comments US OB GROWTH 12/01/2023 7:48 AM EDT documented in this encounter Results * US OB GROWTH (12/01/2023 7:48 AM EDT) Anatomical Region Laterality Modality Other 12/01/2023 7:48 AM EDT Narrative 12/01/2023 7:51 [place] [address] Ultrasound Report Signed Patient: SOBIA CHAUDHARI MR#: [id number] : 1990 Acct:[id number] Age/Sex: 33 / F ADM Date: 11/28/23 Loc: US Attending Dr: Cristel Medina D.O. Ordering Physician: Cristel Medina D.O. Date of Service: 11/28/23 Procedure(s): US OB growth Accession Number(s): [id number] cc: Cristel Medina D.O.; Physician,Non-Staff M.DEllen The [place] [id number] Patient Name: SOBIA CHAUDHARI MRN: [facility]:[id number] date: 1990 Sex: F Assigned Patient Location: [facility] Current Patient Location: Accession/Order Number: [id number] Exam Date: 11/28/2023 17:14 Report Date: 12/01/2023 07:48 At the request of: CRISTEL MEDINA Procedure: US OB growth EXAMINATION: US OB growth HISTORY: CHROMIC HYPERTENSION AFFECTING O10.919 COMPARISON: No relevant comparison available. FINDINGS: Heart Rate: 142.9 bpm Amniotic Fluid Volume: 18.9 cm Number: 1.0 Position: Cephalic presentation, longitudinal lie Maximum Vertical Pocket: 4.5 cm cm 4.8 cm cm 2.1 cm cm 7.5 cm cm BIOMETRY: BPD: 9.2 cm cm; 37 weeks 3 days; 80% HC: 33.0 cmcm; 37 weeks 4 days , 45% AC: 32.7 cm cm; 36 weeks 4 days, 60% FL: 7.0 cm cm; 35 weeks 5 days; 23.3 % % EFW: 2975.3 grams, 6 lbs. 11 oz., 51% FL/AC: 21.3 FL/BPD: 75.7 HC/AC: 1.0 GESTATIONAL AGE: Age by EDC: 36 weeks 5 days RACHEL by EDC: 12/21/2023 Age by US: 36 weeks 6 days RACHEL by US: 12/20/2023 US/US OB growth IMPRESSION: Normal interval growth Electronically authenticated by: ALESIA JOHNSON Date: 12/01/2023 07:48 Dictated By: Alesia Johnson M.D. Signed By: 12/01/23 0751 DD/ 0748 TD/TT: Oven Operator: Procedure Note Radiology, Radiologist, MD - 12/01/2023 [place] [address] Ultrasound Report Signed Patient: SOBIA CHAUDHARI EMR#: [id number] : 1990Acct:[id number] Age/Sex: 33 / FADM Date: 11/28/23 Loc: US Attending Dr: Cristel Medina D.O. Ordering Physician: Cristel Medina D.O. Date of Service: 11/28/23 Procedure(s): US OB growth Accession Number(s): [id number] cc: Cristel Medina D.O.; Physician,Non-Staff Xander The [place] [id number] Patient Name: SOBIA CHAUDHARI MRN: [facility]:[id number] date: 1990 Sex: F Assigned Patient Location: [facility] Current Patient Location: Accession/Order Number: [id number] Exam Date: 11/28/2023 17:14 Report Date: 12/01/2023 07:48 At the request of: CRISTEL MEDINA Procedure: US OB growth EXAMINATION: US OB growth HISTORY: CHROMIC HYPERTENSION AFFECTING O10.919 COMPARISON: No relevant comparison available. FINDINGS: Heart Rate: 142.9 bpm Amniotic Fluid Volume: 18.9 cm Number: 1.0 Position: Cephalic presentation, longitudinal lie Maximum Vertical Pocket: 4.5 cm cm 4.8 cm cm 2.1 cm cm 7.5 cm cm BIOMETRY: BPD: 9.2 cm cm; 37 weeks 3 days; 80% HC: 33.0 cmcm; 37 weeks 4 days , 45% AC: 32.7 cm cm; 36 weeks 4 days, 60% FL: 7.0 cm cm; 35 weeks 5 days; 23.3 % % EFW: 2975.3 grams, 6 lbs. 11 oz., 51% FL/AC: 21.3 FL/BPD: 75.7 HC/AC: 1.0 GESTATIONAL AGE: Age by EDC: 36 weeks 5 days RACHEL by EDC: 12/21/2023 Age by US: 36 weeks 6 days RACHEL by US: 12/20/2023 US/US OB growth IMPRESSION: Normal interval growth Electronically authenticated by: ALESIA OJHNSON Date: 12/01/2023 07:48 Dictated By: Alesia Johnson M.D. Signed By:12/01/23 0751 DD/ 0748 TD/TT: Oven Operator: us Cristel Medina DO [facility] Final Result documented in this encounter Visit Diagnoses Not on filedocumented in this encounter Care Teams Etiquette Teacher Relationship Specialty Start Date End Date Chris Rubio DO [address] [facility] [address] [place] [address] PCP - General Family Medicine 12/24/22 documented as of this encounter
--- OUTSIDE RECORDS SUMMARY | 2025-03-30 19:14 | XMS_ITS | Encounter Summary ---
Author Organization [facility] Address [address] [place] [address] Care Team Providers Care Trim Master Operator Name Role Phone Chris Rubio DO Primary Care Provider [phone] Encounter Details Date Type Department Care Team (Late Contact Info) Description 06/30/2024 Abstract [facility] [address] [facility] [place] [address] Stepan Medina DO [facility] [address], [place] [address] Social History Tobacco Use Types Packs/Day Years [...] Procedure Visit [facility] [address] [place] [address] Stepan Medina DO [facility] [address], [place] [address] documented as of this encounter Visit Diagnoses Not on filedocumented in this encounter Care Teams Trim Master Operator Relationship Specialty Start Date End Date Chris Rubio DO [address] [place] [id number] PCP - General Family Medicine 12/24/22 documented as of this encounter
--- OUTSIDE RECORDS SUMMARY | 2025-03-30 19:15 | XMS_ITS | Encounter Summary ---
Author Organization [facility] Address [address] [place] [address] Care Team Providers Care Hot Walker Name Role Phone Chris Rubio DO Primary Care Provider Encounter Details Date Type Department Care Team (Late st Contact Info) Description 10/27/2023 Clinisync Result Encounter NOMS External Department Unsolicited Cristel Medina, DO [address], [place] [address] Social History Tobacco Use Types Packs/Day Years [...] Visit [facility] [address] [place] [phone] Cristel Medina DO [address], [facility]11 documented as of this encounter Procedures Procedure Name Priority Date/Time Associated Diagnosis Comments US OB GROWTH 10/27/2023 3:31 PM EDT documented in this encounter Results * US OB GROWTH (10/27/2023 3:31 PM EDT) Anatomical Region Laterality Modality Other 10/27/2023 3:31 PM EDT Narrative 10/27/2023 3:34 [place] [address] Ultrasound Report Signed Patient: SOBIA CHAUDHARI MR#: [id number] : 1990 Acct:[id number] Age/Sex: 33 / F ADM Date: 10/27/23 Loc: NOMS Attending Dr: Cristel Medina D.O. Ordering Physician: Cristel Medina D.O. Date of Service: 10/27/23 Procedure(s): US OB growth Accession Number(s): [id number] cc: Cristel Medina D.O.; Physician,Non-Staff M.DEllen The [place] [id number] Patient Name: SOBIA CHAUDHARI MRN: [facility]:[id number] date: 1990 Sex: F Assigned Patient Location: [facility] Current Patient Location: [facility] Accession/Order Number: [id number] Exam Date: 10/27/2023 15:00 Report Date: 10/27/2023 15:31 At the request of: CRISTEL MEDINA Procedure: US OB growth EXAMINATION: US OB growth HISTORY: Chronic hypertension affecting O10.919 COMPARISON: No relevant comparison available. FINDINGS: Heart Rate: 133.0 bpm Amniotic Fluid Volume: 15.7 cm Number: 1.0 Position: Cephalic presentation, longitudinal lie Maximum Vertical Pocket: 8.0 cm cm 2.6 cm cm 3.4 cm cm 1.9 cm cm BIOMETRY: BPD: 8.1 cm cm; 32 weeks 2 days; 47% HC: 30.0 cmcm; 33 weeks 2 days , 44% AC: 27.5 cm cm; 31 weeks 4 days, 31% FL: 6.2 cm cm; 32 weeks 2 days; 39.2 % % EFW: 1880.3 grams, 4 lbs. 2 oz., 34% FL/AC: 22.6 FL/BPD: 77.3 HC/AC: 1.1 GESTATIONAL AGE: Age by EDC: 32 weeks 1 days RACHEL by EDC: 12/21/2023 Age by US: 32 weeks 0 days RACHEL by US: 12/22/2023 US/US OB growth IMPRESSION: Normal interval growth Electronically authenticated by: ALESIA JOHNSON Date: 10/27/2023 15:31 Dictated By: Alesia Johnson M.D. Signed By: 10/27/231533 DD/ 30 TD/TT: Rn Lpn Cna: Procedure Note Radiology, Radiologist, MD - 10/27/2023 [place] [address] Ultrasound Report Signed Patient: SOBIA CHAUDHARI EMR#: [id number] : 1990Acct:[id number] Age/Sex: 33 / FADM Date: 10/27/23 Loc: NOMS Attending Dr: Cristel Medina D.O. Ordering Physician: Cristel Medina D.O. Date of Service: 10/27/23 Procedure(s): US OB growth Accession Number(s): [id number] cc: Cristel Medina D.O.; Physician,Non-Staff Xander The [place] [address] Patient Name: SOBIA CHAUDHARI MRN: [facility]:[id number] date: 1990 Sex: F Assigned Patient Location: [facility] Current Patient Location: [facility] Accession/Order Number: [id number] Exam Date: 10/27/2023 15:00 Report Date: 10/27/2023 15:31 At the request of: CRISTEL MEDINA Procedure: US OB growth EXAMINATION: US OB growth HISTORY: Chronic hypertension affecting O10.919 COMPARISON: No relevant comparison available. FINDINGS: Heart Rate: 133.0 bpm Amniotic Fluid Volume: 15.7 cm Number: 1.0 Position: Cephalic presentation, longitudinal lie Maximum Vertical Pocket: 8.0 cm cm 2.6 cm cm 3.4 cm cm 1.9 cm cm BIOMETRY: BPD: 8.1 cm cm; 32 weeks 2 days; 47% HC: 30.0 cmcm; 33 weeks 2 days , 44% AC: 27.5 cm cm; 31 weeks 4 days, 31% FL: 6.2 cm cm; 32 weeks 2 days; 39.2 % % EFW: 1880.3 grams, 4 lbs. 2 oz., 34% FL/AC: 22.6 FL/BPD: 77.3 HC/AC: 1.1 GESTATIONAL AGE: Age by EDC: 32 weeks 1 days RACHEL by EDC: 12/21/2023 Age by US: 32 weeks 0 days RACHEL by US: 12/22/2023 US/US OB growth IMPRESSION: Normal interval growth Electronically authenticated by: ALESIA JOHNSON Date: 10/27/2023 15:31 Dictated By: Alesia Johnson M.D. Signed By:10/27/23 1534 DD/ 1531 TD/TT: Rn Lpn Cna: us Cristel Medina DO [facility] Final Result documented in this encounter Visit Diagnoses Not on filedocumented in this encounter Care Teams Hot Walker Relationship Specialty Start Date End Date Chris Rubio DO [address] [address] PCP - General Family Medicine 12/24/22 documented as of this encounter
--- OUTSIDE RECORDS SUMMARY | 2025-03-30 19:15 | XMS_ITS | Encounter Summary ---
Author Organization [facility] Address [address] [place] [address] Care Team Providers Care Tissue Specialist Name Role Phone Chris Rubio DO Primary Care Provider [phone] Encounter Details Date Type Department Care Team (Late Contact Info) Description 06/16/2023 Abstract [facility] [address] [place] [address] Stepan Medina DO [address] [place] [address] [address], [place] [address] Social History Tobacco Use Types Packs/Day Years [...] AM EDT Sexual Orientation Not on file COVID-19 Exposure Response Date Recorded In the last 10 days, have yo u been in contact with someone who was confirmed or suspected to have Coronavirus/COVID-19? No / Unsure 06/10/2023 9:05 AM EDT documented as of this encounter Plan of Treatment Upcoming Encounters Date Type Department Care Team (Late st Contact Info) Description 05/08/2026 4:00 PM EDT Procedure Visit [facility] [address] [place] [address] Stepan Medina DO [address] [place] [address] [place] [address] documented as of this encounter Visit Diagnoses Not on filedocumented in this encounter Care Teams Tissue Specialist Relationship Specialty Start Date End Date Chris Rubio DO [address] [place] [address] PCP - General Family Medicine 12/24/22 documented as of this encounter
--- OUTSIDE RECORDS SUMMARY | 2025-03-30 19:15 | XMS_ITS | Encounter Summary ---
Author Organization [employer] Address [id number] [place] [address] Care Team Providers Care Vp Ancillary Name Role Phone GigiRaegan العليtangela Tang COLUMNIST-REAL TIME TRADER Primary Care Provider + Encounter Details Date Type Department Care Team (Late st Contact Info) Description 05/30/[address] [facility] [address] [place] [address] Pauly Hi CMA Social History Tobacco Use Types Packs/Day Years Used Date Smoking Tobacco: Never Smokeless Tobacco: Never Alcohol Use Standard Drinks/Week Comments No 0 [...] week 12/28/2021 How often [facility] you attend [facility]? 1 to 4 times per year 12/28/2021 Do you belong to any clubs o r organizations such as presybeterian groups, unions, fraternal or athletic groups, or [...] like food, housing, medical care, and heating? Somewhat hard 12/28/2021 PHQ-2 Answer Date Recorded Total Score 0 05/08/2023 [facility] Answer Date Recorded [...] medical appointments or from getting medications? No 12/16 In the past 12 months, has l ack of transportation kept you from meetings, work, or from getting things needed for daily living? No 12/28/2021 Childcare Answer Date Recorded Do problems getting [...] got money to buy more. Never True 05/08/2023 Within the past 12 months th e food we bought just didn't last and we didn't have money to get more. Never True 05/08/2023 Purpose - Life Answer Date Recorded I have a purpose and direction in my life. Stron gly Agree 12/28/2021 Education Answer Date Recorded What is the highest level of school you have completed or the highest degree you have received? Master's degree (e.g., MA, MS, [employer], MEd, HANDWRITING EXPERT, LACIE) 12/28/2021 Comments Yes Sex and Gender Information Value Date Recorded Sex Assigned at Not on file Legal Sex Female 11:44 AM EDT Gender Identity Not on file Sexual Orientation Not on file documented as of this encounter Miscellaneous Notes * Telephone Encounter - ROSA Green - 05/30/2023 9:38 AM EDT MA checked on outside labs with laboratory due to not have [facility] Tubes, slab off mill tender stated MA can use [facility] instead, MA draw all labs without any complication . This morning lab stated they received everything and they were able to run all the tests. * Telephone Encounter - JOSSIE Raya - 05/30/2023 9:38 AM EDT Thank you, just ensure her OB office gets them! documented in this encounter Plan of Treatment Not on file documented as of this encounter Visit Diagnoses Not on filedocumented in this encounter Additional Health Concerns Assessment Noted Time PHQ-9 Depression Total Score: 0 05/08/20 23 4:59 PM EDT documented as of this encounter Care Teams Vp Ancillary Relationship Specialty Start Date End Date Allyssa Yu APRN-CNP [address] [facility] [address] [place] [address] PCP - General Family Medicine 10/29/21 documented as of this encounter
--- OUTSIDE RECORDS SUMMARY | 2025-03-30 19:15 | XMS_ITS | Encounter Summary ---
Author Organization [facility] Address [address] [place] [address] Care Team Providers Care Mandrel Cleaner Name Role Phone Chris Rubio DO Primary Care Provider [phone] Encounter Details Date Type Department Care Team (Late st Contact Info) Description 12/01/2023 Clinisync Result Encounter [facility] External Department Unsolicited Cristel Medina, DO [address], [place] [address] Social History Tobacco Use Types Packs/Day Years [...] Visit [facility] [address] [place] [address] Cristel Medina DO [address], [facility] documented as of this encounter Procedures Procedure Name Priority Date/Time Associated Diagnosis Comments US OB BPP W NON-STRESS 12/01/2023 7:49 AM EDT documented in this encounter Results * US OB BPP W NON-STRESS (12/01/2023 7:49 AM EDT) Anatomical Region Laterality Modality Other 12/01/2023 7:49 AM EDT Narrative 12/01/2023 7:51 [place] [address] Ultrasound Report Signed Patient: SOBIA CHAUDHARI MR#: [id number] : 1990 Acct:[id number] Age/Sex: 33 / F ADM Date: 11/28/23 Loc: US Attending Dr: Cristel Medina D.O. Ordering Physician: Cristel Medina D.O. Date of Service: 11/28/23 Procedure(s): US OB BPP w non-stress Accession Number(s): [id number] cc: Cristel Medina D.O.; Physician,Non-Staff M.DEllen [place] [id number] Patient Name: SOBIA CHAUDHARI MRN: [facility]:[id number] date: 1990 Sex: F Assigned Patient Location: [facility] Current Patient Location: Accession/Order Number: [id number] Exam Date: 11/28/2023 17:14 Report Date: 12/01/2023 07:49 At the request of: CRISTEL MEDINA Procedure: US OB BPP w non-stress EXAMINATION: US OB BPP w non-stress HISTORY: GESTATIONAL DIABETES MELLITUS O24.419 COMPARISON: No relevant comparison available. TECHNIQUE: Ultrasound biophysical profile was performed in the radiology department. FINDINGS: BREATHING MOVEMENTS: 2.0 GROSS BODY MOVEMENTS: 2.0 TONE: 2.0 QUALITATIVE AMNIOTIC FLUID VOLUME: 2.0 PRESENTATION: CEPHALIC HEART RATE: 142.9 bpm H.B./min AMNIOTIC FLUID VOLUME: 18.9 cm cm GESTATIONAL AGE: 36 weeks 5 days CONCLUSION: Total biophysical profile score: 8.0 Electronically authenticated by: ALESIA JOHNSON Date: 12/01/2023 07:49 Dictated By: Alesia Johnson M.D. Signed By: 12/01/23 0751 DD/ TD/TT: Keno Manager: Procedure Note Radiology, Radiologist, - 12/01/2023 [facility] [place] [id number] Ultrasound Report Signed Patient: SOBIA CHAUDHARI EMR#: [id number] : 1990Acct:[id number] Age/Sex: 33 / FADM Date: 11/28/23 Loc: US Attending Dr: Cristel Medina D.O. Ordering Physician: Cristel Medina D.O. Date of Service: 11/28/23 Procedure(s): US OB BPP w non-stress Accession Number(s): [id number] cc: Cristel Medina D.O.; Physician,Non-Staff Xander [facility] [place] [id number] Patient Name: SOBIA CHAUDHARI MRN: [facility]:[id number] date: 1990 Sex: F Assigned Patient Location: [facility] Current Patient Location: Accession/Order Number: [id number] Exam Date: 11/28/2023 17:14 Report Date: 12/01/2023 07:49 At the request of: CRISTEL MEDINA Procedure: US OB BPP w non-stress EXAMINATION: US OB BPP w non-stress HISTORY: GESTATIONAL DIABETES MELLITUS O24.419 COMPARISON: No relevant comparison available. TECHNIQUE: Ultrasound biophysical profile was performed in the radiology department. FINDINGS: BREATHING MOVEMENTS: 2.0 GROSS BODY MOVEMENTS: 2.0 TONE: 2.0 QUALITATIVE AMNIOTIC FLUID VOLUME: 2.0 PRESENTATION: CEPHALIC HEART RATE: 142.9 bpm H.B./min AMNIOTIC FLUID VOLUME: 18.9 cm cm GESTATIONAL AGE: 36 weeks 5 days CONCLUSION: Total biophysical profile score: 8.0 Electronically authenticated by: ALESIA JOHNSON Date: 12/01/2023 07:49 Dictated By: Alesia Johnson M.D. Signed By:12/01/23 0751 DD/ TD/TT: Keno Manager: us Cristel Medina DO [facility] Final Result documented in this encounter Visit Diagnoses Not on filedocumented in this encounter Care Teams Mandrel Cleaner Relationship Specialty Start Date End Date Chris Rubio DO [address] [facility] [address] [place] [address] PCP - General Family Medicine 12/24/22 documented as of this encounter
--- OUTSIDE RECORDS SUMMARY | 2025-03-30 19:15 | XMS_ITS | Encounter Summary ---
Author Organization [facility] Address [address] [place] [address] Care Team Providers Care Continuous Drier Helper Name Role Phone Chris Rubio DO Primary Care Provider [phone] Encounter Details Date Type Department Care Team (Late Contact Info) Description 06/13/2023 Abstract [facility] [address] [place] [address] Stepan Medina DO [address] [place] [address] [address], [place] [address] Social History Tobacco Use Types Packs/Day Years [...] Procedure Visit [facility] [address] [place] [address] Stepan Medina DO [address] [place] [address] [place] [address] documented as of this encounter Visit Diagnoses Not on filedocumented in this encounter Care Teams Continuous Drier Helper Relationship Specialty Start Date End Date Chris Rubio DO [address] [facility] [address] [place] [address] PCP - General Family Medicine 12/24/22 documented as of this encounter
--- OUTSIDE RECORDS SUMMARY | 2025-03-30 19:15 | XMS_ITS | Encounter Summary ---
Author Organization [facility] Address [address] [place] [address] Care Team Providers Care Rock Contractor Name Role Phone Chris Rubio DO Primary Care Provider [phone] Encounter Details Date Type Department Care Team (Late st Contact Info) Description 11/01/2023 Clinisync Result Encounter [facility] External Department Unsolicited Cristel Medina, DO [address], [place] [address] Social History Tobacco Use Types Packs/Day Years [...] Visit [facility] [address] [place] [address] Cristel Medina DO [address], [facility] documented as of this encounter Procedures Procedure Name Priority Date/Time Associated Diagnosis Comments US OB BPP W NON-STRESS 11/01/2023 4:13 AM EDT documented in this encounter Results * US OB BPP W NON-STRESS (11/01/2023 4:13 AM EDT) Anatomical Region Laterality Modality Other 11/01/2023 4:13 AM EDT Narrative 11/01/2023 4:15 [place] [address] Ultrasound Report Signed Patient: SOBIA CHAUDHARI MR#: [id number] : 1990 Acct:[id number] Age/Sex: 33 / F ADM Date: 10/31/23 Loc: US Attending Dr: Cristel Medina D.O. Ordering Physician: Cristel Medina D.O. Date of Service: 10/31/23 Procedure(s): US OB BPP w non-stress Accession Number(s): [id number] cc: Cristel Medina D.O.; Physician,Non-Staff M.DEllen [facility] [place] [id number] Patient Name: SOBIA CHAUDHARI MRN: [facility]:[id number] date: 1990 Sex: F Assigned Patient Location: [facility] Current Patient Location: Accession/Order Number: [id number] Exam Date: 10/31/2023 17:03 Report Date: 11/01/2023 04:13 At the request of: CRISTEL MEDINA Procedure: US OB BPP w non-stress EXAMINATION: US OB BPP w non-stress HISTORY: GESTATIONAL DIABETES MELLITUS O24.419 COMPARISON: Ultrasound OB growth 10/27/2023 TECHNIQUE: Ultrasound biophysical profile was performed in the radiology department. BREATHING MOVEMENTS: 2.0 GROSS BODY MOVEMENTS: 2.0 TONE: 2.0 QUALITATIVE AMNIOTIC FLUID VOLUME: 2.0 PRESENTATION: CEPHALIC HEART RATE: 145.9 bpm bpm. AMNIOTIC FLUID VOLUME: 14.4 cm GESTATIONAL AGE: 32 weeks 5 days CONCLUSION: Total biophysical profile score 8.0. Electronically authenticated by: J CARLOS LEARY Date: 11/01/2023 04:13 Dictated By: J Carlos Leary M.D. Signed By: 11/01/23414 DD/ 2 TD/TT: Heavy Equipment Technician: Procedure Note Radiology, Radiologist, - 11/01/2023 [facility] [place] [id number] Ultrasound Report Signed Patient: SOBIA CHAUDHARI EMR#: [id number] : 1990Acct:[id number] Age/Sex: 33 / FADM Date: 10/31/23 Loc: US Attending Dr: Cristel Medina D.O. Ordering Physician: Cristel Medina D.O. Date of Service: 10/31/23 Procedure(s): US OB BPP w non-stress Accession Number(s): [id number] cc: Cristel Medina D.O.; Physician,Non-Staff Xander [facility] [place] [id number] Patient Name: SOBIA CHAUDHARI MRN: [facility]:[id number] date: 1990 Sex: F Assigned Patient Location: [facility] Current Patient Location: Accession/Order Number: [id number] Exam Date: 10/31/2023 17:03 Report Date: 11/01/2023 04:13 At the request of: CRISTEL MEDINA Procedure: US OB BPP w non-stress EXAMINATION: US OB BPP w non-stress HISTORY: GESTATIONAL DIABETES MELLITUS O24.419 COMPARISON: Ultrasound OB growth 10/27/2023 TECHNIQUE: Ultrasound biophysical profile was performed in the radiology department. BREATHING MOVEMENTS: 2.0 GROSS BODY MOVEMENTS: 2.0 TONE: 2.0 QUALITATIVE AMNIOTIC FLUID VOLUME: 2.0 PRESENTATION: CEPHALIC HEART RATE: 145.9 bpm bpm. AMNIOTIC FLUID VOLUME: 14.4 cm GESTATIONAL AGE: 32 weeks 5 days CONCLUSION: Total biophysical profile score 8.0. Electronically authenticated by: J CARLOS LEARY Date: 11/01/2023 04:13 Dictated By: J Carlos Leary M.D. Signed By:11/01/23414 DD/ 2 TD/TT: Heavy Equipment Technician: us Cristel Medina DO [facility] Final Result documented in this encounter Visit Diagnoses Not on filedocumented in this encounter Care Teams Rock Contractor Relationship Specialty Start Date End Date Chris Rubio DO [address] [facility] [address] [place] [address] PCP - General Family Medicine 12/24/22 documented as of this encounter
--- OUTSIDE RECORDS SUMMARY | 2025-03-30 19:15 | XMS_ITS | CCD ---
Author Organization [facility] Care Team Providers Care Blood Bank Supervisor Name Role Phone DR CHRIS MALONEY Admitting Unavailable HAIDER, DR COLBERT Attending Unavailable HAIDER, DR COLBERT Primary Care Unavailable HAIDER, DR COLBERT Consulting Unavailable ADAM, DR FAM Admitting Unavailable ADAM, DR FAM Attending Unavailable HAIDER, DR COLBERT Primary Care Unavailable ADAM, DR FAM Consulting Unavailable Chris Maloney DO Primary Care Provider DO Chris Maloney Primary Care Provider Stepan Medina Attending Provider [phone] Chris Maloney Primary Care Unavailable Winnie Medinay Attending Unavailable Winnie Medinay Admitting Unavailable Ting ADMIN SECRETARY-INTERNET CONSULTANTAllyssa Primary Care Provider STEPAN MEDINA Attending Unavailable ADAMWINNIE ChildressY Attending Unavailable ADAMWINNIE ChildressY Attending Unavailable ADAMWINNIE ChildressY Attending Unavailable Ting ADMIN SECRETARY-INTERNET CONSULTANTAllyssa Primary Care Provider WILLIE GOLDEN Attending Unavailable TING, ALLYSSA M Referring Unavailable TING, ALLYSSA M Primary Care Unavailable MASON BOWEN Attending Unavailable TING, ALLYSSA M Referring Unavailable TING, ALLYSSA M Primary Care Unavailable TING, ALLYSSA M Attending Unavailable TING, ALLYSSA M Referring Unavailable TING, ALLYSSA M Primary Care Unavailable TING, ALLYSSA M Referring Unavailable TING, ALLYSSA M Primary Care Unavailable MASON BOWEN Attending Unavailable TING, ALLYSSA M Referring Unavailable TING, ALLYSSA M Primary Care Unavailable TING, ALLYSSA M Attending Unavailable TING, ALLYSSA M Referring Unavailable TING, ALLYSSA M Primary Care Unavailable WILLIE GOLDEN Attending Unavailable TING, ALLYSSA M Referring Unavailable TING, ALLYSSA M Primary Care Unavailable TING, ALLYSSA M Attending Unavailable TING, ALLYSSA M Referring Unavailable TING, ALLYSSA M Primary Care Unavailable TING, ALLYSSA M Attending Unavailable TING, ALLYSSA M Referring Unavailable TING, ALLYSSA M Primary Care Unavailable WILLIE GOLDEN Attending Unavailable TING, ALLYSSA M Referring Unavailable TING, ALLYSSA M Primary Care Unavailable WILLIE GLODEN Attending Unavailable TING, ALLYSSA M Referring Unavailable TING, ALLYSSA M Primary Care Unavailable TING, ALLYSSA M Referring Unavailable TING, ALLYSSA M Primary Care Unavailable LIZZ BARCENAS Attending Unavailable TING, ALLYSSA M Referring Unavailable TING, ALLYSSA M Primary Care Unavailable STEPAN MEDINA Referring Unavailable TING, ALLYSSA M Primary Care Unavailable Allergies Allergy Classification Reported Allergen(s) Allergy Type Date of Onset Reaction(s) Facility (3 sources) Penicillins; Translations: [PENICILLINS] Drug allergy (disorder) 3 [facility] Repository (1 source) traMADol Drug Allergy 6 [facility] Repository (20 sources) Gentamicin; Translations: [GENTAMICIN] Drug Allergy 2 Other, Other (See Comments), Eye Swelling [facility] (12 sources) Penicillins Drug Allergy 3 Hives [facility] (20 sources) Sulfonamides (Antibiotic) Drug Allergy 2 Itching, Rash, Swelling [facility] (12 sources) traMADol Drug Allergy 3 Anxiety [facility] (1 source) Penicillin Drug Allergy 1 [facility] Repository (20 sources) Nitrofurantoin; Translations: [NITROFURANTOIN] Drug Allergy 4 [facility] Work Phone: (20 sources) Penicillins Propensity to adverse reactions to drug 7 [facility] ([facility] sources) traMADol; Translations: [TRAMADOL HCL] Drug Allergy 7 Anxiety [facility] (3 sources) Penicillins Propensity to adverse reactions to drug 7 [facility] (2 sources) Sulfonamides (Antibiotic); Translations: [SULFA (SULFONAMIDE ANTIBIOTICS)] Propensity to adverse reactions to drug (disorder) [facility] Repository Medications Current Medications Medication Drug Class(es) Dates Sig (Normalized) Sig (Original) 24 hr ALPRAZolam 0.5 mg extended release oral tablet (2 sources) Benzodiazepine Start: 03-30-2025 End: 04-09-2025 take 1 tablet by mouth every twenty-four hours in the morning ALPRAZolam XR (Xanax XR) 0.5 MG 24 hr tablet Indications: Well woman exam with routine gynecological exam , Anxiety and depression Take 1 tablet (0.5 mg) by mouth in the morning for 10 days. Do not crush, chew, or split. 10 tablet 03/30/2025 04/09/2025 Active Blood Glucose Monitoring Suppl (True Metrix Go Glucose Meter) w/Device kit (2 sources) Start: 06-10-2023 Blood Glucose Monitoring Suppl (True Metrix Go Glucose Meter) w/Device kit Indications: Family history of gestational diabetes mellitus (GDM) 1 each in the morning and 1 each before bedtime. 1 kit 0 06/10/2023 Active citalopram 20 mg oral tablet (20 sources) Serotonin Reuptake Inhibitor Start: 03-30-2025 End: 04-29-2025 take 1 tablet by mouth once daily citalopram (CeleXA) 20 MG tablet Indications: Anxiety and depression Take 1 tablet (20 mg) by mouth Daily 30 tablet 3 03/30/2025 04/29/2025 Active Start: 09-09-2024 End: 10-07-2024 take 1 tablet by mouth in the morning citalopram (CeleXA) 20 mg tablet Indications: Situational mixed anxiety and depressive disorder Take 1 tablet (20 mg total) by mouth in the morning. 90 tablet 1 10/07/2024 Active Start: 07-29-2024 take 1 tablet by hillary th in the morning citalopram (CeleXA) 20 mg tablet Indications: Situational mixed anxiety and depressive disorder TAKE 1 TABLET BY MOUTH IN THE MORNING 30 tablet 07/29/2024 Active Start: 04-26-2024 End: 03-30-2025 take 1 tablet by mouth in the morning citalopram (CeleXA) 20 mg tablet Indications: Situational mixed anxiety and depressive disorder TAKE 1 TABLET BY MOUTH IN THE MORNING 30 tablet 09/09/2024 Active clindamycin 300 mg oral capsule (2 sources) Lincosamide Antibacterial Start: 04-29-2024 End: 05-06-2024 take 1 capsule by mouth in the morning, then take 1 capsule by mouth in the evening, then take 1 capsule by mouth at bedtime clindamycin (Cleocin) 300 MG capsule Indications: Dysuria Take 1 capsule (300 mg) by mouth in the morning and 1 capsule (300 mg) in the evening and 1 capsule (300 mg) before bedtime. Do all this for 7 days. 21 capsule 04/29/2024 05/06/2024 Active fluconazole 150 mg oral tablet (15 sources) Azole Antifungal Start: 12-08-2024 End: 12-08-2024 take 1 tablet by mouth once fluconazole (DIFLUCAN) 150 mg tablet Take 1 tablet by mouth 1 time for 1 dose 12/09/2024 Active Start: 07-06-2024 End: 07-13-2024 fluconazole (DIFLUCAN) 150 m g tablet Indications: Vaginal itching Take 1 tablet (150 mg total) by mouth every 3 (three) days for 3 doses. 2 tablet 07/06/2024 07/13/2024 Active Start: 06-10-2024 End: 06-10-2024 take 1 tablet by mouth once fluconazole (DIFLUCAN) 150 mg tablet Indications: Vaginal yeast infection Take 1 tablet (150 mg total) by mouth once for 1 dose. 1 tablet 06/10/2024 06/10/2024 Discontinued (Reorder) Start: 04-29-2024 End: 04-29-2024 take 1 tablet by mouth once, then take 1 tablet by mouth once fluconazole (Diflucan) 150 MG tablet Indications: Vaginal discharge , Dysuria , Yeast infection Take 1 tablet (150 mg) by mouth 1 (one) time for 1 dose This is a 1 time dose, take single tablet by mouth. 1 tablet 1 04/29/2024 04/29/2024 Start: 01-02-2024 End: 01-03-2024 take 1 tablet by mouth once fluconazole (DIFLUCAN) 150 mg tablet Indications: Antibiotic-induced yeast infection Take 1 tablet (150 mg total) by mouth once for 1 dose. 1 tablet 01/03/2024 01/03/2024 glycerin 144 mg/ml / petrolatum 150 mg/ml / phenylephrine hydrochloride 2.5 mg/ml / pramoxine hydrochloride 10 mg/ml rectal cream (10 sources) Non-Standardized Chemical Allergen, alpha-1 Adrenergic Agonist Start: 07-13-2024 apply 51 g rectal route three times daily as needed [id number].pet (PREPARATION H MAXIMUM STRENGTH) 0.25-1 % cream Indications: Hemorrhoids, unspecified hemorrhoid type Insert into the rectum 3 (three) times a day as needed (hemorrhoid). 51 g 07/13/2024 Active 24 hr metFORMIN hydrochloride 500 mg extended release oral tablet (7 sources) Biguanide Start: 12-08-2024 End: 12-08-2025 take 1 tablet by mouth every twenty-fo ur hours at mealtime metFORMIN XR (Glucophage-XR) 500 MG 24 hr tablet Indications: PCOS (polycystic ovarian syndrome) Take 1 tablet (500 mg) by mouth in the evening. Take with meals Do not crush, chew, or split. 30 tablet 12/08/2024 12/08/2025 Active metroNIDAZOLE 500 mg oral tablet (2 sources) Nitroimidazole Antimicrobial Start: 04-29-2024 End: 05-06-2024 take 1 tablet by mouth in the morning metroNIDAZOLE (Flagyl) 500 MG tablet Indications: Vaginal discharge , Dysuria Take 1 tablet (500 mg) by mouth in the morning and 1 tablet (500 mg) before bedtime. Do all this for 7 days. Do not drink alcohol while taking this medication. 14 tablet 04/29/2024 05/06/2024 Active predniSONE 10 mg oral tablet (2 sources) Start: 12-07-2024 take 4 tablets by mouth once daily, then take 3 tablets by mouth once daily, then take 2 tablets by mouth once daily, then take 1 tablet by mouth once daily predniSONE (DELTASONE) 10 mg tablet TAKE 4 TABLETS BY MOUTH ONCE DAILY FOR 2 DAYS, THEN 3 TABS DAILY FOR 2 DAYS, THEN 2 TABS DAILY FOR 2 DAYS, THEN 1 TAB DAILY FOR 2 DAYS 12/07/2024 Active Completed/Discontinued Medications Medication Drug Class(es) Dates Sig (Normalized) Sig (Original) aspirin 81 mg delayed release oral tablet (3 sources) Platelet Aggregation Inhibitor, Nonsteroidal Anti-inflammatory Drug End: 10-08-2023 take 1 tablet by mouth in the morning aspirin 81 mg Take 1 tablet (81 mg total) by mouth in the morning. 0 10/08/2023 Discontinued drospirenone 4 mg oral tablet (3 sources) Progestin Start: 01-26-2024 End: 04-29-2024 take 1 tablet by mouth once daily Drospirenone (Slynd) 4 MG tablet Indications: 6 weeks follow-up Take 1 tablet by mouth Daily 84 tablet 3 01/26/2024 04/29/2024 Discontinued fluticasone propionate 0.05 mg/actuat metered dose nasal spray (1 source) Corticosteroid Start: 06-19-2021 End: 10-08-2023 take 1 spray(s) nasal route once daily fluticasone propionate (FLONASE) 50 mcg/actuation nasal spray Indications: Nasal congestion Administer 1 spray into each nostril daily. 15.8 mL 0 06/19/2021 10/08/2023 Discontinued PNV cmb#95-ferrous fumarate-FA () 28 mg iron- 800 mcg tablet (15 sources) End: 06-29-2024 take 1 tablet by mouth once daily PNV cmb#95-ferrous fumarate-FA () 28 mg iron- 800 mcg tablet Take 1 tablet by mouth once daily. 06/29/2024 Discontinued (Therapy completed) take 1 tablet by mouth once tangela y PNV cmb#95-ferrous fumarate-FA () 28 mg iron- 800 mcg tablet Take 1 tablet by mouth once daily. Active take 1 tablet by mouth once tangela y PNV cmb#95-ferrous fumarate-FA () 28 mg iron- 800 mcg tablet Take 1 tablet by mouth once daily. 0 Active 28-0.8 MG tablet (5 sources) End: 04-29-2024 28-0.8 MG tablet Or ally 04/29/2024 Discontinued 28-0.8 MG tablet Orally Active 28-0.8 MG tablet Orally 0 Active Problems Active Problems Problem Classification Problem Date Documented Da te Episodic/Chronic Adjustment disorders (20 sources) Mixed anxiety and depressive disorder; Translations: [Adjustment disorder with mixed anxiety and depressed mood] Onset: 01-23-2022 09-08-2024 Chronic Allergic reactions (8 sources) Allergy to drug; Translations: [Allergy status to unspecified drugs, medicaments and biological substances status] Onset: 07-13-2024 07-13-2024 Episodic Genitourinary symptoms and ill-defined conditions (2 sources) Dysuria; Translations: [Dysuria] 04-29-2024 Episodic Hypertension complicating ; childbirth and the puerperium (20 sources) Chronic hypertension complicating AND/OR reason for care during ; Translations: [Unspecified pre-existing hypertension complicating , unspecified trimester] Onset: 09-05-2023 09-05-2023 Chronic Mood disorders (1 source) Depression Onset: 04-26-2024 Chronic Mycoses (10 sources) Mycosis; Translations: [Candidiasis, unspecified] 04-29-2024 Episodic Other congenital anomalies (20 sources) Follicular keratosis; Translations: [Other specified congenital malformations of skin] Onset: 01-23-2022 01-23-2022 Chronic Other endocrine disorders (20 sources) Polycystic ovary syndrome; Translations: [Polycystic ovarian syndrome] Onset: 01-23-2022 04-29-2024 Chronic Other endocrine disorders (1 source) Polycystic ovarian syndrome; Translations: [Polycystic ovarian syndrome] Onset: 06-10-2024 Chronic Other female genital disorders (2 sources) Vaginal discharge; Translations: [Other specified noninflammatory disorders of vagina] 04-29-2024 Episodic Other gastrointestinal disorders (1 source) 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; Translations: [Malabsorption due to intolerance, not elsewhere classified] 12-13-2024 Chronic Other screening for suspected conditions (not mental disorders or infectious disease) (4 sources) Encounter for screening for malignant neoplasm of cervix; Translations: [ENC SCREENING MALIG NEOPLASM CERV] Onset: 03-06-2022 Episodic Other upper respiratory disease (2 sources) Allergy to pollen; Translations: [Allergic rhinitis due to pollen] 07-13-2024 Chronic Other upper respiratory disease (2 sources) Allergic rhinitis due to pollen; Translations: [Allergic rhinitis due to pollen] Onset: 07-13-2024 Chronic Other upper respiratory disease (1 source) Allergic rhinitis due to pollen; Translations: [Allergic rhinitis due to pollen] 12-13-2024 Chronic Residual codes; unclassified (1 source) Illness; Translations: [Other general symptoms and signs] 10-07-2024 Episodic Unclassified (3 sources) CONTACT W/AND (SUSP) EXPOS COVID-19; Translations: [CONTACT W/AND (SUSP) EXPOS COVID-19] Onset: 07-28-2021 Unclassified (1 source) Annual Exam Onset: 06-29-2024 Unclassified (1 source) New Patient Onset: 12-13-2024 Past or Other Problems Problem Classification Problem Date Documented Date Episodic/Chronic Diabetes or abnormal glucose tolerance complicating ; childbirth; or the puerperium (20 sources) Gestational diabetes mellitus; Translations: [Gestational diabetes mellitus in , unspecified control] Onset: 09-05-2023 Resolved: 07-13-2024 09-29-2023 Episodic Hemorrhoids (2 sources) Hemorrhoids; Translations: [Unspecified hemorrhoids] Onset: 07-13-2024 07-13-2024 Episodic Immunizations and screening for infectious disease (3 sources) Encounter for screening for human papillomavirus (HPV); Translations: [Needs influenza immunization] Onset: 03-07-2022 06-14-2024 Episodic Mood disorders (20 sources) Mood disorders Onset: 06-29-2024 Resolved: 07-13-2024 07-13-2024 Other and unspecified benign neoplasm (20 sources) Fibroadenoma of left breast; Translations: [Benign neoplasm of left breast] Onset: 01-23-2022 01-23-2022 Episodic Other and unspecified benign neoplasm (3 sources) Benign neoplasm of left breast; Translations: [Benign neoplasm of breast] Onset: 01-23-2022 01-23-2022 Episodic Other complications of ; puerperium affecting management of mother (2 sources) Abnormality of heart; Translations: [ ventricular septal defect affecting antepartum care of mother, single or unspecified fetus] 10-01-2023 Episodic Other female genital disorders (1 source) Pruritus of vagina; Translations: [Other specified noninflammatory disorders of vagina] 07-06-2024 Episodic Other nutritional; endocrine; and metabolic disorders (13 sources) Overweight in adulthood with body mass index of 25 or more but less than 30; Translations: [Body mass index (BMI) 27.0-27.9, adult] Onset: 06-29-2024 06-29-2024 Episodic Other nutritional; endocrine; and metabolic disorders (1 source) Body mass index (BMI) 27.0-27.9, adult; Translations: [Body mass index (BMI) 27.0-27.9, adult] Onset: 06-29-2024 Episodic Other and delivery including normal (14 sources) Third trimester ; Translations: [Encounter for supervision of normal , unspecified, third trimester] Onset: 09-05-2023 09-22-2023 Episodic Residual codes; unclassified (1 source) Generally unwell; Translations: [Other general symptoms and signs] 10-13-2023 Episodic Unclassified (1 source) CONTACT W/AND (SUSP) EXPOS COVID-19; Translations: [CONTACT W/AND (SUSP) EXPOS COVID-19] Onset: 07-24-2021 Unclassified (12 sources) Onset: 06-29-2024 06-29-2024 Viral infection (1 source) Viral infection, unspecified; Translations: [VIRAL INFECTION UNSPECIFIED] Onset: 07-28-2021 Episodic Results Test Name Value Interpretation Reference Range Facility CBC AND AUTO DIFFon 06-10-20 ABSOLUTE BASOPHIL 0.1 X10E9/L Normal 0.0-0.2 [facility] Comment on above: Performed By: #### C BCA, 85617-1, 6-3, 3024-7, 50455-7, 21818-9 #### [facility] ([id number]) [address], [address] [place] [address] ABSOLUTE NEUTROPHIL 5.5 X10E9/L Normal 1.5-6.6 [facility] Comment on above: Performed By: #### Aylin BCA, 31396-5, 6-3, 3024-7, 90284-8, 40653-9 #### [facility] ([id number]) [address], [address] [place] [address] Basophils/100 WBC (Bld) 0.5 % Normal [facility] Comment on above: Performed By: #### Aylin BCA, 31996-5, 6-3, 3024-7, 78508-0, 28509-0 #### [facility] ([id number]) [address], [address] [place] [address] Eosinophils (Bld) [#/Vol] 0.1 10*3/uL Normal 0.0-0.4 [facility] Comment on above: Performed By: #### C BCA, 44244-9, 3016-3, 3024-7, 13183-3, 57857-5 #### [facility] ([id number]) [address], [facility] [address] [place] [address] Eosinophils/100 WBC (Bld) 1.2 % Normal [facility] Comment on above: Performed By: #### C BCA, 37474-5, 6-3, 3024-7, 95905-6, 35066-0 #### [facility] ([id number]) [address] [place] [address] Erythrocyte distribution width (RBC) [Ratio] 13.1 % Normal 11.5-15.0 [facility] Comment on above: Performed By: #### Aylin BCA, 47707-2, 3016-3, 3024-7, 11311-7, 44458-8 #### [facility] ([id number]) [address] [place] [address] Hematocrit (Bld) [Volume fraction] 44.2 % Normal 35-47 [facility] Comment on above: Performed By: #### C BCA, 89264-4, 3016-3, 3024-7, 26433-9, 24060-1 #### [facility] ([id number]) [address] [place] [address] Hemoglobin (Bld) [Mass/Vol] 15.2 g/dL Normal 11.7-15.5 [facility] Comment on above: Performed By: #### C BCA, 32911-1, 3016-3, 3024-7, 81650-6, 19397-1 #### [facility] ([id number]) [address], [facility] [address] [place] [address] Lymphocytes (Bld) [#/Vol] 3.5 10*3/uL Normal 1.0-3.5 [facility] Comment on above: Performed By: #### Aylin DANIELS, 09084-3, 3016-3, 3024-7, 59338-1, 25187-0 #### [facility] ([id number]) [address], [facility] [address] [place] [address] Lymphocytes/100 WBC (Bld) 35.2 % Normal [facility] Comment on above: Performed By: #### Aylin DANIELS, 78258-6, 6-3, 3024-7, 15082-1, 70610-2 #### [facility] ([id number]) [address] [place] [address] MCH (RBC) [Entitic mass] 31.0 pg Normal 27-34 [facility] Comment on above: Performed By: #### Aylin DANIELS, 15055-1, 6-3, 3024-7, 95397-6, 15520-9 #### [facility] ([id number]) [address] [address] MCHC (RBC) [Mass/Vol] 34.3 g/dL Normal 32-36 [facility] Comment on above: Performed By: #### Aylin DANIELS, 10457-5, 6-3, 3024-7, 37392-9, 19286-7 #### [facility] ([id number]) [address] [address] MCV (RBC) [Entitic vol] 91 fL Normal 80-100 [facility] Comment on above: Performed By: #### Aylin DANIELS, 42853-3, 6-3, 3024-7, 16459-0, 35664-2 #### [facility] ([id number]) [address] [place] [address] Monocytes (Bld) [#/Vol] 0.8 10*3/uL Normal 0-0.9 [facility] Comment on above: Performed By: #### Aylin DANIELS, 15756-8, 6-3, 3024-7, 58717-0, 57309-1 #### [facility] ([id number]) [address], [address] [address] Monocytes/100 WBC (Bld) 7.9 % Normal [facility] Comment on above: Performed By: #### Aylin DANIELS, 40764-2, 6-3, 3024-7, 44217-6, 06923-0 #### [facility] ([id number]) [address], [address] [address] Neutrophils/100 WBC (Bld) 55.2 % Normal [facility] Comment on above: Performed By: #### Aylin DANIELS, 59042-3, 6-3, 3024-7, 86705-6, 83863-3 #### [facility] ([id number]) [address], [address] [address] Platelet mean volume (Bld) [Entitic vol] 10.9 fL Normal 7-12 [facility] Comment on above: Performed By: #### Aylin DANIELS, 02954-8, 6-3, 3024-7, 87298-2, 96684-8 #### [facility] ([id number]) [address], [address] [address] Platelets (Bld) [#/Vol] 243 10*3/uL Normal 150-450 [facility] Comment on above: Performed By: #### Aylin DANIELS, 91361-6, 6-3, 3024-7, 20465-4, 78278-5 #### [facility] ([id number]) [address], [facility] [address] [place] [address] RBC COUNT 4.89 X10E12/L Normal 3.80-5.20 [facility] Comment on above: Performed By: #### C BCA, 07708-4, 3016-3, 3024-7, 95358-0, 70384-2 #### [facility] ([id number]) [address], [address] [place] [address] WBC (Bld) [#/Vol] 10.0 10*3/uL Normal 4.0-11.0 [facility] Comment on above: Performed By: #### C BCA, 22439-3, 3016-3, 3024-7, 79710-1, 30142-5 #### [facility] ([id number]) [address], [address] [place] [address] CBC W Auto Differential pane l (Bld)on 06-10-2024 ABSOLUTE BASOPHIL 0.1 [facility] Comment on above: PERFORMED AT [facility] [address],[place] [address] Basophils/100 WBC (Bld) 0.5 % [facility] Eosinophils (Bld) [#/Vol] 0.1 10*3/uL [facility] Eosinophils/100 WBC (Bld) 1.2 % [facility] Erythrocyte distribution width (RBC) [Ratio] 13.1 % 11.5 - 15.0 % [facility] Hematocrit (Bld) [Volume fraction] 44.2 % 35 - 47 % [facility] Hem[facility] (Bld) [Mass/Vol] 15.2 g/dL 11.7 - 15.5 g/dL [facility] Lymphocytes (Bld) [#/Vol] 3.5 10*3/uL [facility] Lymphocytes/100 WBC (Bld) 35.2 % [facility] MCH (RBC) [Entitic mass] 31 pg 27 - 34 pg [facility] MCHC (RBC) [Mass/Vol] 34.3 g/dL 32 - 36 g/dL [facility] MCV (RBC) [Entitic vol] 91 fL 80 - [facility] Monocytes (Bld) [#/Vol] 0.8 10*3/uL [facility] Monocytes/100 WBC (Bld) 7.9 % [facility] Neutrophils (Bld) [#/Vol] 5.5 10*3/uL [facility] Neutrophils/100 WBC (Bld) 55.2 % [facility] Platelet mean volume (Bld) [Entitic vol] 10.9 fL 7 - 12 fL [facility] Platelets (Bld) [#/Vol] 243 10*3/uL [facility] RBC (Bld) [#/Vol] 4.89 10*6/uL [facility] WBC corrected for nucl RBC Auto (Bld) [#/Vol] 10 [facility] T4on 06-10-2024 Free T4 [Mass/Vol] 0.85 ng/dL Normal 0.61-1.60 [facility] Comment on above: Performed By: #### Aylin DANIELS, 54283-5, 6-3, 3024-7, 39827-2, 41191-0 #### [facility] ([id number]) [address], [address] [place] [address] Follitropin Qnon 06-10-2024 FOLLICLE STIM HORMONE 5.4 mIU/mL Normal [facility] Comment on above: Result Comment: NORMAL FEMALE Luteal 1.8-5.1 mIU/mL Follicular 3.8-8.8 mIU/mL Mid Cycle 4.5-22.5 mIU/mL Post Yaz 16.7-113.6 mIU/mL Performed By: #### C FRANECS, 93055-0, 6-3, 4-7, 46107-1, 52455-9 #### [facility] ([id number]) [address] [place] [address], [address] [place] [address] HCG.beta subunit IA 3rd IS Q non 06-10-2024 SERUM B HCG,3RD I.S. <5 Normal [facility] Comment on above: Result Comment: NEW REFERENCE RANGE WEEKS (SINCE LMP) MIU/mL 3 WEEKS 5 - 50 4 WEEKS 5 - 426 5 WEEKS 18 - 7,340 6 WEEKS 1,080 - 56,500 7-8 WEEKS 7,650 - 229,000 9-12 WEEKS 25,700 - 288,000 13-16 WEEKS 13,300 - 254,000 17-24 WEEKS 4,060 - 165,400 25-40 WEEKS 3,640 - 117,000 MALES AND NON- FEMALES - <5 MIU/mL This test has been FDA approved for use in only. Elevated levels are not necessarily diagnostic for trophoblastic or nontrophoblastic neoplasms. Performed By: ###Rosette C FRANCES, 29658-1, 6-3, 3024-7, 82830-9, 24644-0 #### [facility] ([id number]) [address], [address] [place] [address] Lutropin Qnon 06-10-2024 LUTEINIZING HORMONE 9.1 mIU/mL Normal [facility] Comment on above: Result Comment: NORMAL FEMALE Follicular 2.1-10.9 mIU/mL Mid Cycle 19.2-103 mIU/mL Luteal 1.2-12.9 mIU/mL Post [place] 10.9-58.6 mIU/mL Performed By: ###Rosette Viera BCA, 24712-7, 6-3, 3024-7, 82014-4, 55132-6 #### [facility] ([id number]) [address], [address] [place] [address] TSH Qnon 06-10-2024 TSH 1.16 uIU/mL Normal 0.49-4.67 [facility] Comment on above: Performed By: ###Rosette Viera BCA, 13948-5, 6-3, 3024-7, 39534-7, 65379-7 #### [facility] ([id number]) [address], [address] [place] [address] Urinalysis macro (dipstick) panel (U)on 04-29-2024 Bilirubin, UA Negative Negative - 4(70) +++ mg/dL [facility] Blood, UA Negative Negative - 50 Galen/mcL [facility] Clarity, UA Clear [facility] Color, UA Yellow [facility] Glucose, UA Negative Negative - 1999(110) ++++ mg/dL [facility] Interpretation and review of laboratory results Abnormal [facility] Ketones, UA Positive Negative - 160(16) ++++ mg/dL [facility] Comment on above: 40 Leukocytes, UA Negative Negative - 500+++ Bean/mcL [facility] Nitrite, UA Negative Negative - Positive [facility] pH, UA 6.0 5 - 9 [facility] Protein, UA Negative Negative - 1999(20) ++++ mg/dL [facility] Spec Grav, UA 1.020 1 - 1.03 [facility] Urobilinogen, UA 0.2 0.2 - 12 mg/dL [facility] Joseph 12-15-2023 L Specimen: [id number] Received: 12/15/23 Status: BRENNA Tarango Num: [id number] Spec Type: Surgical Subm Dr: Stepan Medina Tissues: A Placenta - 3rd Trimester (Greater than 28 weeks) (PLACENTA) Procedures: HE/3, Gross/Micro L5 Age/ Patient Sex Location Account Attending Physician Ivania Lucero 33/F LABELL [id number] Stepan Medina SPEC NUM: [id number] RECD: 12/15/23 STATUS: BRENNA TARANGO NUM: [id number] CHARLES: 12/15/[address]: Stepan Medina ENTERED: 12/15/[address]: Meaghan,Lab SPEC TYPE: Surgical DEPT: SILVANO MURPHY ORDERED: HE/3, Gross/Micro L5 ORDERED: HE/3, Gross/Micro L5 Pathological Diagnosis Placental removal, repeat section delivery: -Mature third trimester placenta with three-vessel cord, borderline small for gestational age (430 g, about 5 percentile) -No evidence of acute chorioamnionitis, funisitis, or villitis -Patchy mild to moderate effect of meconium staining, including patchy prominent proliferation of amniotic epithelial cells -Incidental rare focal mild nonspecific chronic deciduitis -No other significant histopathological changes, except focal mild nonspecific gaping space beneath chorionic plate at the surface Gross Description Received in formalin is a anne placental disc with attached membranes, and attached umbilical cord. The 23.2 x 0.8 cm, three-vessel, pond umbilical cord inserts eccentrically into the chorionic plate, 4.1 cm from the placental disc margin. The cord has normal spiraling with no knots or lesions present. The marginally inserted, complete membranes are pond with green staining, slippery and opaque with the point of rupture that cannot be determined. Intramembranous blood vessels are absent. The chorionic plate is hernandez-blue with patent vessels that span out magistrally over ---- Specimen: [id number] Received: 12/15/23 Status: BRENNA Tarango Num: [id number] Spec Type: Surgical Subm Dr: Stepan Medina Tissues: A Placenta - 3rd Trimester (Greater than 28 weeks) (PLACENTA) Procedures: HE/Lilian, Gross/Micro L5 ---- Patient: Ivania Lucero [id number] (Continued) ---- Specimen: [id number] Received: 12/15/23 (Continued) Gross Description (Continued) Signed (signature on file) Tania Gunderson MD 12/16/23 1934 ---- Specimen: [id number] Received: 12/15/23 Status: BRENNA Tarango Num: [id number] Spec Type: Surgical Subm Dr: Stepan Medina Tissues: A Placenta - 3rd Trimester (Greater than 28 weeks) (PLACENTA) Procedures: Mini VALIENTE/Micro L5 ---- Patient: Ivania Lucero [id number] (Continued) ---- Specimen: [id number] Received: 12/15/23 (Continued) Gross Description (Continued) the surface. The maternal surface has intact, lobulated cotyledons. No adherent or loose blood is attached to the placental disc. The parenchyma is pink-red, spongiform with no lesions, distinct spaces, or obvious nodules present The 16.1 x 14.2 x 2.5 cm placental disc, devoid of membranes and cord, has a trimmed weight of 430 grams. Summary of sections: A1: umbilical cord at end and membrane roll including possible site of rupture A2: umbilical cord at placental end and parenchyma adjacent to cord insertion site A3: random mid-zonal section Clinical history: 39 weeks 2 days, placenta lakes, gestational diabetes, 9/9, repeat TW CPT Codes 06375 ---- ---- Specimen: [id number] Received: 12/15/23 Status: BRENNA Tarango Num: [id number] Spec Type: Surgical Subm Dr: Stepan Medina Tissues: A Placenta - 3rd Trimester (Greater than 28 weeks) (PLACENTA) Procedures: HE/3, Gross/Micro L5 ---- Patient: Ivania Lucero [id number] (Continued) ---- Signed (signature on file) Jose-Brice Gunderson MD 12/16/23 193 Normal [facility] POCT Influenza A/Influenza B /SARS-COV-2 [facility] 10-13-2023 External Poct Influenza A Antigen Negative [facility] [employer] External Poct Influenza B [facility]igen [facility] SARS-CoV-2 (COVID-19) Ag IA.rapid Ql (Resp) [facility] macro (dipstick) panel (U)Ordered By: Estefania Posadas on 09-29-2023 Bilirubin, UA Negative Negative - 4(70) +++ mg/dL [facility] Work Phone: Blood, UA Negative Negative - 50 Galen/mcL [facility] Work Phone: Clarity, UA Clear [employer] Work Phone: Color, UA Yellow [employer] Work Phone: Glucose, UA Negative Negative - 2000(110) ++++ mg/dL [facility] Work Phone: Interpretation and review of laboratory results Abnormal [facility] Work Phone: Ketones, UA Negative Negative - 160(16) ++++ mg/dL [facility] Work Phone: Leukocytes, UA Trace Negative - 500+++ Bean/mcL [facility] Work Phone: Nitrite, UA Negative Negative - Positive [facility] Work Phone: pH, UA 7.0 5 - 9 [employer] Work Phone: Protein, UA Negative Negative - 1999(20) ++++ mg/dL [facility] [employer] Work Phone: Spec Grav, UA 1.015 1 - 1.03 [facility] [employer] Work Phone: Urobilinogen, UA 0.2 0.2 - 12 mg/dL [facility] [employer] Work Phone: [facility] [employer] Work Phone: PAP ACOG PANEL 2: 30 to 65on 03-12-2022 . . Normal [facility] Comment on above: Result Comment: Perf ormed at: WB Performed By: #### [id number] #### [facility] [address] [place] [address] Dr. Michelle Gunderson Age Gdln ACOG Testing 30-65 [facility] Comment on above: Performed By: #### [id number] #### [facility] [address] [place] [address] Dr. Michelle Gunderson DIAGNOSIS: Comment Normal [facility] Comment on above: Result Comment: NEGA TIVE FOR INTRAEPITHELIAL LESION OR MALIGNANCY. Performed at: WB Performed By: #### 4 [id number] #### [facility] [address] [address] [address] Michelle Gunderson HPV Aptima Negative Normal [facility] Comment on above: Result Comment: This nucleic acid amplification test detects fourteen high-risk HPV types (16,18,31,33,35,39,45,51,52,56,58,59,66,68) without differentiation. Performed at: =G Performed By: #### [id number] #### [facility] [address] [address] [address] Michelle Gunderson Methodology: CTIM [facility] Comment on above: Result Comment: The Thin Prep(R) Mixologist was unable to read this specimen. Therefore a manual review was performed. Performed at: WB Performed By: #### [id number] #### [facility] [address] [place] [address] Dr. Michelle Gunderson Note: Comment Normal [facility] Comment on above: Result Comment: The Pap smear is a screening test designed to aid in the detection of premalignant and malignant conditions of the uterine cervix. It is not a diagnostic procedure and should not be used as the sole means of detecting cervical cancer. Both false-positive and false-negative reports do occur. . Performed at: WB Performed By: #### [id number] #### [facility] [address] [address] [address] Michelle Gunderson Performed by: Comment Normal [facility] Comment on above: Result Comment: Archana Lee, Mooner (ASCP) Performed at: WB Performed By: #### [id number] #### [facility] [address] [address] [address] Michelle Gunderson Specimen adequacy: Comment Normal [facility] Comment on above: Result Comment: Sati sfactory for evaluation. Endocervical and/or squamous metaplastic cells (endocervical component) are present. Partially obscuring thick areas are present. Performed at: WB Performed By: #### [id number] #### [facility] [address] [address] [address] Michelle Gunderson [facility]on SARS-CoV-2 (COVID-19) RNA JOSE MIGUEL+probe Ql (Unsp spec) Not detected Normal NOT DETECTED [facility] Comment on above: Result Comment: This test is not yet approved or cleared by the [place] FDA. When there are no FDA-approved or cleared tests available, and other criteria are met, FDA can make tests available under an emergency access mechanism called an Emergency Use Authorization (EUA). The EUA for this test is supported by the Banks of Health and Human Service's (HHS's) declaration [...] consistent with SARS-CoV-2. Performed By: #### C [facility] #### [facility] [address] [place] [address] Michelle Gunderson Vital Signs Date Time Vital Sign Value Performing Clinician Facility 03-30-2025 15:09-0400 Body mass index (BMI) [Ratio] 27.87 kg/m2 Stepan Adam DO Work Phone: [facility] 03-30-2025 15:09-0400 Body weight 69.13 kg Stepan Adam DO Work Phone: [facility] 03-30-2025 15:09-0400 Diastolic blood pressure 68 mm[Hg] Stepan Adam DO Work Phone: [facility] 03-30-2025 15:09-0400 Systolic blood pressure 110 mm[Hg] Stepan Adam DO Work Phone: [facility] 12-13-2024 08:09-0400 Body mass index (BMI) [Ratio] 27.28 kg/m2 Lizz Barcenas MD Work Phone: [facility] 12-13-2024 08:09-0400 Body weight 69.85 kg Lizz Barcenas MD Work Phone: [facility] 12-13-2024 08:09-0400 Diastolic blood pressure 81 mm[Hg] Lizz Barcenas MD Work Phone: [facility] 12-13-2024 08:09-0400 Heart rate 84 /min Lizz Barcenas MD Work Phone: [facility] 12-13-2024 08:09-0400 Systolic blood pressure 122 mm[Hg] Lizz Barcenas MD Work Phone: [facility] 12-08-2024 16:08-0400 Body mass index (BMI) [Ratio] 28.68 kg/m2 Stepan Adam [employer] Work Phone: [facility] 12-08-2024 16:08-0400 Body weight 71.12 kg Stepan Adam DO Work Phone: [facility] 12-08-2024 16:08-0400 Diastolic blood pressure 78 mm[Hg] Stepan Adam DO Work Phone: [facility] 12-08-2024 16:08-0400 Systolic blood pressure 114 mm[Hg] Stepan Adam DO Work Phone: [facility] 10-06-2024 15:00-0500 Body height 160 cm Kelly Spann [facility] 10-06-2024 15:00-0500 Body mass index (BMI) [Ratio] 27.56 kg/m2 Kelly Spann [facility] 10-06-2024 15:00-0500 Body weight 70.58 kg Kelly Spann [facility] 07-13-2024 15:37-0500 Body height 157.5 cm Allyssa Maguire ADMIN SECRETARY-INTERNET CONSULTANT Work Phone: [facility] 07-13-2024 15:37-0500 Body mass index (BMI) [Ratio] 28.12 kg/m2 Allyssajesse Reganider ADMIN SECRETARY-INTERNET CONSULTANT Work Phone: [facility] 07-13-2024 15:37-0500 Body temperature 97.3 [degF] Allyssa Ting ADMIN SECRETARY-INTERNET CONSULTANT Work Phone: [facility] 07-13-2024 15:37-0500 Body weight 69.76 kg Allyssa Ting ADMIN SECRETARY-INTERNET CONSULTANT Work Phone: [facility] 07-13-2024 15:37-0500 Diastolic blood pressure 79 mm[Hg] Allyssa Ting ADMIN SECRETARY-INTERNET CONSULTANT Work Phone: [facility] 07-13-2024 15:37-0500 Heart rate 70 /min Allyssa Ting ADMIN SECRETARY-INTERNET CONSULTANT Work Phone: [facility] 07-13-2024 15:37-0500 Respiratory rate 18 /min Allyssa Ting ADMIN SECRETARY-INTERNET CONSULTANT Work Phone: [facility] 07-13-2024 15:37-0500 SaO2% (BldA) [Mass fraction] 97 % Allyssa Ting ADMIN SECRETARY-INTERNET CONSULTANT Work Phone: [facility] 07-13-2024 15:37-0500 Systolic blood pressure 110 mm[Hg] Allyssa Ting ADMIN SECRETARY-INTERNET CONSULTANT Work Phone: [facility] 06-29-2024 15:18-0500 Body height 157.5 cm Allyssa Ting ADMIN SECRETARY-INTERNET CONSULTANT Work Phone: [facility] 06-29-2024 15:18-0500 Body mass index (BMI) [Ratio] 27.79 kg/m2 Allyssajesse Maguire ADMIN SECRETARY-INTERNET CONSULTANT Work Phone: [facility] 06-29-2024 15:18-0500 Body temperature 98.1 [degF] Allyssajesse Maguire ADMIN SECRETARY-INTERNET CONSULTANT Work Phone: [facility] 06-29-2024 15:18-0500 Body weight 68.95 kg Allyssa Ting ADMIN SECRETARY-INTERNET CONSULTANT Work Phone: [facility] 06-29-2024 15:18-0500 Diastolic blood pressure 75 mm[Hg] Allyssajesse Maguire ADMIN SECRETARY-INTERNET CONSULTANT Work Phone: [facility] 06-29-2024 15:18-0500 Heart rate 86 /min Allyssa Ting ADMIN SECRETARY-INTERNET CONSULTANT Work Phone: [facility] 06-29-2024 15:18-0500 Respiratory rate 18 /min Allyssa Ting ADMIN SECRETARY-INTERNET CONSULTANT Work Phone: [facility] 06-29-2024 15:18-0500 SaO2% (BldA) [Mass fraction] 96 % Allyssa Ting ADMIN SECRETARY-INTERNET CONSULTANT Work Phone: [facility] 06-29-2024 15:18-0500 Systolic blood pressure 112 mm[Hg] Allyssa Ting ADMIN SECRETARY-INTERNET CONSULTANT Work Phone: [facility] 04-29-2024 11:43-0400 Body height 157.5 cm Stepan Adam DO Work Phone: [facility] 04-29-2024 11:43-0400 Body mass index (BMI) [Ratio] 27.25 kg/m2 Stepan Adam DO Work Phone: [facility] 04-29-2024 11:43-0400 Body weight 67.59 kg Stepan Adam DO Work Phone: [facility] 04-29-2024 11:43-0400 Diastolic blood pressure 78 mm[Hg] Stepan Adam DO Work Phone: [facility] 04-29-2024 11:43-0400 Systolic blood pressure 122 mm[Hg] Stepan Adam DO Work Phone: [facility] 10-13-2023 10:44-0500 Body height 157.5 cm Alessiagirish Mason ADMIN SECRETARY-INTERNET CONSULTANT Work Phone: [facility] 10-13-2023 10:44-0500 Body mass index (BMI) [Ratio] 27.9 kg/m2 Alessiagirish Mason ADMIN SECRETARY-INTERNET CONSULTANT Work Phone: [facility] 10-13-2023 10:44-0500 Body temperature 97.7 [degF] Alessia Mason ADMIN SECRETARY-INTERNET CONSULTANT Work Phone: [facility] 10-13-2023 10:44-0500 Body weight 69.22 kg Alessiagirish Mason ADMIN SECRETARY-INTERNET CONSULTANT Work Phone: [facility] 10-13-2023 10:44-0500 Diastolic blood pressure 78 mm[Hg] Alessiagirish Mason ADMIN SECRETARY-INTERNET CONSULTANT Work Phone: [facility] 10-13-2023 10:44-0500 Heart rate 86 /min Alessiagirish Mason ADMIN SECRETARY-INTERNET CONSULTANT Work Phone: [facility] 10-13-2023 10:44-0500 Respiratory rate 18 /min Alessia Mason ADMIN SECRETARY-INTERNET CONSULTANT Work Phone: [facility] 10-13-2023 10:44-0500 SaO2% (BldA) [Mass fraction] 98 % Alessia Mason ADMIN SECRETARY-INTERNET CONSULTANT Work Phone: [facility] 10-13-2023 10:44-0500 Systolic blood pressure 113 mm[Hg] Alessia Mason ADMIN SECRETARY-INTERNET CONSULTANT Work Phone: [facility] 10-07-2023 09:29-0500 Body height 157.5 cm Oskar Wood MD Work Phone: [facility] 10-07-2023 09:29-0500 Body mass index (BMI) [Ratio] 28.78 kg/m2 Oskar Wood MD Work Phone: [facility] 10-07-2023 09:29-0500 Body weight 71.4 kg Oskar Wood MD Work Phone: [facility] 10-07-2023 09:29-0500 Diastolic blood pressure 73 mm[Hg] Oskar Wood MD Work Phone: [facility] 10-07-2023 09:29-0500 Heart rate 95 /min Oskar Wood MD Work Phone: [facility] 10-07-2023 09:29-0500 SaO2% (BldA) [Mass fraction] 100 % Oskar Wood MD Work Phone: [facility] 10-07-2023 09:29-0500 Systolic blood pressure 124 mm[Hg] Oskar Wood MD Work Phone: [facility] 09-29-2023 16:19-0500 Body mass index (BMI) [Ratio] 29.04 kg/m2 Jazlyn MCDUFFIE Work Phone: [facility] 09-29-2023 16:19-0500 Body weight 72.03 kg Jazlyn MCDUFFIE Work Phone: [facility] 09-29-2023 16:19-0500 Diastolic blood pressure 70 mm[Hg] Jazlyn MCDUFFIE Work Phone: [facility] 09-29-2023 16:19-0500 Systolic blood pressure 120 mm[Hg] Jazlyn MCDUFFIE Work Phone: [facility] Encounters Encounter Date Encounter Type Care Provider Facility Start: 03-30-2025 End: 03-30-2025 Patient encounter procedure Stepan Burriso DO Work Phone: [facility] Work Phone: Start: 03-30-2025 End: 03-30-2025 Periodic preventive med est patient 18-39 yrs Stepan Medina DO Work Phone: [facility] Comment on above: Anxiety and depressi on (Primary Dx); Well woman exam with routine gynecological exam Start: 03-30-2025 End: 03-30-2025 Bamboo flowsheet Stepan Medina DO Work Phone: [facility] Start: 03-30-2025 End: 03-30-2025 Bamboo flowsheet Stepan Medina DO Work Phone: [facility] Start: 12-30-2024 End: 12-30-2024 Telephone encounter Pauly Hi CMA [facility] Physician [facility] Start: 12-13-2024 End: 12-13-2024 Office consultation new/estab patient 60 min Lizz Barcenas MD Work Phone: [facility] Allergy and Immunology, A Department of [facility] Comment on above: Seasonal allergic rh initis due to pollen (Primary Dx); Multiple drug allergies; PFAS (pollen-food allergy syndrome), initial encounter; Food intolerance in adult; Allergic contact dermatitis due to adhesives; Allergic contact dermatitis due to drugs in contact with skin Start: 12-13-2024 End: 12-13-2024 ambulatory LIZZ BARCENAS [facility] Start: 12-09-2024 End: 12-09-[address] [facility] Start: 12-08-2024 End: 12-08-2024 Office outpatient visit 15 minutes Stepan Adam DO Work Phone: [facility] Comment on above: Vaginal yeast infect ion; PCOS (polycystic ovarian syndrome); Yeast infection Start: 12-08-2024 End: 12-08-2024 ambulatory STEPAN ADAM Not Available Start: 12-08-2024 End: 12-08-2024 Bamboo flowsheet Stepan Adam DO Work Phone: [facility] Start: 12-08-2024 End: 12-08-2024 Bamboo flowsheet Stepan Adam DO Work Phone: [facility] Start: 10-07-2024 End: 10-07-2024 ambulatory ALLYSSA MAGUIRE [facility] Start: 10-07-2024 End: 10-07-2024 Office outpatient visit 15 minutes Allyssa Maguire ADMIN SECRETARY-INTERNET CONSULTANT Work Phone: [facility] Comment on above: Ill feeling (Primary Dx); Situational mixed anxiety and depressive disorder Start: 10-06-2024 End: 10-06-2024 ambulatory Kelly Spann CPT [facility] Start: 09-14-2024 End: 09-14-[address] [facility] Start: 09-08-2024 End: 09-09-2024 Refill Allyssa Maguire ADMIN SECRETARY-INTERNET CONSULTANT Work Phone: [facility] Comment on above: Situational mixed an xiety and depressive disorder Start: 07-28-2024 End: 07-29-2024 Refill Allyssa Maguire ADMIN SECRETARY-INTERNET CONSULTANT Work Phone: [facility] Comment on above: Situational mixed an xiety and depressive disorder Start: 07-13-2024 End: 07-13-2024 Office outpatient visit 25 minutes Allyssa Maguire ADMIN SECRETARY-INTERNET CONSULTANT Work Phone: [facility] Comment on above: Hemorrhoids, unspeci fied hemorrhoid type (Primary Dx); Hay fever; Multiple drug allergies Start: 07-13-2024 End: 07-13-2024 ambulatory ALLYSSA M [facility] Start: 07-06-2024 End: 07-06-2024 ambulatory WILLIE GOLDEN [facility] Start: 07-05-2024 End: 07-06-2024 Office outpatient visit 15 minutes Willie Golden DO Work Phone: [facility] Comment on above: Vaginal itching (Debbie shen Dx) Start: 06-29-2024 End: 06-29-2024 ambulatory ALLYSSA M [facility] Start: 06-29-2024 Encounter for genera l adult medical examination without abnormal findings [facility] Kitty [facility] Start: 06-29-2024 End: 06-29-2024 Patient encounter procedure Allyssajesse Reganider ADMIN SECRETARY-INTERNET CONSULTANT Work Phone: [facility] Work Phone: Start: 06-29-2024 End: 06-29-2024 Periodic preventive med est patient 18-39 yrs Allyssa Tang Ting ADMIN SECRETARY-INTERNET CONSULTANT Work Phone: [facility] Comment on above: Well woman exam (no gynecological exam) (Primary Dx); BMI 27.0-27.9,adult Start: 06-14-2024 End: 06-14-2024 Clinical Support Allyssa M Ting ADMIN SECRETARY-INTERNET CONSULTANT Work Phone: [facility] Comment on above: Influenza vaccine ne eded (Primary Dx) Start: 06-14-2024 End: 06-14-2024 ambulatory ALLYSSA M [facility] Start: 06-10-2024 End: 06-10-2024 External Result Encounter Stepan Medina DO Work Phone: [facility] Unsolicited Start: 06-10-2024 End: 06-10-2024 External Result Encounter Stepan Adam DO Work Phone: [facility] Unsolicited Start: 06-10-2024 End: 06-10-2024 Orders Only Allyssa Maguire ADMIN SECRETARY-INTERNET CONSULTANT Work Phone: [facility] Comment on above: Vaginal yeast infect ion (Primary Dx) Vaginal yeast infect ion Start: 05-21-2024 End: 05-21-2024 ambulatory WILLIE [facility] Start: 05-21-2024 End: 05-21-2024 Office outpatient visit 15 minutes Willie Golden DO Work Phone: [facility] Comment on above: Situational mixed an xiety and depressive disorder (Primary Dx) Start: 05-06-2024 End: 05-06-2024 Orders Only Allyssa Kitty Ting ADMIN SECRETARY-INTERNET CONSULTANT Work Phone: [facility] Comment on above: Situational mixed an xiety and depressive disorder Start: 04-29-2024 End: 04-29-2024 Bamboo flowsheet Stepan Adam DO Work Phone: [facility] Start: 04-29-2024 End: 04-29-2024 Bamboo flowsheet Stepan Adam DO Work Phone: [facility] Start: 04-29-2024 End: 04-29-2024 ambulatory STEPAN ADAM Not Available Start: 04-29-2024 End: 04-29-2024 Office outpatient visit 15 minutes Stepan Adam DO Work Phone: [facility] Comment on above: Vaginal discharge; Dysuria; PCOS (polycystic ovarian syndrome); Yeast infection Start: 04-26-2024 End: 04-26-2024 ambulatory WILLIE [facility] Start: 04-26-2024 End: 04-26-2024 Office outpatient visit 15 minutes Willie Golden DO Work Phone: [facility] Comment on above: Situational mixed an xiety and depressive disorder (Primary Dx) Start: 01-26-2024 End: 01-26-2024 ambulatory STEPAN ADAM Not Available Start: 01-05-2024 End: 01-05-2024 Telephone encounter Allyssa Maguire ADMIN SECRETARY-INTERNET CONSULTANT Work Phone: [facility] Start: 01-03-2024 End: 01-26-2024 Orders Only Alessia Mason ADMIN SECRETARY-INTERNET CONSULTANT Work Phone: [facility] Comment on above: Antibiotic-induced y east infection (Primary Dx) Start: 01-02-2024 End: 01-02-2024 Telephone encounter Rosenda Ba DARWIN [facility] Start: 12-22-2023 End: 12-22-2023 ambulatory STEPAN ADAM Not Available Start: 12-15-2023 End: 12-15-2023 ambulatory DO Chris Maloney Work Phone: [facility] Work Phone: Start: 12-15-2023 End: 12-15-2023 Departed Referred DO Chris Maloney Work Phone: [facility] Path [facility] Start: 12-11-2023 End: 12-11-2023 Office outpatient visit 5 minutes Allyssa Maguire ADMIN SECRETARY-INTERNET CONSULTANT Work Phone: [facility] Comment on above: Encounter for labora tory examination (Primary Dx) Start: 12-11-2023 End: 12-11-2023 Patient encounter status Allyssa Maguire ADMIN SECRETARY-INTERNET CONSULTANT Work Phone: [facility] Work Phone: Start: 10-13-2023 End: 10-13-2023 Office outpatient visit 15 minutes Alessia Mason ADMIN SECRETARY-INTERNET CONSULTANT Work Phone: [facility] Comment on above: General ill feeling (Primary Dx) Start: 10-07-2023 End: 10-07-2023 Office consultation new/estab patient 80 min Oskar Wood MD Work Phone: [facility] Comment on above: ventricular se ptal defect affecting antepartum care of mother, single or unspecified fetus (Primary Dx); ventricular septal defect in , antepartum, single gestation Start: 09-29-2023 End: 09-29-2023 flow sheet Jazlyn MCDUFFIE Work Phone: [facility] Comment on above: Third trimester preg nj; Gestational diabetes mellitus (GDM) in third trimester, gestational diabetes method of control unspecified Start: 03-06-2022 End: 03-06-[address] STEPAN MEDINA Facility:[facility] Start: 07-24-2021 End: 07-24-[address] CHRIS MALONEY Facility:[facility] Procedures Date Procedure Procedure Detail Performing Clinician Start: 07-13-2024 Follow-up visit Follow-up ALLYSSA MAGUIRE Start: 07-13-2024 Adult depression scr eening assessment Allyssa Maguire ADMIN SECRETARY-INTERNET CONSULTANT Work Phone: Start: 06-29-2024 Adult depression scr eening assessment Allyssa Maguire ADMIN SECRETARY-INTERNET CONSULTANT Work Phone: Start: 06-10-2024 Complete blood count with white cell differential, automated Stepan Medina DO Work Phone: Start: 04-29-2024 Urnls dip stick/tabl et rgnt non-auto w/o micrscp Stepan Medina DO Work Phone: Start: 10-13-2023 POCT INFLUENZA A/INF LUENZA B/SARS-COV-2 VERITOR Alessia Mason ADMIN SECRETARY-INTERNET CONSULTANT Work Phone: Start: 10-13-2023 Adult depression scr eening assessment Alessia Mason ADMIN SECRETARY-INTERNET CONSULTANT Work Phone: Start: 09-29-2023 Urnls dip stick/tabl et rgnt non-auto w/o micrscp Jazlyn MCDUFFIE Work Phone: Start: 07-14-2023 Microscopic observat ion [Identifier] in Cervix by Cyto stain Allyssa Maguire ADMIN SECRETARY-INTERNET CONSULTANT Work Phone: Start: 05-08-2023 Adult depression scr eening assessment Oskar Wood MD Work Phone: Plan of Treatment Date Care Activity Detail Author Start: 09-19-2032 DTaP,Tdap and Td Vaccines (3 - Td or Tdap) DTaP,Tdap and Td Vaccines (3 - Td or Tdap) [facility] Start: 09-07-2030 DTaP,Tdap and Td Vaccines (2 - Tdap) DTaP,Tdap and Td Vaccines (2 - Tdap) [facility] Start: 07-14-2028 Screening for malign ant neoplasm of cervix [facility] Start: 07-14-2026 Screening for malign ant neoplasm of cervix Pap Smear [facility] Start: 12-13-2025 Adult BMI Screening Adult BMI Screen ing [facility] Start: 12-13-2025 Tobacco Screening Tobacco Screening [facility] Start: 10-06-2025 Adult BMI Screening Adult BMI Screen ing [facility] Start: 07-13-2025 Adult BMI Screening Adult BMI Screen ing [facility] Start: 07-13-2025 Depression Screening Depression Scre ening [facility] Start: 07-13-2025 Tobacco Screening Tobacco Screening [facility] Start: 06-29-2025 Adult BMI Follow Up Plan Adult BMI Follow Up Plan [facility] Start: 06-29-2025 Adult BMI Screening Adult BMI Screen ing [facility] Start: 06-29-2025 COVID-19 Vaccine (3 - Pfizer risk series) COVID-19 Vaccine (3 - Pfizer risk series) [facility] Comment on above: Postponed from 06/02 (Vaccine Not Available) Start: 06-29-2025 Depression Screening Depression Scre ening [facility] Start: 06-29-2025 Tobacco Screening Tobacco Screening [facility] Start: 05-22-2025 Tobacco Screening Tobacco Screening [facility] Start: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 Wheal: 0 Flare: 0 Penicillium Wheal: 0 Flare: 0 Ryann albicans Wheal: 0 Flare: 0 Trichophyton Wheal: 0 Flare: 0 D. farinae Wheal: 0 Flare: 0 Cat Wheal: 0 Flare: 0 D. pteronyssius Wheal: 0 Flare: 0 Rat Wheal: 0 Flare: 0 Feathers Wheal: 0 Flare: 0 Dog epithelium Wheal: 0 Flare: 0 Cockroach Wheal: 0 Flare: 0 UF Dog Wheal: 0 Flare: 0 Gerbil Wheal: 0 Flare: 0 Mouse Wheal: 0 Flare: 0 Guinea pig Wheal: 0 Flare: 0 Rabbit Wheal: 0 Flare: 0 Hamster Wheal: 0 Flare: 0 Saline Wheal: 0 Flare: 0 Horse Wheal: 0 Flare: 0 Histamine Wheal: 10 Flare: 40 The skin testing results were interpreted by the attending clinician as follows: Negative with a positive histamine control Assessment/ Plan: 1. Seasonal allergic rhinitis due to pollen (Primary) - SPT 12/13/2024 negative but with convincing history of both fall ragweed allergy and associated oral allergy syndrome - Will send RAP to confirm/clarify allergic sensitizations - [facility] [place], [place] - Respiratory allergy panel; Future 2. Multiple drug allergies - Low risk history. While many patients report a penicillin allergy, the majority do not have IgE mediated hypersensitivity (immediate, life-threatening allergies). - Ivania Whitbo Rai's history is not consistent with SJS, TEN, DIHS/DRESS, serum sickness, interstitial nephritis, or hemolytic anemia, which would be absolute contraindications to future use. - Consequently, I recommend further evaluation with penicillin skin testing and a graded amoxicillin challenge. - We reviewed the details of the procedure and appropriate preparation (including discontinuation of antihistamines at least 5 days prior, and holding beta-blockers on the night before and morning of the challenge, if possible, since they can make unanticipated allergic reactions more difficult to treat). Other routine medications, especially asthma and COPD medications, should be continued. - Pt's symptoms with both macrobid and bactrim are consistent with allergy, would recommend avoidance and can consider oral drug challenge in the event these drugs are needed and no alternatives available - [facility] [place], [place] 3. PFAS (pollen-food allergy syndrome), initial encounter - Localized symptoms of mouth, lip, throat itching with consumption of fresh fruit and vegetables, consistent with food-pollen syndrome. - No systemic symptoms, no anaphylaxis. - We discussed avoidance of triggering foods, and may also try to cook, peel, or otherwise process foods so they are better tolerated. - Pt should strictly avoid any foods that cause difficulty breathing, throat swelling, or systemic symptoms. 4. Food intolerance in adult - Had discussion today about difference between food allergy and food intolerance. Pt's symptoms with milk ingestion c/w intolerance. - Food allergy is reliable and reproducible, IgE-mediated, and causes rapid IgE-mediated symptoms (hives, itching, swelling, vomiting, difficulty breathing, changes in blood pressure) with each ingestion. - Food intolerance may be inconsistent, more dose-dependent, and may cause nonspecific symptoms such as abdominal discomfort, bloating, nausea, and diarrhea - Food intolerance is not diagnosed with test for sensitization (skin-prick or serum specific IgE), but rather by careful food diaries and short trials of elimination. 5. Allergic contact dermatitis due to adhesives - Discussed patch testing for ACD, versus avoidance of known and suspected triggers 6. Allergic contact dermatitis due to drugs in contact with skin F/U for PCN eval Lizz Barcenas MD [facility] Total time spent was 36 minutes: Preparing to see the patient (e.g., review of tests) Obtaining and/or reviewing separately obtained history Performing a medically appropriate examination and/or evaluation Counseling and educating the patient/family/caregiver Ordering medications, tests, or procedures Documenting clinical information in the electronic or other health record This time spent does not include the time used for the procedures performed in clinic today Scribe Statement: IEmily, scribed for and in the presence of Lizz Barcenas MD who performed the above service. Emily Avery 12/13/24 [id number] Emily Avery 12/13/24 [id number] documented in this encounter LMN-1 12-13-2024 Instructions Lizz Barcenas MD - 12/13/2024 8:00 AM EDT Distant history of an adverse reaction to penicillin -There are numerous causes of adverse reactions to medications. Some are caused by the immune system (allergic reactions) and some are not. -Many adverse reactions to penicillin are not caused by immediate, life-threatening allergies. -Over 90% of individuals who do have immediate penicillin allergies become tolerant of penicillin (or outgrow the allergy) within 10 years of their initial reaction to penicillin. -Therefore, we recommend penicillin skin testing followed by a graded oral amoxicillin challenge for further evaluation. About Penicillin Skin Testing -Penicillin skin testing is a two-step procedure. First, we scratch the surface of the skin with two forms of penicillin, and wait 15 min. If there is no reaction, we proceed to the second step which involves injecting very small amounts of penicillin under the skin. If there is a reaction, this usually manifests as a small hive (itchy bump) at the testing site. The risk of causing a full-body allergic reaction is very low. If the second test is negative, the likelihood that you are not allergic to penicillin is estimated to be 97 percent. About Amoxicillin Challenges -To make sure that you are truly not allergic to penicillin, we follow up negative penicillin skin testing with an amoxicillin challenge. This involves giving a small test dose of amoxicillin (a penicillin derivative) under observation in our clinic. If there is no reaction after 30 min, we give a larger dose and monitor for an additional 60 minutes. Our office is equipped to treat any allergic reactions which could occur. The entire process of performing penicillin skin testing and an amoxicillin challenge takes around 2.5-3 hours. Before the Challenge *Stop anti-histamines at least 5 days before the testing. *If you have asthma, continue taking your medications as prescribed. It is very important that asthma is under good control, because poorly-controlled asthma is a risk factor for severe allergic reactions. *If you take a beta-gayle, do not take it the night before and the morning of the challenge. Beta-blockers can make allergic reactions more difficult to treat. These include atenolol (Tenomorin), metoprolol (Lopressor), labetalol (Trandate), nadolol (Corgard), propranolol (Inderal, InnoPran XL), and others. *If you are not feeling well, please call to reschedule. You should be in a good state of health for the testing. *Continue strict penicillin avoidance (including penicillin, amoxicillin, Augmentin, nafcillin, oxacillin, piperacillin) *Do NOT take amoxicillin at home. Bring it to the clinic unopened for the challenge. Skin Prick Testing Allergy Skin Testing done by prick (puncture) technique Read: 12/13/2024 8:55 AM Rajendra tree Wheal: 0 Flare: 0 Elm Wheal: 0 Flare: 0 Birch tree Wheal: 0 Flare: 0 Pepin Wheal: 0 Flare: 0 Boxelder (Maple) Wheal: 0 Flare: 0 [place] Wheal: 0 Flare: 0 [place] Wheal: 0 Flare: 0 [place] Wheal: 0 Flare: 0 [place] Wheal: 0 Flare: 0 Tamarack grass Wheal: 0 Flare: 0 Elbert Wheal: 0 Flare: 0 [place] grass Wheal: 0 Flare: 0 [place] Wheal: 0 Flare: 0 [place] bluegrass Wheal: 0 Flare: 0 [place] Wheal: 0 Flare: 0 Jason grass Wheal: 0 Flare: 0 Dock/sorrel Wheal: 0 Flare: 0 Nettle Wheal: 0 Flare: 0 Mauritanian plantain Wheal: 0 Flare: 0 Pigweed Wheal: 0 Flare: 0 Kochia Wheal: 0 Flare: 0 Ragweed Wheal: 0 Flare: 0 Marshelder Wheal: 0 Flare: 0 Indian thistle Wheal: 0 Flare: 0 Agapito Wheal: 0 Flare: 0 Cladosporium Wheal: 0 Flare: 0 Alternaria Wheal: 0 Flare: 0 Epicoccum nigrum Wheal: 0 Flare: 0 Aspergillus fumigatus Wheal: 0 Flare: 0 Penicillium Wheal: 0 Flare: 0 Ryann albicans Wheal: 0 Flare: 0 Trichophyton Wheal: 0 Flare: 0 D. farinae Wheal: 0 Flare: 0 Cat Wheal: 0 Flare: 0 D. pteronyssius Wheal: 0 Flare: 0 Rat Wheal: 0 Flare: 0 Feathers Wheal: 0 Flare: 0 Dog epithelium Wheal: 0 Flare: 0 Cockroach Wheal: 0 Flare: 0 UF Dog Wheal: 0 Flare: 0 Gerbil Wheal: 0 Flare: 0 Mouse Wheal: 0 Flare: 0 Guinea pig Wheal: 0 Flare: 0 Rabbit Wheal: 0 Flare: 0 Hamster Wheal: 0 Flare: 0 Saline Wheal: 0 Flare: 0 Horse Wheal: 0 Flare: 0 Histamine Wheal: 10 Flare: 40 The skin testing results were interpreted by the attending clinician as follows: Negative with a positive histamine control Patch Testing for Allergic Contact Dermatitis Patch testing is a procedure used to evaluate suspected allergic contact dermatitis (ACD). Purpose: Identify allergens to facilitate avoidance of known triggers and promote skin healing. Procedure: Patch testing involves application of a series of cloth-like patches permeated with allergens to the skin of the back. They are removed after 48 hours, at which time the physician looks for early signs of an allergic response. There is another reading at 96 hours, and then the final reading is performed 7 days after the patches have been applied. Typically, the patches are placed on Friday, removed on Friday, and the second read occurs on Friday, with the last read the following Friday. We most commonly apply the patches to your back, but will not put them over tattoos. Risks: If you are allergic to any of the allergens tested, you will likely develop an itchy rash at this site. A red, raised, itchy, and sometimes blistering rash at the site of the patch constitutes a positive test. Secondary bacterial infections are rare, but possible. Benefits: Identification of relevant allergens, which can help you to avoid those substances and experience relief from ACD. Even if no allergies are identified, there is benefit in excluding those substances as a cause for your rash. Alternatives: The alternative is to not to perform patch testing. You may continue medical therapy as prescribed by your physician and diagnostic avoidance trials based on your history. Before Testing: -Potent topical steroids and oral steroids (prednisone, prednisolone, Orapred, Medrol, dexamethasone, Decadron) must be discontinued for at least 2 weeks prior to patch testing. -Do not pond (outdoors, tanning bed, or spray pond) for at least 4 weeks prior. -If there is hair on your back, it will need to be shaved. We can do this for your in clinic, or you can do it yourself ahead of time. During Testing: -Don't scratch! -Do not get the patches wet or shower. It is okay to take sponge baths, just make sure to keep the skin near the patches dry. -Avoid intense exercise and other activities that cause you to sweat -Do NOT take oral corticosteroids (prednisone, prednisolone, Orapred, Medrol, dexamethasone, Decadron) -DO NOT apply any topical medications to the skin involving or near the patches. -Okay to take oral antihistamines for relief of pruritus. These include Benadryl [diphenhydramine], Zyrtec [cetirizine], Deisy [fexofenadine], Claritin [loratadine], and Atarax [hydroxyzine]). -DO NOT pond (outdoors, in a tanning bed, or by a spray pond) during this week. -The marker we use to label the patches is water-washable, but can get on your clothes and leave a stain. Wear something that is machine washable, and that you wouldn't mind getting marker on. -Before coming in for your last visit, download the free pilar Yeelink[employer] Between (searchable in the pilar store). We will need this pilar to utilize your test results. documented in this encounter [facility] 12-09-2024 History of Presen t illness Narrative Nutrition Follow Up Reason for Visit: weight management REBA and Ivania reviewed the past several weeks and nutrition goals. Ivania reports was consistent with goals after previous visit in August for several weeks and since has gotten off track. Also was recently diagnosed with PCOS, started on metformin. Has increased overall fast food consumption with recent busy evenings. Reviewed some typical days/routines today. Encouraged we can start with some baseline nutrition goals and making better choices as much as she can. Reviewed previously discussed goals, has been doing well with getting in a vegetable when dinner at home, gets another serving at lunch as she buys a salad most days at work. Has not been as active as she had planned. Has had protein most mornings, not 20g but has included at least one protein rich choice (noted protein bars 10g, sometimes a sausage johnathan). Ivania also recently started a meal prep membership, planning on three evenings a week. RD reviewed importance of sustainable changes and consistency even with change in routine. Ivania and REBA reviewed three main goals these next several weeks. Will go for an intentional walk everyday,will slow down and use the 75% rule at supper. Will have 20-25g of protein in the morning. Also discussed eating out and ways to make better choices. Ivania planning on weighing in at home 2-3 times a week, reviewed importance of looking at weekly averages. Answered all questions. Follow up: 4 weeks Mason Bowen RDN, LEONIDAS Registered Dietitian [facility] documented in this encounter [facility] 12-08-2024 History of Presen t illness Narrative Reason for Appointment: Patient ID: Ivania Rai is a 34 y.o. female who presents for recurring yeast infection Patient presents today for Acute Visit. MEDICATIONS Current Outpatient Medications Medication Instructions citalopram (CeleXA) 20 MG tablet Oral ALLERGIES Allergies Allergen Reactions Gentamicin Other Other [...] History: Diagnosis Date Allergies Anxiety Bipolar disorder 2012 Depression (CMS/HCC) Hemorrhoids History of gestational diabetes mellitus (GDM) Hypokalemia IBS (irritable bowel syndrome) 2009 PID (pelvic inflammatory disease) HISTORY PAST MEDICAL HISTORY SOCIAL HISTORY Past Medical History: Diagnosis Date Allergies Anxiety Bipolar disorder 2012 Depression (CMS/HCC) Hemorrhoids History of gestational diabetes mellitus (GDM) Hypokalemia IBS (irritable bowel syndrome) 2010 PID (pelvic inflammatory disease) Social History Tobacco [...] Constitutional: Appearance: Normal appearance. She is well-developed. Cardiovascular: Rate and Rhythm: Normal rate and [...] nursing note reviewed. Exam conducted with a supervisor cartography present. Vitals: Estimated body mass index is 28.68 kg/m as calculated from the following: Height as of 04/29/24: 5' 2 . Weight as of this encounter: 156 lb 12.8 oz. BP: 114/78 No LMP recorded. ASSESSMENT & PLAN ICD-10-CM 1. Vaginal yeast infection B37.31 2. PCOS (polycystic ovarian syndrome) E28.2 Pt states she is getting a yeast infection after each cycle. Pt states diflucan usually treats it. Pt has complaints of PCOS symptoms, unwanted facial hair, inability to lose weight. Discussed metformin and spironolactone. Laser hair treatments discussed as well. Discussed compounded Semaglutide with Methyl B12 and Niacinamide added for better absorption. Patient prefers to have Methyl B12 and Niacinamide added to Semaglutide by injection for better absorption. Documented by Lyn Tavera LPN on behalf of: Stepan Medina DO documented in this encounter [facility] 10-07-2024 History of Presen t illness Narrative Images from the original note were not included. 10/07/2024 [facility] SUBJECTIVE: Ivania Rai is a 34 y.o. female who presents today for: No chief complaint on file. PRESENTS TODAY FOR ANXIETY FOLLOW UP. PATIENT IS DOING WELL, REFILL NEEDED. 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 SHE DID HAVE DIARRHEA A WEEK AGO. SHE HAS TAKEN OTC NSAID THERAPY AND A MULTI-SYMPTOM COLD AND FLU MEDICATION WITH SOME RELIEF. Video Visit via Real-time Synchronous Audiovisual Provider Location: [facility] [address] [id number] Patient Location: Patient's home Video Visit Consent Statement: I discussed risks, benefits, and alternatives of a real-time synchronous audiovisual consultation with the patient (and any accompanying persons) including the risks that the patient's personal health details and medical records will be discussed over real-time, synchronous, interactive video/audio/telecommunication technology, the visit will not be recorded without the express consent of both the provider and the patient, and that there are some limitations compared to [id number] evaluations. The patient consented to the presence of additional virtual and/or in-person participants. We elected to proceed. No past medical history on file. No past surgical history on file. Social History Tobacco Use Smoking status: Never Passive exposure: Never Smokeless tobacco: Never Substance Use Topics Alcohol use: No Alcohol/week: 0.0 standard drinks of alcohol Current Outpatient Medications on File Prior to Visit Medication Sig ixeuwhumf-pvcxfmbq-ahvre-w.pet (PREPARATION H MAXIMUM STRENGTH) 0.25-1 % cream Insert into the rectum 3 (three) times a day as needed (hemorrhoid). No current facility-administered medications on file prior to visit. Allergies Allergen Reactions Gentamicin Other (See Comments) and Eye Swelling Red swollen crusty eyes from drops Sulfa (Sulfonamide Antibiotics) Nitrofurantoin Lip swelling/rash Penicillins Hives Tramadol Hcl Anxiety The following portions of the patient's history were reviewed and updated as appropriate: allergies, current medications, past family history, past medical history, past social history, past surgical history and problem list. REVIEW OF SYSTEMS: Review of Systems Constitutional: Positive for fatigue and fever. HENT: Positive for congestion. Eyes: Negative. Respiratory: Positive for cough. Cardiovascular: Negative. Gastrointestinal: Negative. Endocrine: Negative. Genitourinary: Negative. Musculoskeletal: Negative. Skin: Negative. Allergic/Immunologic: Negative. Neurological: Negative. Hematological: Negative. Psychiatric/Behavioral: Negative. ANXIETY STABLE All other systems reviewed and are negative. PHYSICAL EXAMINATION: There were no vitals filed for this visit. There is no height or weight on file to calculate BMI. No visits with results within 1 Month(s) from this visit. Latest known visit with results is: Hospital Outpatient Visit on 06/10/2024 Component Date Value Ref Range Status Hcg-beta, serum 06/10/2024 <5 mIU/mL Final Comment: NEW REFERENCE RANGE WEEKS (SINCE LMP) MIU/mL 3 WEEKS 5 - 50 4 WEEKS 5 - 426 5 WEEKS 18 - 7,340 6 WEEKS 1,080 - 56,500 7-8 WEEKS 7,650 - 229,000 9-12 WEEKS 25,700 - 288,000 13-16 WEEKS 13,300 - 254,000 17-24 WEEKS 4,060 - 165,400 25-40 WEEKS 3,640 - 117,000 MALES AND NON- FEMALES - <5 MIU/mL This test has been FDA approved for use in only. Elevated levels are not necessarily diagnostic for trophoblastic or nontrophoblastic neoplasms. T4, free 06/10/2024 0.85 0.61 - 1.60 ng/dL Final TSH 06/10/2024 1.16 0.49 - 4.67 uIU/mL Final White Blood Cells 06/10/2024 10.0 4.0 - 11.0 X10E9/L Final RBC count 06/10/2024 4.89 3.80 - 5.20 X10E12/L Final Hemoglobin 06/10/2024 15.2 11.7 - 15.5 g/dL Final Hematocrit 06/10/2024 44.2 35 - 47 % Final MCV 06/10/2024 91 80 - 100 fL Final MCH 06/10/2024 31.0 27 - 34 pg Final MCHC 06/10/2024 34.3 32 - 36 g/dL Final RDW 06/10/2024 13.1 11.5 - 15.0 % Final Platelets 06/10/2024 243 150 - 450 X10E9/L Final MPV 06/10/2024 10.9 7 - 12 fL Final % neutrophils 06/10/2024 55.2 % Final % lymphocytes 06/10/2024 35.2 % Final % monocytes 06/10/2024 7.9 % Final % eosinophils 06/10/2024 1.2 % Final % Basophils 06/10/2024 0.5 % Final Neutrophils Absolute (A) 06/10/2024 5.5 1.5 - 6.6 X10E9/L Final Lymphocytes Absolute 06/10/2024 3.5 1.0 - 3.5 X10E9/L Final Monocytes Absolute 06/10/2024 0.8 0 - 0.9 X10E9/L Final Eosinophils Absolute 06/10/2024 0.1 0.0 - 0.4 X10E9/L Final Basophils Absolute 06/10/2024 0.1 0.0 - 0.2 X10E9/L Final Follicle stimulating hormone 06/10/2024 5.4 mIU/mL Final Comment: NORMAL FEMALE Luteal 1.8-5.1 mIU/mL Follicular 3.8-8.8 mIU/mL Mid Cycle 4.5-22.5 mIU/mL Post Yaz 16.7-113.6 mIU/mL Luteinizing hormone 06/10/2024 9.1 mIU/mL Final Comment: NORMAL FEMALE Follicular 2.1-10.9 mIU/mL Mid Cycle 19.2-103 mIU/mL Luteal 1.2-12.9 mIU/mL Post [place] 10.9-58.6 mIU/mL No results found. Physical Exam Constitutional: Appearance: She is well-developed and well-groomed. She is ill-appearing. HENT: Head: Comments: PATIENT SOUNDED CONGESTED Neurological: Mental Status: She is alert and oriented to person, place, and time. Psychiatric: Attention and Perception: Attention and perception normal. Mood and Affect: Mood and affect normal. Speech: Speech normal. Behavior: Behavior is cooperative. LIMITED PHYSICAL EXAM DUE TO NATURE OF VISIT. ASSESSMENT/PLAN: Diagnoses and all orders for this visit: Ill feeling Situational mixed anxiety and depressive disorder - citalopram (CeleXA) 20 mg tablet; Take 1 tablet (20 mg total) by mouth in the morning. REFILL SENT. WILL FURTHER DISCUSS OTHER ISSUES WHEN PATIENT IS FEELING BETTER AND CAN COME IN PERSON. DISCUSSED OTC SYMPTOMATIC TREATMENT FOR THE FLU, I DO SUSPECT SHE HAS IT. MONITOR FOR ANY SECONDARY INFECTIONS, IF SYMPTOMS WORSEN RETURN TO THE OFFICE. CALL WITH ANY FURTHER QUESTIONS OR CONCERNS. Medications Disposition of medications: pharmacy to ID. Patient Education Learner: patient Educated on: FLU, MEDICATION Readiness: acceptance Method: explanation Response: verbalizes understanding Future Appointments Date Time Provider Department Center 10/13/2024 3:[address] [facility] [address] 12/13/2024 8:00 AM Lizz Barcenas MD [facility] I spent approx. 15+ minutes reviewing the patient's chart, assessing the patient and counseling them on their symptoms, discussing test results, discussing the treatment plan and appropriate follow up. ALLYSSA MAGUIRE, SALLIE-SUE Maguire APRN-SUE 10/07/24 1749 Allyssa Maguire APRN-SUE 10/07/24 2920 documented [facility] this [facility] 10-06-2024 History of Presen t illness Narrative Pt. Was seen for an hobber appointment for the [id number] program. Pt. Came in for an InBody test and an exercise program. Ep and pt went through each movement and all questions were answered. Pt. Plan 150 minutes of cardio and 2-3 day/wk of strength training. Pt. Goal weight loss and build muscle. Pt. Was scheduled for a follow-up to continue to progress program and track adherence. SMM-50.3 Access Code: [email or web address] URL: [email or web address] Date: 10/06/2024 Prepared by: Kelly Spann Exercises - Walking on Treadmill - 4-5 x weekly - 30 min hold - Squat with Resistance at Thighs - 2-3 x weekly - 2-3 sets - 12 reps - Standing Hamstring Curl with Resistance - 2-3 x weekly - 2-3 sets - 12 reps - Marching with Resistance - 2-3 x weekly - 2-3 sets - 12 reps - Seated Lat Pull Down with Resistance - Elbows Bent - 2-3 x weekly - 2-3 sets - 12 reps - Standing Shoulder Row with Anchored Resistance - 2-3 x weekly - 2-3 sets - 12 reps - Kneeling Push Up - 2-3 x weekly - 2-3 sets - 8-12 reps - Standing Shoulder Horizontal Abduction with Resistance - 2-3 x weekly - 2-3 sets - 12 reps - Supine Bug with Leg Extension - 2-3 x weekly - 2-3 sets - 12 reps - Standing Bicep Curls with Resistance - 2-3 x weekly - 2-3 sets - 12 reps - Standing Tricep Extensions with Resistance - 2-3 x weekly - 2-3 sets - 12 reps [facility] History of Presen t illness Narrative Goals: pt states she would like to build muscles and strong core. 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 Pt states running was her stress relief. History of Injuries or Disease that Impact Exercise: pt states she does not have any injures or disease that will impact exercise. Wt Readings from Last 3 Encounters: 07/13/24 69.8 kg (153 lb 12.8 oz) 06/29/24 68.9 kg (152 lb) 10/13/23 69.2 kg (152 lb 9.6 oz) Temp Readings from Last 3 Encounters: 07/13/24 36.3 C (97.3 F) 06/29/24 36.7 C (98.1 F) 10/13/23 36.5 C (97.7 F) BP Readings from Last 3 Encounters: 07/13/24 110/79 06/29/24 112/75 10/13/23 113/78 Pulse Readings from Last 3 Encounters: 07/13/24 70 06/29/24 86 10/13/23 86 Exercise Preferences: pt states her kids are in wrestling and cheerleading. Pt states she would like to get into strength training. Pt states she would like a home program but is willing to go to her local gym 1 day/wk. Pt reports owning resistance bands and is interested in gym equipment for her home. Pt states she would ralf to get back into running as well. Plan: to schedule an assessment and InBody test. Pt has been instructed to wear exercise clothes and refrain from eating or drinking 2 hours before assessment and exercising 24 hours before assessment. documented in this encounter [facility] 09-14-2024 History of Presen t illness Narrative Outpatient Initial Nutrition Evaluation Date: 09/14/2024 Patient: Ivania Rai : 1990 Reason for Visit: weight loss; reduce risk of diabetes Past Medical History:No past medical history on file. Past Surgical History:No past surgical history on file. Subjective: Ivania comes in today to discuss weight loss and reducing diabetes risk. Reports had a baby ~9 months ago and would like to actively work on weight loss goals. Has been at a plateau the past several months. Also wants to reduce risk of diabetes with being diagnosed with gestational diabetes with all 3 pregnancies. Historically weight has been ~140#. Food/Nutrition- Related History: - Friday-Friday wakes up 545am, has water and coffee. Usually grabs something small, breakfast bar, toast, etc. Lunch she typically buys a salad at work, with veggies/cheese/ranch. Snacks in the afternoon when she gets home, usually pantry items. Dinner is at home more often than out, fast food 1-2 times a week. If at home, protein/starch, not always a veggie. Does not tend to snack after. Weekends, larger breakfast with eggs, may snack more if on the go vs having meals, more likely to eat out on weekends. Drinks ~60 ounces of water most days. 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 Spouse and Ivania responsible for cooking/shopping Labs: No data from last 3 days. Invalid input(s): BILITOT No data from last 3 days. No data from last 3 days. No data from last 3 days. Liver Panel: No results found for: ALKALINEPHO , AST , ALT , LABBILI , ALBUMIN , TOTALPROTEI Glucose: No results found for: GLU CMP: Lab Results Component Value Date K 3.8 12/11/2023 Lab Results Component Value Date HGBA1C 5.4 05/29/2023 No results found for: IRON , TIBC , FERRITIN No results found for: IRONSAT No results found for: CHOL No results found for: TRIGLYCERIDE No results found for: HDL , LDL No results found for: LIPIDPROF No results found for: [id number] No results found for: FOLATE No results found for: VIDHYDROX Medications: has a current medication list which includes the following prescription(s): citalopram and yryaoxrhh-hsikzzoc-bvhcw-w.pet. Allergies: is allergic to gentamicin, sulfa (sulfonamide antibiotics), nitrofurantoin, penicillins, and tramadol hcl. Weight History: Wt Readings from Last 25 Encounters: 07/13/24 69.8 kg (153 lb 12.8 oz) 06/29/24 68.9 kg (152 lb) 10/13/23 69.2 kg (152 lb 9.6 oz) 10/07/23 71.4 kg (157 lb 6.4 oz) 05/08/23 66.7 kg (147 lb) 09/24/22 65.7 kg (144 lb 12.8 oz) 05/06/22 60.8 kg (134 lb 0.6 oz) 04/25/22 60.8 kg (134 lb) 01/23/22 61.1 kg (134 lb 9.6 oz) 12/28/21 62 kg (136 lb 9.6 oz) 10/29/21 63 kg (139 lb) 06/19/21 66.4 kg (146 lb 6.4 oz) 06/11/21 66.7 kg (147 lb) Current Anthropometrics: Ht Readings from Last 1 Encounters: 07/13/24 157.5 cm (5' 2.01 ) UBW: 152-152# recently on home scale IBW: 50 Kg %IBW: 138% Body Mass Index: 28.12 kg/m2 Using 153#, 62 09/14/2024 BMI Category: Pre-obese (25.00- 29.99) Estimated Needs Based on Comparative Standards: Estimated Energy Needs: 6434-9876 kcals daily. Method and weight used: [facility] Estimated Protein Needs: 75-100 grams daily. Method and weight used: 1.5-2g/kg IBW Nutrition Diagnoses: 1. Behavioral-environmental Food-and nutrition-related knowledge deficit (NB 1.1) related to sustainable weight loss as evidenced by verbalizes education needs. Short Term Goals: 1. Ivania would like to be held accountable for 3-4 days of intentional physical activity 2. Will have a protein choice in the morning, goal is 20g of protein at this meal 3. Will have a non starchy vegetable at supper [employer] Goals: Sustainable weight loss Reduce risk of diabetes Nutrition Intervention(s): Reviewed importance of calorie deficit with weight loss goals. Encouraged portion control and reviewed ways to monitor. Discussed importance of protein intake with weight loss goals. Reviewed sources and ways to increase intake. Provided handouts. Reviewed importance of sustainable changes, expectations moving forward Monitoring and Evaluation: Intakes, weight (Ivania will weigh in at home 3-4 times a week), education needs, nutrition related labs Follow Up: 3-4 weeks Mason Bowen RDN, LEONIDAS Registered Dietitian [facility] History of Presen t illness Narrative Images from the original note were not included. 07/13/2024 [facility] SUBJECTIVE: Ivania Rai is a 34 y.o. female who presents today for: Chief Complaint Patient presents with Follow-up Patient stated that she had 2 yeast infection in the last 3 mths, Patient stated that she has been having itchiness over different parts of the body. PRESENTS TODAY WITH CONCERNS OF ONGOING ALLERGY ISSUES, SKIN ISSUES, AND CONCERNS OF RECTAL BLEEDING. PATIENT STATES THAT SHE HAS HAD RECURRENT VAGINAL YEAST INFECTIONS SINCE BEING AND HER PERIODS STARTING AGAIN, SHE HAS BEEN ON DIFLUCAN A FEW TIMES FOR THIS. SHE ALSO HAS NOTICED INCREASED REACTIONS TO MULTIPLE NEW MEDICATIONS AND LIP SWELLING/CHAPPED LIPS. SHE WAS THOUGHT TO HAVE ANOTHER YEAST INFECTION RECENTLY AND WAS GIVEN DIFLUCAN AGAIN BUT STATES SHE DOES NOT FEEL LIKE THAT IS WORKING. PATIENT IS WONDERING IF THIS IS SOMETHING RELATED TO ALLERGIES OR SENSITIVITIES OR HORMONE CHANGES. SHE IS ASKING ABOUT SEEING AN GUEST SERVICE TEAM LEADER. IN THE LAST COUPLE OF MONTHS SHE HAS ALSO NOTICED SOME BLOOD IN HER STOOL AND ITCHINESS, DENIES PAIN OR LEAKAGE OF STOOL. SHE DOES HAVE A HISTORY OF IBS. History reviewed. No pertinent past medical history. History reviewed. No pertinent surgical history. Social History Tobacco Use Smoking status: Never Passive exposure: Never Smokeless tobacco: Never Substance Use Topics Alcohol use: No Alcohol/week: 0.0 standard drinks of alcohol Current Outpatient Medications on File Prior to Visit Medication Sig citalopram (CeleXA) 20 mg tablet Take 1 tablet (20 mg total) by mouth in the morning. fluconazole (DIFLUCAN) 150 mg tablet Take 1 tablet (150 mg total) by mouth every 3 (three) days for 3 doses. No current facility-administered medications on file prior to visit. Allergies Allergen Reactions Gentamicin Other (See Comments) and Eye Swelling Red swollen crusty eyes from drops Sulfa (Sulfonamide Antibiotics) Nitrofurantoin Lip swelling/rash Penicillins Hives Tramadol Hcl Anxiety The following portions of the patient's history were reviewed and updated as appropriate: allergies, current medications, past family history, past medical history, past social history, past surgical history and problem list. REVIEW OF SYSTEMS: Review of Systems Constitutional: Negative. HENT: Negative. Eyes: Negative. Respiratory: Negative. Cardiovascular: Negative. Gastrointestinal: Positive for blood in stool. Negative for rectal pain. IBS Endocrine: Negative. Genitourinary: Positive for vaginal discharge. NOT CURRENTLY BUT HAS BEEN HAVING THEM WITH PERIODS Musculoskeletal: Negative. Skin: Positive for color change. Allergic/Immunologic: Positive for environmental allergies. NEW SENSITIVITIES TO NEW MEDICATIONS Neurological: Negative. Hematological: Negative. Psychiatric/Behavioral: Negative. All other systems reviewed and are negative. PHYSICAL EXAMINATION: Vitals: 07/13/24 1537 BP: 110/79 Pulse: 70 Resp: 18 Temp: 36.3 C (97.3 F) SpO2: 97% Weight: 69.8 kg (153 lb 12.8 oz) Height: 157.5 cm (5' 2.01 ) Body mass index is 28.12 kg/m . No visits with results within 1 Month(s) from this visit. Latest known visit with results is: Hospital Outpatient Visit on 06/10/2024 Component Date Value Ref Range Status Hcg-beta, serum 06/10/2024 <5 mIU/mL Final Comment: NEW REFERENCE RANGE WEEKS (SINCE LMP) MIU/mL 3 WEEKS 5 - 50 4 WEEKS 5 - 426 5 WEEKS 18 - 7,340 6 WEEKS 1,080 - 56,500 7-8 WEEKS 7,650 - 229,000 9-12 WEEKS 25,700 - 288,000 13-16 WEEKS 13,300 - 254,000 17-24 WEEKS 4,060 - 165,400 25-40 WEEKS 3,640 - 117,000 MALES AND NON- FEMALES - <5 MIU/mL This test has been FDA approved for use in only. Elevated levels are not necessarily diagnostic for trophoblastic or nontrophoblastic neoplasms. T4, free 06/10/2024 0.85 0.61 - 1.60 ng/dL Final TSH 06/10/2024 1.16 0.49 - 4.67 uIU/mL Final White Blood Cells 06/10/2024 10.0 4.0 - 11.0 X10E9/L Final RBC count 06/10/2024 4.89 3.80 - 5.20 X10E12/L Final Hemoglobin 06/10/2024 15.2 11.7 - 15.5 g/dL Final Hematocrit 06/10/2024 44.2 35 - 47 % Final MCV 06/10/2024 91 80 - 100 fL Final MCH 06/10/2024 31.0 27 - 34 pg Final MCHC 06/10/2024 34.3 32 - 36 g/dL Final RDW 06/10/2024 13.1 11.5 - 15.0 % Final Platelets 06/10/2024 243 150 - 450 X10E9/L Final MPV 06/10/2024 10.9 7 - 12 fL Final % neutrophils 06/10/2024 55.2 % Final % lymphocytes 06/10/2024 35.2 % Final % monocytes 06/10/2024 7.9 % Final % eosinophils 06/10/2024 1.2 % Final % Basophils 06/10/2024 0.5 % Final Neutrophils Absolute (A) 06/10/2024 5.5 1.5 - 6.6 X10E9/L Final Lymphocytes Absolute 06/10/2024 3.5 1.0 - 3.5 X10E9/L Final Monocytes Absolute 06/10/2024 0.8 0 - 0.9 X10E9/L Final Eosinophils Absolute 06/10/2024 0.1 0.0 - 0.4 X10E9/L Final Basophils Absolute 06/10/2024 0.1 0.0 - 0.2 X10E9/L Final Follicle stimulating hormone 06/10/2024 5.4 mIU/mL Final Comment: NORMAL FEMALE Luteal 1.8-5.1 mIU/mL Follicular 3.8-8.8 mIU/mL Mid Cycle 4.5-22.5 mIU/mL Post [place] 16.7-113.6 mIU/mL Luteinizing hormone 06/10/2024 9.1 mIU/mL Final Comment: NORMAL FEMALE Follicular 2.1-10.9 mIU/mL Mid Cycle 19.2-103 mIU/mL Luteal 1.2-12.9 mIU/mL Post [place] 10.9-58.6 mIU/mL No results found. Physical Exam Vitals reviewed. Constitutional: Appearance: Normal appearance. She is well-developed and well-groomed. Cardiovascular: Rate and Rhythm: Normal rate. Pulmonary: Effort: Pulmonary effort is normal. Neurological: Mental Status: She is alert and oriented to person, place, and time. ASSESSMENT/PLAN: Ivania was seen today for follow-up. Diagnoses and all orders for this visit: Hemorrhoids, unspecified hemorrhoid type - oiggsqryy-fbzjridq-vpjuh-w.pet (PREPARATION H MAXIMUM STRENGTH) 0.25-1 % cream; Insert into the rectum 3 (three) times a day as needed (hemorrhoid). 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 MULTIPLE NEW SIDE EFFECTS WITH ANTIBIOTICS RECENTLY THAT SHE HAS TOLERATED BEFORE; ONGOING SINUS AND EYE ISSUES THAT PATIENT IS CONCERNED ABOUT ALLERGIES; WILL REFER TO GUEST SERVICE TEAM LEADER FOR FURTHER WORK UP AND RULE OUT ANY UNDERLYING ALLERGY CAUSE. I SUSPECT SHE HAS HEMORRHOIDS, GIVEN HISTORY OF IBS AND BEING . START TOPICAL CREAM PRESCRIBED AND IF NO IMPROVEMENTS OVER THE NEXT 2 WEEKS RETURN FOR FURTHER ASSESSMENT AND INTERVENTIONS. IF THERE IS PAIN WITH WEIGHT LOSS OR LARGE AMOUNTS OF BLOOD SHE NEEDS TO LET ME KNOW SHERI. CALL WITH ANY FURTHER QUESTIONS OR CONCERNS, SHE WILL CALL IN THE NEXT 2 WEEKS WITH AN UPDATE AND I WILL FOLLOW UP APPROPRIATE. Medications Disposition of medications: pharmacy to ID. Patient Education Learner: patient Educated on: HEMORRHOIDS, ALLERGIES Readiness: acceptance Method: explanation and handout Response: verbalizes understanding Future Appointments Date Time Provider Department Center 09/30/2024 3:30 PM JOSSIE Medina [facility] [address] I spent approx. 25+ minutes reviewing the patient's chart, assessing the patient and counseling them on their symptoms, discussing test results, discussing the treatment plan and appropriate follow up. JOSSIE MEDINA APRN-CNP 07/13/24 1610 documented in this encounter [facility] 07-05-2024 History of Presen t illness Narrative Images from the original note were not included. 07/05/2024 [facility] SUBJECTIVE: Ivania Rai is a 34 y.o. female who presents today for: Chief Complaint Patient presents with Vaginal Itching Vaginal Itching The patient's primary symptoms include genital itching. The patient's pertinent negatives include no genital lesions, genital odor, genital rash, missed menses, pelvic pain, vaginal bleeding or vaginal discharge. This is a recurrent problem. The current episode started in the past 7 days. The problem occurs intermittently. The problem has been waxing and waning. She is not . Pertinent negatives include no abdominal pain, back pain, constipation, diarrhea, fever, headaches, nausea or vomiting. She is sexually active. No, her partner does not have an STD. She uses nothing for contraception. Her menstrual history has been regular. There is no history of an abdominal surgery, a section, an ectopic , endometriosis, a gynecological surgery, herpes simplex, menorrhagia, metrorrhagia, miscarriage, ovarian cysts, perineal abscess, PID, an STD, a terminated or vaginosis. History reviewed. No pertinent past medical history. History reviewed. No pertinent surgical history. Social History Tobacco Use Smoking status: Never Passive exposure: Never Smokeless tobacco: Never Substance Use Topics Alcohol use: No Alcohol/week: 0.0 standard drinks of alcohol Current Outpatient Medications on File Prior to Visit Medication Sig citalopram (CeleXA) 20 mg tablet Take 1 tablet (20 mg total) by mouth in the morning. No current facility-administered medications on file prior to visit. Allergies Allergen Reactions Gentamicin Other (See Comments) and Eye Swelling Red swollen crusty eyes from drops Sulfa (Sulfonamide Antibiotics) Nitrofurantoin Lip swelling/rash Penicillins Hives Tramadol Hcl Anxiety The following portions of the patient's history were reviewed and updated as appropriate: allergies, current medications, past family history, past medical history, past social history, past surgical history and problem list. REVIEW OF SYSTEMS: Review of Systems Constitutional: Negative for activity change, appetite change, fatigue, fever and unexpected weight change. HENT: Negative. Respiratory: Negative for cough, chest tightness, shortness of breath, wheezing and stridor. Cardiovascular: Negative for chest pain, palpitations and leg swelling. Gastrointestinal: Negative for abdominal distention, abdominal pain, constipation, diarrhea, nausea and vomiting. Genitourinary: Negative. Negative for menorrhagia, menstrual problem, missed menses, pelvic pain, vaginal bleeding, vaginal discharge and vaginal pain. Musculoskeletal: Negative for arthralgias, back pain, joint swelling, myalgias and neck pain. Skin: Negative. Neurological: Negative for dizziness, weakness, light-headedness, numbness and headaches. Hematological: Negative. Psychiatric/Behavioral: Negative. PHYSICAL EXAMINATION: There were no vitals filed for this visit. There is no height or weight on file to calculate BMI. Hospital Outpatient Visit on 06/10/2024 Component Date Value Ref Range Status Hcg-beta, serum 06/10/2024 <5 mIU/mL Final Comment: NEW REFERENCE RANGE WEEKS (SINCE LMP) MIU/mL 3 WEEKS 5 - 50 4 WEEKS 5 - 426 5 WEEKS 18 - 7,340 6 WEEKS 1,080 - 56,500 7-8 WEEKS 7,650 - 229,000 9-12 WEEKS 25,700 - 288,000 13-16 WEEKS 13,300 - 254,000 17-24 WEEKS 4,060 - 165,400 25-40 WEEKS 3,640 - 117,000 MALES AND NON- FEMALES - <5 MIU/mL This test has been FDA approved for use in only. Elevated levels are not necessarily diagnostic for trophoblastic or nontrophoblastic neoplasms. T4, free 06/10/2024 0.85 0.61 - 1.60 ng/dL Final TSH 06/10/2024 1.16 0.49 - 4.67 uIU/mL Final White Blood Cells 06/10/2024 10.0 4.0 - 11.0 X10E9/L Final RBC count 06/10/2024 4.89 3.80 - 5.20 X10E12/L Final Hemoglobin 06/10/2024 15.2 11.7 - 15.5 g/dL Final Hematocrit 06/10/2024 44.2 35 - 47 % Final MCV 06/10/2024 91 80 - 100 fL Final MCH 06/10/2024 31.0 27 - 34 pg Final MCHC 06/10/2024 34.3 32 - 36 g/dL Final RDW 06/10/2024 13.1 11.5 - 15.0 % Final Platelets 06/10/2024 243 150 - 450 X10E9/L Final MPV 06/10/2024 10.9 7 - 12 fL Final % neutrophils 06/10/2024 55.2 % Final % lymphocytes 06/10/2024 35.2 % Final % monocytes 06/10/2024 7.9 % Final % eosinophils 06/10/2024 1.2 % Final % Basophils 06/10/2024 0.5 % Final Neutrophils Absolute (A) 06/10/2024 5.5 1.5 - 6.6 X10E9/L Final Lymphocytes Absolute 06/10/2024 3.5 1.0 - 3.5 X10E9/L Final Monocytes Absolute 06/10/2024 0.8 0 - 0.9 X10E9/L Final Eosinophils Absolute 06/10/2024 0.1 0.0 - 0.4 X10E9/L Final Basophils Absolute 06/10/2024 0.1 0.0 - 0.2 X10E9/L Final Follicle stimulating hormone 06/10/2024 5.4 mIU/mL Final Comment: NORMAL FEMALE Luteal 1.8-5.1 mIU/mL Follicular 3.8-8.8 mIU/mL Mid Cycle 4.5-22.5 mIU/mL Post Yaz 16.7-113.6 mIU/mL Luteinizing hormone 06/10/2024 9.1 mIU/mL Final Comment: NORMAL FEMALE Follicular 2.1-10.9 mIU/mL Mid Cycle 19.2-103 mIU/mL Luteal 1.2-12.9 mIU/mL Post [place] 10.9-58.6 mIU/mL Transcribe Orders on 06/10/2024 Component Date Value Ref Range Status External Poct Hgb A1C 06/10/2024 5.4 4 - 7 % Final No results found. Physical Exam Vitals and nursing note reviewed. Constitutional: General: She is not in acute distress. Appearance: Normal appearance. She is not ill-appearing, toxic-appearing or diaphoretic. HENT: Head: Normocephalic and atraumatic. Right Ear: External ear normal. Left Ear: External ear normal. Eyes: General: No scleral icterus. Right eye: No discharge. Left eye: No discharge. Extraocular Movements: Extraocular movements intact. Conjunctiva/sclera: Conjunctivae normal. Pupils: Pupils are equal, round, and reactive to light. Pulmonary: Effort: Pulmonary effort is normal. No respiratory distress. Skin: General: Skin is warm and dry. Capillary Refill: Capillary refill takes less than 2 seconds. Neurological: General: No focal deficit present. Mental Status: She is alert and oriented to person, place, and time. Mental status is at baseline. Cranial Nerves: No cranial nerve deficit. Psychiatric: Mood and Affect: Mood normal. Behavior: Behavior normal. Thought Content: Thought content normal. Judgment: Judgment normal. ASSESSMENT/PLAN: Ivania was seen today for vaginal itching. Diagnoses and all orders for this visit: Vaginal itching Due to recurrence of symptoms and antibiotic usage prior to symptoms starting I will treat patient empirically for a yeast infection. I will have her take an additional dose of Diflucan in order to make sure that possible infection is eradicated. If patient continues to have symptoms despite therapy she was told that we would have to consider alternative etiologies for her symptoms. Future Appointments Date Time Provider Department Center 07/13/2024 3:30 PM Allyssa Maguire, ADMIN SECRETARY-INTERNET CONSULTANT [facility] [address] 09/30/2024 3:30 PM Allyssa Maguire APRN-SUE [facility] [address] I spent approx. 20 minutes reviewing the patient's chart, assessing the patient and counseling them on their symptoms, discussing test results, discussing the treatment plan and appropriate follow up. WILLIE GOLDEN DO documented in this encounter [facility] 06-29-2024 History of Presen t illness Narrative Images from the original note were not included. 06/29/2024 [facility] SUBJECTIVE: Ivania Rai is a 34 y.o. female who presents today for: Chief Complaint Patient presents with Annual Exam Patient has no concerns at this time. Patient is congestion and having body aches. Also cough started two weeks ago and glands hurting started today. Presents today for annual exam, patient states she has been having some nasal congestion, body aches, swollen painful glands, and a cough for the last couple of weeks. She has not taken much for her symptoms. History reviewed. No pertinent past medical history. History reviewed. No pertinent surgical history. Social History Tobacco Use Smoking status: Never Passive exposure: Never Smokeless tobacco: Never Substance Use Topics Alcohol use: No Alcohol/week: 0.0 standard drinks of alcohol Current Outpatient Medications on File Prior to Visit Medication Sig citalopram (CeleXA) 20 mg tablet Take 1 tablet (20 mg total) by mouth in the morning. No current facility-administered medications on file prior to visit. Allergies Allergen Reactions Gentamicin Other (See Comments) and Eye Swelling Red swollen crusty eyes from drops Sulfa (Sulfonamide Antibiotics) Nitrofurantoin Lip swelling/rash Penicillins Hives Tramadol Hcl Anxiety Immunization status: up to date and documented. DEXA Scan: NA Mammogram: NA Colonoscopy: NA Eligible for low dose CT scan: NO The following portions of the patient's history were reviewed and updated as appropriate: allergies, current medications, past family history, past medical history, past social history, past surgical history and problem list. REVIEW OF SYSTEMS: Review of Systems Constitutional: Negative. HENT: Positive for congestion and postnasal drip. Eyes: Negative. Respiratory: Positive for cough. Cardiovascular: Negative. Gastrointestinal: Negative. Endocrine: Negative. Genitourinary: Negative. Last 2 periods patient has gotten a vaginal yeast infection Musculoskeletal: Positive for myalgias and neck pain. Skin: Negative. Allergic/Immunologic: Negative. Neurological: Negative. Hematological: Negative. Psychiatric/Behavioral: Positive for dysphoric mood. PMS, seasonal depressive disorder, improving with SSRI therapy All other systems reviewed and are negative. PHYSICAL EXAMINATION: Vitals: 06/29/24 1518 BP: 112/75 Pulse: 86 Resp: 18 Temp: 36.7 C (98.1 F) SpO2: 96% Weight: 68.9 kg (152 lb) Height: 157.5 cm (5' 2.01 ) Body mass index is 27.79 kg/m . Hospital Outpatient Visit on 06/10/2024 Component Date Value Ref Range Status Hcg-beta, serum 06/10/2024 <5 mIU/mL Final Comment: NEW REFERENCE RANGE WEEKS (SINCE LMP) MIU/mL 3 WEEKS 5 - 50 4 WEEKS 5 - 426 5 WEEKS 18 - 7,340 6 WEEKS 1,080 - 56,500 7-8 WEEKS 7,650 - 229,000 9-12 WEEKS 25,700 - 288,000 13-16 WEEKS 13,300 - 254,000 17-24 WEEKS 4,060 - 165,400 25-40 WEEKS 3,640 - 117,000 MALES AND NON- FEMALES - <5 MIU/mL This test has been FDA approved for use in only. Elevated levels are not necessarily diagnostic for trophoblastic or nontrophoblastic neoplasms. T4, free 06/10/2024 0.85 0.61 - 1.60 ng/dL Final TSH 06/10/2024 1.16 0.49 - 4.67 uIU/mL Final White Blood Cells 06/10/2024 10.0 4.0 - 11.0 X10E9/L Final RBC count 06/10/2024 4.89 3.80 - 5.20 X10E12/L Final Hemoglobin 06/10/2024 15.2 11.7 - 15.5 g/dL Final Hematocrit 06/10/2024 44.2 35 - 47 % Final MCV 06/10/2024 91 80 - 100 fL Final MCH 06/10/2024 31.0 27 - 34 pg Final MCHC 06/10/2024 34.3 32 - 36 g/dL Final RDW 06/10/2024 13.1 11.5 - 15.0 % Final Platelets 06/10/2024 243 150 - 450 X10E9/L Final MPV 06/10/2024 10.9 7 - 12 fL Final % neutrophils 06/10/2024 55.2 % Final % lymphocytes 06/10/2024 35.2 % Final % monocytes 06/10/2024 7.9 % Final % eosinophils 06/10/2024 1.2 % Final % Basophils 06/10/2024 0.5 % Final Neutrophils Absolute (A) 06/10/2024 5.5 1.5 - 6.6 X10E9/L Final Lymphocytes Absolute 06/10/2024 3.5 1.0 - 3.5 X10E9/L Final Monocytes Absolute 06/10/2024 0.8 0 - 0.9 X10E9/L Final Eosinophils Absolute 06/10/2024 0.1 0.0 - 0.4 X10E9/L Final Basophils Absolute 06/10/2024 0.1 0.0 - 0.2 X10E9/L Final Follicle stimulating hormone 06/10/2024 5.4 mIU/mL Final Comment: NORMAL FEMALE Luteal 1.8-5.1 mIU/mL Follicular 3.8-8.8 mIU/mL Mid Cycle 4.5-22.5 mIU/mL Post Yaz 16.7-113.6 mIU/mL Luteinizing hormone 06/10/2024 9.1 mIU/mL Final Comment: NORMAL FEMALE Follicular 2.1-10.9 mIU/mL Mid Cycle 19.2-103 mIU/mL Luteal 1.2-12.9 mIU/mL Post Yaz 10.9-58.6 mIU/mL Transcribe Orders on 06/10/2024 Component Date Value Ref Range Status External Poct Hgb A1C 06/10/2024 5.4 4 - 7 % Final Lab Results Component Value Date K 3.8 12/11/2023 Lab Results Component Value Date WBC 10.0 06/10/2024 HGB 15.2 06/10/2024 HCT 44.2 06/10/2024 MCV 91 06/10/2024 PLT 243 06/10/2024 No results found for: HIV1X2 No results found for: CHOL No results found for: HDL No results found for: LDLCALC No results found for: TRIG No results found for: CHOLHDL No results found for: SPAP No results found for: HPVDNA , HPVL No results found. Physical Exam Vitals reviewed. Constitutional: Appearance: Normal appearance. She is well-developed and well-groomed. HENT: Head: Normocephalic. Right Ear: Hearing, tympanic membrane, ear canal and external ear normal. Left Ear: Hearing, tympanic membrane, ear canal and external ear normal. Nose: Congestion present. Mouth/Throat: Lips: [place]. Mouth: Mucous membranes are moist. Pharynx: Posterior oropharyngeal erythema and postnasal drip present. Eyes: General: Lids are normal. Vision grossly intact. Gaze aligned appropriately. Extraocular Movements: Extraocular movements intact. Conjunctiva/sclera: Conjunctivae normal. Neck: Thyroid: No thyroid tenderness. Cardiovascular: Rate and Rhythm: Normal rate and regular rhythm. Pulses: Normal pulses. Heart sounds: Normal heart sounds, S1 normal and S2 normal. Pulmonary: Effort: Pulmonary effort is normal. Breath sounds: Normal breath sounds and air entry. Comments: Mildly diminished at lung bases but when patient coughed and cleared her throat/chest it resolved. Abdominal: General: Bowel sounds are normal. Palpations: Abdomen is soft. Tenderness: There is no abdominal tenderness. Lymphadenopathy: Cervical: Cervical adenopathy present. Right cervical: Superficial cervical adenopathy present. Left cervical: Superficial cervical adenopathy present. Skin: General: Skin is warm and dry. Neurological: Mental Status: She is alert and oriented to person, place, and time. Psychiatric: Attention and Perception: Attention and perception normal. Mood and Affect: Mood and affect normal. Speech: Speech normal. Behavior: Behavior is cooperative. ASSESSMENT/PLAN: Ivania was seen today for annual exam. Diagnoses and all orders for this visit: Well woman exam (no gynecological exam) BMI 27.0-27.9,adult RECOMMENDED TAKING OTC ORAL ANTIHISTAMINE FOR PND. MAY TAKE OTC ROBITUSSIN FOR COUGH. PATIENT WILL BE IN THE OFFICE AGAIN IN 2 DAYS WITH HER DAUGHTER SO I ADVISED HER ONE OF THE PROVIDERS COULD CHECK HER LUNGS AGAIN. PATIENT WILL FOLLOW UP WITH [facility] FOR YEAST INFECTIONS; LABS DONE, GLUCOSE LEVELS STABLE. START PROBIOTIC, SHE IS ALSO INCREASING INTAKE OF YOGURT TO SEE IF THAT IMPROVES THE YEAST INFECTIONS. DOING WELL ON THE SSRI THERAPY; WILL PLAN TO SEE HER BACK AGAIN IN 3 MONTHS. CALL WITH ANY FURTHER QUESTIONS OR CONCERNS. @[email or web address]@ None Patient noted to have elevated BMI and the following intervention(s) were applied: encouragement to exercise and prescribed diet education. Patient Education Learner: patient Educated on: ROUTINE CARE, SSRI THERAPY, OTC COLD MEDICATIONS Readiness: acceptance Method: explanation and handout Response: verbalizes understanding Ivania has been screened for clinical depression and the following plan(s) are recommended: patient follow-up to return when and if necessary; time spent on this screening service 10 minutes. No future appointments. JOSSIE MEDINA APRN-CNP 06/29/24 1552 [facility] Instructions JOSSIE Medina - 06/29/2024 3:00 PM EST Patient Education Patient Education Yearly Physical for Adults About this topic Most people do not want to be sick. Having a checkup each year with your doctor is one way to help you stay healthy. You may need to see your doctor more or less often. How often you need to go to the doctor depends on your age. Your family and medical history also play a role in how often you need to go to the doctor. Going to see your doctor on a routine basis can help you find problems early or even before they start. This may make it easier to treat or cure your problem. General Your doctor will talk about many things during your checkup. Your doctor may ask about: Your medical and family history. All the drugs you are taking. Be sure to include all prescription, over the counter, and herbal supplements. Tell the doctor if you have any drug allergy. Bring a list of drugs you take with you. How you are feeling and if you are having any problems. Risky behaviors like smoking, drinking alcohol, using illegal drugs, not wearing seatbelts, having unprotected sex, etc. Your doctor will do a physical exam and may check your: Height and weight Blood pressure Reflexes Memory Vision Hearing Your doctor may order: Lab tests ECG to check your heart rhythm X-rays Tests or treatments based on your exam Screening tests for heart disease, diabetes, or stroke What lifestyle changes are needed? Your doctor may suggest you make changes to your lifestyle at this visit. The doctor may talk with you about being more active or lowering stress levels. Ask your doctor what you need to do. What drugs may be needed? Your doctor may order drugs or vaccines to protect you from illnesses. You may need a flu shot or COVID-19 vaccine. What changes to diet are needed? Talk to your doctor to see if any changes are needed to your diet. When do I need to call the doctor? Call your doctor if you need to learn about any test results. Together you can make a plan for more care. Helpful tips Make a list of questions for your doctor before you go. This will help you remember to ask about any concerns. Write down any answers from your doctor so you can look over them after your visit. Tell your doctor about any changes in your body or health since your last visit. Where can I learn more? Centers for Disease Control https://www.cdc.gov/chronicdisea se/resources/publications/factsh eets/ghdfjyngo-npbmtv-aur-adults .htm Centers for Disease Control http://www.cdc.gov/family/checku p/ Centers for Disease Control https://www.cdc.gov/vaccines/derrek edules/hcp/imz/adult-shell.html U.S. Department of Health and Human Services: My [employer] https://health.gov/myhealthfinde r/topics/doctor-visits/regular-c heckupshttps://health.gov/myheal thfinder/topics/doctor-visits/re gular-checkups Last Reviewed Date 2021-06-21 Consumer Information Use and Disclaimer This generalized information is a limited summary of diagnosis, treatment, and/or medication information. It is not meant to be comprehensive and should be used as a tool to help the user understand and/or assess potential diagnostic and treatment options. It does NOT include all information about conditions, treatments, medications, side effects, or risks that may apply to a specific patient. It is not intended to be medical advice or a substitute for the medical advice, diagnosis, or treatment of a health care provider based on the health care provider's examination and assessment of a patient s specific and unique circumstances. Patients must speak with a health care provider for complete information about their health, medical questions, and treatment options, including any risks or benefits regarding use of medications. This information does not endorse any treatments or medications as safe, effective, or approved for treating a specific patient. [employer] and its affiliates disclaim any warranty or liability relating to this information or the use thereof. The use of this information is governed by the Terms of Use, available at https://www.woltersThe Neat Companyuwadhoclabs.com/en /know/lxgkiblu-muuerilgfmztr-kjw ms Copyright Copyright 2022 [employer] and its affiliates and/or licensors. All rights reserved. documented in this encounter [facility] 06-14-2024 History of Presen t illness Narrative Patience presented to clinic for Influenza Vaccine in right deltoid. M.A administered without incidence. documented in this encounter [facility] 06-10-2024 History of Presen t illness Narrative Patient arrived for outside lab draw , MA transcribed orders and draw patient without any complication. documented in this encounter [facility] 06-10-2024 Miscellaneous Notes Patient called and stated that she missed her recent annual physical but she did reschedule. Patient is having an issue with getting a yeast infection after every menstrual cycle recently. Patient is wondering if provider can prescribe Diflucan for her. She would like it sent to [facility] in if possible. Informed patient I would send provider a message. Sent one pill in, I highly encourage that she get labs done SHERI to ensure her glucose levels are normal range; I can order labs unless her [facility] provider is going to? Also, if this does not improve with the one pill she will need seen and have urine checked. Patient has labs ordered by [facility]. She is going to come in later today to have those drawn. I just want to confirm that one is either a fasting glucose or A1C. Patient is present in office to have labs and POCT A1C drawn. Patient states that she only has 5 pills left of Celexa prescription and will need a refill before her annual physical in June. Patient states that she is doing well on prescription. Informed patient I would send provider a message. documented in this encounter [facility] 06-10-2024 Telephone encounter Note Patient called and stated that she missed her recent annual physical but she did reschedule. Patient is having an issue with getting a yeast infection after every menstrual cycle recently. Patient is wondering if provider can prescribe Diflucan for her. She would like it sent to [facility] in if possible. Informed patient I would send provider a message. [facility] 06-10-2024 Telephone encounter Note Sent one pill in, I highly encourage that she get labs done SHERI to ensure her glucose levels are normal range; I can order labs unless her [facility] provider is going to? Also, if this does not improve with the one pill she will need seen and have urine checked. [facility] 06-10-2024 Telephone encounter Note Patient has labs ordered by [facility]. She is going to come in later today to have those drawn. [facility] 06-10-2024 Telephone encounter Note I just want to confirm that one is either a fasting glucose or A1C. [facility] 06-10-2024 Telephone encounter Note Patient is present in office to have labs and POCT A1C drawn. Patient states that she only has 5 pills left of Celexa prescription and will need a refill before her annual physical in June. Patient states that she is doing well on prescription. Informed patient I would send provider a message. [facility] 05-21-2024 History of Presen t illness Narrative Images from the original note were not included. 05/21/2024 [facility] SUBJECTIVE: Ivania Lucero is a 34 y.o. female who presents today for: Chief Complaint Patient presents with Anxiety Depression Patient is coming into the clinic to follow up on treatment of depression and anxiety post . Patient reports that she recent started taking the Celexa, only getting approx. 5 doses in. She feels that her mood symptoms are improving but not by much. She admits that she isn't sleeping well but attributes that to the rigors of taking care of a . She denies any suicidal or homicidal thoughts. She was challenged on our last visit to find ways to take care of herself in order to be better at taking care of her family and she admits that this has been a challenge for her. No past medical history on file. No past surgical history on file. Social History Tobacco Use Smoking status: Never Passive exposure: Never Smokeless tobacco: Never Substance Use Topics Alcohol use: No Alcohol/week: 0.0 standard drinks of alcohol Current Outpatient Medications on File Prior to Visit Medication Sig citalopram (CeleXA) 20 mg tablet Take 1 tablet (20 mg total) by mouth in the morning. PNV cmb#95-ferrous fumarate-FA () 28 mg iron- [...] REVIEW OF SYSTEMS: Review of Systems Constitutional: Negative for chills and fever. HENT: Negative for ear pain and sore throat. Eyes: Negative for pain and visual disturbance. Respiratory: Negative for cough and shortness of breath. Cardiovascular: Negative for chest pain and palpitations. Gastrointestinal: Negative for abdominal pain and vomiting. Genitourinary: Negative for dysuria and hematuria. Musculoskeletal: Negative for arthralgias and back pain. Skin: Negative for color change and rash. Neurological: Negative for seizures and syncope. Psychiatric/Behavioral: Positive for agitation, behavioral problems and dysphoric mood. Negative for sleep disturbance and suicidal ideas. The patient is nervous/anxious. All other systems reviewed and are negative. PHYSICAL EXAMINATION: There were no vitals filed for this visit. There is no height or weight on file to calculate BMI. No visits with results within 1 Month(s) from this visit. Latest known visit with results is: Hospital Outpatient Visit on 12/11/2023 Component Date Value Ref Range Status Potassium, Bld 12/11/2023 3.8 3.5 - 5.0 mmol/L Final No results found. Physical Exam Vitals and nursing note reviewed. Constitutional: General: She is not in acute distress. Appearance: Normal appearance. She is not ill-appearing, toxic-appearing or diaphoretic. HENT: Head: Normocephalic and atraumatic. Right Ear: External ear normal. Left Ear: External ear normal. Eyes: General: No scleral icterus. Right eye: No discharge. Left eye: No discharge. Extraocular Movements: Extraocular movements intact. Conjunctiva/sclera: Conjunctivae normal. Pupils: Pupils are equal, round, and reactive to light. Pulmonary: Effort: Pulmonary effort is normal. No respiratory distress. Skin: General: Skin is warm and dry. Capillary Refill: Capillary refill takes less than 2 seconds. Neurological: General: No focal deficit present. Mental Status: She is alert and oriented to person, place, and time. Mental status is at baseline. Cranial Nerves: No cranial nerve deficit. Psychiatric: Mood and Affect: Mood normal. Behavior: Behavior normal. Thought Content: Thought content normal. Judgment: Judgment normal. ASSESSMENT/PLAN: Ivania was seen today for anxiety and depression. Diagnoses and all orders for this visit: Situational mixed anxiety and depressive disorder Patient was asked to continue the Celexa as prescribed. I expect more benefit as she is on the medicine for a longer period of time. Patient was challenged again to find a way to provide self care, whether that is through exercise or reading or anything that she feels will lead to some rejuvenation. Patient will follow up with her PCP for her annual physical and to discuss anxiety/depression treatment. Future Appointments Date Time Provider Department Center 05/24/2024 3:30 PM Allyssa Maguire, ADMIN SECRETARY-INTERNET CONSULTANT [facility] [address] I spent approx. 20 minutes reviewing the patient's chart, assessing the patient and counseling them on their symptoms, discussing test results, discussing the treatment plan and appropriate follow up. WILLIE GOLDEN DO documented in this encounter [facility] 04-29-2024 History of Presen t illness Narrative Reason for Appointment: Patient ID: Ivania Rai is a 33 y.o. female who presents for Female Dysuria Patient presents today for Consult appointment. MEDICATIONS Current Outpatient Medications Medication Instructions citalopram (CeleXA) 20 MG tablet Oral fluconazole (DIFLUCAN) 150 mg, Oral, Once, This is a 1 time dose, take single tablet by mouth. metroNIDAZOLE (FLAGYL) 500 mg, Oral, 2 times daily, Do not drink alcohol while taking this medication ALLERGIES Allergies Allergen Reactions Gentamicin Other Other [...] History: Diagnosis Date Allergies Anxiety Bipolar disorder ([facility]) 2012 Depression ([facility]) Hemorrhoids History of gestational diabetes mellitus (GDM) Hypokalemia IBS (irritable bowel syndrome) 2010 PID (pelvic inflammatory disease) HISTORY PAST MEDICAL HISTORY SOCIAL HISTORY Past Medical History: Diagnosis Date Allergies Anxiety Bipolar disorder ([facility]) 2013 Depression ([facility]) Hemorrhoids History of gestational diabetes mellitus (GDM) Hypokalemia IBS (irritable bowel syndrome) 2010 PID (pelvic inflammatory disease) Social History Tobacco [...] SYSTEMS Review of Systems: Review of Systems Genitourinary: Positive for vaginal discharge. All other systems reviewed and are negative. OBJECTIVE Objective: Physical Exam Constitutional: Appearance: Normal appearance. She is well-developed. Genitourinary: Vulva normal. Cardiovascular: Rate and Rhythm: Normal rate [...] nursing note reviewed. Exam conducted with a supervisor cartography present. Vitals: Estimated body mass index is 27.25 kg/m as calculated from the following: Height as of this encounter: 5' 2 . Weight as of this encounter: 149 lb. BP: 122/78 No LMP recorded. ASSESSMENT & PLAN ICD-10-CM 1. Vaginal discharge N89.8 SURESWAB(R) ADVANCED VAGINITIS PLUS, TMA CHLAMYDIA TRACHOMATIS (GENITO/STI) Neisseria gonorrhea DNA probe, direct fluconazole (Diflucan) 150 MG tablet metroNIDAZOLE (Flagyl) 500 MG tablet 2. Dysuria R30.0 POCT urinalysis dipstick manually resulted fluconazole (Diflucan) 150 MG tablet metroNIDAZOLE (Flagyl) 500 MG tablet US PELVIS-TRANSVAG IF INDICATED 3. PCOS (polycystic ovarian syndrome) E28.2 hCG, quantitative, TSH T4, free CBC and differential Follicle stimulating hormone Luteinizing hormone Hemoglobin A1c DHEA-sulfate DHEA DHEA US PELVIS-TRANSVAG IF INDICATED 4. Yeast infection B37.9 fluconazole (Diflucan) 150 MG tablet Patient presents to office for pelvic pain and vaginal cultures. Vaginal cultures obtained and sent medication to pharmacy for BV and yeast. Patient also to have labs drawn and ultrasound obtained. Patient to return to clinic for follow up appointment and for annual appointment. Patient was given orders for labs and ultrasound to be scheduled. Diflucan and Flagyl sent to patients pharmacy to helt with BV & yeast infection. Nursing called patient to inquire if she was breast feeding and patient stated that she is breast feeding and patient was then informed that she would not be able to take most of the antibiotics to help with UTI due to breast feeding and medication allergies. Informed patient that nursing would reach out to provider to inquire on next step and available medications to be prescribed if any. PVU Documented by Radha Tan LPN on behalf of: Stepan Medina DO documented in this encounter [facility] 04-26-2024 History of Presen t illness Narrative Images from the original note were not included. 04/26/2024 [facility] SUBJECTIVE: Ivania Lucero is a 33 y.o. female who presents today for: Chief Complaint Patient presents with Depression Patient is coming into the clinic to discuss depressive symptoms. Patient reports that she has been struggling with mood issues since her . She has been on Celexa in the past. She denies any suicidal thoughts. She denies any thoughts of hurting others. History reviewed. No pertinent past medical history. [...] REVIEW OF SYSTEMS: Review of Systems Constitutional: Negative for chills and fever. HENT: Negative for ear pain and sore throat. Eyes: Negative for pain and visual disturbance. Respiratory: Negative for cough and shortness of breath. Cardiovascular: Negative for chest pain and palpitations. Gastrointestinal: Negative for abdominal pain and vomiting. Genitourinary: Negative for dysuria and hematuria. Musculoskeletal: Negative for arthralgias and back pain. Skin: Negative for color change and rash. Neurological: Negative for seizures and syncope. Psychiatric/Behavioral: Positive for agitation, behavioral problems and dysphoric mood. Negative for sleep disturbance and suicidal ideas. The patient is nervous/anxious. All other systems reviewed and are negative. PHYSICAL EXAMINATION: There were no vitals filed for this visit. There is no height or weight on file to calculate BMI. No visits with results within 1 Month(s) from this visit. Latest known visit with results is: Hospital Outpatient Visit on 12/11/2023 Component Date Value Ref Range Status Potassium, Bld 12/11/2023 3.8 3.5 - 5.0 mmol/L Final No results found. Physical Exam Vitals and nursing note reviewed. Constitutional: General: She is not in acute distress. Appearance: Normal appearance. She is not ill-appearing, toxic-appearing or diaphoretic. HENT: Head: Normocephalic and atraumatic. Right Ear: External ear normal. Left Ear: External ear normal. Eyes: General: No scleral icterus. Right eye: No discharge. Left eye: No discharge. Extraocular Movements: Extraocular movements intact. Conjunctiva/sclera: Conjunctivae normal. Pupils: Pupils are equal, round, and reactive to light. Pulmonary: Effort: Pulmonary effort is normal. No respiratory distress. Skin: General: Skin is warm and dry. Capillary Refill: Capillary refill takes less than 2 seconds. Neurological: General: No focal deficit present. Mental Status: She is alert and oriented to person, place, and time. Mental status is at baseline. Cranial Nerves: No cranial nerve deficit. Psychiatric: Mood and Affect: Mood normal. Behavior: Behavior normal. Thought Content: Thought content normal. Judgment: Judgment normal. ASSESSMENT/PLAN: Ivania was seen today for depression. Diagnoses and all orders for this visit: Situational mixed anxiety and depressive disorder - Discontinue: citalopram (CeleXA) 20 mg tablet; Take 1 tablet (20 mg total) by mouth in the morning. - citalopram (CeleXA) 20 mg tablet; Take 1 tablet (20 mg total) by mouth in the morning. Patient will be restarted on Celexa to help with mood issues. She was also counseled to exercise at least once a week to help with symptoms. She will follow up in a month to assess for efficacy and tolerability of medicine. Future Appointments Date Time Provider Department Center 05/24/2024 4:00 PM JOSSIE Medina [facility] [address] I spent approx. 20 minutes reviewing the patient's chart, assessing the patient and counseling them on their symptoms, discussing test results, discussing the treatment plan and appropriate follow up. WILLIE GOLDEN DO documented in this encounter [facility] 01-05-2024 Miscellaneous Notes Patient called and stated on Friday she called in about a yeast infection that she had from taking antibiotics and was sent Diflucan to her local pharmacy. Patient states that now she is having a rash and blisters on and around her lips and is wondering if there is any kind of lip balm that she can use to clear this up? Informed patient that I would send provider a message and she would give her a call back soon. Called patient back and advised to try aquaphor for her lips and if things do not improve to call our office. She may be reacting to the antibiotic as well so she needs to monitor symptoms. She already took the Diflucan, did not get the one Friday so it was resent for her by other provider. documented in this encounter [facility] 01-05-2024 Telephone encounter Note Patient called and stated on Friday she called in about a yeast infection that she had from taking antibiotics and was sent Diflucan to her local pharmacy. Patient states that now she is having a rash and blisters on and around her lips and is wondering if there is any kind of lip balm that she can use to clear this up? Informed patient that I would send provider a message and she would give her a call back soon. [facility] 01-05-2024 Telephone encounter Note Called patient back and advised to try aquaphor for her lips and if things do not improve to call our office. She may be reacting to the antibiotic as well so she needs to monitor symptoms. She already took the Diflucan, did not get the one Friday so it was resent for her by other provider. [facility] 01-03-2024 History of Presen t illness Narrative Diflucan sent to [facility] in [place] at patient's request. JOSSIE Arora 01/26/24 1225 documented in this encounter [facility] 01-02-2024 Miscellaneous Notes Patient states she is on an antibiotic for a UTI and she now has a yeast infection. She is wondering if provider could send something in for her to help. I sent Diflucan, it can be taken while , but some can be passed onto baby (low concentrations of it). documented in this encounter [facility] 01-02-2024 Telephone encounter Note Patient states she is on an antibiotic for a UTI and she now has a yeast infection. She is wondering if provider could send something in for her to help. [facility] 01-02-2024 Telephone encounter Note I sent Diflucan, it can be taken while , but some can be passed onto baby (low concentrations of it). [facility] 12-11-2023 History of Presen t illness Narrative Patient arrived for outside labs,MA draw labs without any complications documented in this encounter [facility] 10-13-2023 History of Presen t illness Narrative Images from the original note were not included. 10/13/2023 [facility] SUBJECTIVE: Ivania Lucero is a 33 y.o. female who [...] Comment: NOTE Test Result Flag Unit RefValue -- AFP Single Marker SCRN, Maternal, S Results [...] repeat testing Initial testing Physician Phone Number [phone] GENERAL TEST INFORMATION See Note This screening [...] developed and its performance characteristics determined by [facility] in a manner consistent with CLIA requirements. This test has not been cleared or approved by the U.S. Food and Drug Administration. Test Performed by: [place] [address] Blister Pack Operator: Jose Palmer M.D. Ph.D.; CLIA# [id number] echo 2D W/ color flow Result Date: [...] of 151 beats per minute, normal mechanical [place] interval of 96milliseconds Other: No pericardial effusion [...] OB GROWTH Result Date: 09/29/2023 Narrative: [place] [address] Ultrasound Report Signed Patient: IVANIA LUCERO MR#: [id number] : 1990 Acct:[id number] Age/Sex: 33 / F ADM Date: 09/29/23 Loc: [facility] Attending Dr: Stepan Medina D.O. Ordering Physician: Stepan Medina D.O. Date of Service: 09/29/23 Procedure(s): US OB growth Accession Number(s): [id number] cc: Stepan Medina D.O.; Physician,Non-Staff M.DEllen [place] [address] Patient Name: IVANIA LUCERO MRN: [facility]:[id number] date: 1990 Sex: F Assigned Patient Location: [facility] Current Patient Location: [facility] Accession/Order Number: [id number] Exam Date: 09/29/2023 15:04 Report Date: 09/29/2023 16:16 At the request of: STEPAN MEDINA Procedure: US OB growth EXAMINATION: US [...] M.D. Signed By: 09/29/239 DD/ 15 TD/TT: Cheese Cooker: Physical Exam Vitals and nursing note reviewed. [...] normal. Thought Content: Thought content normal. ASSESSMENT/PLAN: Ivania was seen today for uri. Diagnoses and [...] APRN-CNP 10/14/23 1724 documented in this encounter [facility] 10-07-2023 History of Presen t illness Narrative [address] [address] October 07, 2023 Patient: Ivania Lucero Date of : 1990 Date of Visit: 10/07/[address] Stepan Medina I had the pleasure of seeing Ivania Lucero, at our pediatric cardiology clinic on 10/07/2023 .As you know,Ms Ivania Lucero is a 33 y.o. female referred to Cardiology (RACHEL 12/21/23) at 29 weeks and 2 days for observation of VSD. Ivania is accompanied by her boyfriend. Since Ms Ivania Moran denies having any cardiac symptoms:No chest [...] abnormal discharge. Positive for cramping and contractions (Gilmer-Zamorano). All other systems negative Current Outpatient Medications Medication Sig Dispense [facility] () 28 mg iron- 800 [...] Master's degree (e.g., MA, MS, [place], MEd, INSIDE TECHNICAL SALES REPRESENTATIVE, LACIE) Occupational History Not on file Tobacco [...] 30 min Stress: Stress Concern Present (12/28/2021) [place]ese [place] of Occupational Health - Occupational Stress Questionnaire Feeling of Stress : To some extent Social Connections: Moderately Isolated (12/28/2021) Social Connection and Isolation Panel [NHANES] Frequency of Communication with Friends and Family: More than three times a week Frequency of Social Gatherings with Friends and Family: Once a week Attends [employer] Services: 1 to 4 times per year [...] cardiac examination. My impression is that Ms Ivania Lucero is a 33 y.o. female who is currently gestational age 29 weeks and 2 days with a female fetus who today demonstrated normal intracardiac anatomy. With the aid of diagrams I discussed with Ms. Ivania Lucero and the father of the baby [...] concerns were addressed. Time spent with Ms Ivania Lucero was 95 minutes, 50% or more [...] for allowing me to participate in Ms Ivania uLcero's care .Please feel free to contact me if you have any queries or concerns. Sincerely, Oskar Wood M.D. Manager State [facility] This note is dictated with the use of M*Modal.Please note that this dictation was completed with computer voice recognition software. Quite often unanticipated grammatical, syntax, homophones, and other interpretive errors are inadvertently transcribed by the computer software. Please disregard these errors. Please excuse any errors that have escaped final proofreading. documented [facility] History of Presen t illness Narrative Reason for Appointment: Patient ID: Ivania Lucero is a 33 y.o. female who [...] History: Diagnosis Date Allergies Anxiety Bipolar disorder ([facility]) 2012 Depression ([facility]) Hemorrhoids History of gestational diabetes mellitus (GDM) [...] of: RETA Christopher documented in this encounter [facility] Evaluation note Diagnosis Third trimester state, incidental Gestational diabetes mellitus (GDM) in third trimester, gestational diabetes method of control unspecified documented in this encounter [facility] HealthcareEvaluation noteNo assessment information availableBucyrus [facility] Work Phone: Evaluation note* Diagnosis Vaginal discharge Leukorrhea, not specified as infective Dysuria PCOS (polycystic ovarian syndrome) Polycystic ovaries Yeast infection documented in this encounter [facility] HealthcareEvaluation note* Diagnosis Situational mixed anxiety and depressive disorder [facility] Diagnosis Encounter for laboratory examination- Primary documented in this encounter [facility]* Diagnosis Antibiotic-induced yeast infection- Primary [facility]* Diagnosis Antibiotic-induced yeast infection- Primary documented in this encounter [facility]* Diagnosis ventricular septal defect affecting antepartum care of mother, single or unspecified fetus- Primary ventricular septal defect in , antepartum, single gestation documented in this encounter [facility] note* Diagnosis General ill feeling- Primary Other ill-defined conditions documented in this encounter [facility] note* Diagnosis Situational mixed anxiety and depressive disorder- Primary documented in this encounter [facility] note* Diagnosis Situational mixed anxiety and depressive disorder- Primary [facility] Diagnosis Situational mixed anxiety and depressive disorder documented in this encounter [facility] note* Diagnosis Vaginal yeast infection- Primary Candidiasis of vulva and vagina documented in this encounter [facility] System[facility] note* Diagnosis Situational mixed anxiety and depressive disorder documented in this encounter [facility] note* Diagnosis Vaginal yeast infection Candidiasis of vulva and vagina documented in this encounter [facility] note* Diagnosis Influenza vaccine needed- Primary documented in this encounter [facility] note* Diagnosis Well woman exam (no gynecological exam)- Primary Routine general medical examination at a health care facility BMI 27.0-27.9,adult documented in this encounter [facility]* Diagnosis Vaginal itching- Primary Pruritus of genital organs documented in this encounter [facility] note* Diagnosis Hemorrhoids, unspecified hemorrhoid type- Primary Hay fever Allergic rhinitis, cause unspecified Multiple drug allergies documented in this encounter [facility] note* Diagnosis Situational mixed anxiety and depressive disorder documented in this encounter [facility] note* Diagnosis Ill feeling- Primary Other ill-defined conditions Situational mixed anxiety and depressive disorder documented in this encounter [facility] note* Diagnosis Vaginal yeast infection Candidiasis of vulva and vagina PCOS (polycystic ovarian syndrome) Polycystic ovaries Yeast infection documented in this encounter [facility] Healthcare[facility]* Diagnosis Seasonal allergic rhinitis due to pollen- Primary Multiple drug allergies PFAS (pollen-food allergy syndrome), initial encounter Food intolerance in adult Allergic contact dermatitis due to adhesives Contact dermatitis and other eczema due to other chemical products Allergic contact dermatitis due to drugs in contact with skin documented in this encounter [facility] note* Diagnosis Anxiety and depression- Primary Well woman exam with routine gynecological exam Routine gynecological examination documented in this encounter [facility] HealthcareInstructionsNot on filedocumented in this [facility] SystemInstructionsNot on filedocumented in this encounterPro[facility] SystemInstructionsNot on filedocumented in this encounterHol[facility] SystemInstructionsNot on filedocumented in this encounterHol[facility] System InstructionsNot on filedocumented in this encounterHolzer [facility] System InstructionsNot on filedocumented in this encounterHol[facility] System Instructions* Attachments The following attachments cannot be sent through Care Everywhere. * Viral Upper Respiratory Infection Discharge Instructions, Adult (Mauritanian) documented in [facility] SystemInstructionsNot on file documented [facility] SystemInstructionsNot on file documented in [facility] SystemInstructions* Attachments The following attachments cannot be sent through Care Everywhere. * Hemorrhoids Discharge Instructions (Mauritanian) documented in this [facility] Summary Purpose Family History Relationship Condition Age at Onset Recorded Date/T bismark family member Unknown Advance Directives No Advanced Directives Records FoundNo Advanced Directives Records FoundNo Advanced Directives Records FoundNo Advanced Directives Records FoundNo Advanced Directives Records Found Reason for Referral Specialty Diagnoses / Procedures Referred By Sola tracey Referred To Contact Diagnoses ventricular septal defect affecting antepartum care of mother, single or unspecified fetus Procedures echo 2D W/ color flow Oskar Wood MD [address] [place] [address] Referral ID Status Reason Start Date Expiration Date V isits Requested Visits Authorized [id number] Pending Review 10/07/2023 10/06/2024 1 1 Additional Source Comments INFORMATION SOURCE (unrecogn ized section and content) DATE CREATED AUTHOR 03/12/2022 [facility] DATE CREATED AUTHOR AUTHOR'S ORGANIZ ATION 12/18/2023 [facility] DATE CREATED AUTHOR AUTHOR'S ORGANIZ ATION 12/09/2024 [facility] EPIC DATE CREATED AUTHOR AUTHOR'S ORGANIZ ATION 12/11/2024 [facility] DATE CREATED AUTHOR AUTHOR'S ORGANIZ ATION 12/13/2024 [facility] Reason for Visit (unrecogniz ed section and content) Reason Comments Routine Visit Reason Comments Female Dysuria Reason Comments Med Refill Reason Comments observation of VSD Specialty Diagnoses / Procedures Referred By Contac t Referred To Contact Pediatric Cardiology Diagnoses ventricular septal defect in , antepartum, single gestation Stepan Medina, DO [address] [place] [address] Oskar Wood MD [address] [place] [address] Referral ID Status Reason Start Date Expiration Date Visits Requested Visits Authorized [id number] Pending Review Specialty Services Required 09/04/2023 09/03/2024 1 1 Reason Comments URI Patient symptoms sta rted ,fever,cough,congestionOTC....tylenol Reason Comments Anxiety Depression Reason Comments Depression Reason Comments Annual Exam Patient has no donell rns at this time. Patient is congestion and having body aches. Also cough started two weeks ago and glands hurting started today. Reason Comments Vaginal Itching Reason Comments Follow-up Patient stated that she had 2 yeast infection in the last 3 mths, Patient stated that she has been having itchiness over different parts of the body. Reason Comments recurring yeast infection Reason Comments New Patient Specialty Diagnoses / Procedures Referred By Contac t Referred To Contact Allergy and Immunology Diagnoses Hay fever Multiple drug allergies Allyssa Maguire M, ADMIN SECRETARY-INTERNET CONSULTANT [address] [facility] [address] [place] [address] Phone: tel: fax: [facility] [address] [place] [address] Phone: tel: fax: Referral ID Status Reason Start Date Expiration Date Visits Requested Visits Authorized [id number] Pending Review Second Opinion 4 07/13/2025 1 1 Reason Comments Well Women Visit Care Teams (unrecognized sec tion and content) Blood Bank Supervisor Relationship Specialty Start Date End Date Chris Maloney DO [address] [facility] [address] [place] [address] PCP - General Family Medicine 12/24/22 Team Status: Active Member Role Status Dates Chris Maloney DO Primary Care Provider Active Team Status: Inactive Member Role Status Dates Chris Maloney DO Primary Care Provider Active St art: December 15, 2023 End: December 15, 2023 Stepan Medina Attending Provider Active Start: Ap 2023 End: December 15, 2023 Blood Bank Supervisor Relationship Specialty Start Date End Date Chris Maloney DO [address] [place] [address] PCP - General Family Medicine 12/24/22 Blood Bank Supervisor Relationship Specialty Start Date End Date Chris Maloney DO [address] [place] [place] [address] PCP - General Family Medicine 12/24/22 Blood Bank Supervisor Relationship Specialty Start Date End Date Allyssa Maguire, ADMIN SECRETARY-[facility] [address], [address] [place] [address] PCP - General Family Medicine 10/29/21 Blood Bank Supervisor Relationship Specialty Start Date End Date Allyssa Maguire, ADMIN SECRETARY-[facility] [address], [address] [place] [address] PCP - General Family Medicine 10/29/21 Blood Bank Supervisor Relationship Specialty Start Date End Date Allyssa Maguire, ADMIN SECRETARY-[facility] [address], [address] [place] [address] PCP - General Family Medicine 10/29/21 Blood Bank Supervisor Relationship Specialty Start Date End Date Allyssa Maguire, ADMIN SECRETARY-[facility] [address], [address] [place] [address] PCP - General Family Medicine 10/29/21 Blood Bank Supervisor Relationship Specialty Start Date End Date Ting, Allyssa M, [facility] [address], [address] [place] [address] PCP - General Family Medicine 10/29/21 Blood Bank Supervisor Relationship Specialty Start Date End Date Allyssa Maguire, [facility] [address], [address] [place] [address] PCP - General Family Medicine 10/29/21 Blood Bank Supervisor Relationship Specialty Start Date End Date Allyssa Maguire [facility] [address], [address] [place] [address] PCP - General Family Medicine 10/29/21 Blood Bank Supervisor Relationship Specialty Start Date End Date Allyssa Maguire [facility] [address], [address] [place] [address] PCP - General Family Medicine 10/29/21 Blood Bank Supervisor Relationship Specialty Start Date End Date Allyssa Maguire [facility] [address] [place] [address] PCP - General Family Medicine 10/29/21 Blood Bank Supervisor Relationship Specialty Start Date End Date Allyssa Maguire, [facility] [address], [address] [place] [address] PCP - General Family Medicine 10/29/21 Blood Bank Supervisor Relationship Specialty Start Date End Date Allyssa Maguire [facility] [address], [address] [place] [address] PCP - General Family Medicine 10/29/21 Blood Bank Supervisor Relationship Specialty Start Date End Date Allyssa Maguire, [facility] [address], [address] [place] [address] PCP - General Family Medicine 10/29/21 Blood Bank Supervisor Relationship Specialty Start Date End Date Allyssa Maguire, [facility] [address] [place] [address] PCP - General Family Medicine 10/29/21 Blood Bank Supervisor Relationship Specialty Start Date End Date Allyssa Maguire, [facility] [address], [address] [place] [address] PCP - General Family Medicine 10/29/21 Blood Bank Supervisor Relationship Specialty Start Date End Date Allyssa Maguire, [facility] [address], [address] [place] [address] PCP - General Family Medicine 10/29/21 Blood Bank Supervisor Relationship Specialty Start Date End Date Allyssa Maguire, [facility] [address] [place] [address] PCP - General Family Medicine 10/29/21 Blood Bank Supervisor Relationship Specialty Start Date End Date Allyssa Maguire, [facility] [address] [place] [address] PCP - General Family Medicine 10/29/21 Blood Bank Supervisor Relationship Specialty Start Date End Date Allyssa Maguire [facility] [address] [place] [address] PCP - General Family Medicine 10/29/21 Blood Bank Supervisor Relationship Specialty Start Date End Date Chris Maloney, DO [address] [place] [address] PCP - General Family Medicine 12/24/22 Blood Bank Supervisor Relationship Specialty Start Date End Date Chris Maloney, DO [address] [place] [address] PCP - General Family Medicine 12/24/22 Blood Bank Supervisor Relationship Specialty Start Date End Date Allyssa Maguire, ADMIN SECRETARY-INTERNET CONSULTANT [address] [facility], [address] [place] [address] PCP - General Family Medicine 10/29/21 Blood Bank Supervisor Relationship Specialty Start Date End Date Chris Maloney, DO [address] [place] [address] PCP - General Family Medicine 12/24/22 Blood Bank Supervisor Relationship Specialty Start Date End Date Chris Maloney, DO [address] [place] [address] PCP - General Family Medicine 12/24/22 Goals (unrecognized section and content) Goals may be documented in a n alternate sectionNot on filedocumented as of this encounterNot on filedocumented as of this encounterNot on filedocumented as of this encounterNot on filedocumented as of this encounterNot on filedocumented as of this encounterNot on filedocumented as of this encounterNot on filedocumented as of this encounterNot on filedocumented as of this encounterNot on filedocumented as of this encounterNot on filedocumented as of this encounterNot on filedocumented as of this encounterNot on filedocumented as of this encounterNot on filedocumented as of this encounterNot on filedocumented as of this encounterNot on filedocumented as of this encounterNot on filedocumented as of this encounterNot on filedocumented as of this encounterNot on filedocumented as of this encounterNot on filedocumented as of this encounterNot on filedocumented as of this encounterNot on filedocumented as of this encounterNot on filedocumented as of this encounterNot on filedocumented as of this encounterNot on filedocumented as of this encounterNot on filedocumented as of this encounterNot on filedocumented as of this encounter FOR RECORDS PERTAINING TO PATIENTS WHO ARE [...] BE BASED ON THE PRIMARY CLINICAL RECORDS. [employer] [facility]. provides no warranty or guarantee of the accuracy or completeness of information in this document.
--- OUTSIDE RECORDS SUMMARY | 2025-03-30 19:15 | XMS_ITS | Encounter Summary ---
Author Organization [facility] Address [address] [place] [address] Care Team Providers Care Semi Truck Driver Name Role Phone Chris Rubio DO Primary Care Provider [phone] Encounter Details Date Type Department Care Team (Late st Contact Info) Description 10/01/2023 Abstract [facility] M[facility]RQUEZ [address] [place] [place] [address] Estefania Posadas LPN [address] [facility] [place] Klaudia BRYANT [place] [address] Social History Tobacco Use Types Packs/Day Years [...] EDT Procedure Visit [facility] M[facility]RQUEZ [address] [employer] [address] Stepan Medina DO [address] Maria Victoria Bryant [place] [address] documented as of this encounter Visit Diagnoses Not on filedocumented in this encounter Care Teams Semi Truck Driver Relationship Specialty Start Date End Date Chris Rubio DO [address] [place] [id number] PCP - General Family Medicine 12/24/22 documented as of this encounter
--- OUTSIDE RECORDS SUMMARY | 2025-03-30 19:15 | XMS_ITS | Encounter Summary ---
Author Organization [facility] Address [address] [place] [address] Care Team Providers Care Genetic Supervisor Name Role Phone Chris Rubio DO Primary Care Provider [phone] Encounter Details Date Type Department Care Team (Late st Contact Info) Description 08/10/2023 Clinisync Result Encounter N[facility] External Department Unsolicited Cristel Medina, DO [address], [place] [address] Social History Tobacco Use Types Packs/Day Years [...] [address] Cristel Medina DO [address], [facility] documented as of this encounter Procedures Procedure Name Priority Date/Time Associated Diagnosis Comments US OB ANATOMY 08/10/2023 12:44 AM EST documented in this encounter Results * US OB ANATOMY (08/10/2023 12:44 AM EST) Anatomical Region Laterality Modality Other 08/10/2023 12:4 4 AM EST Narrative 08/10/2023 12:47 [place] [address] Ultrasound Report Signed Patient: SOBIA CHAUDHARI MR#: [id number] : 1990 Acct:[id number] Age/Sex: 33 / F ADM Date: 08/09/23 Loc: US Attending Dr: Cristel Medina D.O. Ordering Physician: Cristel Medina D.O. Date of Service: 08/09/23 Procedure(s): US OB anatomy Accession Number(s): [id number] cc: Cristel Medina D.O.; Physician,Non-Staff M.DEllen The [place] [id number] Patient Name: SOBIA CHAUDHARI MRN: [id number] date: 1990 Sex: F Assigned Patient Location: US Current Patient Location: Accession/Order Number: [id number] Exam Date: 08/09/2023 11:18 Report Date: 08/10/2023 00:44 At the request of: CRISTEL MEDINA Procedure: US OB anatomy EXAMINATION: US OB anatomy, US OB transvaginal HISTORY: SECOND TRIMESTER Z 34.92 COMPARISON: No relevant comparison available. TECHNIQUE: Transabdominal sonographic examination was performed for obstetrical and evaluation. FINDINGS: Number: 1 Heart Rate: 139.9 bpm H.B. /min Amniotic Fluid Volume: Subjectively normal Placental Location: Anterior-fundal; lower margin is 4.8 cm from internal os. Cervix Length: 5 cm , closed. ANATOMY: Normal Structures -cerebellum, choroid plexus, cisterna magna, lateral cerebral ventricles, orbits, midline falx, hard palate, four-chamber heart, RVOT, LVOT, stomach, kidneys, bladder, umbilical cord insertion into abdomen, three-vessel cord, cervical spine, thoracic spine, lumbar spine, sacral spine, right upper extremity, left upper extremity, right lower extremity, left lower extremity. SUBOPTIMALLY SEEN: None ABNORMALITIES: None BIOMETRY: BPD: 5.2 cm 21 weeks 5 days HC: 19.3 cm 21 weeks 3 days AC: 15.7 cm 20 weeks 6 days FL: 3.6 cm 21 weeks 3 days EFW:406.0 grams; 64% FL/AC: 22.9 FL/BPD: 69.9 HC/AC: 1.2 GESTATIONAL AGE: Age by EDC: 20 weeks 6 days RACHEL by EDC: 12/21/2023 Age by current US: 21 weeks 3 days RACHEL by current US: 12/17/2023 US/US OB anatomy IMPRESSION: 1. Single live intrauterine with growth detailed above. Electronically authenticated by: J CARLOS LEARY Date: 08/10/2023 00:44 Dictated By: J Carlos Leary M.D. Signed By: 08/10/2346 DD/ TD/TT: Spool Salvager: Procedure Note Radiology, Radiologist, MD - 08/10/2023 [place] [address] Ultrasound Report Signed Patient: SOBIA CHAUDHARI EMR#: [id number] : 1990Acct:[id number] Age/Sex: 33 / FADM Date: 08/09/23 Loc: US Attending Dr: Cristel Medina D.O. Ordering Physician: Cristel Medina D.O. Date of Service: 08/09/23 Procedure(s): US OB anatomy Accession Number(s): [id number] cc: Cristel Medina D.O.; Physician,Non-Staff Xander The [address] [address] Patient Name: SOBIA CHAUDHARI MRN: [id number] date: 1990 Sex: F Assigned Patient Location: US Current Patient Location: Accession/Order Number: [id number] Exam Date: 08/09/2023 11:18 Report Date: 08/10/2023 00:44 At the request of: CRISTEL MEDINA Procedure: US OB anatomy EXAMINATION: US OB anatomy, US OB transvaginal HISTORY: SECOND TRIMESTER Z 34.92 COMPARISON: No relevant comparison available. TECHNIQUE: Transabdominal sonographic examination was performed for obstetrical and evaluation. FINDINGS: Number: 1 Heart Rate: 139.9 bpm H.B. /min Amniotic Fluid Volume: Subjectively normal Placental Location: Anterior-fundal; lower margin is 4.8 cm from internalos. Cervix Length: 5 cm , closed. ANATOMY: Normal Structures -cerebellum, choroid plexus, cisterna magna, lateral cerebral ventricles, orbits, midline falx, hard palate, four-chamberheart, RVOT, LVOT, stomach, kidneys, bladder, umbilical cord insertion intoabdomen, three-vessel cord, cervical spine, thoracic spine, lumbar spine, sacralspine, right upper extremity, left upper extremity, right lower extremity, leftlower extremity. SUBOPTIMALLY SEEN: None ABNORMALITIES: None BIOMETRY: BPD: 5.2 cm 21 weeks 5 days HC: 19.3 cm 21 weeks 3 days AC: 15.7 cm 20 weeks 6 days FL: 3.6 cm 21 weeks 3 days EFW:406.0 grams; 64% FL/AC: 22.9 FL/BPD: 69.9 HC/AC: 1.2 GESTATIONAL AGE: Age by EDC: 20 weeks 6 days RACHEL by EDC: 12/21/2023 Age by current US: 21 weeks 3 days RACHEL by current US: 12/17/2023 US/US OB anatomy IMPRESSION: 1. Single live intrauterine with growth detailed above. Electronically authenticated by: J CARLOS LEARY Date: 08/10/2023 00:44 Dictated By: J Carlos Leary M.D. Signed By:08/10/2346 DD/ TD/TT: Spool Salvager: us Cristel Medina DO [facility] Final Result documented in this encounter Visit Diagnoses Not on filedocumented in this encounter Care Teams Genetic Supervisor Relationship Specialty Start Date End Date Chris Rubio DO [address] [place] [address] PCP - General Family Medicine 12/24/22 documented as of this encounter
--- OUTSIDE RECORDS SUMMARY | 2025-03-30 19:15 | XMS_ITS | Encounter Summary ---
Author Organization [facility] Address [address] [place] [address] Care Team Providers Care Special Warfare Boat Operator Name Role Phone Chris Rubio DO Primary Care Provider Encounter Details Date Type Department Care Team (Late st Contact Info) Description 11/17/2023 Clinisync Result Encounter [facility] External Department Unsolicited Cristel Medina, DO [address], [place] [address] Social History Tobacco Use Types Packs/Day Years [...] Visit [facility] [address] [place] [address] Cristel Medina DO [address], [facility] documented as of this encounter Procedures Procedure Name Priority Date/Time Associated Diagnosis Comments US OB BPP W NON-STRESS 11/17/2023 11:15 AM EDT documented in this encounter Results * US OB BPP W NON-STRESS (11/17/2023 11:15 AM EDT) Anatomical Region Laterality Modality Other 11/17/2023 11:1 5 AM EDT Narrative 11/17/2023 11:18 [place] [address] Ultrasound Report Signed Patient: SOBIA CHAUDHARI MR#: [id number] : 1990 Acct:[id number] Age/Sex: 33 / F ADM Date: 11/14/23 Loc: US Attending Dr: Cristel Medina D.O. Ordering Physician: Cristel Medina D.O. Date of Service: 11/14/23 Procedure(s): US OB BPP w non-stress Accession Number(s): [id number] cc: Cristel Medina D.O.; Physician,Non-Staff M.DEllen The [place] [id number] Patient Name: SOBIA CHAUDHARI MRN: [facility]:[id number] date: 1990 Sex: F Assigned Patient Location: [facility] Current Patient Location: Accession/Order Number: [id number] Exam Date: 11/14/2023 17:00 Report Date: 11/17/2023 11:15 At the request of: CRISTEL MEDINA Procedure: US OB BPP w non-stress EXAMINATION: US OB BPP w non-stress HISTORY: GESTATIONAL DIABETES MELLITUS O24.419 COMPARISON: Ultrasound OB biophysical 11/07/2023 TECHNIQUE: Ultrasound biophysical profile was performed in the radiology department. BREATHING MOVEMENTS: 2.0 GROSS BODY MOVEMENTS: 2.0 TONE: 2.0 QUALITATIVE AMNIOTIC FLUID VOLUME: 2.0 PRESENTATION: CEPHALIC HEART RATE: 135.0 bpm bpm. AMNIOTIC FLUID VOLUME: 19.2 cm GESTATIONAL AGE: 34 weeks 5 days CONCLUSION: Total biophysical profile score 8.0. Electronically authenticated by: J CARLOS LEARY Date: 11/17/2023 11:15 Dictated By: J Carlos Leary M.D. Signed By: 11/17/238 DD/ 14 TD/TT: Drawer In Jacquard Loom: Procedure Note Radiology, Radiologist, - 11/20/2023 The [place] [id number] Ultrasound Report Signed Patient: SOBIA CHAUDHARI EMR#: [id number] : 1990Acct:[id number] Age/Sex: 33 / FADM Date: 11/14/23 Loc: US Attending Dr: Cristel Medina D.O. Ordering Physician: Cristel Medina D.O. Date of Service: 11/14/23 Procedure(s): US OB BPP w non-stress Accession Number(s): [id number] cc: Cristel Medina D.O.; Physician,Non-Staff Xander The [place] [id number] Patient Name: SOBIA CHAUDHARI MRN: [facility]:[id number] date: 1990 Sex: F Assigned Patient Location: [facility] Current Patient Location: Accession/Order Number: [id number] Exam Date: 11/14/2023 17:00 Report Date: 11/17/2023 11:15 At the request of: CRISTEL MEDINA Procedure: US OB BPP w non-stress EXAMINATION: US OB BPP w non-stress HISTORY: GESTATIONAL DIABETES MELLITUS O24.419 COMPARISON: Ultrasound OB biophysical 11/07/2023 TECHNIQUE: Ultrasound biophysical profile was performed in the radiology department. BREATHING MOVEMENTS: 2.0 GROSS BODY MOVEMENTS: 2.0 TONE: 2.0 QUALITATIVE AMNIOTIC FLUID VOLUME: 2.0 PRESENTATION: CEPHALIC HEART RATE: 135.0 bpm bpm. AMNIOTIC FLUID VOLUME: 19.2 cm GESTATIONAL AGE: 34 weeks 5 days CONCLUSION: Total biophysical profile score 8.0. Electronically authenticated by: J CARLOS LEARY Date: 11/17/2023 11:15 Dictated By: J Carlos Leary M.D. Signed By:11/17/231117 DD/ 14 TD/TT: Drawer In Jacquard Loom: us Cristel Medina DO [facility] Final Result documented in this encounter Visit Diagnoses Not on filedocumented in this encounter Care Teams Special Warfare Boat Operator Relationship Specialty Start Date End Date Chris Rubio DO [address] [place] [address] PCP - General Family Medicine 12/24/22 documented as of this encounter
--- OUTSIDE RECORDS SUMMARY | 2025-03-30 19:15 | XMS_ITS | Encounter Summary ---
Author Organization [facility] Address [address] [place] [address] Care Team Providers Care Chief Fundraising Officer Name Role Phone Chris Rubio DO Primary Care Provider [phone] Encounter Details Date Type Department Care Team (Late Contact Info) Description 10/16/2023 Abstract [facility] [address] [facility] [place] [address] Stepan Medina DO [facility] [address], [place] [address] Social History Tobacco Use Types Packs/Day Years [...] Procedure Visit [facility] MÁRQUEZ [address] [place] [address] Stepan Medina DO [facility] [address], [place] [address] documented as of this encounter Visit Diagnoses Not on filedocumented in this encounter Care Teams Chief Fundraising Officer Relationship Specialty Start Date End Date Chris Rubio DO [address] [place] [phone] PCP - General Family Medicine 12/24/22 documented as of this encounter
--- OUTSIDE RECORDS SUMMARY | 2025-03-30 19:15 | XMS_ITS | Encounter Summary ---
Author Organization [facility] Address [address] [place] [address] Care Team Providers Care Lubrication Supervisor Name Role Phone Chris Rubio DO Primary Care Provider [phone] Encounter Details Date Type Department Care Team (Late st Contact Info) Description 09/29/2023 Clinisync Result Encounter [facility] External Department Unsolicited Cristel Medina, DO [address], [place] [address] Social History Tobacco Use Types Packs/Day Years [...] Visit [facility] [address] [place] [address] Cristel Medina DO [address], [facility] documented as of this encounter Procedures Procedure Name Priority Date/Time Associated Diagnosis Comments US OB GROWTH 09/29/2023 4:16 PM EST documented in this encounter Results * US OB GROWTH (09/29/2023 4:16 PM EST) Anatomical Region Laterality Modality Other 09/29/2023 4:16 PM EST Narrative 09/29/2023 4:19 [place] [address] Ultrasound Report Signed Patient: SOBIA CHAUDHARI MR#: [id number] : 1990 Acct:[id number] Age/Sex: 33 / F ADM Date: 09/29/23 Loc: NOMS Attending Dr: Cristel Medina D.O. Ordering Physician: Cristel Medina D.O. Date of Service: 09/29/23 Procedure(s): US OB growth Accession Number(s): [id number] cc: Cristel Medina D.O.; Physician,Non-Staff M.Madhavi The [place] [address] Patient Name: SOBIA CHAUDHARI MRN: [id number] date: 1990 Sex: F Assigned Patient Location: [facility] Current Patient Location: [facility] Accession/Order Number: [id number] Exam Date: 09/29/2023 15:04 Report Date: 09/29/2023 [...] M.D. Signed By: 09/29/231618 DD/ 15 TD/TT: Senior Occupational Therapist: Procedure Note Radiology, Radiologist, MD - 09/29/2023 [place] [address] Ultrasound Report Signed Patient: SOBIA CHAUDHARI EMR#: [id number] : 1990Acct:[id number] Age/Sex: 33 / FADM Date: 09/29/23 Loc: NOMS Attending Dr: Cristel Medina D.O. Ordering Physician: Cristel Medina D.O. Date of Service: 09/29/23 Procedure(s): US OB growth Accession Number(s): [id number] cc: Cristel Medina D.O.; Physician,Non-Staff Xander The [place] [id number] Patient Name: SOBIA CHAUDHARI MRN: [facility]:[id number] date: 1990 Sex: F Assigned Patient Location: [facility] Current Patient Location: [facility] Accession/Order Number: [id number] Exam Date: 09/29/2023 15:04 Report Date: 09/29/2023 [...] 16:16 Dictated By: Alesia Johnson M.D. Signed By:09/29/231618 DD/ 15 TD/TT: Senior Occupational Therapist: us Cristel Medina DO [facility] Final Result documented in this encounter Visit Diagnoses Not on filedocumented in this encounter Care Teams Lubrication Supervisor Relationship Specialty Start Date End Date Chris Rubio DO [address] [address] PCP - General Family Medicine 12/24/22 documented as of this encounter
--- OUTSIDE RECORDS SUMMARY | 2025-03-30 19:15 | XMS_ITS | Encounter Summary ---
Author Organization [facility] Address [address] [place] [address] Care Team Providers Care Joiner Apprentice Name Role Phone Chris Rubio DO Primary Care Provider [phone] Encounter Details Date Type Department Care Team (Late st Contact Info) Description 11/22/2023 Clinisync Result Encounter [facility] External Department Unsolicited Cristel Medina, DO [address], [place] [address] Social History Tobacco Use Types Packs/Day Years [...] Visit [facility] [address] [place] [address] Cristel Medina DO [address], [facility]11 documented as of this encounter Procedures Procedure Name Priority Date/Time Associated Diagnosis Comments US OB BPP W NON-STRESS 11/22/2023 5:02 AM EDT documented in this encounter Results * US OB BPP W NON-STRESS (11/22/2023 5:02 AM EDT) Anatomical Region Laterality Modality Other 11/22/2023 5:02 AM EDT Narrative 11/22/2023 5:04 [place] [address] Ultrasound Report Signed Patient: SOBIA CHAUDHARI MR#: [id number] : 1990 Acct:[id number] Age/Sex: 33 / F ADM Date: 11/21/23 Loc: US Attending Dr: Cristel Medina D.O. Ordering Physician: Cristel Medina D.O. Date of Service: 11/21/23 Procedure(s): US OB BPP w non-stress Accession Number(s): [id number] cc: Cristel Medina D.O.; Physician,Non-Staff M.[place]havi [place] [address] Patient Name: SOBIA CHAUDHARI MRN: [facility]:[id number] date: 1990 Sex: F Assigned Patient Location: [facility] Current Patient Location: Accession/Order Number: [id number] Exam Date: 11/21/2023 17:06 Report Date: 11/22/2023 05:02 At the request of: CRISTEL MEDINA Procedure: US OB BPP w non-stress EXAMINATION: US OB BPP w non-stress HISTORY: GESTATIONAL DIABETES MELLITUS O24.419 COMPARISON: Ultrasound OB biophysical 11/14/2023 TECHNIQUE: Ultrasound biophysical profile was performed in the radiology department. BREATHING MOVEMENTS: 2.0 GROSS BODY MOVEMENTS: 2.0 TONE: 2.0 QUALITATIVE AMNIOTIC FLUID VOLUME: 2.0 PRESENTATION: CEPHALIC HEART RATE: 133.0 bpm bpm. AMNIOTIC FLUID VOLUME: 18.6 cm GESTATIONAL AGE: 35 weeks 6 days CONCLUSION: Total biophysical profile score 8.0. Electronically authenticated by: J CARLOS LEARY Date: 11/22/2023 05:02 Dictated By: J Carlos Leary M.D. Signed By: 11/22/23503 DD/ 1 TD/TT: Pulley Man: Procedure Note Radiology, Radiologist, - 11/22/2023 The [place] [id number] Ultrasound Report Signed Patient: SOBIA CHAUDHARI EMR#: [id number] : 1990Acct:[id number] Age/Sex: 33 / FADM Date: 11/21/23 Loc: US Attending Dr: Cristel Medina D.O. Ordering Physician: Cristel Medina D.O. Date of Service: 11/21/23 Procedure(s): US OB BPP w non-stress Accession Number(s): [id number] cc: Cristel Medina D.O.; Physician,Non-Staff Xander The [place] [id number] Patient Name: SOBIA CHAUDHARI MRN: [facility]:[id number] date: 1990 Sex: F Assigned Patient Location: [facility] Current Patient Location: Accession/Order Number: [id number] Exam Date: 11/21/2023 17:06 Report Date: 11/22/2023 05:02 At the request of: CRISTEL MEDINA Procedure: US OB BPP w non-stress EXAMINATION: US OB BPP w non-stress HISTORY: GESTATIONAL DIABETES MELLITUS O24.419 COMPARISON: Ultrasound OB biophysical 11/14/2023 TECHNIQUE: Ultrasound biophysical profile was performed in the radiology department. BREATHING MOVEMENTS: 2.0 GROSS BODY MOVEMENTS: 2.0 TONE: 2.0 QUALITATIVE AMNIOTIC FLUID VOLUME: 2.0 PRESENTATION: CEPHALIC HEART RATE: 133.0 bpm bpm. AMNIOTIC FLUID VOLUME: 18.6 cm GESTATIONAL AGE: 35 weeks 6 days CONCLUSION: Total biophysical profile score 8.0. Electronically authenticated by: J CARLOS LEARY Date: 11/22/2023 05:02 Dictated By: J Carlos Leary M.D. Signed By:11/22/23503 DD/ 1 TD/TT: Pulley Man: us Cristel Medina DO [facility] Final Result documented in this encounter Visit Diagnoses Not on filedocumented in this encounter Care Teams Joiner Apprentice Relationship Specialty Start Date End Date Chris Rubio DO [address] [place] [address] PCP - General Family Medicine 12/24/22 documented as of this encounter
--- OUTSIDE RECORDS SUMMARY | 2025-03-30 19:15 | XMS_ITS | Encounter Summary ---
Author Organization [facility] Address [address] [place] [address] Care Team Providers Care Grove Worker Name Role Phone Chris Rubio DO Primary Care Provider [phone] Encounter Details Date Type Department Care Team (Late Contact Info) Description 08/13/2023 Abstract [facility] [address] [facility] [place] [address] Stepan Medina DO [facility] [address], [place] [address] Social History Tobacco Use Types Packs/Day Years [...] Procedure Visit [facility] [address] [place] [address] Stepan Medina DO [facility] [address], [place] [address] documented as of this encounter Visit Diagnoses Not on filedocumented in this encounter Care Teams Grove Worker Relationship Specialty Start Date End Date Chris Rubio DO [address] [place] [phone] PCP - General Family Medicine 12/24/22 documented as of this encounter
--- OUTSIDE RECORDS SUMMARY | 2025-03-30 19:15 | XMS_ITS | Encounter Summary ---
Author Organization [facility] Address [address] [place] [address] Care Team Providers Care Guest Relations Executive Name Role Phone Chris Rubio DO Primary Care Provider [phone] Encounter Details Date Type Department Care Team (Late st Contact Info) Description 11/10/2023 Clinisync Result Encounter [facility] External Department Unsolicited Cristel Medina, DO [address], [facility]11 Social History Tobacco Use Types Packs/Day Years [...] Visit [facility] [address] [place] [address] Cristel Medina DO [address], [facility]11 documented as of this encounter Procedures Procedure Name Priority Date/Time Associated Diagnosis Comments US OB BPP W NON-STRESS 11/10/2023 7:25 AM EDT documented in this encounter Results * US OB BPP W NON-STRESS (11/10/2023 7:25 AM EDT) Anatomical Region Laterality Modality Other 11/10/2023 7:25 AM EDT Narrative 11/10/2023 7:28 [place] [address] Ultrasound Report Signed Patient: SOBIA CHAUDHARI MR#: [id number] : 1990 Acct:[id number] Age/Sex: 33 / F ADM Date: 11/07/23 Loc: US Attending Dr: Cristel Medina D.O. Ordering Physician: Cristel Medina D.O. Date of Service: 11/07/23 Procedure(s): US OB BPP w non-stress Accession Number(s): [id number] cc: Cristel Medina D.O.; Physician,Non-Staff M.DEllen The [place] [id number] Patient Name: SOBIA CHAUDHARI MRN: [id number] date: 1990 Sex: F Assigned Patient Location: Current Patient Location: Accession/Order Number: [id number] Exam Date: 11/07/2023 18:30 Report Date: 11/10/2023 07:25 At the request of: CRISTEL MEDINA Procedure: US OB BPP w non-stress EXAMINATION: US OB BPP w non-stress HISTORY: GESTATIONAL DIABETES MELLITUS O24.419 COMPARISON: No relevant comparison available. TECHNIQUE: Ultrasound biophysical profile was performed in the radiology department. non-reactive stress testing was performed by nursing staff in the birthing center. FINDINGS: BREATHING MOVEMENTS: 2.0 GROSS BODY MOVEMENTS: 2.0 TONE: 2.0 QUALITATIVE AMNIOTIC FLUID VOLUME: 2.0 PRESENTATION: CEPHALIC HEART RATE: 137.8 bpm H.B./min AMNIOTIC FLUID VOLUME: 12.8 cm cm GESTATIONAL AGE: 33 weeks 5 days Area of hypoechogenicity in the placenta measuring 1.9 cm possibly a placental garcia CONCLUSION: Total biophysical profile score: 8.0 Electronically authenticated by: ALESIA JOHNSON Date: 11/10/2023 07:25 Dictated By: Alesia Johnson M.D. Signed By: 11/10/23727 DD/ 4 TD/TT: Cemetery Counselor: Procedure Note Radiology, Radiologist, - 11/10/2023 [place] [address] Ultrasound Report Signed Patient: SOBIA CHAUDHARI EMR#: [id number] : 1990Acct:[id number] Age/Sex: 33 / FADM Date: 11/07/23 Loc: US Attending Dr: Cristel Medina D.O. Ordering Physician: Cristel Medina D.O. Date of Service: 11/07/23 Procedure(s): US OB BPP w non-stress Accession Number(s): [id number] cc: Cristel Medina D.O.; Physician,Non-Staff Xander The [address] [address] Patient Name: SOBIA CHAUDHARI MRN: [facility]:[id number] date: 1990 Sex: F Assigned Patient Location: US Current Patient Location: US Accession/Order Number: [id number] Exam Date: 11/07/2023 18:30 Report Date: 11/10/2023 07:25 At the request of: CRISTEL MEDINA Procedure: US OB BPP w non-stress EXAMINATION: US OB BPP w non-stress HISTORY: GESTATIONAL DIABETES MELLITUS O24.419 COMPARISON: No relevant comparison available. TECHNIQUE: Ultrasound biophysical profile was performed in the radiology department. non-reactive stress testing was performed by nursingstaff in the birthing center. FINDINGS: BREATHING MOVEMENTS: 2.0 GROSS BODY MOVEMENTS: 2.0 TONE: 2.0 QUALITATIVE AMNIOTIC FLUID VOLUME: 2.0 PRESENTATION: CEPHALIC HEART RATE: 137.8 bpm H.B./min AMNIOTIC FLUID VOLUME: 12.8 cm cm GESTATIONAL AGE: 33 weeks 5 days Area of hypoechogenicity in the placenta measuring 1.9 cm possibly aplacental garcia CONCLUSION: Total biophysical profile score: 8.0 Electronically authenticated by: ALESIA JOHNSON Date: 11/10/2023 07:25 Dictated By: Alesia Johnson M.D. Signed By:11/10/23727 DD/ 4 TD/TT: Cemetery Counselor: us Cristel Medina DO [facility] Final Result documented in this encounter Visit Diagnoses Not on filedocumented in this encounter Care Teams Guest Relations Executive Relationship Specialty Start Date End Date Chris Rubio DO [address] [place] [phone] PCP - General Family Medicine 12/24/22 documented as of this encounter
--- OUTSIDE RECORDS SUMMARY | 2025-03-30 19:15 | XMS_ITS | Encounter Summary ---
Author Organization [facility] Address [address] [place] [address] Care Team Providers Care Dry Heat Room Attendant Name Role Phone Chris Rubio DO Primary Care Provider [phone] Encounter Details Date Type Department Care Team (Late st Contact Info) Description 09/03/2023 Abstract [facility] [address] [facility] [place] [address] Stepan Medina DO [facility] [address], [place] [address] Social History Tobacco Use Types Packs/Day Years [...] Procedure Visit [facility] [address] [place] [address] Stepan Medina DO [facility] [address], [place] [address] documented as of this encounter Visit Diagnoses Not on filedocumented in this encounter Care Teams Dry Heat Room Attendant Relationship Specialty Start Date End Date Chris Rubio DO [address] [place] [phone] PCP - General Family Medicine 12/24/22 documented as of this encounter
--- OUTSIDE RECORDS SUMMARY | 2025-03-30 19:15 | XMS_ITS | Clinical Summary ---
Author Organization [facility] Address [address], [address] [place] [address] Care Team Providers Care Plating Tank Operator Name Role Phone Scar Golden Primary Care Provider [phone] Allergies Active Allergy Reactions Criticality Noted Date Comments Penicillins Hives 10/22/2016 Sulfa Antibiotics Rash,Itching,Swelling High 022 Tramadol Hcl Anxiety Low 10/22/2016 Medications Blood Glucose Monitoring Suppl (CONTOUR NEXT EZ) w/Device KIT USE TO TEST BLOOD SUGAR IN THE MORNING AND BEFORE BEDTIME 3 Active TRUE METRIX PRO BLOOD GLUCOSE strip Use as instructed 3 Active Microlet Lancets MISC USE TO TEST BLOOD SUAGR ONCE IN THE MORNING AND AT BEDTIME 3 Active Vit-Fe Fumarate-FA ( VITAMIN) 28-0.8 MG TABS tablet Take by mouth A ctive aspirin 81 MG EC tablet Take 1 tablet by mouth daily Active Social History Tobacco Use Types Packs/Day Years Used Date Smoking Tobacco: Never Smokeless Tobacco: Never Tobacco Cessation:Counseling Given: No Alcohol Use Standard Drinks/Week Comments Not Currently 0 (1 standard drink = 0.6 oz pur e alcohol) Comments No Sex and Gender Information Value Date Recorded Sex Assigned at Female 08/25/2023 2:57 PM EST Legal Sex Female 10:06 AM EST Gender Identity Female 08/25/2023 2:57 PM EST Sexual Orientation Not on file Last Filed Vital Signs Vital Sign Reading Time Taken Comments Blood Pressure 120/74 08/26/2023 12:47 PM EST Pulse 90 08/26/2023 12:47 PM EST Temperature 36.7 C (98 F) 08/26/2023 12:47 PM EST Respiratory Rate 16 08/26/2023 12:47 PM EST Oxygen Saturation - - Inhaled Oxygen Concentration - - Weight 71.2 kg (157 lb) 08/26/2023 12:47 PM EST Height 160 cm (5' 3 ) 08/26/2023 12:47 PM EST Body Mass Index 27.81 08/26/2023 12:47 PM EST Plan of Treatment Not on file Insurance [employer] Care Teams Plating Tank Operator Relationship Specialty Start Date End Date Scar Golden DO PCP - General Family Medicine 08/26/23
--- OUTSIDE RECORDS SUMMARY | 2025-03-30 19:15 | XMS_ITS | Encounter Summary ---
Author Organization [facility] Address [address] [place] [address] Care Team Providers Care Snowboard Designer Name Role Phone JoanneChris DO Primary Care Provider [phone] Encounter Details Date Type Department Care Team (Late st Contact Info) Description 05/15/2023 Orders Only [facility] [address] [facility] [address] [place] [address] A, Unknown Practice [address] [place], [place] [address] Social History Tobacco Use Types Packs/Day Years Used Date Smoking Tobacco: Never Assessed Comments Yes Sex and Gender Information Value [...] suspected to have Coronavirus/COVID-19? No / Unsure 05/15/2023 12:30 PM EDT documented as of this encounter Plan of Treatment Upcoming Encounters Date Type Department Care Team (Late st Contact Info) Description 05/08/2026 4:00 PM EDT Procedure Visit [facility] [address] [facility] [place] [address] Stepan Medina DO [address], [place] [address] documented as of this encounter Procedures Procedure Name Priority Date/Time Associated Diagnosis Comments OB US TRANSVAGINAL Routine 05/15/2023 3:38 PM EDT documented in this encounter Results * OB US TRANSVAGINAL (05/15/2023 3:38 PM EDT) Anatomical Region Laterality Modality Radiographic Breanne ging us Unknown Practice A IMG XR PROCEDURES Final Resul t documented in this encounter Visit Diagnoses Not on filedocumented in this encounter Care Teams Snowboard Designer Relationship Specialty Start Date End Date Chris Rubio DO [address] [place] [address] PCP - General Family Medicine 12/24/22 documented as of this encounter
--- OUTSIDE RECORDS SUMMARY | 2025-03-30 19:15 | XMS_ITS | Encounter Summary ---
Author Organization [facility] Address [address] [place] [address] Care Team Providers Care System Architect Name Role Phone Chris Rubio DO Primary Care Provider [phone] Encounter Details Date Type Department Care Team (Late st Contact Info) Description 08/10/2023 Clinisync Result Encounter [facility] External Department Unsolicited Cristel Medina, DO [address], [place] [address] Social History Tobacco Use Types Packs/Day Years [...] EDT Procedure Visit [facility] [address] [place] [address] Cristel Medina DO [address], [facility]11 documented as of this encounter Procedures Procedure Name Priority Date/Time Associated Diagnosis Comments US OB TRANSVAGINAL 08/10/2023 12 :44 AM EST documented in this encounter Results * US OB TRANSVAGINAL (08/10/2023 12:44 AM EST) Anatomical Region Laterality Modality Other 08/10/2023 12:4 4 AM EST Narrative 08/10/2023 12:47 [place] [address] Ultrasound Report Signed Patient: SOBIA CHAUDHARI MR#: [id number] : 1990 Acct:[id number] Age/Sex: 33 / F ADM Date: 08/09/23 Loc: US Attending Dr: Cristel Medina D.O. Ordering Physician: Cristel Medina D.O. Date of Service: 08/09/23 Procedure(s): US OB transvaginal Accession Number(s): [id number] cc: Cristel Medina D.O.; Physician,Non-Staff M.DEllen [place] [address] Patient Name: SOBIA CHAUDHARI MRN: [id number] date: 1990 Sex: F Assigned Patient Location: US Current Patient Location: Accession/Order Number: [id number] Exam Date: 08/09/2023 11:18 Report Date: 08/10/2023 00:44 At the request of: CIRSTEL MEDINA Procedure: US OB transvaginal EXAMINATION: US OB anatomy, US OB transvaginal [...] RACHEL by current US: 12/17/2023 US/US OB transvaginal IMPRESSION: 1. Single live intrauterine with growth detailed above. Electronically authenticated by: J CARLOS LEARY Date: 08/10/2023 00:44 Dictated By: J Carlos Leary M.D. Signed By: 08/10/2346 DD/ TD/TT: Equipment Sales Specialist: Procedure Note Radiology, Radiologist, MD - 10/22/2023 [place] [address] Ultrasound Report Signed Patient: SOBIA CHAUDHARI EMR#: [id number] : 1990Acct:[id number] Age/Sex: 33 / FADM Date: 08/09/23 Loc: US Attending Dr: Cristel Medina D.O. Ordering Physician: Cristel Medina D.O. Date of Service: 08/09/23 Procedure(s): US OB transvaginal Accession Number(s): [id number] cc: Cristel Medina D.O.; Physician,Non-Staff Xander The [address] [address] Patient Name: SOBIA CHAUDHARI MRN: [id number] date: 1990 Sex: F Assigned Patient Location: US Current Patient Location: Accession/Order Number: [id number] Exam Date: 08/09/2023 11:18 Report Date: 08/10/2023 00:44 At the request of: CRISTEL MEDINA Procedure: US OB transvaginal EXAMINATION: US OB anatomy, US OB transvaginal [...] RACHEL by current US: 12/17/2023 US/US OB transvaginal IMPRESSION: 1. Single live intrauterine with growth detailed above. Electronically authenticated by: J CARLOS LEARY Date: 08/10/2023 00:44 Dictated By: J Carlos Leary M.D. Signed By:08/10/2346 DD/ TD/TT: Equipment Sales Specialist: us Cristel Medina DO [facility] Final Result documented in this encounter Visit Diagnoses Not on filedocumented in this encounter Care Teams System Architect Relationship Specialty Start Date End Date Chris Rubio DO [address] [place] [address] PCP - General Family Medicine 12/24/22 documented as of this encounter
--- OUTSIDE RECORDS SUMMARY | 2025-03-30 19:15 | XMS_ITS | Encounter Summary ---
Author Organization [facility] Address [address] [place] [address] Care Team Providers Care Floor Finisher Name Role Phone Sayra Rubio DO Primary Care Provider Encounter Details Date Type Department Care Team (Late st Contact Info) Description 05/15/2023 Clinisync Result Encounter [facility] External Department Unsolicited Provider, Generic External Data Social History Tobacco Use Types Packs/Day Years [...] EDT Procedure Visit [facility] [address] [facility] [place] [address] Cristel Medina DO [address] [facility] [place] [address] documented as of this encounter Procedures Procedure Name Priority Date/Time Associated Diagnosis Comments US OB TRANSVAGINAL 05/15/2023 3: 27 PM EDT documented in this encounter Results * US OB TRANSVAGINAL (05/15/2023 3:27 PM EDT) Anatomical Region Laterality Modality Other 05/15/2023 3:27 PM EDT Narrative 05/15/2023 3:27 PM EDT [address] [address] Ultrasound Report Signed Patient: IVANIA CHAUDHARI MR#: [id number] : 1990 Acct:[id number] Age/Sex: 33 / F ADM Date: 05/15/23 Loc: US Attending Dr: Cristel Medina D.O. Ordering Physician: Cristel Medina D.O. Date of Service: 05/15/23 Procedure(s): US OB transvaginal Accession Number(s): [id number] cc: SAYRA RUBIO ; Cristel Medina D.O. [place] [id number] Patient Name: IVANIA CHAUDHARI MRN: [id number] date: 1990 Sex: F Assigned Patient Location: US Current Patient Location: US Accession/Order Number: [id number] Exam Date: 05/15/2023 14:07 Report Date: 05/15/2023 15:27 At the request of: CRISTEL MEDINA Procedure: US OB transvaginal EXAMINATION: US OB transvaginal HISTORY: MISSED MENSES COMPARISON: No relevant comparison available. FINDINGS: GESTATIONAL SAC: Present YOLK SAC: Present POLE: Present CARDIAC: Present UTERUS: Normal size and appearance. OVARIES: Right: Normal. Left: Not seen. CERVIX: 4.3 cm in length and closed. CUL-DE-SAC: Normal. OTHER: None. AGE BY LMP: 10 weeks 0 days RACHEL BY LMP: 12/11/2023 AGE BY US CRL: 8 weeks 4 days RACHEL BY US CRL: 12/21/2023 US/US OB transvaginal IMPRESSION: 1. Uterus is retroverted placement deep within the pelvis which limits evaluation. 2. Single intrauterine . 3. The fetus is not well seen and there is a questionable adjacent structures/mass. This very well could represent normal protrusion of abdominal contents external to the abdomen between weeks 6 and 10. Follow-up is recommended. Electronically authenticated by: J CARLOS LEARY Date: 05/15/2023 15:27 Dictated By: J Carlos Leary M.D. Signed By: 05/15/23 1529 DD/ 1527 TD/TT: Informatics Coordinator: Procedure Note Radiology, Radiologist, MD - 05/15/2023 [place] [address] Ultrasound Report Signed Patient: IVANIA CHAUDHARI EMR#: [id number] : 1990Acct:[id number] Age/Sex: 33 / FADM Date: 05/15/23 Loc: US Attending Dr: Cristel Medina D.O. Ordering Physician: Cristel Medina D.O. Date of Service: 05/15/23 Procedure(s): US OB transvaginal Accession Number(s): [id number] cc: SAYRA RUBIO ; Cristel Medina D.O. The [place] [id number] Patient Name: IVANIA CHAUDHARI MRN: [id number] date: 1990 Sex: F Assigned Patient Location: US Current Patient Location: US Accession/Order Number: [id number] Exam Date: 05/15/2023 14:07 Report Date: 05/15/2023 15:27 At the request of: CRISTEL MEDINA Procedure: US OB transvaginal EXAMINATION: US OB transvaginal HISTORY: MISSED MENSES COMPARISON: No relevant comparison available. FINDINGS: GESTATIONAL SAC: Present YOLK SAC: Present POLE: Present CARDIAC: Present UTERUS: Normal size and appearance. OVARIES: Right: Normal. Left: Not seen. CERVIX: 4.3 cm in length and closed. CUL-DE-SAC: Normal. OTHER: None. AGE BY LMP: 10 weeks 0 days RACHEL BY LMP: 12/11/2023 AGE BY US CRL: 8 weeks 4 days RACHEL BY US CRL: 12/21/2023 US/US OB transvaginal IMPRESSION: 1. Uterus is retroverted placement deep within the pelvis which limits evaluation. 2. Single intrauterine . 3. The fetus is not well seen and there is a questionable adjacent structures/mass. This very well could represent normal protrusion ofabdominal contents external to the abdomen between weeks 6 and 10. Follow-up is recommended. Electronically authenticated by: J CARLOS LEARY Date: 05/15/2023 15:27 Dictated By: J Carlos Leary M.D. Signed By:05/15/23 1529 DD/ 1527 TD/TT: Informatics Coordinator: us Generic External Data Provider [facility] Final Result documented in this encounter Visit Diagnoses Not on filedocumented in this encounter Care Teams Floor Finisher Relationship Specialty Start Date End Date Sayra Rubio DO [address] [place] [address] PCP - General Family Medicine 12/24/22 documented as of this encounter
--- OUTSIDE RECORDS SUMMARY | 2025-03-30 19:15 | XMS_ITS | Encounter Summary ---
Author Organization [facility] Address [address] [place] [address] Care Team Providers Care Vice President Biostatistics Name Role Phone Chris Rubio DO Primary Care Provider [phone] Encounter Details Date Type Department Care Team (Late Contact Info) Description 06/02/2023 Abstract [facility] [address] [place] [address] Stepan Medina DO [address] [place], [place] [address] Social History Tobacco Use Types Packs/Day Years [...] PM EDT Procedure Visit [facility] [address] [place] [address] Stepan Medina DO [address] [place] [address] documented as of this encounter Visit Diagnoses Not on filedocumented in this encounter Care Teams Vice President Biostatistics Relationship Specialty Start Date End Date Chris Rubio DO [address] [place] [address] PCP - General Family Medicine 12/24/22 documented as of this encounter
--- OUTSIDE RECORDS SUMMARY | 2025-03-30 19:15 | XMS_ITS | Encounter Summary ---
Author Organization [facility] Address [address] [place] [address] Care Team Providers Care Box Feeder Name Role Phone Chris Rubio DO Primary Care Provider [phone] Encounter Details Date Type Department Care Team (Late st Contact Info) Description 09/03/2023 Abstract [facility] [address] [place] [address] Estefania Posadas LPN [address] [place] [place] [address] Social History Tobacco Use Types Packs/Day Years [...] EDT Procedure Visit [facility] [address] [facility] [place] [id number] Stepan Medina DO [address] [place] [address] documented as of this encounter Visit Diagnoses Not on filedocumented in this encounter Care Teams Box Feeder Relationship Specialty Start Date End Date Chris Rubio DO [address] [place] [phone] PCP - General Family Medicine 12/24/22 documented as of this encounter
== END 2025-03-30 19:10 | disposition home or self-care (01) ==
LOC: LAB 19:09
PROVIDERS: Visit Provider Obstetrics & Gynecology
DX: Z01.419 Encounter for gynecological examination (general) (routine) without abnormal findings (principal)
CPT/HCPCS: 87624; 88175